=== PATIENT | male | born 1985 | race Caucasian/White ===

== ENCOUNTER 2017-03-13 20:00 | Emergency (ER) | payer OTHER ==
[2017-03-13 20:09] VITALS: BP 118/83; PULSE 104; TEMP 98.6; BMI 32.5
--- NOTE | 2017-03-13 21:20 | PDOC ---
History of Present Illness - History of Present Illness Initial Comments: 03/13/17 21:20 The patient is a 31 year old male, with a significant past medical history of diabetes and osteomyelitis (right foot), who presents to the emergency department with discomfort to his left lower extremity requesting the removal of his LLE cast which was placed by Dr. Carrillo ([facility] Podiatry resident) on 03/09/17 to unload the pressure from a diabetic ulcer. He reports his ulcer is located on the plantar aspect of his left foot near his 1st toe. The patient reports the cast got wet in the rain today and his left foot now feels humid and tight, and also complains of left knee pain. He states his left lower extremity has been uncomfortable since the cast was placed and now that his foot is wet inside the cast, requests the cast be taken off. He states he went to [facility] ED prior to coming to [place], however, their ED staff informed his they do not have the proper equipment to remove the cast tonight. He denies chest pain, shortness of breath, headache and dizziness. He denies fever, chills, nausea, vomit, diarrhea and constipation. He denies dysuria, frequency, urgency and hematuria. Allergies: NKDA Past surgical history: right 5th toe amputation <Dominique Baez - Last Filed: 03/13/17 21:20> <Chau Regalado - Last Filed: 03/13/17 21:42> - General Chief Complaint: Wound Stated Complaint: WOUND INFECTION Time Seen by Provider: 03/13/17 20:10 Past History <Dominique Baez - Last Filed: 03/13/17 21:20> - Past Medical History Anemia: No Asthma: No Cancer: No Cardiac Disorders: No CVA: No COPD: No CHF: No Dementia: No Diabetes: Yes GI Disorders: No Disorders: No HTN: No Hypercholesterolemia: No Liver Disease: No Seizures: No Thyroid Disease: No Other medical history: osteomyelitis - Surgical History Abdominal Surgery: No Appendectomy: No Cardiac Surgery: No Cholecystectomy: No Lung Surgery: No Neurologic Surgery: No Orthopedic Surgery: No - Psycho/Social/Smoking Cessation Hx Suicidal Ideation: No Smoking History: Current every day smoker Have you smoked in the past 12 months: Yes Number of Cigarettes Smoked Daily: 20 Information on smoking cessation initiated: No <Chau Regalado - Last Filed: 03/13/17 21:42> - Past Medical History Allergies/Adverse Reactions: Allergies Allergy/AdvReac Type Severity Reaction Status Date / Time No Known Allergies Allergy Verified 03/13/17 20:05 Home Medications: Ambulatory Orders Humalog ACHS 12/27/15 Insulin Glargine,Hum.rec.anlog [Lantus (10mL VIAL) -] 42 units SQ HS 12/27/15 Quetiapine Fumarate "Xr" [Seroquel XR] 200 mg PO DAILY 12/27/15 Zolpidem Tartrate [Ambien] 10 mg PO HS PRN 03/13/17 Review of Systems - Review of Systems Able to Perform ROS?: Yes Comments:: 03/13/17 21:20 CONSTITUTIONAL: No fever, no chills, no fatigue EYES: No visual changes ENT: No ear pain, no sore throat CARDIOVASCULAR: No chest pain, no palpitations RESPIRATORY: No cough, no SOB GI: No abdominal pain, no nausea, no vomiting, no constipation, no diarrhea GENITOURINARY: No dysuria, no frequency, no hematuria MUSKULOSKELETAL: (+) Left lower extremity discomfort from cast. No backpain, no joint pain, no myalgias SKIN: No rash NEURO: No headache <Dominique Baez - Last Filed: 03/13/17 21:20> *Physical Exam - Vital Signs Last Vital Signs Temp Pulse Resp BP Pulse Ox 98.6 F 104 H 16 118/83 100 03/13/17 20:07 03/13/17 20:07 03/13/17 20:07 03/13/17 20:07 03/13/17 20:07 - Physical Exam Comments: 03/13/17 21:21 CONSTITUTIONAL: Well-appearing; well-nourished; in no apparent distress HEAD: Normocephalic; atraumatic EYES: PERRL; EOM intact ENMT: External appears normal; normal oropharynx NECK: Supple; non-tender; no cervical lymphadenopathy CARD: Normal S1, S2; no murmurs, rubs, or gallops RESP: Normal chest excursion with respiration; breath sounds clear and equal bilaterally; no wheezes, rhonchi, or rales ABD: Soft, non-distended; non-tender; no palpable organomegaly, no palpable hernias SKIN: Warm, dry, no rash NEURO: No focal neurological deficiencies. <Dominique Baez - Last Filed: 03/13/17 21:20> - Vital Signs Last Vital Signs Temp Pulse Resp BP Pulse Ox 98.6 F 104 H 16 118/83 100 03/13/17 20:07 03/13/17 20:07 03/13/17 20:07 03/13/17 20:07 03/13/17 20:07 - Physical Exam Comments: 03/13/17 21:23 EXTR: LLE: Short leg cast in place with the distal part appearing to be wet and partially torn. Short cast leg removed with resolution of patient's leg discomfort. There appears to be a stage I foot ulcer over the plantar aspect of the first MTP. There is no evidence of cellulitis or osteomyelitis at this time. <Chau Regalado - Last Filed: 03/13/17 21:42> Medical Decision Making - Medical Decision Making 03/13/17 21:42 Patient is a 32-year-old male with history of diabetes who presents with left lower extremity discomfort due to a short leg cast placed by podiatry service of [facility]. Short leg cast has been removed without complications. Patient's symptoms resolved. Stage I foot ulcer noted (no evidence of acute infection). We'll discharge. <Chau Regalado - Last Filed: 03/13/17 21:42> *DC/Admit/Observation/Transfer - Attestations Scribe Attestion: 03/13/17 21:21 Documentation prepared by Dominique Baez, acting as lpn medical assistant for Chau Regalado MD <Dominique Baez - Last Filed: 03/13/17 21:20> - Discharge Dispostion Admit: No - Attestations Physician Attestion: 03/13/17 21:22 The documentation was prepared by the scribe under my direct supervision. I have reviewed the documentation which correctly represents the findings, medical decision-making and critical action taken by me. <Chau Regalado - Last Filed: 03/13/17 21:42> Diagnosis at time of Disposition: Cast removal Foot ulcer Qualifiers: Laterality: left Non-pressure ulcer stage: limited to breakdown of skin Qualified Code(s): L97.521 - Non-pressure chronic ulcer of other part of left foot limited to breakdown of skin - Referrals Referrals: Pacheco Woodall [Primary Care Provider] - - Patient Instructions Printed Discharge Instructions: How to Prevent Pressure Ulcers
== END 2017-03-13 21:30 | disposition home or self-care (01) ==
LOC: JER 20:00
PROC: 2W5 Placement, Anatomical Regions, Removal (ICD-10-PCS; principal; 2017-03-13)
DX: E10.621 Type 1 diabetes mellitus with foot ulcer (principal); L97.524 Non-pressure chronic ulcer of other part of left foot with necrosis of bone; Z79.4 Long term (current) use of insulin; F17.210 Nicotine dependence, cigarettes, uncomplicated
CPT/HCPCS: 29799; 99281-25

== ENCOUNTER 2018-08-13 19:36 | Emergency (ER) | payer OTHER ==
[2018-08-13 19:46] VITALS: TEMP 99; BMI 34.9
[2018-08-13] MEDS ORDERED: MAG HYDROX/AL HYDROX/SIMETH 30 ML UNIT-DOSE CUP PO ONE (20:05)
--- NOTE | 2018-08-13 20:11 | PDOC ---
History of Present Illness - General Chief Complaint: Pain Stated Complaint: CHEST PAIN Time Seen by Provider: 08/13/18 19:50 - History of Present Illness Initial Comments: 32 yo M w/ a hx of T1DM, diabetic neuropathy, retinopathy, osteomylitis, HTN, HCL who presents to the [facility] ER with the CC of chest discomfort and food getting stuck in his chest after he eats. For the past 2 weeks after he eats he feels like he is choking and the food is not going down properly, solids more so than liquids. After he eats he has this chest discomfort which he believes is bc the food is stuck in his throat. He came in today because the sensation has worsened to the point where he feels short of breath after he eats. He denies any nausea, vomiting, diarrhea or constipation. Patient admits to smoking 1 PPD for many years. Denies recent fevers, chills or infections. Denies any urinary or bowel complaints. Denies current SOB or difficulty breathing. Sexual History: Engaged to a male fiance PCP: Pacheco Lepe Hx: 1 PPD. Denies alcohol or illicit drug usage Allergies: NKA, NKDA Past History - Past Medical History Allergies/Adverse Reactions: Allergies Allergy/AdvReac Type Severity Reaction Status Date / Time No Known Allergies Allergy Verified 08/13/18 19:46 Home Medications: Ambulatory Orders Amlodipine Besylate [Norvasc -] 10 mg PO DAILY 08/13/18 Benazepril HCl [Lotensin] 10 mg PO DAILY 08/13/18 Insulin Lispro [Humalog] 24 unit SQ ASDIR 08/13/18 Mag Hydrox/Al Hydrox/Simeth [Mylanta Suspension -] 30 ml PO Q6H #1 bottle Quetiapine Fumarate [Seroquel -] 200 mg PO HS 08/13/18 Ranitidine HCl [Zantac] 300 mg PO PRN #20 tablet 08/13/18 Sucralfate [Carafate -] 1 gm PO PRN #10 tablet 08/13/18 Zolpidem Tartrate [Ambien] 10 mg PO DAILY 08/13/18 Anemia: No Asthma: No Cancer: No Cardiac Disorders: No CVA: No COPD: No CHF: No Dementia: No Diabetes: Yes GI Disorders: No Disorders: No HTN: No Hypercholesterolemia: No Liver Disease: No Seizures: No Thyroid Disease: No - Surgical History Abdominal Surgery: No Appendectomy: No Cardiac Surgery: No Cholecystectomy: No Lung Surgery: No Neurologic Surgery: No Orthopedic Surgery: No - Suicide/Smoking/Psychosocial Hx Smoking History: Current every day smoker Have you smoked in the past 12 months: Yes Number of Cigarettes Smoked Daily: 20 Information on smoking cessation initiated: No Review of Systems - Review of Systems Comments:: CONSTITUTIONAL: Absent: fever, chills, diaphoresis, generalized weakness, malaise, loss of appetite HEENT: Absent: rhinorrhea, nasal congestion, throat pain, throat swelling, difficulty swallowing, mouth swelling, ear pain, eye pain, visual Changes CARDIOVASCULAR: Present: Chest pain Absent: syncope, palpitations, irregular heart rate, lightheadedness, peripheral edema RESPIRATORY: Present: Cough, shortness of breath Absent: dyspnea with exertion, orthopnea, wheezing, stridor, hemoptysis GASTROINTESTINAL: Absent: abdominal pain, abdominal distension, nausea, vomiting, diarrhea, constipation, melena, hematochezia GENITOURINARY: Absent: dysuria, frequency, urgency, hesitancy, hematuria, flank pain, genital pain MUSCULOSKELETAL: Absent: myalgia, arthralgia, joint swelling SKIN: Absent: rash, itching, pallor HEMATOLOGIC/IMMUNOLOGIC: Absent: easy bleeding, easy bruising, lymphadenopathy, frequent infections ENDOCRINE: Absent: unexplained weight gain, unexplained weight loss, heat intolerance, cold intolerance NEUROLOGIC: Absent: headache, focal weakness or paresthesias, dizziness, unsteady gait, seizure, mental status changes, bladder or bowel incontinence PSYCHIATRIC: Absent: anxiety, depression, suicidal or homicidal ideation, hallucinations. *Physical Exam - Vital Signs Last Vital Signs Temp Pulse Resp BP Pulse Ox 99 F 110 H 18 147/93 99 08/13/18 19:38 08/13/18 19:38 08/13/18 19:38 08/13/18 19:38 08/13/18 19:38 - Physical Exam Comments: GENERAL: Well developed, well nourished. Awake and alert. No acute distress. HEENT: Normocephalic, atraumatic. PERRLA, EOMI. No conjunctival pallor. Sclera are non- icteric. Moist mucous membranes. Oropharynx is clear. NECK: Supple. Full ROM. No JVD. No thyromegaly. No lymphadenopathy. CARDIOVASCULAR: Tachycardic rate and regular rhythm. No murmurs, rubs, or gallops. Distal pulses are 2+ and symmetric. PULMONARY: No evidence of respiratory distress. Lungs clear to auscultation bilaterally. No wheezing, rales or rhonchi. ABDOMINAL: Soft. Non-tender. Non-distended. No rebound or guarding. No organomegaly. Normoactive bowel sounds. MUSCULOSKELETAL Normal range of motion at all joints. No bony deformities or tenderness. No CVA tenderness. EXTREMITIES: No cyanosis. No clubbing. No edema. No calf tenderness. SKIN: Warm and dry. Normal capillary refill. No rashes. No jaundice. NEUROLOGICAL: Alert, awake, appropriate. Cranial nerves 2-12 intact. No deficits to light touch in face, upper extremities and lower extremities. No motor deficits in the in face, upper extremities and lower extremities. Normal speech. Gait is normal without ataxia. PSYCHIATRIC: Cooperative. Good eye contact. Appropriate mood and affect. Heart Score/ECG Review - Risk Factors Risk Factors Heart Score: Yes Hx Hypercholesterolemia, Yes Hx Hypertension, Yes Hx Diabetes, Yes Smoking History, Yes Hx Obesity - Troponin Troponin: </= normal limit - ECG Intrepretation Rhythm: Regular Rhythm - [place]: Normal - ST and T Early Repolarization: No Non Specific ST-T Wave changes: No - ECG Impressions Tachycardia: Sinus ED Treatment Course - LABORATORY CBC & Chemistry Diagram: 08/13/18 20:20 08/13/18 20:20 Medical Decision Making - Medical Decision Making 32 yo M w/ a hx of T1DM, diabetic neuropathy, retinopathy, osteomylitis, HTN, HCL who presents to the [facility] ER with the CC of chest discomfort and food getting stuck in his chest after he eats. DD includes but not limited to: rob esophagus, achalasia, PUD, GERD, Foreign body, esophageal stricture, ACS, diverticulum. Plan: Cbc, Cmp, Trop, lipase, EKG, CXR, maalox, pepcid, sucralafate, fluids, re- assess. After fluids patients HR went down to 88. BUN - 31, Cr - 1.4 Will give patient fluids to rehydrate Trop, lipase, Cbc, EKG, CXR, are unremarkable and WNL. Patient feels better after GI cocktail and would like to go home. We will DC with outpatient GI referall, sucralafate, zantac, and maalox. *DC/Admit/Observation/Transfer Diagnosis at time of Disposition: Epigastric pain - Discharge Dispostion Disposition: HOME Condition at time of disposition: Improved Decision to Admit order: No - Prescriptions Prescriptions: Mag Hydrox/Al Hydrox/Simeth [Mylanta Suspension -] 30 ml PO Q6H #1 bottle Ranitidine HCl [Zantac] 300 mg PO PRN #20 tablet Sucralfate [Carafate -] 1 gm PO PRN #10 tablet - Referrals Referrals: Pacheco Woodall [Primary Care Provider] - Dylan Montanez MD [Staff Physician] - - Patient Instructions Printed Discharge Instructions: Gastroesophageal Reflux Disease (Alternative Therapy), Heartburn -- Overview, DI for Epigastric Pain Additional Instructions: You came into the ER with pain in your chest and food getting stuck in your throat after you eat. We gave you some medications which relieved your discomfort. We will send prescriptions of these medications to your pharmacy. Please make sure to go and pick them up. It is very important for you to schedule an appointment with a systems specialist as soon as possible to have an endoscopy. We are attaching a systems specialist number for you to call and schedule an appointment with in the next 3 to 5 days. Please come back to the emergency room if your pain worsens, you can't breathe, get a high fever, or have any other new or worsening concerns. Thank you for coming to the [facility] ER. We hope you feel better soon! Print Language: SWEDISH - Post Discharge Activity
--- NOTE | 2018-08-13 20:11 | PDOC ---
Attending Attestation - Resident Resident Name: Danial Agudelo - ED Attending Attestation I have performed the following: I have examined & evaluated the patient, The case was reviewed & discussed with the resident, I agree w/resident's findings & plan, Exceptions are as noted - HPI HPI: 32 yo M history DM, HTN presents with difficulty swallowing. He states that he has had difficulty controlling his diabetes, but has been missing morning doses of insulin. He notes that he has pain in the center of his chest when he swallows food, sensation that it gets stuck. No regurgitation. Worse at night. He also notes that he eats right before bed and has had a significant weight gain over the past year due to overeating. - Physicial Exam PE: GENERAL: Awake, alert, and fully oriented, in no acute distress. Obese. HEAD: No signs of trauma EYES: PERRLA, EOMI, sclera anicteric, conjunctiva clear ENT: Auricles normal inspection, hearing grossly normal, nares patent, oropharynx clear without exudates. Moist mucosa NECK: Normal ROM, supple, no lymphadenopathy, JVD, or masses LUNGS: Breath sounds equal, clear to auscultation bilaterally. No wheezes, and no crackles HEART: Regular rate and rhythm, normal S1 and S2, no murmurs, rubs or gallops ABDOMEN: Soft, nontender, normoactive bowel sounds. No guarding, no rebound. No masses EXTREMITIES: Normal range of motion, no edema. No clubbing or cyanosis. No cords, erythema, or tenderness NEUROLOGICAL: Cranial nerves II through XII grossly intact. Normal speech, normal gait SKIN: Warm, Dry, normal turgor, no rashes or lesions noted. - Medical Decision Making Symptoms suspicious for PUD/GERD. Less likely ACS. Will obtain labs, EKG, and give GI cocktail. Outpatient GI referral.
[2018-08-13] MEDS ORDERED: SODIUM CHLORIDE 0.9% 500 ML INFUS.BAG IV ONE (20:18)
[2018-08-13] MEDS ORDERED: FAMOTIDINE 20 MG/50 ML IVPB 20 MG/50 ML MG IVPB ONE (20:19)
[2018-08-13] MEDS ORDERED: MAG HYDROX/AL HYDROX/SIMETH 30 ML UNIT-DOSE CUP ONE (20:24)
[2018-08-13 20:30] LABS: BASO % 1.1 % (0-2.0); EOS % 2.1 % (0-4.5); HEMATOCRIT 36.8 % (35.4-49); HEMOGLOBIN 12.8 GM/dL (11.7-16.9); LYMPH % 15.2 % (8-40); MCH 28.9 pg (25.7-33.7); MCHC 34.7 g/dl (32.0-35.9); MEAN CELL VOLUME 83.2 fl (80-96); MEAN PLT VOLUME 8.3 fl (7.5-11.1); MONO % 7.3 % (3.8-10.2); NEUT % 74.3 % (42.8-82.8); PLATELET COUNT 255 K/MM3 (134-434); RBC 4.43 M/mm3 (4.00-5.60); RDW 13.9 % (11.9-15.9); WHITE BLOOD COUNT 10.4 K/mm3 (4.0-10.0)
[2018-08-13] MEDS ORDERED: RANITIDINE HCL 150 MG TABLET (FP) PO ONE (20:45)
[2018-08-13] MEDS ORDERED: SUCRALFATE 1 GM TABLET (FP) PO ONE (20:46)
[2018-08-13 20:56] LABS: ALBUMIN 2.8 g/dl (3.4-5.0); ALK PHOS 104 U/L (45-117); ANION GAP -2 MMOL/L (8-16); BILIRUBIN,TOTAL 0.2 mg/dL (0.2-1); BLOOD UREA NITROGEN 31 mg/dL (7-18); CALCIUM 8.5 mg/dL (8.5-10.1); CHLORIDE 110 mmol/L (98-107); CO2 27 mmol/L (21-32); CREATININE 1.4 mg/dL (0.55-1.3); GLUCOSE,RANDOM 140 mg/dL (74-106); LIPASE 346 U/L (73-393); POTASSIUM 4.1 mmol/L (3.5-5.1); SGOT/AST 14 U/L (15-37); SGPT/ALT 22 U/L (13-61); SODIUM 134 mmol/L (136-145); TOT PROT 6.7 g/dl (6.4-8.2)
[2018-08-13] MEDS ORDERED: SUCRALFATE 1 GM TABLET (FP) ONE (21:19)
[2018-08-13] MEDS ORDERED: RANITIDINE HCL 150 MG TABLET (FP) ONE (21:19)
[2018-08-13 22:48] VITALS: BP 144/89; PULSE 85
--- NOTE | 2018-08-14 10:51 | EKG ---
Test Reason : Blood Pressure : / mmHG Vent. Rate : 101 BPM Atrial Rate : 101 BPM P-R Int : 146 ms QRS Dur : 076 ms QT Int : 344 ms P-R-T Axes : 040 082 038 degrees QTc Int : 446 ms SINUS TACHYCARDIA OTHERWISE NORMAL ECG NO PREVIOUS ECGS AVAILABLE Confirmed by LOGAN TELLEZ MD ([id number]) on 08/14/2018 10:50:50 AM Referred By: Confirmed By:LOGAN TELLEZ MD
== END 2018-08-13 22:47 | disposition home or self-care (01) ==
LOC: JER 19:36
PROC: 3E033GC Introduction of Other Therapeutic Substance into Peripheral Vein, Percutaneous Approach (ICD-10-PCS; principal; 2018-08-13)
DX: R10.13 Epigastric pain (principal); E10.40 Type 1 diabetes mellitus with diabetic neuropathy, unspecified; E10.319 Type 1 diabetes mellitus with unspecified diabetic retinopathy without macular edema; Z79.4 Long term (current) use of insulin; I10 Essential (primary) hypertension; E78.00 Pure hypercholesterolemia, unspecified; F17.210 Nicotine dependence, cigarettes, uncomplicated
CPT/HCPCS: 36415; 71046-TC-FY; 80053; 83690; 84484; 85025; 93005; 93010; 96365; 99282-25

== ENCOUNTER 2018-12-16 12:53 | Inpatient (IN) | payer OTHER ==
--- NOTE | 2018-12-16 14:06 | PDOC ---
History of Present Illness - General History Source: Patient Exam Limitations: No Limitations - History of Present Illness Initial Comments: 12/16/18 15:15 The patient is a 33 year old male, with a significant PMH of hypertension, diabetes mellitus, morbid obesity, depression and anxiety, who presents to the emergency department with 3 weeks of worsening bilateral lower extremity edema. The patient states the bilateral lower extremity edema now extends up to his groin and lower abdomen. The patient states he has difficulty with ambulation secondary to the bilateral lower extremity edema. The patient also endorses shortness of breath on exertion when he walks approx 1 block. The patient states he used to be able to walk 2-3 blocks before becoming short of breath. The patient also endorses chest pain when he coughs. The patient denies palpitations, lightheadedness, headache and dizziness. Denies fever, chills, nausea, vomit, diarrhea and constipation. Denies dysuria, frequency, urgency and hematuria. Allergies: NKA <Danial Spangler - Last Filed: 12/16/18 15:15> <Tarik Cueva - Last Filed: 12/16/18 17:23> - General Chief Complaint: Edema Stated Complaint: TEST SCHEDULED Time Seen by Provider: 12/16/18 13:57 Past History <Danial Spangler - Last Filed: 12/16/18 15:15> - Past Medical History Anemia: No Asthma: No Cancer: No Cardiac Disorders: No CVA: No COPD: No CHF: No Dementia: No Diabetes: Yes GI Disorders: No Disorders: No HTN: Yes Hypercholesterolemia: Yes Liver Disease: No Seizures: No Thyroid Disease: No - Surgical History Abdominal Surgery: No Appendectomy: No Cardiac Surgery: No Cholecystectomy: No Lung Surgery: No Neurologic Surgery: No Orthopedic Surgery: No - Suicide/Smoking/Psychosocial Hx Smoking History: Current every day smoker Have you smoked in the past 12 months: Yes Number of Cigarettes Smoked Daily: 20 Information on smoking cessation initiated: No <Tarik Cueva - Last Filed: 12/16/18 17:23> - Past Medical History Allergies/Adverse Reactions: Allergies Allergy/AdvReac Type Severity Reaction Status Date / Time No Known Allergies Allergy Verified 12/16/18 13:12 Home Medications: Ambulatory Orders Amlodipine Besylate [Norvasc -] 10 mg PO DAILY 08/13/18 Benazepril HCl [Lotensin] 10 mg PO DAILY 10/13/18 Insulin Lispro [Humalog] 22 unit SQ ASDIR 08/13/18 Mag Hydrox/Al Hydrox/Simeth [Mylanta Suspension -] 30 ml PO Q6H #1 bottle Quetiapine Fumarate [Seroquel -] 200 mg PO HS 08/13/18 Ranitidine HCl [Zantac] 300 mg PO PRN #20 tablet 08/13/18 Sucralfate [Carafate -] 1 gm PO PRN #10 tablet 08/13/18 Zolpidem Tartrate [Ambien] 10 mg PO DAILY 08/13/18 Insulin Degludec [Tresiba] 42 unit SQ HS 12/16/18 Losartan Potassium [Cozaar] 25 mg PO DAILY 12/16/18 Review of Systems - Review of Systems Comments:: 12/16/18 15:15 ROS: A complete review of 10 out of 10 review of systems is taken and is negative apart from what is previously mentioned below and in the HPI. <Danial Spangler - Last Filed: 12/16/18 15:15> *Physical Exam - Vital Signs Last Vital Signs Temp Pulse Resp BP Pulse Ox 98.6 F 91 H 20 170/100 98 12/16/18 13:14 12/16/18 13:14 12/16/18 13:14 12/16/18 13:14 12/16/18 14:27 - Physical Exam Comments: 12/16/18 15:15 Vitals: Triage vital signs reviewed General Appearance: No acute distress, well nourished, well developed Head: Atraumatic Neck: Supple; No nuchal rigidity Chest Wall: Nontender Cardiac: Regular rate and rhythm, no murmurs, no rubs, no gallops Lungs: Clear to auscultation bilateral, good air movement bilaterally Abdomen: Soft, nondistended, normal bowel sounds, nontender to palpation Rectal: Exam deferred Extremities: (+) 3+ bilateral lower extremity pitting edema. Full range of motion to all extremities, no cyanosis, clubbing. Skin: Warm and dry, no rashes or lesions, no rash, no petechiae Neuro: AOX3; Cranial Nerves 2-12 grossly intact, Strength intact to all extremities, Sensation intact to all extremities Psych: Normal mood, normal affect <Danial Spangler - Last Filed: 12/16/18 15:15> - Vital Signs Last Vital Signs Temp Pulse Resp BP Pulse Ox 98.6 F 91 H 20 170/100 98 12/16/18 13:14 12/16/18 13:14 12/16/18 13:14 12/16/18 13:14 12/16/18 13:14 <Tarik Cueva - Last Filed: 12/16/18 17:23> Moderate Sedation - Procedure Monitoring Vital Signs: Procedure Monitoring Vital Signs Temperature 98.6 F 12/16/18 13:14 Pulse Rate 91 H 12/16/18 13:14 Respiratory Rate 20 12/16/18 13:14 Blood Pressure 170/100 12/16/18 13:14 O2 Sat by Pulse Oximetry (%) 98 12/16/18 14:27 <Danial Spangler - Last Filed: 12/16/18 15:15> - Procedure Monitoring Vital Signs: Procedure Monitoring Vital Signs Temperature 98.6 F 12/16/18 13:14 Pulse Rate 91 H 12/16/18 13:14 Respiratory Rate 20 12/16/18 13:14 Blood Pressure 170/100 12/16/18 13:14 O2 Sat by Pulse Oximetry (%) 98 12/16/18 13:14 <Tarik Cueva - Last Filed: 12/16/18 17:23> Heart Score/ECG Review - ECG Impressions Comment:: 12/16/18 17:22 EKG performed at 1413 demonstrates normal sinus rhythm [address] elevations or T-wave inversions Interpreted by me. <Tarik Cueva - Last Filed: 12/16/18 17:23> ED Treatment Course - LABORATORY CBC & Chemistry Diagram: 12/16/18 14:50 12/16/18 14:03 <Danial Spangler - Last Filed: 12/16/18 15:15> - LABORATORY CBC & Chemistry Diagram: 12/16/18 14:50 12/16/18 14:03 - RADIOLOGY Radiology Studies Ordered: Category Date Time Status CXRPORT [CHEST X-RAY PORTABLE*] [RAD] Stat Radiology 12/16/18 14:03 Ordered <Tarik Cueva - Last Filed: 12/16/18 17:23> Medical Decision Making - Medical Decision Making 12/16/18 17:21 The patient is a 33 year old male, with a significant PMH of hypertension, diabetes mellitus, morbid obesity, depression and anxiety, who presents to the emergency department with 3 weeks of worsening bilateral lower extremity edema. The patient states the bilateral lower extremity edema now extends up to his groin and lower abdomen. The patient states he has difficulty with ambulation secondary to the bilateral lower extremity edema. The patient also endorses shortness of breath on exertion when he walks approx 1 block. The patient states he used to be able to walk 2-3 blocks before becoming short of breath. The patient also endorses chest pain when he coughs. Examination patient with marked anasarca extending up to his lower abdomen secondary to this patient has been unable to transfer with significant dyspnea with minimal exertion It appears the patient was prescribed Lasix 2 weeks ago but was noncompliant with this given pain difficulty transferring and severe dyspnea with exertion we 'll observe overnight for IV diuretics nephrology consultation and further management <Tarik Cueva - Last Filed: 12/16/18 17:23> *DC/Admit/Observation/Transfer - Attestations Scribe Attestion: 12/16/18 15:17 Documentation prepared by Danial Spangler, acting as medical laboratory technical officer for Tarik Cueva MD. <Danial Spangler - Last Filed: 12/16/18 15:15> - Discharge Dispostion Decision to Admit order: Yes <Tarik Cueva - Last Filed: 12/16/18 17:23> Diagnosis at time of Disposition: Anasarca - Discharge Dispostion Condition at time of disposition: Good
--- NOTE | 2018-12-16 14:59 | EKG ---
Test Reason : Blood Pressure : / mmHG Vent. Rate : 087 BPM Atrial Rate : 087 BPM P-R Int : 156 ms QRS Dur : 082 ms QT Int : 356 ms P-R-T Axes : 032 082 028 degrees QTc Int : 428 ms NORMAL SINUS RHYTHM NORMAL ECG WHEN COMPARED WITH ECG OF 13-AUG-2018 19:37, NO SIGNIFICANT CHANGE WAS FOUND Confirmed by LOGAN TELLEZ MD ([id number]) on 12/16/2018 2:59:10 PM Referred By: Confirmed By:LOGAN TELLEZ MD
[2018-12-16 15:12] LABS: BASO % 0.8 % (0-2.0); EOS % 2.8 % (0-4.5); HEMATOCRIT 29.2 % (35.4-49); HEMOGLOBIN 9.8 GM/dL (11.7-16.9); LYMPH % 18.1 % (8-40); MCH 27.8 pg (25.7-33.7); MCHC 33.4 g/dl (32.0-35.9); MEAN CELL VOLUME 83.2 fl (80-96); MEAN PLT VOLUME 7.8 fl (7.5-11.1); NEUT % 69.3 % (42.8-82.8); PLATELET COUNT 241 K/MM3 (134-434); RBC 3.51 M/mm3 (4.00-5.60); RDW 15.3 % (11.9-15.9); WHITE BLOOD COUNT 6.2 K/mm3 (4.0-10.0)
[2018-12-16 15:38] LABS: ALBUMIN 2.3 g/dl (3.4-5.0); ALK PHOS 77 U/L (45-117); ANION GAP 6 MMOL/L (8-16); BILIRUBIN,TOTAL 0.2 mg/dL (0.2-1); BLOOD UREA NITROGEN 24 mg/dL (7-18); CALCIUM 8.2 mg/dL (8.5-10.1); CHLORIDE 110 mmol/L (98-107); CO2 26 mmol/L (21-32); CREATININE 1.7 mg/dL (0.55-1.3); GLUCOSE,RANDOM 229 mg/dL (74-106); N-TERMINAL BNP 623.7 pg/ml (5-125); POTASSIUM 4.6 mmol/L (3.5-5.1); SGOT/AST 16 U/L (15-37); SGPT/ALT 22 U/L (13-61); SODIUM 142 mmol/L (136-145); TOT PROT 5.6 g/dl (6.4-8.2)
[2018-12-16] MEDS ORDERED: FUROSEMIDE 40 MG/4 ML INJECTABLE VIAL IVPUSH ONE (16:15)
--- NOTE | 2018-12-16 16:41 | CONSULT ---
Consult Consult Specialty:: Nephrology Reason for Consultation:: CKD - History of Present Illness Chief Complaint: sent in for fluid overload History of Present Illness: Pt is a 33 year old male with pmhx of CKD, HTN, DM, obesity, depression and anxiety who was sent in to the ER for worsening lower ext edema. He complains of worsening edema and shortness of breath while laying flat. He has history of CKD and htn which is poorly controlled. He denies chest pain. He denies dysuria or hematuria. He has seen Dr Fountain and they discussed kidney biopsy in the past. He denies nsaid use. - History Source History Provided By: Patient, Medical Record - Past Medical History Cardio/Vascular: Yes: HTN Renal/: Yes: Renal Inusuff Psych: Yes: Anxiety, Depression Endocrine: Yes: Diabetes Mellitus - Smoking History Smoking history: Current every day smoker Have you smoked in the past 12 months: Yes Aproximately how many cigarettes per day: 20 Home Medications - Allergies Allergies/Adverse Reactions: Allergies Allergy/AdvReac Type Severity Reaction Status Date / Time No Known Allergies Allergy Verified 12/16/18 13:12 - Home Medications Home Medications: Ambulatory Orders Amlodipine Besylate [Norvasc -] 10 mg PO DAILY 08/13/18 Benazepril HCl [Lotensin] 10 mg PO DAILY 08/13/18 Insulin Lispro [Humalog] 22 unit SQ ASDIR 08/13/18 Mag Hydrox/Al Hydrox/Simeth [Mylanta Suspension -] 30 ml PO Q6H #1 bottle Quetiapine Fumarate [Seroquel -] 200 mg PO HS 08/13/18 Ranitidine HCl [Zantac] 300 mg PO PRN #20 tablet 08/13/18 Sucralfate [Carafate -] 1 gm PO PRN #10 tablet 08/13/18 Zolpidem Tartrate [Ambien] 10 mg PO DAILY 08/13/18 Insulin Degludec [Tresiba] 42 unit SQ HS 12/16/18 Losartan Potassium [Cozaar] 25 mg PO DAILY 12/16/18 Family Disease History - Family Disease History Family History: Denies Review of Systems - Review of Systems Constitutional: reports: Malaise Eyes: reports: No Symptoms HENT: reports: No Symptoms Neck: reports: No Symptoms Cardiovascular: reports: Edema, Shortness of Breath. denies: Chest Pain Respiratory: reports: Orthopnea, SOB on Exertion Gastrointestinal: reports: No Symptoms Genitourinary: reports: No Symptoms Musculoskeletal: reports: No Symptoms Neurological: reports: No Symptoms Endocrine: reports: No Symptoms Hematology/Lymphatic: reports: No Symptoms Psychiatric: reports: No Symptoms Physical Exam Vital Signs: Vital Signs Temperature 98.6 F 12/16/18 13:14 Pulse Rate 91 H 12/16/18 13:14 Respiratory Rate 20 12/16/18 13:14 Blood Pressure 170/100 12/16/18 13:14 O2 Sat by Pulse Oximetry (%) 98 12/16/18 14:27 Constitutional: Yes: Calm Eyes: Yes: Conjunctiva Clear HENT: Yes: Atraumatic Cardiovascular: Yes: S1, S2 Respiratory: Yes: CTA Bilaterally Gastrointestinal: Yes: Soft Renal/: Yes: WNL Musculoskeletal: Yes: WNL Edema: Yes Edema: LLE: 2+, RLE: 2+ Integumentary: Yes: Tattoos Neurological: Yes: Oriented Psychiatric: Yes: Oriented Labs: CBC, BMP 12/16/18 14:50 12/16/18 14:03 Laboratory Tests 08/13/18 10/07/18 12/16/18 20:20 13:25 14:03 WBC Hgb Plt Count Sodium 142 Potassium 4.6 Chloride 110 H Carbon Dioxide 26 Anion Gap 6 L BUN 24 H Creatinine 1.4 H 1.8 H 1.7 H B-Natriuretic Peptide 623.7 H 12/16/18 14:50 WBC 6.2 Hgb 9.8 L Plt Count 241 D Sodium Potassium Chloride Carbon Dioxide Anion Gap BUN Creatinine B-Natriuretic Peptide Imaging - Results Chest X-ray: Report Reviewed Problem List - Problems (1) HTN (hypertension) Code(s): I10 - ESSENTIAL (PRIMARY) HYPERTENSION (2) CKD (chronic kidney disease) Code(s): N18.9 - CHRONIC KIDNEY DISEASE, UNSPECIFIED (3) Diabetes mellitus Code(s): E11.9 - TYPE 2 DIABETES MELLITUS WITHOUT COMPLICATIONS (4) Obesity Code(s): E66.9 - OBESITY, UNSPECIFIED Assessment/Plan Impression 1. CKD 2. HTN 3. DM 4. obesity 5. volume overload Plan - agree with lasix - check ua - send urine prt to [facility] - wll call office to see how much of his renal workup was done - 2 grams sodium diet - monitor bp, repeat bp after he gets his meds - discussed with ER
--- NOTE | 2018-12-16 17:02 | HP ---
Admitting History and Physical - Primary Care Physician PCP: Pacheco Woodall - Admission Chief Complaint: LINARES ,weight gain,legedema History of Present Illness: The patient is a 33 year old male, with a significant PMH of hypertension, diabetes mellitus, morbid obesity, depression and anxiety, who presents to the emergency department with 3 weeks of worsening bilateral lower extremity edema. The patient states the bilateral lower extremity edema now extends up to his groin and lower abdomen. The patient states he has difficulty with ambulation secondary to the bilateral lower extremity edema. The patient also endorses shortness of breath on exertion when he walks approx 1 block. The patient states he used to be able to walk 2-3 blocks before becoming short of breath. The patient also endorses chest pain when he coughs, patient saw pmd 2 weeks ago who gave him lasix but he only took two tablets and stopped History Source: Patient, Medical Record - Past Medical History Cardiovascular: Yes: HTN Renal/: Yes: Renal Inusuff Psych: Yes: Anxiety, Depression Endocrine: Yes: Diabetes Mellitus - Smoking History Smoking history: Current every day smoker Have you smoked in the past 12 months: Yes Aproximately how many cigarettes per day: 20 Home Medications - Allergies Allergies/Adverse Reactions: Allergies Allergy/AdvReac Type Severity Reaction Status Date / Time No Known Allergies Allergy Verified 12/16/18 13:12 - Home Medications Home Medications: Ambulatory Orders Amlodipine Besylate [Norvasc -] 10 mg PO DAILY 08/13/18 Benazepril HCl [Lotensin] 10 mg PO DAILY 08/13/18 Insulin Lispro [Humalog] 22 unit SQ ASDIR 08/13/18 Mag Hydrox/Al Hydrox/Simeth [Mylanta Suspension -] 30 ml PO Q6H #1 bottle Quetiapine Fumarate [Seroquel -] 200 mg PO HS 08/13/18 Ranitidine HCl [Zantac] 300 mg PO PRN #20 tablet 08/13/18 Sucralfate [Carafate -] 1 gm PO PRN #10 tablet 08/13/18 Zolpidem Tartrate [Ambien] 10 mg PO DAILY 08/13/18 Insulin Degludec [Tresiba] 42 unit SQ HS 12/16/18 Losartan Potassium [Cozaar] 25 mg PO DAILY 12/16/18 Physical Examination Vital Signs: Vital Signs Temperature 98.6 F 12/16/18 13:14 Pulse Rate 91 H 12/16/18 13:14 Respiratory Rate 20 12/16/18 13:14 Blood Pressure 170/100 12/16/18 13:14 O2 Sat by Pulse Oximetry (%) 98 12/16/18 14:27 Labs: CBC, BMP 12/16/18 14:50 12/16/18 14:03 Problem List - Problems (1) CKD (chronic kidney disease) Assessment/Plan: renal eval noted Code(s): N18.9 - CHRONIC KIDNEY DISEASE, UNSPECIFIED (2) Diabetes mellitus Assessment/Plan: bgm [id number] sliding scale Code(s): E11.9 - TYPE 2 DIABETES MELLITUS WITHOUT COMPLICATIONS Qualifiers: Diabetes mellitus type: type 2 (3) HTN (hypertension) Assessment/Plan: jose desai Code(s): I10 - ESSENTIAL (PRIMARY) HYPERTENSION (4) Venous insufficiency Assessment/Plan: dr dory miguel Code(s): I87.2 - VENOUS INSUFFICIENCY (CHRONIC) (PERIPHERAL)
[2018-12-16] MEDS ORDERED: FUROSEMIDE 40 MG/4 ML INJECTABLE VIAL ONE (17:03)
[2018-12-16 19:10] LABS: URINE APPEARANCE CLEAR; URINE BILIRUBIN NEGATIVE (<2.0 mg/dL); URINE COLOR STRAW; URINE GLUCOSE (UA) 1+ (NEGATIVE); URINE KETONE NEGATIVE (NEGATIVE); URINE LEUK ESTERASE NEGATIVE (NEGATIVE); URINE NITRITE NEGATIVE (NEGATIVE); URINE PROTEIN 2+ (NEGATIVE); URINE UROBILINOGEN NEGATIVE mg/dL (0.2-1.0)
[2018-12-16 19:14] LABS: EPI CELLS RARE /HPF (FEW); URINE MUCUS RARE
[2018-12-16 20:08] LABS: RATIO URIN PROTEIN/URIN CREAT 2.88 MG/DL
[2018-12-16] MEDS: INSULIN SLIDING SCALE (NOVOLOG) 1 VIAL SQ SCH (22:48)
[2018-12-16] MEDS: INSULIN (LEVEMIR) 100 UNITS/ML UNITS SQ SCH (22:49)
[2018-12-16 23:34] VITALS: BMI 41.9
[2018-12-17] MEDS: INSULIN SLIDING SCALE (NOVOLOG) 1 VIAL SQ SCH ×4 (06:01→21:13)
[2018-12-17 08:06] LABS: BASO % 0.9 % (0-2.0); EOS % 2.9 % (0-4.5); HEMATOCRIT 28.7 % (35.4-49); HEMOGLOBIN 9.8 GM/dL (11.7-16.9); LYMPH % 16.4 % (8-40); MCH 28.1 pg (25.7-33.7); MCHC 34.1 g/dl (32.0-35.9); MEAN CELL VOLUME 82.6 fl (80-96); MEAN PLT VOLUME 8.1 fl (7.5-11.1); MONO % 9.8 % (3.8-10.2); PLATELET COUNT 248 K/MM3 (134-434); RBC 3.47 M/mm3 (4.00-5.60); RDW 15.6 % (11.9-15.9); WHITE BLOOD COUNT 6.1 K/mm3 (4.0-10.0)
[2018-12-17 08:39] LABS: INR 1.09 (0.83-1.09); PROTHROMBIN TIME (PATIENT) 12.9 SEC (9.7-13.0)
[2018-12-17 08:42] LABS: ACTIVATED PTT 30.5 SECONDS (25.2-36.5)
[2018-12-17 08:43] LABS: PHOSPHOROUS 3.5 mg/dL (2.5-4.9)
[2018-12-17] MEDS: FUROSEMIDE 40 MG/4 ML INJECTABLE VIAL IVPUSH SCH (09:12)
[2018-12-17] MEDS: LOSARTAN POTASSIUM 50 MG TABLET (FP) PO SCH (09:12)
[2018-12-17] MEDS: amLODIPine BESYLATE 10 MG TABLET (FP) PO SCH (09:12)
[2018-12-17 11:02] LABS: ALBUMIN 2.3 g/dl (3.4-5.0); ALK PHOS 74 U/L (45-117); ANION GAP 7 MMOL/L (8-16); BILIRUBIN,TOTAL 0.2 mg/dL (0.2-1); BLOOD UREA NITROGEN 24 mg/dL (7-18); CALCIUM 7.7 mg/dL (8.5-10.1); CHLORIDE 108 mmol/L (98-107); CO2 26 mmol/L (21-32); CREATININE 1.6 mg/dL (0.55-1.3); GLUCOSE,RANDOM 182 mg/dL (74-106); MAGNESIUM 1.7 mg/dL (1.8-2.4); POTASSIUM 4.3 mmol/L (3.5-5.1); SGOT/AST 12 U/L (15-37); SGPT/ALT 20 U/L (13-61); SODIUM 141 mmol/L (136-145); TOT PROT 5.6 g/dl (6.4-8.2)
--- NOTE | 2018-12-17 11:46 | PN ---
Progress Note, Physician Chief Complaint: B/L lower extremity edema Venous Insufficiency History of Present Illness: Previous notes and events reviewed awake and alert NAD sts b/l lower extremities are feeling less tight but continue to complain of pain - Current Medication List Current Medications: Active Medications Amlodipine Besylate (Norvasc -) 10 mg PO DAILY [facility] Last Admin: 12/17/18 09:12 Dose: 10 mg Furosemide (Lasix Injection -) 40 mg IVPUSH DAILY [facility] Last Admin: 12/17/18 09:12 Dose: 40 mg Insulin Aspart (Novolog Vial Sliding Scale -) 1 vial SQ ACHS [facility]; Protocol Last Admin: 12/17/18 06:01 Dose: 4 units Insulin Detemir (Levemir Vial) 20 units SQ HS [facility] Last Admin: 12/16/18 22:49 Dose: 20 units Losartan Potassium (Cozaar -) 50 mg PO DAILY [facility] Last Admin: 12/17/18 09:12 Dose: 50 mg - Objective Vital Signs: Vital Signs Temperature 98.7 F 12/17/18 09:00 Pulse Rate 102 H 12/17/18 09:00 Respiratory Rate 20 12/17/18 09:00 Blood Pressure 144/84 12/17/18 09:00 O2 Sat by Pulse Oximetry (%) 96 12/16/18 22:00 Constitutional: Yes: No Distress, Calm Eyes: Yes: Conjunctiva Clear HENT: Yes: Normocephalic Cardiovascular: Yes: Regular Rate and Rhythm Respiratory: Yes: Regular, CTA Bilaterally Gastrointestinal: Yes: Normal Bowel Sounds, Soft, Abdomen, Obese Musculoskeletal: Yes: Muscle Weakness Extremities: Yes: WNL Edema: Yes Edema: LLE: 2+, RLE: 2+ Wound/Incision: Yes: Dressing Dry and Intact (B/L feet) Neurological: Yes: Alert, Oriented Psychiatric: Yes: Alert, Oriented Labs: CBC, BMP 12/17/18 07:21 12/17/18 07:21 INR, PTT INR 1.09 (0.83-1.09) 12/17/18 07:21 Problem List - Problems (1) CKD (chronic kidney disease) Assessment/Plan: -renal on board -BUN/Cr 24/1.6 -will continue to trend -Renal US show negative exam, no hydronephrosis Code(s): N18.9 - CHRONIC KIDNEY DISEASE, UNSPECIFIED (2) Diabetes mellitus Assessment/Plan: -BGM ACHS -continue with levemir 20U SQ daily -ISS -HgA1c 6.8% -diabetic diet Code(s): E11.9 - TYPE 2 DIABETES MELLITUS WITHOUT COMPLICATIONS Qualifiers: Diabetes mellitus type: type 2 (3) HTN (hypertension) Assessment/Plan: -continue with norvasc and cozaar -low Na diet Code(s): I10 - ESSENTIAL (PRIMARY) HYPERTENSION (4) Foot ulcer Assessment/Plan: -continue with daily dressing change -followed [facility] wound clinic -pain management Code(s): L97.509 - NON-PRESSURE CHRONIC ULCER OT PRT UNSP FOOT W UNSP SEVERITY Qualifiers: Laterality: left Non-pressure ulcer stage: limited to breakdown of skin Qualified Code(s): L97.521 - Non-pressure chronic ulcer of other part of left foot limited to breakdown of skin (5) Venous insufficiency Assessment/Plan: -vascular consult placed -continue with Lasix IVP -Vascular study neg for DVT Code(s): I87.2 - VENOUS INSUFFICIENCY (CHRONIC) (PERIPHERAL) (6) Anasarca Assessment/Plan: -continue with lasix IVP -daily weights Code(s): R60.1 - GENERALIZED EDEMA Assessment/Plan see problem list
--- NOTE | 2018-12-17 13:37 | CONSULT ---
Consult Consult Specialty:: Vascular Surgery - History of Present Illness Chief Complaint: Bilateral lower extremity swelling. Pt does not feel well. Pt was seen in the wound care clinic yessterday. Pt was feeling short of breath and was having pain in legs. Ultrasound in office shows venous insuff and pt needs ablation therapy as outpt. Pt has lymphedema as well. - History Source Limitations to Obtaining History: No Limitations - Past Medical History Cardio/Vascular: Yes: HTN Renal/: Yes: Renal Inusuff Psych: Yes: Anxiety, Depression Endocrine: Yes: Diabetes Mellitus - Alcohol/Substance Use Hx Alcohol Use: No - Smoking History Smoking history: Current every day smoker Have you smoked in the past 12 months: Yes Aproximately how many cigarettes per day: 20 Home Medications - Allergies Allergies/Adverse Reactions: Allergies Allergy/AdvReac Type Severity Reaction Status Date / Time No Known Allergies Allergy Verified 12/16/18 13:12 - Home Medications Home Medications: Ambulatory Orders Amlodipine Besylate [Norvasc -] 10 mg PO DAILY 08/13/18 Benazepril HCl [Lotensin] 10 mg PO DAILY 08/13/18 Insulin Lispro [Humalog] 22 unit SQ ASDIR 08/13/18 Mag Hydrox/Al Hydrox/Simeth [Mylanta Suspension -] 30 ml PO Q6H #1 bottle Quetiapine Fumarate [Seroquel -] 200 mg PO HS 08/13/18 Ranitidine HCl [Zantac] 300 mg PO PRN #20 tablet 08/13/18 Sucralfate [Carafate -] 1 gm PO PRN #10 tablet 08/13/18 Zolpidem Tartrate [Ambien] 10 mg PO DAILY 08/13/18 Insulin Degludec [Tresiba] 42 unit SQ HS 12/16/18 Losartan Potassium [Cozaar] 25 mg PO DAILY 12/16/18 Review of Systems - Review of Systems Constitutional: reports: No Symptoms Eyes: reports: No Symptoms HENT: reports: No Symptoms Neck: reports: No Symptoms Cardiovascular: reports: Chest Pain, Shortness of Breath Respiratory: reports: No Symptoms Gastrointestinal: reports: No Symptoms Genitourinary: reports: No Symptoms Musculoskeletal: reports: No Symptoms Integumentary: reports: No Symptoms Neurological: reports: No Symptoms Endocrine: reports: No Symptoms Hematology/Lymphatic: reports: No Symptoms Psychiatric: reports: No Symptoms Physical Exam Vital Signs: Vital Signs Temperature 98.7 F 12/17/18 09:00 Pulse Rate 102 H 12/17/18 09:00 Respiratory Rate 20 12/17/18 09:00 Blood Pressure 144/84 12/17/18 09:00 O2 Sat by Pulse Oximetry (%) 96 12/16/18 22:00 Constitutional: Yes: Well Nourished, No Distress, Calm Eyes: Yes: WNL, Conjunctiva Clear, EOM Intact HENT: Yes: WNL, Atraumatic, Normocephalic Neck: Yes: WNL, Supple, Trachea Midline Cardiovascular: Yes: WNL, Regular Rate and Rhythm Respiratory: Yes: WNL, Regular, CTA Bilaterally Gastrointestinal: Yes: WNL, Normal Bowel Sounds ...Rectal Exam: Yes: WNL Renal/: Yes: WNL Breast(s): Yes: WNL Musculoskeletal: Yes: WNL Extremities: Yes: WNL Edema: Yes Peripheral Pulses WNL: Yes Integumentary: Yes: WNL Neurological: Yes: WNL, Alert, Oriented ...Motor Strength: WNL Psychiatric: Yes: WNL Labs: CBC, BMP 12/17/18 07:21 12/17/18 07:21 Problem List - Problems (1) Venous insufficiency of both lower extremities Assessment/Plan: 1. Leg elevation 2. EDWAR for compression 3. Pt will need ablation therapy as outpt 4. Will order Lymphedema pump for home. 5. Renal on case for possible kidney biopsy Maximiliano Noguera DO Code(s): I87.2 - VENOUS INSUFFICIENCY (CHRONIC) (PERIPHERAL) (2) Lymphedema of both lower extremities Code(s): I89.0 - LYMPHEDEMA, NOT ELSEWHERE CLASSIFIED
[2018-12-17] MEDS: oxyCODONE HCL 5 MG TABLET PO SCH ×2 (14:31→21:12)
[2018-12-17] MEDS: ACETAMINOPHEN 325 MG TABLET (FP) PO SCH ×2 (14:33→21:11)
--- NOTE | 2018-12-17 16:06 | PN ---
Progress Note, Physician History of Present Illness: Pt seen and examined at bedside. He is awake and alert. He denies shortness of breath. He feels that his lower ext edema is improving. - Current Medication List Current Medications: Active Medications Acetaminophen (Tylenol -) 325 mg PO TID [facility] Last Admin: 12/17/18 14:33 Dose: 325 mg Amlodipine Besylate (Norvasc -) 10 mg PO DAILY [facility] Last Admin: 12/17/18 09:12 Dose: 10 mg Furosemide (Lasix Injection -) 40 mg IVPUSH DAILY [facility] Last Admin: 12/17/18 09:12 Dose: 40 mg Insulin Aspart (Novolog Vial Sliding Scale -) 1 vial SQ [facility]; Protocol Last Admin: 12/17/18 12:01 Dose: 4 units Insulin Detemir (Levemir Vial) 20 units SQ HS [facility] Last Admin: 12/16/18 22:49 Dose: 20 units Losartan Potassium (Cozaar -) 50 mg PO DAILY [facility] Last Admin: 12/17/18 09:12 Dose: 50 mg Oxycodone HCl (Roxicodone -) 5 mg PO TID [facility] Last Admin: 12/17/18 14:31 Dose: 5 mg Zolpidem Tartrate (Ambien -) 5 mg PO HS PRN PRN Reason: INSOMNIA - Objective Vital Signs: Vital Signs Temperature 98.6 F 12/17/18 15:11 Pulse Rate 91 H 12/17/18 15:11 Respiratory Rate 20 12/17/18 15:11 Blood Pressure 148/78 12/17/18 15:11 O2 Sat by Pulse Oximetry (%) 96 12/16/18 22:00 Constitutional: Yes: Calm Eyes: Yes: Conjunctiva Clear HENT: Yes: Atraumatic Neck: Yes: Supple Cardiovascular: Yes: S1, S2 Respiratory: Yes: CTA Bilaterally Gastrointestinal: Yes: Normal Bowel Sounds, Soft Genitourinary: Yes: WNL Edema: Yes Edema: LLE: 2+, RLE: 2+ Integumentary: Yes: Venous Stasis Changes Neurological: Yes: Oriented Psychiatric: Yes: Oriented Labs: CBC, BMP 12/17/18 07:21 12/17/18 07:21 INR, PTT INR 1.09 (0.83-1.09) 12/17/18 07:21 Problem List - Problems (1) HTN (hypertension) Code(s): I10 - ESSENTIAL (PRIMARY) HYPERTENSION (2) CKD (chronic kidney disease) Code(s): N18.9 - CHRONIC KIDNEY DISEASE, UNSPECIFIED (3) Diabetes mellitus Code(s): E11.9 - TYPE 2 DIABETES MELLITUS WITHOUT COMPLICATIONS Qualifiers: Diabetes mellitus type: type 2 (4) Obesity Code(s): E66.9 - OBESITY, UNSPECIFIED Assessment/Plan Current Medications Generic Name Dose Route Start Last Admin Trade Name Freq PRN Reason Stop Dose Admin Acetaminophen 325 mg 12/17/18 14:00 12/17/18 14:33 Tylenol - PO 325 mg TID GEORGE Administration Amlodipine Besylate 10 mg 12/17/18 10:00 12/17/18 09:12 Norvasc - PO 10 mg DAILY GEORGE Administration Furosemide 40 mg 12/17/18 10:00 12/17/18 09:12 Lasix Injection - IVPUSH 40 mg DAILY GEORGE Administration Insulin Aspart 1 vial 12/16/18 22:00 12/17/18 12:01 Novolog Vial Sliding Scale - SQ 4 units ACHS GEORGE Administration Protocol Insulin Detemir 20 units 12/16/18 22:00 12/16/18 22:49 Levemir Vial SQ 20 units HS GEORGE Administration Losartan Potassium 50 mg 12/17/18 10:00 12/17/18 09:12 Cozaar - PO 50 mg DAILY GEORGE Administration Oxycodone HCl 5 mg 12/17/18 14:00 12/17/18 14:31 Roxicodone - PO 5 mg TID GEORGE Administration Zolpidem Tartrate 5 mg 12/17/18 12:05 Ambien - PO HS PRN INSOMNIA Laboratory Tests 12/16/18 12/16/18 18:30 18:30 Urine Protein 2+ H Urine Blood 1+ H Protein/Creatinin Ratio 2.880 Impression 1. CKD 2. HTN 3. DM 4. obesity 5. volume overload Plan - cont lasix - cont cozaar - pt will likely need a kidney biopsy once stable - 2 grams sodium diet - monitor bp
--- NOTE | 2018-12-17 19:43 | CON.CARD ---
Consult Consult Specialty:: Cardiology Reason for Consultation:: Chest pain - History of Present Illness Chief Complaint: Chest pain. Cough History of Present Illness: This is a 33 year old male with a PMH of HTN, DM, obesity, epression and anxiety. He presents to the hospital with 3 weeks of lower extremity edema, 1 block LINARES, and chest pain. He associates his chest pain with coughing He is improving with diuretic therapy. - Past Medical History Cardio/Vascular: Yes: HTN Renal/: Yes: Renal Inusuff Psych: Yes: Anxiety, Depression Endocrine: Yes: Diabetes Mellitus - Alcohol/Substance Use Hx Alcohol Use: No - Smoking History Smoking history: Current every day smoker Have you smoked in the past 12 months: Yes Aproximately how many cigarettes per day: 20 Home Medications - Allergies Allergies/Adverse Reactions: Allergies Allergy/AdvReac Type Severity Reaction Status Date / Time No Known Allergies Allergy Verified 12/16/18 13:12 - Home Medications Home Medications: Ambulatory Orders Amlodipine Besylate [Norvasc -] 10 mg PO DAILY 08/13/18 Benazepril HCl [Lotensin] 10 mg PO DAILY 08/13/18 Insulin Lispro [Humalog] 22 unit SQ ASDIR 08/13/18 Mag Hydrox/Al Hydrox/Simeth [Mylanta Suspension -] 30 ml PO Q6H #1 bottle Quetiapine Fumarate [Seroquel -] 200 mg PO HS 08/13/18 Ranitidine HCl [Zantac] 300 mg PO PRN #20 tablet 08/13/18 Sucralfate [Carafate -] 1 gm PO PRN #10 tablet 08/13/18 Zolpidem Tartrate [Ambien] 10 mg PO DAILY 08/13/18 Insulin Degludec [Tresiba] 42 unit SQ HS 12/16/18 Losartan Potassium [Cozaar] 25 mg PO DAILY 12/16/18 Vital Signs: Vital Signs Temperature 98.6 F 12/17/18 15:11 Pulse Rate 91 H 12/17/18 15:11 Respiratory Rate 20 12/17/18 15:11 Blood Pressure 148/78 12/17/18 15:11 O2 Sat by Pulse Oximetry (%) 96 12/16/18 22:00 Constitutional: Yes: No Distress Respiratory: Yes: CTA Bilaterally Gastrointestinal: Yes: Normal Bowel Sounds Cardiovascular: Yes: Regular Rate and Rhythm (NL S1S2, no MRHG) Edema: LLE: 1+, RLE: 1+ Neurological: Yes: Alert, Oriented - Other Data Labs, Other Data: CBC, BMP 12/17/18 07:21 12/17/18 07:21 INR, PTT INR 1.09 (0.83-1.09) 12/17/18 07:21 Troponin, BNP 12/17/18 07:21 Troponin I 0.03 Troponin, BNP 12/17/18 07:21 Troponin I 0.03 Assessment/Plan 33 year old male with a PMH of HTN, DM, obesity, depression and anxiety. He presents to the hospital with 3 weeks of lower extremity edema, 1 block LINARES, and chest pain. He associates his chest pain with coughing He is improving with diuretic therapy. EKG No acute changes. CHF Continue Lasix 40mg IVSS daily Daily Lytes/Wt's/I's/O's Continue Losartan 50 mg PO daily Obtain an echocardiogram Obtain a BNP level
[2018-12-17] MEDS ORDERED: INSULIN (NOVOLOG) ASPART 100 UNITS/ML 10ML VIAL ONE (21:00)
[2018-12-17] MEDS: INSULIN (LEVEMIR) 100 UNITS/ML UNITS SQ SCH (21:12)
[2018-12-17] MEDS: ZOLPIDEM TARTRATE 5 MG TABLET PO PRN (21:12)
[2018-12-18] MEDS: oxyCODONE HCL 5 MG TABLET PO SCH ×3 (05:53→22:12)
[2018-12-18] MEDS: ACETAMINOPHEN 325 MG TABLET (FP) PO SCH ×3 (05:53→22:12)
[2018-12-18] MEDS: INSULIN SLIDING SCALE (NOVOLOG) 1 VIAL SQ SCH ×4 (06:00→22:13)
[2018-12-18 08:08] LABS: SERUM IRON SATURATION 17 % (15-55); TOTAL IRON BINDING CAPACITY 223 ug/dL (250-450); UIBC 184 ug/dL (111-343)
[2018-12-18 09:28] LABS: ANION GAP 7 MMOL/L (8-16); BLOOD UREA NITROGEN 19 mg/dL (7-18); CALCIUM 7.9 mg/dL (8.5-10.1); CHLORIDE 105 mmol/L (98-107); CO2 27 mmol/L (21-32); CREATININE 1.4 mg/dL (0.55-1.3); GLUCOSE,RANDOM 136 mg/dL (74-106); POTASSIUM 4.2 mmol/L (3.5-5.1); SODIUM 139 mmol/L (136-145)
[2018-12-18] MEDS: FUROSEMIDE 40 MG/4 ML INJECTABLE VIAL IVPUSH SCH (09:31)
[2018-12-18] MEDS: amLODIPine BESYLATE 10 MG TABLET (FP) PO SCH (09:31)
[2018-12-18] MEDS: LOSARTAN POTASSIUM 50 MG TABLET (FP) PO SCH (09:31)
[2018-12-18] MEDS ORDERED: INSULIN (NOVOLOG) ASPART 100 UNITS/ML 10ML VIAL ONE (10:54)
[2018-12-18] MEDS ORDERED: ALBUTEROL SO4 0.083% IH SOL 2.5 MG/3 ML VIAL.NEB. NEB PRN (13:40)
--- NOTE | 2018-12-18 13:41 | PN ---
Progress Note, Physician Chief Complaint: B/L lower extremity edema Venous Insufficiency History of Present Illness: Previous notes and events reviewed awake and alert NAD sts b/l lower extremities are feeling less tight and pain improving - Current Medication List Current Medications: Active Medications Acetaminophen (Tylenol -) 325 mg PO TID [facility] Last Admin: 12/18/18 13:19 Dose: 325 mg Amlodipine Besylate (Norvasc -) 10 mg PO DAILY [facility] Last Admin: 12/18/18 09:31 Dose: 10 mg Furosemide (Lasix Injection -) 40 mg IVPUSH DAILY [facility] Last Admin: 12/18/18 09:31 Dose: 40 mg Insulin Aspart (Novolog Vial Sliding Scale -) 1 vial SQ [facility]; Protocol Last Admin: 12/18/18 11:03 Dose: 2 units Insulin Detemir (Levemir Vial) 20 units SQ HS [facility] Last Admin: 12/17/18 21:12 Dose: 20 units Losartan Potassium (Cozaar -) 50 mg PO DAILY [facility] Last Admin: 12/18/18 09:31 Dose: 50 mg Oxycodone HCl (Roxicodone -) 5 mg PO TID [facility] Last Admin: 12/18/18 13:19 Dose: 5 mg Zolpidem Tartrate (Ambien -) 5 mg PO HS PRN PRN Reason: INSOMNIA Last Admin: 12/17/18 21:12 Dose: 5 mg - Objective Vital Signs: Vital Signs Temperature 98.6 F 12/18/18 10:00 Pulse Rate 71 12/18/18 10:00 Respiratory Rate 18 12/18/18 10:00 Blood Pressure 146/75 12/18/18 10:00 O2 Sat by Pulse Oximetry (%) 96 12/16/18 22:00 Constitutional: Yes: No Distress, Calm Eyes: Yes: Conjunctiva Clear HENT: Yes: Normocephalic Cardiovascular: Yes: Regular Rate and Rhythm Respiratory: Yes: Regular, Wheezes Gastrointestinal: Yes: Normal Bowel Sounds, Soft Musculoskeletal: Yes: WNL Edema: Yes Edema: LLE: 2+, RLE: 2+ Neurological: Yes: Alert, Oriented Psychiatric: Yes: Alert, Oriented Labs: CBC, BMP 12/17/18 07:21 12/18/18 07:45 INR, PTT INR 1.09 (0.83-1.09) 12/17/18 07:21 Problem List - Problems (1) CKD (chronic kidney disease) Assessment/Plan: -renal on board -BUN/Cr 19/11.4 -will continue to trend -Renal US show negative exam, no hydronephrosis -possible kidney biopsy as outpatient Code(s): N18.9 - CHRONIC KIDNEY DISEASE, UNSPECIFIED (2) Diabetes mellitus Assessment/Plan: -BGM ACHS -continue with levemir 20U SQ daily -ISS -HgA1c 6.8% -diabetic diet Code(s): E11.9 - TYPE 2 DIABETES MELLITUS WITHOUT COMPLICATIONS Qualifiers: Diabetes mellitus type: type 2 (3) HTN (hypertension) Assessment/Plan: -continue with norvasc and cozaar -low Na diet Code(s): I10 - ESSENTIAL (PRIMARY) HYPERTENSION (4) Foot ulcer Assessment/Plan: -continue with daily dressing change -followed by outpatient wound clinic -pain management Code(s): L97.509 - NON-PRESSURE CHRONIC ULCER OTH PRT UNSP FOOT W UNSP SEVERITY Qualifiers: Laterality: left Non-pressure ulcer stage: limited to breakdown of skin Qualified Code(s): L97.521 - Non-pressure chronic ulcer of other part of left foot limited to breakdown of skin (5) Venous insufficiency Assessment/Plan: -vascular on board -continue with Lasix IVP -Vascular study neg for DVT -leg elevation -EDWAR bandage Code(s): I87.2 - VENOUS INSUFFICIENCY (CHRONIC) (PERIPHERAL) (6) Anasarca Assessment/Plan: -continue with lasix IVP -daily weights -BNP ordered and echo ordered per cardiology recommendation Code(s): R60.1 - GENERALIZED EDEMA
--- NOTE | 2018-12-18 15:25 | PN ---
Progress Note, Physician History of Present Illness: Pt seen and examined at bedside. He is awake and alert. He denies shortness of breath. He feels that his edema is improving. - Current Medication List Current Medications: Active Medications Acetaminophen (Tylenol -) 325 mg PO TID [facility] Last Admin: 12/18/18 13:19 Dose: 325 mg Albuterol Sulfate (Ventolin 0.083% Nebulizer Soln -) 1 amp NEB Q6H PRN PRN Reason: SHORT OF BREATH/WHEEZING Amlodipine Besylate (Norvasc -) 10 mg PO DAILY [facility] Last Admin: 12/18/18 09:31 Dose: 10 mg Furosemide (Lasix Injection -) 40 mg IVPUSH DAILY [facility] Last Admin: 12/18/18 09:31 Dose: 40 mg Insulin Aspart (Novolog Vial Sliding Scale -) 1 vial SQ ACHS [facility]; Protocol Last Admin: 12/18/18 11:03 Dose: 2 units Insulin Detemir (Levemir Vial) 20 units SQ HS [facility] Last Admin: 12/17/18 21:12 Dose: 20 units Losartan Potassium (Cozaar -) 50 mg PO DAILY [facility] Last Admin: 12/18/18 09:31 Dose: 50 mg Oxycodone HCl (Roxicodone -) 5 mg PO TID [facility] Last Admin: 12/18/18 13:19 Dose: 5 mg Zolpidem Tartrate (Ambien -) 5 mg PO HS PRN PRN Reason: INSOMNIA Last Admin: 12/17/18 21:12 Dose: 5 mg - Objective Vital Signs: Vital Signs Temperature 98.6 F 12/18/18 10:00 Pulse Rate 71 12/18/18 10:00 Respiratory Rate 18 12/18/18 10:00 Blood Pressure 146/75 12/18/18 10:00 O2 Sat by Pulse Oximetry (%) 96 12/16/18 22:00 Constitutional: Yes: Calm Eyes: Yes: Conjunctiva Clear HENT: Yes: Atraumatic Neck: Yes: Supple Cardiovascular: Yes: S1, S2 Respiratory: Yes: CTA Bilaterally Gastrointestinal: Yes: Soft Genitourinary: Yes: WNL Musculoskeletal: Yes: WNL Extremities: Yes: WNL Edema: Yes Edema: LLE: 2+, RLE: 2+ Neurological: Yes: Oriented Psychiatric: Yes: Oriented Labs: CBC, BMP 12/17/18 07:21 12/18/18 07:45 INR, PTT INR 1.09 (0.83-1.09) 12/17/18 07:21 Problem List - Problems (1) HTN (hypertension) Code(s): I10 - ESSENTIAL (PRIMARY) HYPERTENSION (2) CKD (chronic kidney disease) Code(s): N18.9 - CHRONIC KIDNEY DISEASE, UNSPECIFIED (3) Diabetes mellitus Code(s): E11.9 - TYPE 2 DIABETES MELLITUS WITHOUT COMPLICATIONS Qualifiers: Diabetes mellitus type: type 2 (4) Obesity Code(s): E66.9 - OBESITY, UNSPECIFIED Assessment/Plan Current Medications Generic Name Dose Route Start Last Admin Trade Name Freq PRN Reason Stop Dose Admin Acetaminophen 325 mg 12/17/18 14:00 12/18/18 13:19 Tylenol - PO 325 mg TID [facility] Administration Albuterol Sulfate 1 amp 12/18/18 13:40 Ventolin 0.083% Nebulizer Soln - NEB Q6H PRN SHORT OF BREATH/WHEEZING Amlodipine Besylate 10 mg 12/17/18 10:00 12/18/18 09:31 Norvasc - PO 10 mg DAILY [facility] Administration Furosemide 40 mg 12/17/18 10:00 12/18/18 09:31 Lasix Injection - IVPUSH 40 mg DAILY [facility] Administration Insulin Aspart 1 vial 12/16/18 22:00 12/18/18 11:03 Novolog Vial Sliding Scale - SQ 2 units ACHS GEOR[facility] Administration Protocol Insulin Detemir 20 units 12/16/18 22:00 12/17/18 21:12 Levemir Vial SQ 20 units HS [facility]ORGE Administration Losartan Potassium 50 mg 12/17/18 10:00 12/18/18 09:31 Cozaar - PO 50 mg DAILY [facility] Administration Oxycodone HCl 5 mg 12/17/18 14:00 12/18/18 13:19 Roxicodone - PO 5 mg TID [facility] Administration Zolpidem Tartrate 5 mg 12/17/18 12:05 12/17/18 21:12 Ambien - PO 5 mg HS PRN Administration INSOMNIA Impression 1. CKD 2. HTN 3. DM 4. obesity 5. volume overload Plan - will give another dose of lasix - repeat labs in am - cont cozaar - pt will likely need a kidney biopsy once stable - 2 grams sodium diet - monitor bp
[2018-12-18] MEDS ORDERED: FUROSEMIDE 40 MG/4 ML INJECTABLE VIAL IVPUSH ONE (15:45)
--- NOTE | 2018-12-18 16:36 | PN ---
Progress Note, Physician Chief Complaint: LINARES LE edema History of Present Illness: This is a 33 year old male with a PMH of HTN, DM, obesity, epression and anxiety. He presents to the hospital with 3 weeks of lower extremity edema, 1 block LINARES, and chest pain. He associates his chest pain with coughing He is improving with diuretic therapy. - Current Medication List Current Medications: Active Medications Acetaminophen (Tylenol -) 325 mg PO TID [facility] Last Admin: 12/18/18 13:19 Dose: 325 mg Albuterol Sulfate (Ventolin 0.083% Nebulizer Soln -) 1 amp NEB Q6H PRN PRN Reason: SHORT OF BREATH/WHEEZING Amlodipine Besylate (Norvasc -) 10 mg PO DAILY [facility] Last Admin: 12/18/18 09:31 Dose: 10 mg Furosemide (Lasix Injection -) 40 mg IVPUSH DAILY [facility] Last Admin: 12/18/18 09:31 Dose: 40 mg Insulin Aspart (Novolog Vial Sliding Scale -) 1 vial SQ ACHS [facility]; Protocol Last Admin: 12/18/18 11:03 Dose: 2 units Insulin Detemir (Levemir Vial) 20 units SQ HS [facility] Last Admin: 12/17/18 21:12 Dose: 20 units Losartan Potassium (Cozaar -) 50 mg PO DAILY [facility] Last Admin: 12/18/18 09:31 Dose: 50 mg Oxycodone HCl (Roxicodone -) 5 mg PO TID [facility] Last Admin: 12/18/18 13:19 Dose: 5 mg Zolpidem Tartrate (Ambien -) 5 mg PO HS PRN PRN Reason: INSOMNIA Last Admin: 12/17/18 21:12 Dose: 5 mg - Objective Vital Signs: Vital Signs Temperature 98.0 F 12/18/18 15:49 Pulse Rate 87 12/18/18 15:49 Respiratory Rate 18 12/18/18 10:00 Blood Pressure 154/96 12/18/18 15:49 O2 Sat by Pulse Oximetry (%) 96 12/16/18 22:00 Constitutional: Yes: Well Nourished HENT: Yes: WNL Neck: Yes: WNL Cardiovascular: Yes: Regular Rate and Rhythm (NL S1S2 no MRHG) Respiratory: Yes: Dullness (Basilar) Gastrointestinal: Yes: Normal Bowel Sounds Edema: LLE: Trace, RLE: Trace Neurological: Yes: Alert, Oriented Labs: CBC, BMP 12/17/18 07:21 12/18/18 07:45 INR, PTT INR 1.09 (0.83-1.09) 12/17/18 07:21 Assessment/Plan 33 year old male with a PMH of HTN, DM, obesity, depression and anxiety. He presents to the hospital with 3 weeks of lower extremity edema, 1 block LINARES, and chest pain. He associates his chest pain with coughing He is improving with diuretic therapy. EKG No acute changes. CHF Continue Lasix 40mg IVSS daily Daily Lytes/Wt's/I's/O's Continue Losartan 50 mg PO daily Obtain an echocardiogram Obtain a BNP level HTN Continue amlodipine but would consider lowering the dose form 10 mg to 5 mg as 10 mg is more likely to contribute to his lower extremity edema.
[2018-12-18] MEDS: INSULIN (LEVEMIR) 100 UNITS/ML UNITS SQ SCH (22:12)
[2018-12-18] MEDS: ZOLPIDEM TARTRATE 5 MG TABLET PO PRN (22:13)
[2018-12-19] MEDS: oxyCODONE HCL 5 MG TABLET PO SCH ×2 (06:27→13:17)
[2018-12-19] MEDS: INSULIN SLIDING SCALE (NOVOLOG) 1 VIAL SQ SCH ×2 (06:28→11:49)
[2018-12-19] MEDS: ACETAMINOPHEN 325 MG TABLET (FP) PO SCH ×2 (06:28→13:18)
[2018-12-19 08:27] LABS: HEMATOCRIT 32.8 % (35.4-49); HEMOGLOBIN 11.4 GM/dL (11.7-16.9); MCH 28.7 pg (25.7-33.7); MCHC 34.7 g/dl (32.0-35.9); MEAN CELL VOLUME 82.8 fl (80-96); MEAN PLT VOLUME 8.2 fl (7.5-11.1); PLATELET COUNT 271 K/MM3 (134-434); RBC 3.96 M/mm3 (4.00-5.60); RDW 15.4 % (11.9-15.9); WHITE BLOOD COUNT 6.6 K/mm3 (4.0-10.0)
[2018-12-19 09:07] LABS: ALBUMIN 2.4 g/dl (3.4-5.0); ALK PHOS 88 U/L (45-117); ANION GAP 5 MMOL/L (8-16); BILIRUBIN,TOTAL 0.2 mg/dL (0.2-1); BLOOD UREA NITROGEN 26 mg/dL (7-18); CALCIUM 8.1 mg/dL (8.5-10.1); CHLORIDE 101 mmol/L (98-107); CO2 30 mmol/L (21-32); CREATININE 1.8 mg/dL (0.55-1.3); GLUCOSE,RANDOM 222 mg/dL (74-106); N-TERMINAL BNP 323.9 pg/ml (5-125); POTASSIUM 4.2 mmol/L (3.5-5.1); SGOT/AST 14 U/L (15-37); SGPT/ALT 22 U/L (13-61); SODIUM 136 mmol/L (136-145); TOT PROT 6.2 g/dl (6.4-8.2)
[2018-12-19 09:19] VITALS: BP 162/98; PULSE 93; TEMP 99.1
[2018-12-19] MEDS: FUROSEMIDE 40 MG/4 ML INJECTABLE VIAL IVPUSH SCH (09:45)
[2018-12-19] MEDS: LOSARTAN POTASSIUM 50 MG TABLET (FP) PO SCH (09:45)
[2018-12-19] MEDS: amLODIPine BESYLATE 10 MG TABLET (FP) PO SCH (09:45)
[2018-12-19] MEDS ORDERED: amLODIPine BESYLATE 10 MG TABLET (FP) PO SCH ×2 (10:45→15:09)
--- NOTE | 2018-12-19 14:17 | PN ---
Progress Note, Physician Chief Complaint: patient seen and examined leg edema improving with lasix renal team on board - Current Medication List Current Medications: Active Medications Acetaminophen (Tylenol -) 325 mg PO TID [facility] Last Admin: 12/19/18 13:18 Dose: 325 mg Albuterol Sulfate (Ventolin 0.083% Nebulizer Soln -) 1 amp NEB Q6H PRN PRN Reason: SHORT OF BREATH/WHEEZING Amlodipine Besylate (Norvasc -) 5 mg PO DAILY [facility] Furosemide (Lasix Injection -) 40 mg IVPUSH DAILY [facility] Last Admin: 12/19/18 09:45 Dose: 40 mg Insulin Aspart (Novolog Vial Sliding Scale -) 1 vial SQ ACHS [facility]; Protocol Last Admin: 12/19/18 11:49 Dose: 6 units Insulin Detemir (Levemir Vial) 20 units SQ HS [facility] Last Admin: 12/18/18 22:12 Dose: 20 units Losartan Potassium (Cozaar -) 50 mg PO DAILY [facility] Last Admin: 12/19/18 09:45 Dose: 50 mg Oxycodone HCl (Roxicodone -) 5 mg PO TID [facility] Last Admin: 12/19/18 13:17 Dose: 5 mg Zolpidem Tartrate (Ambien -) 5 mg PO HS PRN PRN Reason: INSOMNIA Last Admin: 12/18/18 22:13 Dose: 5 mg - Objective Vital Signs: Vital Signs Temperature 99.1 F 12/19/18 09:00 Pulse Rate 93 H 12/19/18 09:00 Respiratory Rate 20 12/19/18 09:00 Blood Pressure 162/98 12/19/18 09:00 O2 Sat by Pulse Oximetry (%) 96 12/18/18 21:00 Constitutional: Yes: Calm Cardiovascular: Yes: Regular Rate and Rhythm, S1, S2 Respiratory: Yes: CTA Bilaterally Gastrointestinal: Yes: Normal Bowel Sounds, Soft Edema: Yes (improving) Labs: CBC, BMP 12/19/18 07:00 12/19/18 07:00 INR, PTT INR 1.09 (0.83-1.09) 12/17/18 07:21 Problem List - Problems (1) CKD (chronic kidney disease) Assessment/Plan: renal eval noted outpatient renal biopsy Code(s): N18.9 - CHRONIC KIDNEY DISEASE, UNSPECIFIED (2) Diabetes mellitus Assessment/Plan: bgm [id number] 6.8 sliding scale Code(s): E11.9 - TYPE 2 DIABETES MELLITUS WITHOUT COMPLICATIONS Qualifiers: Diabetes mellitus type: type 2 (3) HTN (hypertension) Assessment/Plan: jose desai Code(s): I10 - ESSENTIAL (PRIMARY) HYPERTENSION (4) Venous insufficiency Assessment/Plan: dr dory dobbs note lymphedema pump for home lasix Code(s): I87.2 - VENOUS INSUFFICIENCY (CHRONIC) (PERIPHERAL)
--- NOTE | 2018-12-19 15:05 | PN ---
Progress Note, Physician Chief Complaint: Feels better Lying flat in bed History of Present Illness: 33 year old male with a PMH of HTN, DM, obesity, depression and anxiety. He presents to the hospital with 3 weeks of lower extremity edema, 1 block LINARES, and chest pain. He associates his chest pain with coughing He is improving with diuretic therapy. EKG No acute changes. - Current Medication List Current Medications: Active Medications Acetaminophen (Tylenol -) 325 mg PO TID [facility] Last Admin: 12/19/18 13:18 Dose: 325 mg Albuterol Sulfate (Ventolin 0.083% Nebulizer Soln -) 1 amp NEB Q6H PRN PRN Reason: SHORT OF BREATH/WHEEZING Amlodipine Besylate (Norvasc -) 5 mg PO DAILY [facility] Furosemide (Lasix Injection -) 40 mg IVPUSH DAILY [facility] Last Admin: 12/19/18 09:45 Dose: 40 mg Insulin Aspart (Novolog Vial Sliding Scale -) 1 vial SQ [facility]; Protocol Last Admin: 12/19/18 11:49 Dose: 6 units Insulin Detemir (Levemir Vial) 20 units SQ HS [facility] Last Admin: 12/18/18 22:12 Dose: 20 units Losartan Potassium (Cozaar -) 50 mg PO DAILY [facility] Last Admin: 12/19/18 09:45 Dose: 50 mg Oxycodone HCl (Roxicodone -) 5 mg PO TID [facility] Last Admin: 12/19/18 13:17 Dose: 5 mg Zolpidem Tartrate (Ambien -) 5 mg PO HS PRN PRN Reason: INSOMNIA Last Admin: 12/18/18 22:13 Dose: 5 mg - Objective Vital Signs: Vital Signs Temperature 99.1 F 12/19/18 09:00 Pulse Rate 93 H 12/19/18 09:00 Respiratory Rate 20 12/19/18 09:00 Blood Pressure 162/98 12/19/18 09:00 O2 Sat by Pulse Oximetry (%) 96 12/18/18 21:00 Constitutional: Yes: No Distress Cardiovascular: Yes: Regular Rate and Rhythm, S1, S2. No: JVD Respiratory: Yes: CTA Bilaterally Gastrointestinal: Yes: Soft Edema: No (chronic skin changes) Labs: CBC, BMP 12/19/18 07:00 12/19/18 07:00 INR, PTT INR 1.09 (0.83-1.09) 12/17/18 07:21 Assessment/Plan 3 year old male with a PMH of HTN, DM, obesity, depression and anxiety. He presents to the hospital with 3 weeks of lower extremity edema, 1 block LINARES, and chest pain. He associates his chest pain with coughing He is improving with diuretic therapy. EKG No acute changes. CHF Would consider changing furosemide to 40mg daily PO Daily Lytes/Wt's/I's/O's Continue Losartan 50 mg PO daily and amlodipine 5mg daily Obtain an echocardiogram
--- NOTE | 2018-12-19 15:08 | PN ---
Progress Note, Physician History of Present Illness: Pt seen and examined at bedside. He is awake and alert. He feels that his lower ext edema is improving. - Current Medication List Current Medications: Active Medications Acetaminophen (Tylenol -) 325 mg PO TID [facility] Last Admin: 12/19/18 13:18 Dose: 325 mg Albuterol Sulfate (Ventolin 0.083% Nebulizer Soln -) 1 amp NEB Q6H PRN PRN Reason: SHORT OF BREATH/WHEEZING Amlodipine Besylate (Norvasc -) 5 mg PO DAILY [facility] Furosemide (Lasix Injection -) 40 mg IVPUSH DAILY [facility] Last Admin: 12/19/18 09:45 Dose: 40 mg Insulin Aspart (Novolog Vial Sliding Scale -) 1 vial SQ ACHS [facility]; Protocol Last Admin: 12/19/18 11:49 Dose: 6 units Insulin Detemir (Levemir Vial) 20 units SQ HS [facility] Last Admin: 12/18/18 22:12 Dose: 20 units Losartan Potassium (Cozaar -) 50 mg PO DAILY [facility] Last Admin: 12/19/18 09:45 Dose: 50 mg Oxycodone HCl (Roxicodone -) 5 mg PO TID [facility] Last Admin: 12/19/18 13:17 Dose: 5 mg Zolpidem Tartrate (Ambien -) 5 mg PO HS PRN PRN Reason: INSOMNIA Last Admin: 12/18/18 22:13 Dose: 5 mg - Objective Vital Signs: Vital Signs Temperature 99.1 F 12/19/18 09:00 Pulse Rate 93 H 12/19/18 09:00 Respiratory Rate 20 12/19/18 09:00 Blood Pressure 162/98 12/19/18 09:00 O2 Sat by Pulse Oximetry (%) 96 12/18/18 21:00 Constitutional: Yes: Calm Eyes: Yes: Conjunctiva Clear HENT: Yes: Atraumatic Neck: Yes: Supple Cardiovascular: Yes: S1, S2 Respiratory: Yes: CTA Bilaterally Gastrointestinal: Yes: Soft, Abdomen, Obese Genitourinary: Yes: WNL Extremities: Yes: WNL Edema: Yes Edema: LLE: 1+, RLE: 1+ Neurological: Yes: Oriented Psychiatric: Yes: Oriented Labs: CBC, BMP 12/19/18 07:00 12/19/18 07:00 INR, PTT INR 1.09 (0.83-1.09) 12/17/18 07:21 Problem List - Problems (1) HTN (hypertension) Code(s): I10 - ESSENTIAL (PRIMARY) HYPERTENSION (2) CKD (chronic kidney disease) Code(s): N18.9 - CHRONIC KIDNEY DISEASE, UNSPECIFIED (3) Diabetes mellitus Code(s): E11.9 - TYPE 2 DIABETES MELLITUS WITHOUT COMPLICATIONS Qualifiers: Diabetes mellitus type: type 2 (4) Obesity Code(s): E66.9 - OBESITY, UNSPECIFIED Assessment/Plan Current Medications Generic Name Dose Route Start Last Admin Trade Name Freq PRN Reason Stop Dose Admin Acetaminophen 325 mg 12/17/18 14:00 12/19/18 13:18 Tylenol - PO 325 mg TID [facility]OR[facility] Administration Albuterol Sulfate 1 amp 12/18/18 13:40 Ventolin 0.083% Nebulizer Soln - NEB Q6H PRN SHORT OF BREATH/WHEEZING Amlodipine Besylate 5 mg 12/19/18 10:45 Norvasc - PO DAILY [facility] Furosemide 40 mg 12/17/18 10:00 12/19/18 09:45 Lasix Injection - IVPUSH 40 mg DAILY [facility] Administration Insulin Aspart 1 vial 12/16/18 22:00 12/19/18 11:49 Novolog Vial Sliding Scale - SQ 6 units ACHS [facility]OR[facility] Administration Protocol Insulin Detemir 20 units 12/16/18 22:00 12/18/18 22:12 Levemir Vial SQ 20 units HS [facility] Administration Losartan Potassium 50 mg 12/17/18 10:00 12/19/18 09:45 Cozaar - PO 50 mg DAILY [facility] Administration Oxycodone HCl 5 mg 12/17/18 14:00 12/19/18 13:17 Roxicodone - PO 5 mg TID [facility] Administration Zolpidem Tartrate 5 mg 12/17/18 12:05 12/18/18 22:13 Ambien - PO 5 mg HS PRN Administration INSOMNIA Laboratory Tests 12/18/18 12/18/18 08:15 08:15 CELENA M-[facility] Pending ISIDRO Screen Pending c-ANCA Pending Proteinase 3 (PR3) Pending p-ANCA Pending Atypical p-ANCA Pending Myeloperoxidase Ab Pending Double Strand DNA Ab Pending Glomerular Base Memb Ab Pending Hepatitis A Ab Total Pending Hep Bs Antigen Pending Hep Bs Antibody Pending Hep B Core Total Ab Pending HCV Quantitation Pending HIV Genotype Pending Impression 1. CKD 2. HTN 3. DM 4. obesity 5. volume overload 6. anemia Plan - increase norvasc to 10 mg - 40 mg of lasix on discharge - can get kidney biopsy as outpt - nutrition eval for low sodium diet - cont cozaar - pt will likely need a kidney biopsy once stable - monitor bp
--- NOTE | 2018-12-19 15:45 | DS ---
Physical Examination Vital Signs: Vital Signs Temperature 99.1 F 12/19/18 09:00 Pulse Rate 93 H 12/19/18 09:00 Respiratory Rate 20 12/19/18 09:00 Blood Pressure 162/98 12/19/18 09:00 O2 Sat by Pulse Oximetry (%) 96 12/18/18 21:00 Constitutional: Yes: Calm Cardiovascular: Yes: Regular Rate and Rhythm, S1, S2 Respiratory: Yes: CTA Bilaterally Gastrointestinal: Yes: Normal Bowel Sounds, Soft Edema: Yes (reduced) Neurological: Yes: Alert, Oriented Labs: CBC, BMP 12/19/18 07:00 12/19/18 07:00 Discharge Summary Reason For Visit: EDEMA/VENOUS INSUFFICIENCY Current Active Problems Anasarca (Acute) CKD (chronic kidney disease) (Acute) Diabetes mellitus (Acute) HTN (hypertension) (Acute) Lymphedema of both lower extremities (Acute) Obesity (Acute) Venous insufficiency of both lower extremities (Acute) Hospital Course: PCP: Pacheco Woodall - Admission Chief Complaint: LINARES ,weight gain,legedema History of Present Illness: The patient is a 33 year old male, with a significant PMH of hypertension, diabetes mellitus, morbid obesity, depression and anxiety, who presents to the emergency department with 3 weeks of worsening bilateral lower extremity edema. The patient states the bilateral lower extremity edema now extends up to his groin and lower abdomen. The patient states he has difficulty with ambulation secondary to the bilateral lower extremity edema. The patient also endorses shortness of breath on exertion when he walks approx 1 block. The patient states he used to be able to walk 2-3 blocks before becoming short of breath. The patient also endorses chest pain when he coughs, patient saw pmd 2 weeks ago who gave him lasix but he only took two tablets and stopped History Source: Patient, Medical Record admitted for increased weight gain and leg edema got iv lasix seen by cardio and renal Condition: Good - Instructions Referrals: Pacheco Woodall [Primary Care Provider] - 2 Weeks Hussein Graham MD [Staff Physician] - 2 Weeks (kidney biopsy) Disposition: HOME - Home Medications Comprehensive Discharge Medication List: Ambulatory Orders Amlodipine Besylate [Norvasc -] 10 mg PO DAILY 08/13/18 Benazepril HCl [Lotensin] 10 mg PO DAILY 08/13/18 Insulin Lispro [Humalog] 22 unit SQ ASDIR 08/13/18 Mag Hydrox/Al Hydrox/Simeth [Mylanta Suspension -] 30 ml PO Q6H #1 bottle Quetiapine Fumarate [Seroquel -] 200 mg PO HS 08/13/18 Ranitidine HCl [Zantac] 300 mg PO PRN #20 tablet 08/13/18 Sucralfate [Carafate -] 1 gm PO PRN #10 tablet 08/13/18 Zolpidem Tartrate [Ambien] 10 mg PO DAILY 08/13/18 Insulin Degludec [Tresiba] 42 unit SQ HS 12/16/18 Losartan Potassium [Cozaar] 25 mg PO DAILY 12/16/18
[2018-12-20 11:23] LABS: ANTIGLOMERULAR BASEMENT MEN.AB 5 units (0-20)
[2018-12-20 17:12] LABS: ATYPICAL pANCA <1:20 titer (Neg:<1:20); C-ANCA <1:20 titer (Neg:<1:20); P-ANCA <1:20 titer (Neg:<1:20)
[2018-12-22 15:20] LABS: HBSAG SCREEN Negative (Negative); HEP B CORE AB, TOT Negative (Negative)
== END 2018-12-19 17:05 | disposition home or self-care (01) | DRG 425 ==
LOC: JER 12:53 → JERBED 16:16 → OBSVTOIN 16:58 → J6S 21:32
PROVIDERS: ADMIT Family Medicine; ATTEND Family Medicine
DX: E87.70 Fluid overload, unspecified (principal); E11.22 Type 2 diabetes mellitus with diabetic chronic kidney disease; E66.01 Morbid (severe) obesity due to excess calories; Z68.41 Body mass index [BMI] 40.0-44.9, adult; L97.521 Non-pressure chronic ulcer of other part of left foot limited to breakdown of skin; I12.9 Hypertensive chronic kidney disease with stage 1 through stage 4 chronic kidney disease, or unspecified chronic kidney disease; N18.9 Chronic kidney disease, unspecified; F32.9 Major depressive disorder, single episode, unspecified; F41.8 Other specified anxiety disorders; I89.0 Lymphedema, not elsewhere classified; F17.210 Nicotine dependence, cigarettes, uncomplicated; I87.2 Venous insufficiency (chronic) (peripheral); Z79.4 Long term (current) use of insulin
CPT/HCPCS: 36415; 71045-TC-FY; 76775-TC; 80048; 80053; 81003; 81015; 82570; 82728; 82962; 83036; 83516; 83520; 83540; 83550; 83735; 83880; 84100; 84155; 84156; 84165; 84484; 85025; 85027; 85610; 85730; 86038; 86225; 86256; 86704; 86706; 86708; 87340; 87389; 87522; 93005; 93010; 93970-TC; 99283-25; G0378; G0463-25

== ENCOUNTER 2019-03-14 15:40 | Inpatient (IN) | payer OTHER | END 2019-03-23 17:54 | disposition home health service (06) | LOC: J6S 03-16 01:32 → JER 15:40 → JERBED 18:30 → J5S 19:48 ==

== ENCOUNTER → 2019-05-09 | Day surgery (SDC) | payer OTHER | END | disposition home or self-care (01) | LOC: JRADIR 10:59 | PROVIDERS: ATTEND Student in an Organized Health Care Education/Training Program | PROC: 0JPT0XZ Removal of Tunneled Vascular Access Device from Trunk Subcutaneous Tissue and Fascia, Open Approach (ICD-10-PCS; principal; 2019-05-09) | DX: Z45.2 Encounter for adjustment and management of vascular access device (principal) | CPT/HCPCS: 36589 ==

== ENCOUNTER 2019-06-12 15:43 | Emergency (ER) | payer OTHER ==
[2019-06-12 16:14] VITALS: BP 122/70; PULSE 99; TEMP 99.3; BMI 42.3
--- NOTE | 2019-06-12 16:14 | PDOC ---
Rapid Medical Evaluation Time Seen by Provider: 06/12/19 16:12 Medical Evaluation: Allergies Allergy/AdvReac Type Severity Reaction Status Date / Time No Known Allergies Allergy Verified 12/16/18 13:12 06/12/19 16:13 HPI: B Leg swelling and pain x3 days PE: No gross deficits ORDERS: Doppler Discharge Disposition - Diagnosis Leg swelling - Referrals - Patient Instructions - Post Discharge Activity
[2019-06-12] MEDS ORDERED: CLINDAMYCIN 600MG PREMIX IVPB 600 MG/50 ML BAG IVPB ONE ×2 (19:40→20:25)
--- NOTE | 2019-06-12 19:41 | PDOC ---
*Physical Exam - Vital Signs Last Vital Signs Temp Pulse Resp BP Pulse Ox 99.3 F 99 H 18 122/70 100 06/12/19 16:11 06/12/19 16:11 06/12/19 16:11 06/12/19 16:11 06/12/19 16:11 ED Treatment Course - LABORATORY CBC & Chemistry Diagram: 06/12/19 20:11 06/12/19 20:11 Medical Decision Making - Medical Decision Making 06/12/19 19:38 Patient seen by the advanced practice provider under my direct supervision. Ancillary testing reviewed as necessary. I agree with plan as outlined by the advanced practice provider. *DC/Admit/Observation/Transfer Diagnosis at time of Disposition: Cellulitis Qualifiers: Site of cellulitis: extremity Site of cellulitis of extremity: lower extremity Laterality: right Qualified Code(s): L03.115 - Cellulitis of right lower limb - Discharge Dispostion Disposition: HOME Condition at time of disposition: Fair - Prescriptions Prescriptions: Clindamycin HCl 450 mg PO TID #90 capsule - Referrals Referrals: Pacheco Woodall [Primary Care Provider] - - Patient Instructions Additional Instructions: Take clindamycin 450mg 3 times a day for the next 10 days Finish all antibiotics even if you feel better. Apply warm compresses to your ear as needed. Return to emergency department immediately for any worsening pain, drainage, or any other concerns. Thank you very much for choosing us to provide your emergent health care needs. - Post Discharge Activity
--- NOTE | 2019-06-12 19:48 | PDOC ---
History of Present Illness - General Chief Complaint: Wound Stated Complaint: WOUND CARE Time Seen by Provider: 06/12/19 16:12 History Source: Patient, Old Records Exam Limitations: No Limitations - History of Present Illness Initial Comments: 06/12/19 19:42 HISTORY OF PRESENT ILLNESS: 33-year-old male past medical history IDDM, osteomyelitis with right fourth toe amputation 03/21/19 (finished outpatient course of vanco 3 wks ago) who presents emergency Department for evaluation of right lower extremity pain and swelling. Patient reports she noted to "bumps" on his right lower leg 3 days ago. Patient reported squeezing and scratching the bumps in one began at loose and the other one disappeared. Patient reports his right lower extremity has swollen and become erythematous since that time. He denies fevers, chills, recent travel, hormone therapy, smoking. No recent travel or sick contacts. PAST MEDICAL HISTORY: see HPI SURGICAL HISTORY: see HPI ALLERGIES: No known drug allergies REVIEW OF SYSTEMS General/Constitutional: Denies fever or chills. Denies weakness, weight change. HEENT: Denies change in vision. Denies ear pain or discharge. Denies sore throat. Cardiovascular: Denies chest pain or shortness of breath. Respiratory: Denies cough, wheezing, or hemoptysis. Gastrointestinal: Denies nausea, vomiting, diarrhea or constipation. Denies rectal bleeding. Genitourinary: Denies dysuria, frequency, or change in urination. Musculoskeletal: see HPI Skin and breasts: Denies rash or easy bruising. Neurologic: Denies headache, vertigo, loss of consciousness, or loss of sensation. Psychiatric: Denies depression or anxiety. Endocrine: Denies increased thirst. Denies abnormal weight change. Hematologic/Lymphatic: Denies anemia, easy bleeding, or history of blood clots. Allergic/Immunologic: Denies hives or skin allergy. Denies latex allergy. PHYSICAL EXAM General Appearance: Well-appearing, appropriately dressed. No apparent distress , no intoxication. Respiratory/Chest: Lungs CTAB. No shortness of breath, chest tenderness, respiratory distress, accessory muscle use. No crackles, rales, rhonchi, stridor , wheezing, dullness Cardiovascular: RRR. S1, S2. No JVD, murmur, bradycardia, tachycardia. Vascular Pulses: Dorsalis-Pedis (R): 1+, Dorsalis-Pedis (L): 2+ Musculoskeletal/Extremities: Circumferential erythema presents from right infrapatellar region distal to the toes. 1+ edema present. Vascular pulses 1+ on the right dorsalis pedis. Four toes present. Neurovascular intact. Integumentary: Appropriate color, dry, warm. 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 Fully oriented, alert. Appropriate mood/affect. Motor strength 5/5. No appreciable EOM palsy, facial droop or sensory deficit. 06/12/19 21:34 06/12/19 21:35 Past History - Past Medical History Allergies/Adverse Reactions: Allergies Allergy/AdvReac Type Severity Reaction Status Date / Time No Known Allergies Allergy Verified 06/12/19 16:16 Home Medications: Ambulatory Orders Quetiapine Fumarate [Seroquel -] 200 mg PO HS 08/13/18 Ranitidine HCl [Zantac] 300 mg PO PRN #20 tablet 08/13/18 Albuterol Sulfate Inhaler - [Ventolin HFA Inhaler -] 1 - 2 inh PO QID 03/14/19 Amlodipine Besylate [Norvasc -] 10 mg PO DAILY MDD 1 03/14/19 Benazepril HCl 1 tab PO DAILY 03/14/19 Gabapentin [Neurontin -] 1 tab PO TID 03/14/19 Omeprazole Magnesium [Prilosec Otc] 40 mg PO DAILY 03/14/19 Oxycodone HCl/Acetaminophen [Percocet 10-325 mg Tablet] 1 each PO QID 03/14/19 Tamsulosin HCl [Flomax] 0.4 mg PO DAILY 03/14/19 Zolpidem Tartrate [Ambien] 10 mg PO HS 03/14/19 Acetaminophen [Tylenol .Extra-Strength -] 1,000 mg PO Q6H PRN tablet 03/23/19 Docusate Sodium [Colace -] 100 mg PO Q8H PRN #90 capsule 03/23/19 Furosemide [Lasix -] 40 mg PO DAILY #30 tablet 03/23/19 Insulin (Levemir) [Levemir Vial] 25 units SQ AM #1 bottle 03/23/19 Insulin (Levemir) [Levemir Vial] 40 units SQ HS #1 bottle 03/23/19 Sennosides [Senna -] 2 tab PO HS PRN #60 tablet 03/23/19 Tobramycin 0.3% Ophth Soln [Tobrex Ophthalmic Solution -] 1 drop OS QID #1 bottle 03/23/19 traZODone HCL [Desyrel -] 50 mg PO HS PRN #30 tablet 03/23/19 Clindamycin HCl 450 mg PO TID #90 capsule 06/12/19 Anemia: No Asthma: No Cancer: No Cardiac Disorders: No CVA: No COPD: No CHF: No Dementia: No Diabetes: Yes GI Disorders: No Disorders: No HTN: Yes Hypercholesterolemia: Yes Liver Disease: No Seizures: No Thyroid Disease: No - Surgical History Abdominal Surgery: No Appendectomy: No Cardiac Surgery: No Cholecystectomy: No Lung Surgery: No Neurologic Surgery: No Orthopedic Surgery: No - Immunization History Immunization Up to Date: Yes - Suicide/Smoking/Psychosocial Hx Smoking History: Current every day smoker Have you smoked in the past 12 months: Yes Number of Cigarettes Smoked Daily: 10 Information on smoking cessation initiated: No 'Breaking Loose' booklet given: 12/16/18 Hx Alcohol Use: No Drug/Substance Use Hx: No Substance Use Type: Marijuana Hx Substance Use Treatment: No *Physical Exam - Vital Signs Last Vital Signs Temp Pulse Resp BP Pulse Ox 99.3 F 99 H 18 122/70 100 06/12/19 16:11 06/12/19 16:11 06/12/19 16:11 06/12/19 16:11 06/12/19 16:11 ED Treatment Course - LABORATORY CBC & Chemistry Diagram: 06/12/19 20:11 06/12/19 20:11 Medical Decision Making - Medical Decision Making 06/12/19 19:47 A/P: 33-year-old male with atraumatic right lower extremity swelling for 3 days Differential diagnosis includes but is not limited to cellulitis, DVT, venous stasis Basic labs with blood cultures Duplex Dopplers Clindamycin 600 mg IV Reassess 06/12/19 20:33 Ultrasound as read by Dr. Ahumada: No DVT is identified involving either leg. 06/12/19 21:26 Laboratory Tests 06/12/19 06/12/19 20:11 20:11 WBC 9.9 Hgb 10.9 L Hct 32.9 L Plt Count 258 D Sodium 140 Potassium 4.2 Chloride 108 H Carbon Dioxide 24 BUN 21.3 H Creatinine 1.7 H Random Glucose 228 H Likely stasis given negative DVT study absence of elevated WBC. I will d/c the patient home with Rx for clindamycin 450mg q8h. Pt has appointment with PMD in AM. Patient has been given strict return precautions given Pmh and recent osteomyelitis. I discussed the physical exam findings, ancillary test results and final diagnoses with the patient. I answered all of the patient's questions. The patient was satisfied with the care received and felt comfortable with the discharge plan and treatment plan. The patient will call their primary care physician within 24 hours to arrange follow-up and will return to the Emergency Department with any new, persistent or worsening symptoms. *DC/Admit/Observation/Transfer Diagnosis at time of Disposition: Cellulitis Qualifiers: Site of cellulitis: extremity Site of cellulitis of extremity: lower extremity Laterality: right Qualified Code(s): L03.115 - Cellulitis of right lower limb - Discharge Dispostion Disposition: HOME Condition at time of disposition: Fair Decision to Admit order: No - Prescriptions Prescriptions: Clindamycin HCl 450 mg PO TID #90 capsule - Referrals Referrals: Pacheco Woodall [Primary Care Provider] - - Patient Instructions Additional Instructions: Take clindamycin 450mg 3 times a day for the next 10 days Finish all antibiotics even if you feel better. Apply warm compresses to your ear as needed. Return to emergency department immediately for any worsening pain, drainage, or any other concerns. Thank you very much for choosing us to provide your emergent health care needs. - Post Discharge Activity
[2019-06-12 20:40] LABS: BASO % 0.6 % (0-2.0); EOS % 2.1 % (0-4.5); HEMATOCRIT 32.9 % (35.4-49); HEMOGLOBIN 10.9 GM/dL (11.7-16.9); LYMPH % 10.4 % (8-40); MCH 26.6 pg (25.7-33.7); MEAN CELL VOLUME 80.4 fl (80-96); MEAN PLT VOLUME 8.1 fl (7.5-11.1); MONO % 6.4 % (3.8-10.2); NEUT % 80.5 % (42.8-82.8); PLATELET COUNT 258 K/MM3 (134-434); RDW 15.3 % (11.9-15.9); WHITE BLOOD COUNT 9.9 K/mm3 (4.0-10.0)
[2019-06-12 21:05] LABS: ALBUMIN 2.4 g/dl (3.4-5.0); BILIRUBIN,TOTAL 0.2 mg/dL (0.2-1); BLOOD UREA NITROGEN 21.3 mg/dL (7-18); CALCIUM 8.4 mg/dL (8.5-10.1); CREATININE 1.7 mg/dL (0.55-1.3); POTASSIUM 4.2 mmol/L (3.5-5.1); TOT PROT 6.6 g/dl (6.4-8.2)
== END 2019-06-12 21:36 | disposition home or self-care (01) ==
LOC: JER 15:43
DX: L03.115 Cellulitis of right lower limb (principal); E11.9 Type 2 diabetes mellitus without complications; Z79.4 Long term (current) use of insulin; Z89.421 Acquired absence of other right toe(s); M86.9 Osteomyelitis, unspecified; I10 Essential (primary) hypertension; F17.210 Nicotine dependence, cigarettes, uncomplicated; E78.00 Pure hypercholesterolemia, unspecified
CPT/HCPCS: 36415; 80053; 85025; 87040; 93970-TC; 99282-25

== ENCOUNTER 2019-11-05 12:51 | Emergency (ER) | payer OTHER ==
[2019-11-05 12:57] VITALS: BP 161/91; PULSE 89; TEMP 97.8; BMI 39.7
[2019-11-05] MEDS ORDERED: KETOROLAC TROMETHAMINE 30 MG/1 ML VIAL IM ONE (13:55)
[2019-11-05] MEDS ORDERED: KETOROLAC TROMETHAMINE 30 MG/1 ML VIAL ONE (13:58)
--- NOTE | 2019-11-05 14:00 | PDOC ---
History of Present Illness - General Chief Complaint: Sore Throat Stated Complaint: SORE THROAT/LT EYE PROBLEM Time Seen by Provider: 11/05/19 13:08 History Source: Patient Exam Limitations: No Limitations - History of Present Illness Initial Comments: 11/05/19 13:56 Patient is a 33-year-old insulin-dependent diabetic male who presents to the ED with complaint of throat pain and swelling since this morning. He states his throat is very sore and he feels as if his uvula is swollen. He denies any shortness of breath. 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 He states that his sugars were 216 mg/dL this morning. 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 He states he is most concerned about his throat at this point, and does not want to be seen for his eye today. The patient states that he has an appointment with his professional security officer at [facility] tomorrow morning at 8 AM and would like to follow-up there. 11/05/19 14:00 11/05/19 14:20 Past History - Past Medical History Allergies/Adverse Reactions: Allergies Allergy/AdvReac Type Severity Reaction Status Date / Time No Known Allergies Allergy Verified 11/05/19 12:56 Home Medications: Ambulatory Orders Quetiapine Fumarate [Seroquel -] 200 mg PO HS 08/13/18 Ranitidine HCl [Zantac] 300 mg PO PRN #20 tablet 08/13/18 Albuterol Sulfate Inhaler - [Ventolin HFA Inhaler -] 1 - 2 inh PO QID 03/14/19 Amlodipine Besylate [Norvasc -] 10 mg PO DAILY MDD 1 03/14/19 Benazepril HCl 1 tab PO DAILY 03/14/19 Omeprazole Magnesium [Prilosec Otc] 40 mg PO DAILY 03/14/19 Tamsulosin HCl [Flomax] 0.4 mg PO DAILY 03/14/19 Zolpidem Tartrate [Ambien] 10 mg PO HS 03/14/19 Acetaminophen [Tylenol .Extra-Strength -] 1,000 mg PO Q6H PRN tablet 03/23/19 Docusate Sodium [Colace -] 100 mg PO Q8H PRN #90 capsule 03/23/19 Furosemide [Lasix -] 40 mg PO DAILY #30 tablet 03/23/19 Insulin (Levemir) [Levemir Vial] 25 units SQ AM #1 bottle 03/23/19 Insulin (Levemir) [Levemir Vial] 40 units SQ HS #1 bottle 03/23/19 Sennosides [Senna -] 2 tab PO HS PRN #60 tablet 03/23/19 traZODone HCL [Desyrel -] 50 mg PO HS PRN #30 tablet 03/23/19 Sodium Hypochlorite [Dakin's Solution 0.25% (Half-Strength)] 473 ml MC DAILY #1 bottle 09/19/19 Anemia: No Asthma: No Cancer: No Cardiac Disorders: No CVA: No COPD: No CHF: No Dementia: No Diabetes: Yes GI Disorders: No Disorders: No HTN: Yes Hypercholesterolemia: Yes Liver Disease: No Seizures: No Thyroid Disease: No - Surgical History Abdominal Surgery: No Appendectomy: No Cardiac Surgery: No Cholecystectomy: No Lung Surgery: No Neurologic Surgery: No Orthopedic Surgery: No - Immunization History Immunization Up to Date: Yes - Psycho Social/Smoking Cessation Hx Smoking History: Current every day smoker Have you smoked in the past 12 months: Yes Number of Cigarettes Smoked Daily: 10 Information on smoking cessation initiated: No 'Breaking Loose' booklet given: 12/16/18 Hx Alcohol Use: No Drug/Substance Use Hx: No Substance Use Type: Marijuana Hx Substance Use Treatment: No Review of Systems - Review of Systems Comments:: 11/05/19 14:00 - Review of Systems Able to Perform ROS?: Yes Constitutional: No: Fever, Chills, Loss of Appetite, Night Sweats, Weakness HEENTM: No: Eye Pain, Ear Pain, Mouth Pain, Difficulty Swallowing, + blurred vision L eye, + throat pain and throat swelling Respiratory: No: Cough, Shortness of Breath, Wheezing, Sputum Production Cardiac (ROS): No: Chest Pain, Chest Tightness, Palpitations, Irregular Heart Beat, Edema ABD/GI: No: Nausea, Vomiting, Abdominal Pain, Diarrhea Musculoskeletal: No: Muscle Pain, Back Pain, Joint Pain, Muscle Weakness, Neck Pain Integumentary: No: Lesions, Rash Neurological: No: Headache, Numbness, Tingling, Weakness, Speech Difficulties *Physical Exam - Vital Signs Last Vital Signs Temp Pulse Resp BP Pulse Ox 97.8 F 89 18 161/91 100 11/05/19 12:53 11/05/19 12:53 11/05/19 12:53 11/05/19 12:53 11/05/19 12:53 - Physical Exam 11/05/19 14:01 - Physical Exam General Appearance: Nourished, Appropriately Dressed, No Distress HEENT: EOMI, Normal Voice, TMs Normal, No Nasal Congestion, No Rhinorrhea, Hearing Grossly Normal, No TM Bulging. No Muffled/Hoarse voice, No Tonsillar Exudate, No TM Dullness, No TM Erythema. There is moderate swelling of the uvula but the airway remains patent and there is no stridor. There is moderate pharyngeal erythema without exudates appreciated. Eye exam deferred as per patient request. Neck: Supple, Bilateral anterior cervical lymphadenopathy appreciated; No Rigidity, No Decreased range of motion Respiratory/Chest: Lungs Clear, Normal Breath Sounds. No Respiratory Distress, No Accessory Muscle Use, No stridor Cardiovascular: Regular Rhythm, Regular Rate, S1, S2 Gastrointestinal/Abdominal: Normal Bowel Sounds, Soft. Non-tender, No Guarding , No Rebound, No Rigidity Musculoskeletal: Normal Inspection. No Decreased Range of Motion Extremity: Normal Capillary Refill, Normal Inspection Integumentary: Normal Color, Dry. 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 We have sent a throat culture/rapid strep for further evaluation. We will defer use of steroids secondary to the patient's history of diabetes and for his possible eye pathology that he will have evaluated with his professional security officer tomorrow morning. I have had extensive discussion with the patient that he should consider getting seen today for eye evaluation as he has had blurred vision and floaters since yesterday. He states he may go directly to [facility] today or wait for his appointment tomorrow. 11/05/19 14:16 I have again spoken with the patient regarding getting evaluated sooner for his left eye blurred vision. He states this has happened to him in the past and he will likely get seen tomorrow. He has made me aware that his kidney function is not perfect so I have warned him about taking excessive NSAIDs. He can take Tylenol for his throat pain and gargle with warm salt water. He will return to the ED for throat swelling, increased throat pain, high fevers, shaking chills, or any other worsening symptoms. Discharge - Discharge Information Problems reviewed: Yes Clinical Impression/Diagnosis: Throat pain in adult Condition: Stable Disposition: HOME - Follow up/Referral Referrals: Pacheco Woodall [Primary Care Provider] - - Patient Discharge Instructions Patient Printed Discharge Instructions: Sore Throat Additional Instructions: You should follow-up with your primary doctor within 1 to 2 days for repeat evaluation. Take Tylenol for throat pain and gargle with warm salt water. You should try and avoid NSAIDs such as ibuprofen, Motrin, Advil secondary to your kidney function. I do suggest following up with Dilcia De Jesus as soon as you leave here for further evaluation of your left eye, despite having an appointment tomorrow at 8am. Return to the emergency department for worsening throat pain, difficulty swallowing, high fevers, shaking chills, or any other worsening symptoms. - Post Discharge Activity
== END 2019-11-05 14:27 | disposition home or self-care (01) ==
LOC: JERFT 12:51
PROC: 3E0233Z Introduction of Anti-inflammatory into Muscle, Percutaneous Approach (ICD-10-PCS; principal; 2019-11-05)
DX: J02.9 Acute pharyngitis, unspecified (principal); E10.65 Type 1 diabetes mellitus with hyperglycemia; Z79.4 Long term (current) use of insulin; H54.61 Unqualified visual loss, right eye, normal vision left eye
CPT/HCPCS: 87070; 87880; 96372; 99281-25

== ENCOUNTER 2020-07-12 16:06 | Inpatient (IN) | payer OTHER ==
[2020-07-12] MEDS ORDERED: KETOROLAC TROMETHAMINE 30 MG/1 ML VIAL IVPUSH ONE (17:15)
--- NOTE | 2020-07-12 17:26 | PDOC ---
History of Present Illness - General Chief Complaint: Pain, Acute Stated Complaint: SOB/ RIB PAIN- UNSPECIFIED Time Seen by Provider: 07/12/20 16:54 History Source: Patient - History of Present Illness Timing/Duration: reports: getting worse Quality: reports: severe Abdominal Pain Onset Location: reports: [facility] Past History - Medical History Allergies/Adverse Reactions: Allergies Allergy/AdvReac Type Severity Reaction Status Date / Time No Known Allergies Allergy Verified 07/12/20 16:15 Home Medications: Ambulatory Orders Quetiapine Fumarate [Seroquel -] 200 mg PO HS 08/13/18 Ranitidine HCl [Zantac] 300 mg PO PRN #20 tablet 08/13/18 Albuterol Sulfate Inhaler - [Ventolin HFA Inhaler -] 1 - 2 inh PO QID 03/14/19 Amlodipine Besylate [Norvasc -] 10 mg PO DAILY MDD 1 03/14/19 Benazepril HCl 1 tab PO DAILY 03/14/19 Omeprazole Magnesium [Prilosec Otc] 40 mg PO DAILY 03/14/19 Zolpidem Tartrate [Ambien] 10 mg PO HS 03/14/19 traMADol HCL [Ultram -] 50 mg PO BID PRN #10 tablet MDD 2 03/04/20 Atorvastatin Calcium [Lipitor] 20 mg PO 07/13/20 Insulin Glargine,Hum.rec.anlog [Basaglar Kwikpen U-100] 44 unit SQ HS 07/13/20 Insulin Lispro [Admelog] 100 unit SQ 07/13/20 [place]-3 Acid Ethyl Esters [Lovaza -] 2,000 mg PO BID 07/13/20 Anemia: No Asthma: No Cancer: No Cardiac Disorders: No CVA: No COPD: No CHF: No Dementia: No Diabetes: Yes GI Disorders: No Disorders: No HTN: Yes Hypercholesterolemia: Yes Liver Disease: No Seizures: No Thyroid Disease: No - Surgical History Abdominal Surgery: No Appendectomy: No Cardiac Surgery: No Cholecystectomy: No Lung Surgery: No Neurologic Surgery: No Orthopedic Surgery: No - Immunization History Immunization Up to Date: Yes - Psycho-Social/Smoking History Smoking History: Current every day smoker Have you smoked in the past 12 months: Yes Number of Cigarettes Smoked Daily: 4 Information on smoking cessation initiated: Yes 'Breaking Loose' booklet given: 12/16/18 - Substance Abuse Hx (Audit-C & DAST Scrn) How often the patient has a drink containing alcohol: Never Score: In Men: 4 or > Positive; In Women: 3 or > Positive: 0 Screen Result (Pos requires Nsg. Audit-10AR): Negative In the last yr the pt used illegal drug/Rx for NonMed reason: No Score: Yes response is considered Positive: 0 Screen Result (Positive result requires Nsg. DAST-10): Negative Review of Systems - Review of Systems Constitutional: No: Chills, Fever Respiratory: No: Cough, Shortness of Breath Cardiac (ROS): Yes: Chest Pain. No: Lightheadedness, Palpitations, Syncope ABD/GI: No: Blood Streaked Bowels, Constipated, Diarrhea, Nausea, Rectal Bleeding, Vomiting : No: Dysuria, Hematuria *Physical Exam - Vital Signs Last Vital Signs Temp Pulse Resp BP Pulse Ox 97.9 F 109 H 19 158/102 H 98 07/12/20 16:13 07/12/20 16:13 07/12/20 16:13 07/12/20 16:13 07/12/20 16:13 - Physical Exam General Appearance: Yes: Appropriately Dressed, Moderate Distress HEENT: positive: Normal Voice Neck: positive: Supple Respiratory/Chest: positive: Lungs Clear, Normal Breath Sounds. negative: Respiratory Distress Cardiovascular: positive: S1, S2, Tachycardia Gastrointestinal/Abdominal: positive: Tender (sig ttp to L lower chest/LUQ), Soft Musculoskeletal: negative: CVA Tenderness, Vertebral Tenderness Integumentary: positive: Dry, Warm Neurologic: positive: Fully Oriented, Alert, Normal Mood/Affect ED Treatment Course - LABORATORY CBC & Chemistry Diagram: 07/13/20 06:53 07/13/20 06:53 - RADIOLOGY Radiology Studies Ordered: Category Date Time Status ABDOMEN & PELVIS CT WITH CONTR [CT] Stat CT Scan 07/12/20 17:10 Ordered Medical Decision Making - Medical Decision Making 07/12/20 17:21 34-year-old morbidly obese male with history of IDDM, recurrent abscesses, here with severe left-sided chest pain that starts in left upper back and radiates to left lower chest x 3 days, unable to describe, 10 out of 10 and significantly worsens with deep inspiration, cough or sneezing. Denies any SOB, diaphoresis, palpitations, cough, f/c/n/v. No change in bowel movements or dysuria. Patient states he went to [facility] 2 days ago for same and had a work-up including CT scan which was normal. Patient not clear if he had a CT chest or abdomen. Reports that pain has persisted and not better with any [id number]-mzhhtmn meds. No obvious RF for PE see exam Severe persistent, pleuritic L lower chest/LUQ pain x 3 days despite negative w/u at OSH Pt in significant distress and hypotensive and tachycardic with significant tenderness to palpation mostly to left lower chest Had negative w/u at [facility] 2 days ago including ? CT chest per pt Will call staff at [facility] for collateral info and m/l rpt w/u given pt's presentation -pain control -EKG -CXR -?CTA r/o PE given tachycardia here -dispo pending 07/12/20 17:31 Per ED staff at [facility], pt had p/w chest pain and had neg cardiac w/u. Also had dry chest CT which showed no acute pathology. Will do CTA r/o PE today 07/12/20 19:05 Multiple lab derangements including white count of 15.8 with blood glucose of 453, no gap. Creatinine 2.2, not new based on old records here. Insulin and fluids in progress. Unable to get contrast study at this time given elevated Cr, may need VQ scan while admitted. Sating 98% currently 07/12/20 21:20 Chest x-ray with cardiomegaly and possible infiltrative changes to L base. Will need CT to better evaluate. Patient signed out to Dr. reinoso at this time pending rest of work-up and admission as discussed Discharge - Discharge Information Problems reviewed: Yes Clinical Impression/Diagnosis: Hyperglycemia, Elevated serum creatinine Pneumonia Qualifiers: Pneumonia type: due to unspecified organism Laterality: left Lung location: lower lobe of lung Qualified Code(s): J18.9 - Pneumonia, unspecified organism Condition: Guarded - Follow up/Referral - Patient Discharge Instructions - Post Discharge Activity
[2020-07-12] MEDS ORDERED: KETOROLAC TROMETHAMINE 30 MG/1 ML VIAL ONE (17:56)
[2020-07-12 18:08] LABS: BASO % 0.4 % (0-2.0); EOS % 0.2 % (0-4.5); HEMATOCRIT 35.1 % (35.4-49); HEMOGLOBIN 11.5 GM/dL (11.7-16.9); LYMPH % 4.4 % (8-40); MCH 28.2 pg (25.7-33.7); MCHC 32.7 g/dl (32.0-35.9); MEAN CELL VOLUME 86.2 fl (80-96); MEAN PLT VOLUME 8.5 fl (7.5-11.1); MONO % 7.8 % (3.8-10.2); NEUT % 87.2 % (42.8-82.8); PLATELET COUNT 247 K/MM3 (134-434); RBC 4.08 M/mm3 (4.00-5.60); RDW 14.1 % (11.9-15.9); WHITE BLOOD COUNT 15.8 K/mm3 (4.0-10.0)
[2020-07-12 18:34] LABS: ALBUMIN 2.4 g/dl (3.4-5.0); ALK PHOS 96 U/L (45-117); ANION GAP 7 MMOL/L (8-16); BILIRUBIN,TOTAL 0.4 mg/dL (0.2-1); BLOOD UREA NITROGEN 26.8 mg/dL (7-18); CALCIUM 8.4 mg/dL (8.5-10.1); CHLORIDE 100 mmol/L (98-107); CO2 25 mmol/L (21-32); CREATININE 2.2 mg/dL (0.55-1.3); LIPASE 83 U/L (73-393); POTASSIUM 4.7 mmol/L (3.5-5.1); SGOT/AST 14 U/L (15-37); SGPT/ALT 26 U/L (13-61); SODIUM 132 mmol/L (136-145); TOT PROT 6.8 g/dl (6.4-8.2)
[2020-07-12 18:46] LABS: GLUCOSE,RANDOM 453 mg/dL (74-106)
[2020-07-12] MEDS ORDERED: INSULIN REGULAR HUMAN 100 UNITS/ML *VIAL SQ ONE (18:56)
[2020-07-12] MEDS ORDERED: SODIUM CHLORIDE 1,000 ML IV STA (18:56)
--- NOTE | 2020-07-12 21:13 | PDOC ---
*Physical Exam - Vital Signs Last Vital Signs Temp Pulse Resp BP Pulse Ox 97.9 F 109 H 19 158/102 H 98 07/12/20 16:13 07/12/20 16:13 07/12/20 16:13 07/12/20 16:13 07/12/20 16:13 ED Treatment Course - LABORATORY CBC & Chemistry Diagram: 07/12/20 17:40 07/12/20 17:40 - ADDITIONAL ORDERS Additional order review: Laboratory Results 07/12/20 17:40 Sodium 132 L Potassium 4.7 Chloride 100 Carbon Dioxide 25 Anion Gap 7 L BUN 26.8 H Creatinine 2.2 H Est GFR (CKD-EPI)AfAm 43.37 Est GFR (CKD-EPI)NonAf 37.42 Random Glucose 453 H* Calcium 8.4 L Total Bilirubin 0.4 AST 14 L ALT 26 Alkaline Phosphatase 96 Creatine Kinase 100 Troponin I < 0.02 Total Protein 6.8 Albumin 2.4 L Lipase 83 Beta-Hydroxybutyrate 0.7 07/12/20 17:40 RBC 4.08 MCV 86.2 MCHC 32.7 RDW 14.1 MPV 8.5 Neutrophils % 87.2 H Lymphocytes % 4.4 L D Monocytes % 7.8 Eosinophils % 0.2 D Basophils % 0.4 - Medications Given in the ED: ED Medications Discontinued Medications Generic Name Dose Route Start Last Admin Trade Name Dinoq PRN Reason Stop Dose Admin Sodium Chloride 1,000 mls @ 1,000 mls/hr 07/12/20 18:56 07/12/20 19:30 Normal Saline - IV 07/12/20 19:55 1,000 mls/hr ASDIR STA Administration Insulin Human Regular 10 units 07/12/20 18:56 07/12/20 19:30 Novolin R Vial *For Ivpush Or Iv Drip Only* SQ 07/12/20 18:57 10 units ONCE ONE Administration Ketorolac Tromethamine 30 mg 07/12/20 17:15 07/12/20 17:55 Toradol Injection - IVPUSH 07/12/20 17:16 30 mg ONCE ONE Administration Medical Decision Making - Medical Decision Making Patient signed out by VIBHA Durbin 34-year-old morbidly obese male with history of IDDM, recurrent abscesses, here with severe left-sided chest pain that starts in left upper back and radiates to left lower chest x 3 days, unable to describe, 10 out of 10 and significantly worsens with deep inspiration, cough or sneezing. Elevated Cr Pending CT Chest, Abd/pelvis 07/12/20 21:13 CT report: "EXAM#: TYPE/EXAM: RESULT: CT/ABDOMEN PELVIS CT W/O CONTR CT/CHEST CT WITHOUT CONTRAST CHEST CT without contrast Clinical information: left chest pain; left infiltrate on CXR Multiplanar imaging was performed. Intravenous contrast was not administered. No prior CT exam is available at this facility for direct comparison. A small left posterior basilar infiltrate is seen as well as a very small left pleural effusion. There is mild discoid atelectasis within the lingula. Minimal elevation of the left diaphragm is noted which has developed in comparison to radiography p erformed in 2019. There is possible mild left ventricular dilatation. No pericardial effusion is visualized. The main pulmonary artery diameter appears mildly prominent measuring 3.3 cm suggestive of increased pulmonary arterial pressure. Bilateral gynecomastia. No gross lymphadenopathy is noted on noncontrast imaging. The trachea and central bronchi demonstrate no obvious pathology. There is no aortic aneurysm. The visualized osseous structures demonstrate no obvious acute abnormality. IMPRESSION: Small left posterior basilar infiltrate. Very small left pleural effusion. Mild lingular discoid atelectasis. Minimal elevation of the left diaphragm. Possible mild cardiomegaly. The main pulmonary artery appears to be mildly dilated with a 3.3 cm diameter suggestive of increased pulm onary arterial pressure. Follow-up evaluation is suggested. Bilateral gynecomastia. ABDOMEN AND PELVIS CT without contrast Clinical information: LUQ pain Multiplanar imaging was performed. No intravenous or enteric contrast was administered. No prior imaging exam is available at this facility for direct comparison. There is no evidence of pneumoperitoneum, free intraperitoneal fluid or bowel obstruction. The spleen is enlarged measuring 14.7 cm in length. Several nonspecific enlarged bilateral external iliac chain lymph nodes are seen with a 1.4 cm short axis diameter. Several slightly prominent periaortic retroperitoneal lymph nodes are seen with a 0.8 cm short axis diameter as well as several mildly prominent bilateral inguinal lymph nodes with a 0.8 cm short axis diameter. Bilateral nonobstructing 2 mm renal calculi are visualized. The liver, pancreas, and adrenal glands demonstrate no discrete noncontrast pathology. There is no aortic aneurysm. No CT evidence of acute diverticulitis or appendicitis. There is no gross noncontrast small bowel abnormality. There is no definite prostate enlargement. The seminal vesicles appear symmetric. The urinary bladder demonstrates no obvious intrinsic or extrinsic CT pathology. There is no obvious acute osseous abnormality. IMPRESSION: No definite CT findings of acute abnormality are identified. Splenomegaly is noted (14.7 cm length). Nonspecific bilateral pelvic lymphadenopathy is seen. Several slightly prominent retroperitoneal and bilateral inguinal lymph nodes are noted. Bilateral nonobstructing 2 mm renal calculi are seen. Reported By: Johnson Ahumada MD 07/12/20 2151 " Repeat fingerstick 295 Pneumonia on the left; ordered rocephin/azithromcin MB sent; awaiting callback 07/12/20 23:36 Discussed case with JOHNY Moran who accepted patient for tele admission under Dr. Emanuel 07/13/20 00:12 Discharge - Discharge Information Problems reviewed: Yes Clinical Impression/Diagnosis: Hyperglycemia, Elevated serum creatinine Pneumonia Qualifiers: Pneumonia type: due to unspecified organism Laterality: left Lung location: lower lobe of lung Qualified Code(s): J18.9 - Pneumonia, unspecified organism Condition: Guarded - Admission Yes - Follow up/Referral - Patient Discharge Instructions - Post Discharge Activity
[2020-07-12] MEDS ORDERED: AZITHROMYCIN IVPB 500 MG in DEXTROSE 5%-WATER - 250 ML IVPB ONE (23:14)
[2020-07-12] MEDS ORDERED: CEFTRIAXONE 1,000 MG in DEXTROSE 5%-WATER - 50 ML IVPB ONE (23:14)
[2020-07-12] MEDS ORDERED: ACETAMINOPHEN 325 MG TABLET (FP) PO ONE (23:15)
[2020-07-12] MEDS ORDERED: LIDOCAINE 5% TOPICAL PATCH TP ONE (23:34)
[2020-07-12] MEDS ORDERED: LIDOCAINE 5% TOPICAL PATCH ONE (23:41)
[2020-07-12] MEDS ORDERED: CEFTRIAXONE 1 GM/50 ML BAG ONE (23:42)
[2020-07-12] MEDS ORDERED: AZITHROMYCIN IVPB 500 MG/250 ML BAG IVPB ONE (23:42)
[2020-07-13] MEDS: LIDOCAINE PATCH REMOVAL MC SCH ×2 (00:01→21:43)
--- NOTE | 2020-07-13 00:41 | HP ---
Admitting History and Physical - Primary Care Physician PCP: Pacheco Woodall - Admission Chief Complaint: Chest Pain History of Present Illness: This is a 34 y/o male with a PMHx of HTN, HLD, IDDM, GERD, BPH, Depression, Severe Obesity, recurrent abscesses. Who presents to the ED with severe left- sided chest pain with radiation x 3 days. Patient describes the CP as constant sharp pressure increased on movement, deep inspiration, cough, and sneezing. Jarod ortiz reports that the pain is reproducible. Patient reports being seen at [facility] for same 2 days ago- work-up including CT scan which was normal. Patient is not clear if he had a CT chest or abdomen. He reports that the pain has persisted and is not relieved with OTC analgesia. Patient denies heavy lifting, fall or trauma. He denies fever, chills, SOB, diaphoresis, palpitations, AP, N/V/D, constipation, dysuria. Patient denies sick contacts or recent travel. Patient denies alcohol or recent illicit drug use. He admits to Cocaine use 3 weeks ago. 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 metatarsal) Additional Past Surgical History: Right Foot Debridement of Ulcer - Smoking History Smoking history: Current every day smoker Have you smoked in the past 12 months: Yes Aproximately how many cigarettes per day: 4 - Alcohol/Substance Use Hx Alcohol Use: No History of Substance Use: reports: Cocaine, Marijuana - Social History Usual Living Arrangement: Yes: Alone ADL: Support Services Occupation: unemployed History of Recent Travel: No Home Medications - Allergies Allergies/Adverse Reactions: Allergies Allergy/AdvReac Type Severity Reaction Status Date / Time No Known Allergies Allergy Verified 07/12/20 16:15 - Home Medications Home Medications: Ambulatory Orders Quetiapine Fumarate [Seroquel -] 200 mg PO HS 08/13/18 Ranitidine HCl [Zantac] 300 mg PO PRN #20 tablet 08/13/18 Albuterol Sulfate Inhaler - [Ventolin HFA Inhaler -] 1 - 2 inh PO QID 03/14/19 Amlodipine Besylate [Norvasc -] 10 mg PO DAILY MDD 1 03/14/19 Benazepril HCl 1 tab PO DAILY 03/14/19 Omeprazole Magnesium [Prilosec Otc] 40 mg PO DAILY 03/14/19 Tamsulosin HCl [Flomax] 0.4 mg PO DAILY 03/14/19 Zolpidem Tartrate [Ambien] 10 mg PO HS 03/14/19 Docusate Sodium [Colace -] 100 mg PO Q8H PRN #90 capsule 03/23/19 Furosemide [Lasix -] 40 mg PO DAILY #30 tablet 03/23/19 Insulin (Levemir) [Levemir Vial] 25 units SQ AM #1 bottle 03/23/19 Insulin (Levemir) [Levemir Vial] 40 units SQ HS #1 bottle 03/23/19 Sennosides [Senna -] 2 tab PO HS PRN #60 tablet 03/23/19 traZODone HCL [Desyrel -] 50 mg PO HS PRN #30 tablet 03/23/19 traMADol HCL [Ultram -] 50 mg PO BID PRN #10 tablet MDD 2 03/04/20 Family Medical History Family History: As Documented Family Hx Diabetes: Grandmother (maternal), Grandfather (paternal) Review of Systems - Review of Systems Constitutional: reports: No Symptoms Eyes: reports: No Symptoms HENT: reports: No Symptoms Neck: reports: No Symptoms Cardiovascular: reports: Chest Pain Respiratory: reports: No Symptoms Gastrointestinal: reports: No Symptoms Genitourinary: reports: No Symptoms Breasts: reports: No Symptoms Reported Musculoskeletal: reports: Back Pain Integumentary: reports: No Symptoms Neurological: reports: No Symptoms Endocrine: reports: No Symptoms Hematology/Lymphatic: reports: No Symptoms Psychiatric: reports: No Symptoms Pain Intensity: 8 Physical Examination Vital Signs: Vital Signs Temperature 97.9 F 07/12/20 16:13 Pulse Rate 109 H 07/12/20 16:13 Respiratory Rate 19 07/12/20 16:13 Blood Pressure 143/78 07/13/20 00:24 O2 Sat by Pulse Oximetry (%) 98 07/12/20 16:13 Constitutional: Yes: Mild Distress, Obese Eyes: Yes: WNL, Conjunctiva Clear, EOM Intact, PERRL HENT: Yes: WNL, Atraumatic, Normocephalic Neck: Yes: WNL, Supple, Trachea Midline Cardiovascular: Yes: Regular Rate and Rhythm, Other (CP reproducible on palpation) Respiratory: Yes: Regular, CTA Bilaterally Gastrointestinal: Yes: Normal Bowel Sounds, Soft, Abdomen, Obese ...Rectal Exam: Yes: Deferred Renal/: Yes: WNL Breast(s): Yes: WNL Musculoskeletal: Yes: Back Pain Extremities: Yes: WNL Edema: No Peripheral Pulses WNL: Yes Integumentary: Yes: WNL Neurological: Yes: WNL, Alert, Oriented ...Motor Strength: WNL Psychiatric: Yes: WNL, Alert, Oriented Labs: CBC, BMP 07/12/20 17:40 07/12/20 17:40 Laboratory Results - last 24 hr 07/12/20 07/12/20 07/12/20 17:40 17:40 23:06 WBC 15.8 H RBC 4.08 Hgb 11.5 L Hct 35.1 L MCV 86.2 MCH 28.2 MCHC 32.7 RDW 14.1 Plt Count 247 MPV 8.5 Absolute Neuts (auto) 13.8 H Neutrophils % 87.2 H Lymphocytes % 4.4 L D Monocytes % 7.8 Eosinophils % 0.2 D Basophils % 0.4 Nucleated RBC % 0 Sodium 132 L Potassium 4.7 Chloride 100 Carbon Dioxide 25 Anion Gap 7 L BUN 26.8 H Creatinine 2.2 H Est GFR (CKD-EPI)AfAm 43.37 Est GFR (CKD-EPI)NonAf 37.42 POC Glucometer 295 Random Glucose 453 H* Calcium 8.4 L Total Bilirubin 0.4 AST 14 L ALT 26 Alkaline Phosphatase 96 Creatine Kinase 100 Troponin I < 0.02 Total Protein 6.8 Albumin 2.4 L Lipase 83 Beta-Hydroxybutyrate 0.7 Urine Color Urine Appearance Urine pH Ur Specific Peterson Urine Protein Urine Glucose (UA) Urine Ketones Urine Blood Urine Nitrite Urine Bilirubin Urine Urobilinogen Ur Leukocyte Esterase Urine WBC (Auto) Urine RBC (Auto) Urine Casts (Auto) U Epithel Cells (Auto) Urine Bacteria (Auto) Opiates Screen Methadone Screen Barbiturate Screen Phencyclidine Screen Ur Amphetamines Screen MDMA (Ecstasy) Screen Benzodiazepines Screen Cocaine Screen U Marijuana (THC) Screen 07/13/20 07/13/20 07/13/20 01:00 01:00 01:00 WBC RBC Hgb Hct MCV MCH MCHC RDW Plt Count MPV Absolute Neuts (auto) Neutrophils % Lymphocytes % Monocytes % Eosinophils % Basophils % Nucleated RBC % Sodium Potassium Chloride Carbon Dioxide Anion Gap BUN Creatinine Est GFR (CKD-EPI)AfAm Est GFR (CKD-EPI)NonAf POC Glucometer Random Glucose Calcium Total Bilirubin AST ALT Alkaline Phosphatase Creatine Kinase Troponin I < 0.02 Total Protein Albumin Lipase Beta-Hydroxybutyrate Urine Color Yellow Urine Appearance Clear Urine pH 5.5 Ur Specific Peterson 1.031 Urine Protein 3+ H Urine Glucose (UA) 1+ H Urine Ketones Negative Urine Blood 1+ H Urine Nitrite Negative Urine Bilirubin Negative Urine Urobilinogen 1.0 Ur Leukocyte Esterase Negative Urine WBC (Auto) 6 Urine RBC (Auto) 16 Urine Casts (Auto) 5 U Epithel Cells (Auto) 11 Urine Bacteria (Auto) 10 Opiates Screen Negative Methadone Screen Negative Barbiturate Screen Negative Phencyclidine Screen Negative Ur Amphetamines Screen Negative MDMA (Ecstasy) Screen Negative Benzodiazepines Screen Negative Cocaine Screen Positive A* U Marijuana (THC) Screen Negative 07/13/20 01:14 WBC RBC Hgb Hct MCV MCH MCHC RDW Plt Count MPV Absolute Neuts (auto) Neutrophils % Lymphocytes % Monocytes % Eosinophils % Basophils % Nucleated RBC % Sodium Potassium Chloride Carbon Dioxide Anion Gap BUN Creatinine Est GFR (CKD-EPI)AfAm Est GFR (CKD-EPI)NonAf POC Glucometer 292 Random Glucose Calcium Total Bilirubin AST ALT Alkaline Phosphatase Creatine Kinase Troponin I Total Protein Albumin Lipase Beta-Hydroxybutyrate Urine Color Urine Appearance Urine pH Ur Specific Peterson Urine Protein Urine Glucose (UA) Urine Ketones Urine Blood Urine Nitrite Urine Bilirubin Urine Urobilinogen Ur Leukocyte Esterase Urine WBC (Auto) Urine RBC (Auto) Urine Casts (Auto) U Epithel Cells (Auto) Urine Bacteria (Auto) Opiates Screen Methadone Screen Barbiturate Screen Phencyclidine Screen Ur Amphetamines Screen MDMA (Ecstasy) Screen Benzodiazepines Screen Cocaine Screen U Marijuana (THC) Screen Imaging - Results Chest X-ray: Image Reviewed Cat Scan: Report Reviewed, Image Reviewed EKG: Image Reviewed Problem List - Problems (1) Chest pain Assessment/Plan: r/o ACS HEART Score 3 Serial Enzymes Appreciate Cardiology consult Chest Xray- reviewed Continue cardiac monitoring Monitor CMP Asa Code(s): R07.9 - CHEST PAIN, UNSPECIFIED (2) Uncontrolled diabetes mellitus Assessment/Plan: Likely secondary to non-compliance Anion Gap- nl Insulin given in ED, glucose trending down BGMs ISS Consider Endocrinology consult Monitor CMP HgbA1c in am Code(s): E11.65 - TYPE 2 DIABETES MELLITUS WITH HYPERGLYCEMIA (3) Pneumonia Assessment/Plan: Will treat for CAP Chest CT- left posterior basilar infiltrate, small left pleural effusion Continue Azithromycin, Ceftriaxone Blood Cultures-pending Albuterol MDI Monitor CBC, CMP Monitor vitals Code(s): J18.9 - PNEUMONIA, UNSPECIFIED ORGANISM Qualifiers: Pneumonia type: due to unspecified organism Laterality: left Lung location: lower lobe of lung Qualified Code(s): J18.9 - Pneumonia, unspecified organism (4) Acute kidney injury superimposed on chronic kidney disease Assessment/Plan: Slightly above baseline Appreciate Nephrology consult Monitor CMP Code(s): N17.9 - ACUTE KIDNEY FAILURE, UNSPECIFIED; N18.9 - CHRONIC KIDNEY DISEASE, UNSPECIFIED (5) HTN (hypertension) Assessment/Plan: Sub optimal Monitor BP Continue Norvasc Hold Benzapril 2/2 LINK Monitor renal function Code(s): I10 - ESSENTIAL (PRIMARY) HYPERTENSION (6) Cocaine abuse Assessment/Plan: UDT- +Cocaine Patient counseled on Cocaine Cessation Code(s): F14.10 - COCAINE ABUSE, UNCOMPLICATED (7) Encounter for screening laboratory testing for COVID-19 virus Assessment/Plan: Low risk COVID PCR-pending Isolation Precautions Code(s): Z11.59 - ENCOUNTER FOR SCREENING FOR OTHER VIRAL DISEASES Assessment/Plan This is a 34 y/o male with a PMHx of HTN, HLD, IDDM, GERD, BPH, Depression, Severe Obesity, recurrent abscesses. Admitted to Telemetry for Chest Pain, Pneumonia, Acute on Chronic Kidney Disease, Uncontrolled Diabetes Mellitus for further evaluation of their emergent condition. Plan: See Problem List FEN PO fluids as tolerated Replete lytes prn Low Na, Diabetic Diet DVT ppx OOB SCDs Heparin SQ Dispo: Requires Inpatient Care Visit type - Emergency Visit Emergency Visit: Yes ED Registration Date: 07/12/20 Care time: The patient presented to the Emergency Department on the above date and was hospitalized for further evaluation of their emergent condition. - New Patient This patient is new to me today: Yes Date on this admission: 07/13/20 - Critical Care Critical Care patient: No
[2020-07-13 01:40] LABS: OPIATES, URI NEGATIVE ng/ml (CUTOFF=300); PHENCYCLIDINE,URINE NEGATIVE ng/ml (CUTOFF=25); URINE AMPHETAMINES NEGATIVE ng/ml (CUTOFF=500); URINE BARBITURATES NEGATIVE ng/ml (CUTOFF=200); URINE BENZODIAZEPINES NEGATIVE ng/ml (CUTOFF=200)
[2020-07-13 01:42] LABS: METHADONE, UR NEGATIVE ng/ml (CUTOFF=300)
[2020-07-13 01:43] LABS: COCAINE, UR POSITIVE ng/ml (CUTOFF=300)
[2020-07-13] MEDS ORDERED: traMADol HCL 50 MG TABLET PO ONE (02:22)
[2020-07-13] MEDS ORDERED: ZOLPIDEM TARTRATE 5 MG TABLET ONE (02:59)
[2020-07-13] MEDS: ZOLPIDEM TARTRATE 5 MG TABLET PO ONE ×2 (03:02→09:35)
[2020-07-13 05:53] LABS: EPI CELLS 11 /uL (0-25.1); HYALINE CASTS 5 /uL (0-3.1); PH,URINE 5.5 (5.0-8.0); URINE APPEARANCE CLEAR; URINE BACTERIA 10 /uL (0-1359); URINE BILIRUBIN NEGATIVE (NEGATIVE); URINE COLOR YELLOW; URINE GLUCOSE (UA) 1+ (NEGATIVE); URINE KETONE NEGATIVE (NEGATIVE); URINE LEUK ESTERASE NEGATIVE (NEGATIVE); URINE NITRITE NEGATIVE (NEGATIVE); URINE PROTEIN 3+ (NEGATIVE); URINE RBC 16 /uL (0-23.9); URINE WBC 6 /uL (0-25.8)
[2020-07-13] MEDS ORDERED: ACETAMINOPHEN 325 MG TABLET (FP) PO PRN (06:00)
[2020-07-13] MEDS: INSULIN SLIDING SCALE (NOVOLOG) 1 VIAL SQ SCH ×4 (06:32→21:43)
[2020-07-13 08:15] LABS: BASO % 0.3 % (0-2.0); EOS % 0.1 % (0-4.5); HEMATOCRIT 33.9 % (35.4-49); HEMOGLOBIN 11.1 GM/dL (11.7-16.9); LYMPH % 5.2 % (8-40); MCH 27.7 pg (25.7-33.7); MCHC 32.6 g/dl (32.0-35.9); MEAN PLT VOLUME 8.5 fl (7.5-11.1); MONO % 7.5 % (3.8-10.2); NEUT % 86.9 % (42.8-82.8); PLATELET COUNT 321 K/MM3 (134-434); RBC 3.99 M/mm3 (4.00-5.60); RDW 14.3 % (11.9-15.9); WHITE BLOOD COUNT 19.3 K/mm3 (4.0-10.0)
[2020-07-13 08:26] LABS: ALBUMIN 2.4 g/dl (3.4-5.0); ALK PHOS 90 U/L (45-117); ANION GAP 11 MMOL/L (8-16); BILIRUBIN,TOTAL 0.5 mg/dL (0.2-1); BLOOD UREA NITROGEN 24.7 mg/dL (7-18); CALCIUM 8.1 mg/dL (8.5-10.1); CHLORIDE 99 mmol/L (98-107); CHOLESTEROL 138 mg/dL (50-200); CO2 22 mmol/L (21-32); GLUCOSE,RANDOM 243 mg/dL (74-106); HDL CHOLESTEROL 33 mg/dL (40-60); LDL CHOLESTEROL (ONLY SJRH) 84 mg/dL (5-100); POTASSIUM 4.1 mmol/L (3.5-5.1); SGOT/AST 10 U/L (15-37); SGPT/ALT 22 U/L (13-61); SODIUM 132 mmol/L (136-145); TOT PROT 6.9 g/dl (6.4-8.2); TRIGLYCERIDES 127 mg/dL (0-150)
[2020-07-13] MEDS ORDERED: cefTRIAXone SODIUM 1 GM VIAL ONE (08:39)
[2020-07-13] MEDS ORDERED: DEXTROSE 5%-WATER - 50 ML IVPB ONE (08:39)
--- NOTE | 2020-07-13 09:21 | PN ---
Progress Note, Physician Chief Complaint: Chest pain History of Present Illness: This is a 34 y/o male with a PMHx of HTN, HLD, IDDM, GERD, BPH, Depression, Severe Obesity, recurrent abscesses. Who presents to the ED with severe left- sided chest pain with radiation x 3 days. Patient describes the CP as constant sharp pressure increased on movement, deep inspiration, cough, and sneezing. Patient reports that the pain is reproducible. Patient reports being seen at [facility] for same 2 days ago- work-up including CT scan which was normal. Patient is not clear if he had a CT chest or abdomen. He reports that the pain has persisted and is not relieved with OTC analgesia. Patient denies heavy lifting, fall or trauma. He denies fever, chills, SOB, diaphoresis, palpitations, AP, N/V/D, constipation, dysuria. Patient denies sick contacts or recent travel. He admits to Cocaine use 3 weeks ago. NAD anxious - Current Medication List Current Medications: Active Medications Acetaminophen (Tylenol -) 650 mg PO Q6H PRN PRN Reason: PAIN LEVEL 7 - 10 Last Admin: 07/13/20 06:33 Dose: 650 mg Documented by: Amlodipine Besylate (Norvasc -) 10 mg PO DAILY [facility] Aspirin (Asa -) 81 mg PO DAILY [facility] Heparin Sodium (Porcine) (Heparin -) 5,000 unit SQ BID [facility] Ceftriaxone Sodium 1 gm/ (Dextrose) 50 mls @ 100 mls/hr IVPB DAILY [facility]; Protocol Azithromycin (Zithromax 500mg Ivpb (Pre-Docked)) 500 mg in 250 mls @ 250 mls/hr IVPB DAILY [facility] Insulin Aspart (Novolog Vial Sliding Scale -) 1 vial SQ ACHS [facility]; Protocol Last Admin: 07/13/20 06:32 Dose: 4 units Documented by: Miscellaneous (Lidoderm Patch Removal) 1 each MC DAILY@2200 [facility] Last Admin: 07/13/20 00:01 Dose: Not Given Documented by: - Objective Vital Signs: Vital Signs Temperature 99.9 F H 07/13/20 06:30 Pulse Rate 113 H 07/13/20 06:30 Respiratory Rate 18 07/13/20 06:30 Blood Pressure 146/94 07/13/20 06:30 O2 Sat by Pulse Oximetry (%) 98 07/12/20 16:13 Labs: CBC, BMP 07/13/20 06:53 07/13/20 06:53 Problem List - Problems (1) Acute kidney injury superimposed on chronic kidney disease Assessment/Plan: -Nephrology consult -Gentle IVF -Baseline close to 1.7 -CTAP:No definite CT findings of acute abnormality are identified. Splenomegaly is noted (14.7 cm length). Nonspecific bilateral pelvic lymphadenopathy is seen. Several slightly prominent retroperitoneal and bilateral inguinal lymph nodes are noted. Bilateral nonobstructing 2 mm renal calculi are seen. Problems reviewed: Yes Code(s): N17.9 - ACUTE KIDNEY FAILURE, UNSPECIFIED; N18.9 - CHRONIC KIDNEY DISEASE, UNSPECIFIED (2) Chest pain Assessment/Plan: -Atypical -likely 2/2 to pneumonia -Cardiology consult -Trops x 3 negative -No EKG changes -Echo on Cardiology discretion -Tele monitor Problems reviewed: Yes Code(s): R07.9 - CHEST PAIN, UNSPECIFIED (3) Cocaine abuse Assessment/Plan: -Detox consult -Psych consult Problems reviewed: Yes Code(s): F14.10 - COCAINE ABUSE, UNCOMPLICATED (4) Pneumonia Assessment/Plan: -CT chest w/o contrast:Small left posterior basilar infiltrate. Very small left pleural effusion. Mild lingular discoid atelectasis. Minimal elevation of the left diaphragm. Possible mild cardiomegaly. The main pulmonary artery appears to be mildly dilated with a 3.3 cm diameter suggestive of increased pulmonary arterial pressure. Follow-up evaluation is suggested. Bilateral gynecomastia. -Continue IV Rocephin -ID consult Problems reviewed: Yes Code(s): J18.9 - PNEUMONIA, UNSPECIFIED ORGANISM Qualifiers: Pneumonia type: due to unspecified organism Laterality: left Lung location: lower lobe of lung Qualified Code(s): J18.9 - Pneumonia, unspecified organism (5) Obesity Problems reviewed: Yes Code(s): E66.9 - OBESITY, UNSPECIFIED (6) Uncontrolled diabetes mellitus Assessment/Plan: -A1c at 10.0 -ISS -Start Levemir 10 U BID, titrate up to keep BG<= 200 -BGM AC HS-Diabetic low sodium diet -RD consult Problems reviewed: Yes Code(s): E11.65 - TYPE 2 DIABETES MELLITUS WITH HYPERGLYCEMIA
[2020-07-13] MEDS ORDERED: SODIUM CHLORIDE 1,000 ML IV SCH (09:30)
[2020-07-13] MEDS: ASPIRIN 81 MG CHEWABLE TABLETS PO SCH (09:34)
[2020-07-13] MEDS: amLODIPine BESYLATE 10 MG TABLET (FP) PO SCH (09:34)
[2020-07-13] MEDS: CEFTRIAXONE 1 GM in DEXTROSE 5%-WATER - 50 ML IVPB SCH (09:35)
[2020-07-13] MEDS: HEPARIN NA (PORCINE) 5,000 UNITS/ML 1ML VIAL SQ SCH ×2 (09:36→21:28)
[2020-07-13] MEDS ORDERED: INSULIN (LEVEMIR) 100 UNITS/ML UNITS SQ SCH (10:00)
[2020-07-13] MEDS: AZITHROMYCIN IVPB 500 MG/250 ML BAG IVPB SCH (10:17)
[2020-07-13 10:19] VITALS: BMI 34.0
--- NOTE | 2020-07-13 10:36 | CON.PSL ---
Psychology Consult Consult Specialty:: Clinical Psychology History Provided By: Patient, Medical Record Current Medications: Active Medications Acetaminophen (Tylenol -) 650 mg PO Q6H PRN PRN Reason: PAIN LEVEL 7 - 10 Last Admin: 07/13/20 06:33 Dose: 650 mg Documented by: Amlodipine Besylate (Norvasc -) 10 mg PO DAILY [facility] Last Admin: 07/13/20 09:34 Dose: 10 mg Documented by: Aspirin (Asa -) 81 mg PO DAILY [facility] Last Admin: 07/13/20 09:34 Dose: 81 mg Documented by: Heparin Sodium (Porcine) (Heparin -) 5,000 unit SQ BID [facility] Last Admin: 07/13/20 09:36 Dose: Not Given Documented by: Ceftriaxone Sodium 1 gm/ (Dextrose) 50 mls @ 100 mls/hr IVPB DAILY [facility]; Protocol Last Admin: 07/13/20 09:35 Dose: 100 mls/hr Documented by: Azithromycin (Zithromax 500mg Ivpb (Pre-Docked)) 500 mg in 250 mls @ 250 mls/hr IVPB DAILY [facility] Last Admin: 07/13/20 10:17 Dose: 250 mls/hr Documented by: Sodium Chloride (Normal Saline -) 1,000 mls @ 50 mls/hr IV ASDIR [facility] Stop: 07/14/20 09:20 Last Admin: 07/13/20 10:20 Dose: 50 mls/hr Documented by: Insulin Aspart (Novolog Vial Sliding Scale -) 1 vial SQ ACHS [facility]; Protocol Last Admin: 07/13/20 06:32 Dose: 4 units Documented by: Insulin Detemir (Levemir Vial) 10 units SQ BID@0700,2200 [facility] Miscellaneous (Lidoderm Patch Removal) 1 each MC DAILY@2200 [facility] Last Admin: 07/13/20 00:01 Dose: Not Given Documented by: Allergies: Allergies Allergy/AdvReac Type Severity Reaction Status Date / Time No Known Allergies Allergy Verified 07/12/20 16:15 Does patient have pain?: Yes Pain Location Body Site: Chest Pain Description: Acute Pain Intensity: 9 Hx Alcohol Use: Yes Hx Substance Use: Yes Substance Use Type: Cocaine Hx Substance Use Treatment: No Current Medical Exam-Psy Orientation: Time, Person, Place Expressive: Coherent Receptive: Age Appropriate Comprehension of Spoken Words Hallucinations: Absent Thought Process: Intact Depression: Moderate Hopelessness: No Loss of Interest: Yes Anxiety Level: Severe Danger to Self and Others: No Sleep: Poorly, Difficulty falling asleep Appetite: Fair Serial Sevens Intact: No Repeats 3 words told earlier: 2/3 Support System: Parent, Sibling(s) Problem List - Problem (1) 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 He was cooperative and [pleasaqnt throughout the examination. The patient expressed particular concern as to why he was having severe pain in his chest (L-ribs). So far, according to him, no explanation was provided as they could not find the cause per patient. I recommended that he use the Body Scan technique from [facility] [employer] to distract him from some of his discomfort. He was receptive to the intervention. Treatment will be initiated on Wednesday. Thank you for the referral.
[2020-07-13] MEDS ORDERED: traMADol HCL 50 MG TABLET PO PRN (11:34)
[2020-07-13 11:47] LABS: MAGNESIUM 1.2 mg/dL (1.8-2.4)
--- NOTE | 2020-07-13 12:23 | CONSULT ---
Consult Consult Specialty:: Nephrology Reason for Consultation:: CKD - History of Present Illness Chief Complaint: chest pain History of Present Illness: Pt is a 34 year old gentleman with pmhx of ckd, htn, hld, dm, gerd, bph, obesity and depression who presents with left side chest pain. He feels that the pain is worse with inspiration. He was found to have elevated subsorter. He does have ckd. His subsorter is above baseline. He has been using cocaine. He denies dysuria or hematuria. He missed his last office visit with me. He denies nsaid use. 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) - Alcohol/Substance Use Hx Alcohol Use: Yes History of Substance Use: reports: Cocaine, Marijuana - Smoking History Smoking history: Current every day smoker Have you smoked in the past 12 months: Yes Aproximately how many cigarettes per day: 4 - Social History ADL: Support Services Occupation: unemployed History of Recent Travel: No Home Medications - Allergies Allergies/Adverse Reactions: Allergies Allergy/AdvReac Type Severity Reaction Status Date / Time No Known Allergies Allergy Verified 07/12/20 16:15 - Home Medications Home Medications: Ambulatory Orders Quetiapine Fumarate [Seroquel -] 200 mg PO HS 08/13/18 Ranitidine HCl [Zantac] 300 mg PO PRN #20 tablet 08/13/18 Albuterol Sulfate Inhaler - [Ventolin HFA Inhaler -] 1 - 2 inh PO QID 03/14/19 Amlodipine Besylate [Norvasc -] 10 mg PO DAILY MDD 1 03/14/19 Benazepril HCl 1 tab PO DAILY 03/14/19 Omeprazole Magnesium [Prilosec Otc] 40 mg PO DAILY 03/14/19 Zolpidem Tartrate [Ambien] 10 mg PO HS 03/14/19 traMADol HCL [Ultram -] 50 mg PO BID PRN #10 tablet MDD 2 03/04/20 Atorvastatin Calcium [Lipitor] 20 mg PO 07/13/20 Insulin Glargine,Hum.rec.anlog [Basaglar Kwikpen U-100] 44 unit SQ HS 07/13/20 Insulin Lispro [Admelog] 100 unit SQ 07/13/20 [place]-3 Acid Ethyl Esters [Lovaza -] 2,000 mg PO BID 07/13/20 Family Medical History Family Hx Diabetes: Grandmother (maternal), Grandfather (paternal) Review of Systems - Review of Systems Constitutional: reports: No Symptoms Eyes: reports: No Symptoms HENT: reports: No Symptoms Neck: reports: No Symptoms Cardiovascular: reports: Chest Pain Respiratory: reports: No Symptoms Gastrointestinal: reports: No Symptoms Genitourinary: reports: No Symptoms Musculoskeletal: reports: No Symptoms Integumentary: reports: No Symptoms Neurological: reports: No Symptoms Endocrine: reports: No Symptoms Hematology/Lymphatic: reports: No Symptoms Psychiatric: reports: No Symptoms Physical Exam Vital Signs: Vital Signs Temperature 99 F 07/13/20 10:00 Pulse Rate 111 H 07/13/20 10:00 Respiratory Rate 18 07/13/20 10:00 Blood Pressure 142/88 07/13/20 10:00 O2 Sat by Pulse Oximetry (%) 98 07/13/20 10:00 Constitutional: Yes: Calm Eyes: Yes: Conjunctiva Clear HENT: Yes: Atraumatic Neck: Yes: Supple Cardiovascular: Yes: S1, S2 Respiratory: Yes: CTA Bilaterally Gastrointestinal: Yes: Normal Bowel Sounds, Soft Renal/: Yes: WNL Musculoskeletal: Yes: WNL Edema: Yes Edema: LLE: Trace, RLE: Trace Integumentary: Yes: Venous Stasis Changes Neurological: Yes: Oriented Psychiatric: Yes: Oriented Labs: CBC, BMP 07/13/20 06:53 07/13/20 06:53 Laboratory Tests 12/18/18 12/18/18 01/16/19 08:15 08:15 14:20 Hgb BUN Creatinine 1.7 H Urine Protein Urine Blood Cocaine Screen CELENA M-[facility] IS[facility]RO Screen Negative c-ANCA Proteinase 3 (PR3) p-ANCA Atypical p-ANCA Myeloperoxidase Ab Double Strand DNA Ab Glomerular Base Memb Ab COVID-19 ([facility]) Hepatitis A Ab Total Negative Hep Bs Antigen Negative Hep B Core Total Ab Negative Hep Bs Antibody HCV Quantitation Hcv not detected HIV Genotype Non reactive 03/14/19 03/15/19 03/16/19 16:25 06:30 07:00 Hgb BUN Creatinine 1.5 H 1.6 H 1.6 H Urine Protein Urine Blood Cocaine Screen CELENA [facility] Screen c-ANCA Proteinase 3 (PR3) p-ANCA Atypical p-ANCA Myeloperoxidase Ab Double Strand DNA Ab Glomerular Base Memb Ab COVID-19 ([facility]) Hepatitis A Ab Total Hep Bs Antigen Hep B Core Total Ab Hep Bs Antibody HCV Quantitation HIV Genotype 03/17/19 03/18/19 03/20/19 05:45 07:30 06:00 Hgb 10.3 L BUN Creatinine 1.8 H 1.6 H Urine Protein Urine Blood Cocaine Screen CELENA M[facility] Screen c-ANCA Proteinase 3 (PR3) p-ANCA Atypical p-ANCA Myeloperoxidase Ab Double Strand DNA Ab Glomerular Base Memb Ab COVID-19 ([facility]) Hepatitis A Ab Total Hep Bs Antigen Hep B Core Total Ab Hep Bs Antibody HCV Quantitation HIV Genotype 03/20/19 04/04/19 06/12/19 06:00 15:53 20:11 Hgb BUN 36 H Creatinine 2.0 H 1.7 H Urine Protein Urine Blood Cocaine Screen [facility]LENA [facility] Screen c-ANCA <1:20 Proteinase 3 (PR3) <3.5 p-ANCA <1:20 Atypical p-ANCA <1:20 Myeloperoxidase Ab <9.0 Double Strand DNA Ab <1 Glomerular Base Memb Ab 4 COVID-19 ([facility]) Hepatitis A Ab Total Hep Bs Antigen Hep B Core Total Ab Hep Bs Antibody Non reactive HCV Quantitation HIV Genotype 07/12/20 07/12/20 07/13/20 17:40 19:35 01:00 Hgb BUN Creatinine 2.2 H Urine Protein 3+ H Urine Blood 1+ H Cocaine Screen CELENA M[facility] Screen c-ANCA Proteinase 3 (PR3) p-ANCA Atypical p-ANCA Myeloperoxidase Ab Double Strand DNA Ab Glomerular Base Memb Ab COVID-19 ([facility]) Not detected Hepatitis A Ab Total Hep Bs Antigen Hep B Core Total Ab Hep Bs Antibody HCV Quantitation HIV Genotype 07/13/20 07/13/20 01:00 06:53 Hgb BUN Creatinine 2.0 H Urine Protein Urine Blood Cocaine Screen Positive A* CELENA M[facility]RO Screen c-ANCA Proteinase 3 (PR3) p-ANCA Atypical p-ANCA Myeloperoxidase Ab Double Strand DNA Ab Glomerular Base Memb Ab COVID-19 ([facility]) Hepatitis A Ab Total Hep Bs Antigen Hep B Core Total Ab Hep Bs Antibody HCV Quantitation HIV Genotype Problem List - Problems (1) Acute kidney injury superimposed on chronic kidney disease Code(s): N17.9 - ACUTE KIDNEY FAILURE, UNSPECIFIED; N18.9 - CHRONIC KIDNEY DISEA SE, UNSPECIFIED Assessment/Plan Current Medications Generic Name Dose Route Start Last Admin Trade Name Freq PRN Reason Stop Dose Admin Acetaminophen 650 mg 07/13/20 12:19 Tylenol - PO Q6H PRN PAIN LEVEL 1-5 Amlodipine Besylate 10 mg 07/13/20 10:00 07/13/20 09:34 Norvasc - PO 10 mg DAILY GEORGE Administration Aspirin 81 mg 07/13/20 10:00 07/13/20 09:34 Asa - PO 81 mg DAILY GEORGE Administration Atorvastatin Calcium 20 mg 07/13/20 22:00 Lipitor - PO HS GEORGE Heparin Sodium (Porcine) 5,000 unit 07/13/20 10:00 07/13/20 09:36 Heparin - SQ Not Given BID [facility] Ceftriaxone Sodium 1 gm/ 50 mls @ 100 mls/hr 07/13/20 10:00 07/13/20 09:35 Dextrose IVPB 100 mls/hr DAILY GEORGE Administration Protocol Azithromycin 500 mg in 250 mls @ 250 mls/hr 07/13/20 10:00 07/13/20 10:17 Zithromax 500mg Ivpb (Pre-Docked) IVPB 250 mls/hr DAILY GEORGE Administration Sodium Chloride 1,000 mls @ 50 mls/hr 07/13/20 09:30 07/13/20 10:20 Normal Saline - IV 07/14/20 09:20 50 mls/hr ASDIR GEORGE Administration Insulin Aspart 1 vial 07/13/20 11:39 Novolog Vial Sliding Scale - SQ ACHS [facility] Protocol Insulin Detemir 20 units 07/13/20 11:39 Levemir Vial SQ BID@0700,2200 [facility] Miscellaneous 1 each 07/12/20 22:00 07/13/20 00:01 Lidoderm Patch Removal MC Not Given DAILY@2200 [facility] Plrgd-[id number] Ethyl Esters 2 gm 07/13/20 12:00 Lovaza - PO BID GEORGE Quetiapine Fumarate 200 mg 07/13/20 22:00 Seroquel - PO HS GEORGE Tramadol HCl 50 mg 07/13/20 12:19 Ultram - PO BID PRN PAIN LEVEL 6-10 Zolpidem Tartrate 10 mg 07/13/20 22:00 Ambien - PO HS PRN INSOMNIA Impression 1. CKD 2. HTN 3. DM 4. obesity 5. chest pain 6. anemia 7. cocaine use Plan - replace mag - cont fluids for now - repeat labs in am - subsorter starting to improve - DM poorly controlled - will need close outpt follow up - avoid cocaine
[2020-07-13] MEDS ORDERED: LORazepam 0.5 MG TABLET PO PRN (13:21)
[2020-07-13] MEDS ORDERED: MAGNESIUM SULF 50% (8.12 MEQ/2 ML-1 GM VIAL) IVPB ONE (13:25)
[2020-07-13] MEDS ORDERED: MAGNESIUM SULFATE IN WATER 2 GM/50 ML IVPB IVPB ONE (13:30)
[2020-07-13] MEDS: OMEGA-3 ACID ETHYL ESTERS (FATTY-ACIDS) 1 GM CAPSULE (FP) PO SCH ×2 (13:33→21:43)
[2020-07-13] MEDS: traMADol HCL 50 MG TABLET PO PRN (13:33)
[2020-07-13] MEDS: PANTOPRAZOLE 40 MG TABLET PO SCH (13:57)
[2020-07-13] MEDS: MAGNESIUM OXIDE 400 MG TABLET (FP) PO SCH (13:57)
--- NOTE | 2020-07-13 14:23 | CON.CARD ---
Consult Consult Specialty:: Cardiology Referred by:: Matthieu Reason for Consultation:: Chest pain - History of Present Illness Chief Complaint: chest pain History of Present Illness: 34 year old male with a pmhx of htn, hld, dm, gerd, bph, depression, and obesity presents with left sided chest/lower rib pain. Pain is for last week. Pain is sharp and constant and greatest in left lower lateral rib area. Pain is worse and reproducible with any palpation, movement, or deep inspiration or cough. WBC 19 EKG: sinus tachycardia at 106bpm, no acute ischemic changes. 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) - Alcohol/Substance Use Hx Alcohol Use: Yes History of Substance Use: reports: Cocaine, Marijuana - Smoking History Smoking history: Current every day smoker Have you smoked in the past 12 months: Yes Aproximately how many cigarettes per day: 4 - Social History ADL: Support Services Occupation: unemployed History of Recent Travel: No Home Medications - Allergies Allergies/Adverse Reactions: Allergies Allergy/AdvReac Type Severity Reaction Status Date / Time No Known Allergies Allergy Verified 07/12/20 16:15 - Home Medications Home Medications: Ambulatory Orders Quetiapine Fumarate [Seroquel -] 200 mg PO HS 08/13/18 Ranitidine HCl [Zantac] 300 mg PO PRN #20 tablet 08/13/18 Albuterol Sulfate Inhaler - [Ventolin HFA Inhaler -] 1 - 2 inh PO QID 03/14/19 Amlodipine Besylate [Norvasc -] 10 mg PO DAILY MDD 1 03/14/19 Benazepril HCl 1 tab PO DAILY 03/14/19 Omeprazole Magnesium [Prilosec Otc] 40 mg PO DAILY 03/14/19 Zolpidem Tartrate [Ambien] 10 mg PO HS 03/14/19 traMADol HCL [Ultram -] 50 mg PO BID PRN #10 tablet MDD 2 03/04/20 Atorvastatin Calcium [Lipitor] 20 mg PO 07/13/20 Insulin Glargine,Hum.rec.anlog [Basaglar Sandarikpen U-100] 44 unit SQ HS 07/13/20 Insulin Lispro [Admelog] 100 unit SQ 07/13/20 [place]-3 Acid Ethyl Esters [Lovaza -] 2,000 mg PO BID 07/13/20 Family Medical History Family Hx Diabetes: Grandmother (maternal), Grandfather (paternal) Vital Signs: Vital Signs Temperature 99 F 07/13/20 10:00 Pulse Rate 111 H 07/13/20 10:00 Respiratory Rate 18 07/13/20 10:00 Blood Pressure 142/88 07/13/20 10:00 O2 Sat by Pulse Oximetry (%) 98 07/13/20 10:00 Constitutional: Yes: No Distress Neck: Yes: Supple Respiratory: Yes: CTA Bilaterally Gastrointestinal: Yes: Soft Cardiovascular: Yes: Regular Rate and Rhythm JVD: No Carotid Bruit: No PMI: Non-Displaced Heart Sounds: Yes: S1, S2 Murmur: No: Systolic Murmur Edema: No - Other Data Labs, Other Data: CBC, BMP 07/13/20 06:53 07/13/20 06:53 Troponin, BNP 07/12/20 07/13/20 07/13/20 17:40 01:00 06:53 Troponin I < 0.02 < 0.02 < 0.02 Troponin, BNP 07/12/20 07/13/20 07/13/20 17:40 01:00 06:53 Troponin I < 0.02 < 0.02 < 0.02 Imaging - Results Chest X-ray: Report Reviewed EKG: Image Reviewed Problem List - Problems (1) Chest pain Code(s): R07.9 - CHEST PAIN, UNSPECIFIED Assessment/Plan 34 year old male with a pmhx of htn, hld, dm, gerd, bph, depression, and obesity presents with left sided chest/lower rib pain. Pain is for last week. Pain is sharp and constant and greatest in left lower lateral rib area. Pain is worse and reproducible with any palpation, movement, or deep inspiration or cough. WBC 19 EKG: sinus tachycardia at 106bpm, no acute ischemic changes. +cocaine use Covid neg CT chest: small left basilar infiltrate 1) Chest pain Pain is noncardiac. It is left lateral rib cage. Worse with palpation. Grimaces to touch. Worse with deep breath. CT chest with Left lower infiltrate. WBC 19 No ischemic ECG changes\ Trops negative Abx as per primary team Needs to abstain from cocaine BP improved on amlodipine No further cardiac testing at this time. Please call back if needed
[2020-07-13] MEDS: ACETAMINOPHEN 325 MG TABLET (FP) PO PRN (16:51)
--- NOTE | 2020-07-13 17:46 | PN ---
Progress Note (short form) - Note Progress Note: ID CONSULT DICTATED R/O COMMUNITY ACQUIRED V. ATYPICAL PNEUMONIA LEUKOCYTOSIS UNCONTROLLED DIABETES MELLITUS AZOTEMIA AWAIT C/S EMPIRIC CEFTRIAXONE/ ZITHROMAX
--- NOTE | 2020-07-13 18:46 | CONS ---
INFECTIOUS DISEASE CONSULTATION DATE OF CONSULTATION: 07/13/2020 The patient is a 34-year-old, diabetic, morbidly obese male evaluated for pneumonia. He presented to the hospital on July 13, 2020, with left-sided chest pain and dry cough. He had apparently presented to [facility] Emergency Room with similar complaints. He reports that a CAT scan was done at that time and was negative, and he was discharged home. He now returns with similar complaints. He was found to have a white blood cell count of 15.8, low-grade fever, and elevated blood sugar. A CAT scan of the chest shows possible left lower lobe consolidation. He was empirically treated with Zithromax and ceftriaxone. At the present time, he is awake and alert. He is seated in bed. He has no complaints of shortness of breath at rest. He is not on oxygen. He reports dry cough. No sputum production or hemoptysis. PAST MEDICAL HISTORY: Positive for diabetes mellitus and morbid obesity, history of skin abscesses, hypertension, hyperlipidemia, gastroesophageal reflux, BPH. ALLERGIES: No known allergies. LABORATORY DATA: White count 19.3. Glucose 458. CAT scan shows questionable left lower lobe infiltrate. SOCIAL HISTORY: He lives at home. He admits to smoking and occasional cocaine use. PHYSICAL EXAMINATION: General: He is awake and alert, seated in bed, in no acute distress. Vital Signs: Temperature 99.8; blood pressure 153/99; pulse 115, regular; respirations 18 per minute. HEENT: Sclera anicteric. Heart: Sounds S1, S2. Lungs: Rhonchi bilaterally. Abdomen: Obese, soft, nontender. Extremities: Negative for edema. IMPRESSION: 1. Rule out community-acquired versus atypical left lower lobe pneumonia. 2. Marked leukocytosis. 3. Uncontrolled diabetes mellitus. 4. Azotemia. Obtain blood cultures, urine legionella and pneumococcal antigen, sputum culture. Empiric antibiotic coverage with Zithromax and ceftriaxone. Thank you for the kind referral. LOGAN DAVE M.D. [id number]
[2020-07-13] MEDS ORDERED: oxyCODONE HCL 5 MG TABLET PO ONE (20:41)
[2020-07-13] MEDS: ATORVASTATIN CA 20 MG TABLET (FP) PO SCH (21:42)
[2020-07-13] MEDS: INSULIN (LEVEMIR) 100 UNITS/ML UNITS SQ SCH (21:42)
[2020-07-13] MEDS: QUEtiapine FUMARATE 100 MG TABLET (FP) PO SCH (21:42)
[2020-07-13] MEDS: ZOLPIDEM TARTRATE 5 MG TABLET PO PRN (21:42)
[2020-07-13] MEDS ORDERED: PT OWN MED DRAWER 7, Y5N ONE (21:44)
[2020-07-13] MEDS: ALBUTEROL SO4 HFA INHALER IH PRN (22:00)
[2020-07-14] MEDS: INSULIN SLIDING SCALE (NOVOLOG) 1 VIAL SQ SCH ×4 (06:33→22:37)
[2020-07-14] MEDS: INSULIN (LEVEMIR) 100 UNITS/ML UNITS SQ SCH ×2 (06:34→22:36)
[2020-07-14] MEDS: traMADol HCL 50 MG TABLET PO PRN ×2 (06:35→18:30)
[2020-07-14] MEDS: ALBUTEROL SO4 HFA INHALER IH PRN ×2 (06:35→16:38)
[2020-07-14 08:20] LABS: BASO % 0.1 % (0-2.0); EOS % 0.3 % (0-4.5); HEMATOCRIT 29.3 % (35.4-49); HEMOGLOBIN 9.8 GM/dL (11.7-16.9); LYMPH % 3.9 % (8-40); MCHC 33.3 g/dl (32.0-35.9); MEAN CELL VOLUME 84.1 fl (80-96); MEAN PLT VOLUME 8.2 fl (7.5-11.1); MONO % 5.7 % (3.8-10.2); PLATELET COUNT 297 K/MM3 (134-434); RBC 3.49 M/mm3 (4.00-5.60); WHITE BLOOD COUNT 16.4 K/mm3 (4.0-10.0)
[2020-07-14 08:51] LABS: ALBUMIN 1.9 g/dl (3.4-5.0); BILIRUBIN,TOTAL 0.4 mg/dL (0.2-1); BLOOD UREA NITROGEN 29.6 mg/dL (7-18); CALCIUM 8.2 mg/dL (8.5-10.1); CREATININE 2.4 mg/dL (0.55-1.3); POTASSIUM 3.8 mmol/L (3.5-5.1); TOT PROT 5.9 g/dl (6.4-8.2)
[2020-07-14] MEDS ORDERED: PT OWN MED DRAWER 7, Y5N ONE ×2 (09:08→22:12)
[2020-07-14] MEDS ORDERED: cefTRIAXone SODIUM 1 GM VIAL ONE (09:09)
[2020-07-14] MEDS ORDERED: DEXTROSE 5%-WATER - 50 ML IVPB ONE (09:09)
[2020-07-14] MEDS: CEFTRIAXONE 1 GM in DEXTROSE 5%-WATER - 50 ML IVPB SCH (09:17)
[2020-07-14] MEDS: OMEGA-3 ACID ETHYL ESTERS (FATTY-ACIDS) 1 GM CAPSULE (FP) PO SCH ×2 (09:18→22:36)
[2020-07-14] MEDS: PANTOPRAZOLE 40 MG TABLET PO SCH (09:18)
[2020-07-14] MEDS: MAGNESIUM OXIDE 400 MG TABLET (FP) PO SCH (09:18)
[2020-07-14] MEDS: HEPARIN NA (PORCINE) 5,000 UNITS/ML 1ML VIAL SQ SCH ×2 (09:18→22:37)
[2020-07-14] MEDS: amLODIPine BESYLATE 10 MG TABLET (FP) PO SCH ×2 (09:18→10:23)
[2020-07-14] MEDS: ASPIRIN 81 MG CHEWABLE TABLETS PO SCH (09:18)
--- NOTE | 2020-07-14 10:19 | PN ---
Progress Note, Physician Chief Complaint: Chest pain History of Present Illness: This is a 34 y/o male with a PMHx of HTN, HLD, IDDM, GERD, BPH, Depression, Severe Obesity, recurrent abscesses. Who presents to the ED with severe left- sided chest pain with radiation x 3 days. Patient describes the CP as constant sharp pressure increased on movement, deep inspiration, cough, and sneezing. Patient reports that the pain is reproducible. Patient reports being seen at [facility] for same 2 days ago- work-up including CT scan which was normal. Patient is not clear if he had a CT chest or abdomen. He reports that the pain has persisted and is not relieved with OTC analgesia. Patient denies heavy lifting, fall or trauma. He denies fever, chills, SOB, diaphoresis, palpitations, AP, N/V/D, constipation, dysuria. Patient denies sick contacts or recent travel. He admits to Cocaine use 3 weeks ago. NAD anxious Seen by cardiology CP 2/2 to [facility] pne - Current Medication List Current Medications: Active Medications Acetaminophen (Tylenol -) 650 mg PO Q6H PRN PRN Reason: PAIN LEVEL 1-5 Last Admin: 07/13/20 16:51 Dose: 650 mg Documented by: Albuterol Sulfate (Ventolin Hfa Inhaler -) 2 puff IH Q4H PRN PRN Reason: SHORT OF BREATH/WHEEZING Last Admin: 07/14/20 06:35 Dose: 2 puff Documented by: Amlodipine Besylate (Norvasc -) 10 mg PO DAILY [facility] Last Admin: 07/14/20 09:18 Dose: 10 mg Documented by: Aspirin (Asa -) 81 mg PO DAILY [facility] Last Admin: 07/14/20 09:18 Dose: 81 mg Documented by: Atorvastatin Calcium (Lipitor -) 20 mg PO HS [facility] Last Admin: 07/13/20 21:42 Dose: 20 mg Documented by: Heparin Sodium (Porcine) (Heparin -) 5,000 unit SQ BID [facility] Last Admin: 07/14/20 09:18 Dose: Not Given Documented by: Ceftriaxone Sodium 1 gm/ (Dextrose) 50 mls @ 100 mls/hr IVPB DAILY [facility]; Protocol Last Admin: 07/14/20 09:17 Dose: 100 mls/hr Documented by: Azithromycin (Zithromax 500mg Ivpb (Pre-Docked)) 500 mg in 250 mls @ 250 mls/hr IVPB DAILY [facility] Last Admin: 07/13/20 10:17 Dose: 250 mls/hr Documented by: Sodium Chloride (Normal Saline -) 1,000 mls @ 75 mls/hr IV ASDIR [facility] Insulin Aspart (Novolog Vial Sliding Scale -) 1 vial SQ ACHS [facility]; Protocol Last Admin: 07/14/20 06:33 Dose: 2 units Documented by: Insulin Detemir (Levemir Vial) 20 units SQ BID@0700,2200 [facility] Last Admin: 07/14/20 06:34 Dose: 20 units Documented by: Lorazepam (Ativan -) 0.5 mg PO BID PRN PRN Reason: ANXIETY Magnesium Oxide (Mag-Ox -) 400 mg PO DAILY [facility] Last Admin: 07/14/20 09:18 Dose: 400 mg Documented by: Miscellaneous (Lidoderm Patch Removal) 1 each MC DAILY@2200 [facility] Last Admin: 07/13/20 21:43 Dose: Not Given Documented by: Avmlw-0-Cigx Ethyl Esters (Lovaza -) 2 gm PO BID [facility] Last Admin: 07/14/20 09:18 Dose: 2 gm Documented by: Pantoprazole Sodium (Protonix -) 40 mg PO DAILY [facility] Last Admin: 07/14/20 09:18 Dose: 40 mg Documented by: Quetiapine Fumarate (Seroquel -) 200 mg PO HS [facility] Last Admin: 07/13/20 21:42 Dose: 200 mg Documented by: Tramadol HCl (Ultram -) 50 mg PO BID PRN PRN Reason: PAIN LEVEL 6-10 Last Admin: 07/14/20 06:35 Dose: 50 mg Documented by: Zolpidem Tartrate (Ambien -) 10 mg PO HS PRN PRN Reason: INSOMNIA Last Admin: 07/13/20 21:42 Dose: 10 mg Documented by: - Objective Vital Signs: Vital Signs Temperature 98.5 F 07/14/20 09:00 Pulse Rate 95 H 07/14/20 09:00 Respiratory Rate 18 07/14/20 09:00 Blood Pressure 103/62 07/14/20 09:00 O2 Sat by Pulse Oximetry (%) 95 07/14/20 09:00 Constitutional: Yes: Well Nourished, No Distress, Anxious Cardiovascular: Yes: Bradycardia Respiratory: Yes: Regular, CTA Bilaterally Gastrointestinal: Yes: Normal Bowel Sounds, Soft, Abdomen, Obese Musculoskeletal: Yes: WNL Extremities: Yes: WNL Edema: No Peripheral Pulses WNL: Yes Neurological: Yes: Alert, Oriented Psychiatric: Yes: Alert, Oriented Labs: CBC, BMP 07/14/20 07:35 07/14/20 07:35 Problem List - Problems (1) Acute kidney injury superimposed on chronic kidney disease Assessment/Plan: -Nephrology consult -Gentle IVF -Baseline close to 1.7 -CTAP:No definite CT findings of acute abnormality are identified. Splenomegaly is noted (14.7 cm length). Nonspecific bilateral pelvic lymphadenopathy is seen. Several slightly prominent retroperitoneal and bilateral inguinal lymph nodes are noted. Bilateral nonobstructing 2 mm renal calculi are seen. Problems reviewed: Yes Code(s): N17.9 - ACUTE KIDNEY FAILURE, UNSPECIFIED; N18.9 - CHRONIC KIDNEY DISEASE, UNSPECIFIED (2) Chest pain Assessment/Plan: -Atypical -likely 2/2 to pneumonia -Cardiology consult appreciated -Trops x 3 negative -No EKG changes -Echo on Cardiology discretion -D/C Tele monitor Problems reviewed: Yes Code(s): R07.9 - CHEST PAIN, UNSPECIFIED (3) Cocaine abuse Assessment/Plan: -Detox consult -Psych consult Problems reviewed: Yes Code(s): F14.10 - COCAINE ABUSE, UNCOMPLICATED (4) Pneumonia Assessment/Plan: -CT chest w/o contrast:Small left posterior basilar infiltrate. Very small left pleural effusion. Mild lingular discoid atelectasis. Minimal elevation of the left diaphragm. Possible mild cardiomegaly. The main pulmonary artery appears to be mildly dilated with a 3.3 cm diameter suggestive of increased pulmonary arterial pressure. Follow-up evaluation is suggested. Bilateral gynecomastia. -Continue IV Rocephin + Azithromycin -ID consult -Urine Leg negative -Pulmonary consult -COVID 19 PCR negative Problems reviewed: Yes Code(s): J18.9 - PNEUMONIA, UNSPECIFIED ORGANISM Qualifiers: Pneumonia type: due to unspecified organism Laterality: left Lung location: lower lobe of lung Qualified Code(s): J18.9 - Pneumonia, unspecified organism (5) Obesity Problems reviewed: Yes Code(s): E66.9 - OBESITY, UNSPECIFIED (6) Uncontrolled diabetes mellitus Assessment/Plan: -A1c at 10.0 -ISS -Increase Levemir to 20 U BID, titrate up to keep BG<= 200 -BGM AC HS-Diabetic low sodium diet -RD consult Problems reviewed: Yes Code(s): E11.65 - TYPE 2 DIABETES MELLITUS WITH HYPERGLYCEMIA Assessment/Plan See problem list
[2020-07-14] MEDS: AZITHROMYCIN IVPB 500 MG/250 ML BAG IVPB SCH (10:23)
[2020-07-14] MEDS ORDERED: SODIUM CHLORIDE 1,000 ML IV SCH (10:30)
--- NOTE | 2020-07-14 11:48 | PN ---
Progress Note, Physician History of Present Illness: Pt seen and examined at bedside. He is awake and alert. He complains of lower ext edema. - Current Medication List Current Medications: Active Medications Acetaminophen (Tylenol -) 650 mg PO Q6H PRN PRN Reason: PAIN LEVEL 1-5 Last Admin: 07/13/20 16:51 Dose: 650 mg Documented by: Albuterol Sulfate (Ventolin Hfa Inhaler -) 2 puff IH Q4H PRN PRN Reason: SHORT OF BREATH/WHEEZING Last Admin: 07/14/20 06:35 Dose: 2 puff Documented by: Amlodipine Besylate (Norvasc -) 10 mg PO DAILY [facility] Last Admin: 07/14/20 10:23 Dose: Not Given Documented by: Aspirin (Asa -) 81 mg PO DAILY [facility] Last Admin: 07/14/20 09:18 Dose: 81 mg Documented by: Atorvastatin Calcium (Lipitor -) 20 mg PO HS [facility] Last Admin: 07/13/20 21:42 Dose: 20 mg Documented by: Heparin Sodium (Porcine) (Heparin -) 5,000 unit SQ BID [facility] Last Admin: 07/14/20 09:18 Dose: Not Given Documented by: Ceftriaxone Sodium 1 gm/ (Dextrose) 50 mls @ 100 mls/hr IVPB DAILY [facility]; Protocol Last Admin: 07/14/20 09:17 Dose: 100 mls/hr Documented by: Azithromycin (Zithromax 500mg Ivpb (Pre-Docked)) 500 mg in 250 mls @ 250 mls/hr IVPB DAILY [facility] Last Admin: 07/14/20 10:23 Dose: 250 mls/hr Documented by: Sodium Chloride (Normal Saline -) 1,000 mls @ 75 mls/hr IV ASDIR [facility] Last Admin: 07/14/20 10:23 Dose: Not Given Documented by: Insulin Aspart (Novolog Vial Sliding Scale -) 1 vial SQ ACHS [facility]; Protocol Last Admin: 07/14/20 06:33 Dose: 2 units Documented by: Insulin Detemir (Levemir Vial) 20 units SQ BID@0700,2200 [facility] Last Admin: 07/14/20 06:34 Dose: 20 units Documented by: Lorazepam (Ativan -) 0.5 mg PO BID PRN PRN Reason: ANXIETY Magnesium Oxide (Mag-Ox -) 400 mg PO DAILY [facility] Last Admin: 07/14/20 09:18 Dose: 400 mg Documented by: Miscellaneous (Lidoderm Patch Removal) 1 each MC DAILY@2200 [facility] Last Admin: 07/13/20 21:43 Dose: Not Given Documented by: Spyve-4-Vqyd Ethyl Esters (Lovaza -) 2 gm PO BID [facility] Last Admin: 07/14/20 09:18 Dose: 2 gm Documented by: Pantoprazole Sodium (Protonix -) 40 mg PO DAILY [facility] Last Admin: 07/14/20 09:18 Dose: 40 mg Documented by: Quetiapine Fumarate (Seroquel -) 200 mg PO HS [facility] Last Admin: 07/13/20 21:42 Dose: 200 mg Documented by: Tramadol HCl (Ultram -) 50 mg PO BID PRN PRN Reason: PAIN LEVEL 6-10 Last Admin: 07/14/20 06:35 Dose: 50 mg Documented by: Zolpidem Tartrate (Ambien -) 10 mg PO HS PRN PRN Reason: INSOMNIA Last Admin: 07/13/20 21:42 Dose: 10 mg Documented by: - Objective Vital Signs: Vital Signs Temperature 98.5 F 07/14/20 09:00 Pulse Rate 95 H 07/14/20 09:00 Respiratory Rate 18 07/14/20 09:00 Blood Pressure 103/62 07/14/20 09:00 O2 Sat by Pulse Oximetry (%) 95 07/14/20 10:00 Constitutional: Yes: Calm Eyes: Yes: Conjunctiva Clear HENT: Yes: Atraumatic Neck: Yes: Supple Cardiovascular: Yes: S1, S2 Respiratory: Yes: CTA Bilaterally Gastrointestinal: Yes: Soft, Abdomen, Obese Genitourinary: Yes: WNL Edema: Yes Edema: LLE: 2+, RLE: 2+ Integumentary: Yes: Venous Stasis Changes Neurological: Yes: Oriented Psychiatric: Yes: Oriented Labs: CBC, BMP 07/14/20 07:35 07/14/20 07:35 Problem List - Problems (1) Acute kidney injury superimposed on chronic kidney disease Code(s): N17.9 - ACUTE KIDNEY FAILURE, UNSPECIFIED; N18.9 - CHRONIC KIDNEY DISEASE, UNSPECIFIED Assessment/Plan Current Medications Generic Name Dose Route Start Last Admin Trade Name Freq PRN Reason Stop Dose Admin Acetaminophen 650 mg 07/13/20 12:19 07/13/20 16:51 Tylenol - PO 650 mg Q6H PRN Administration PAIN LEVEL 1-5 Albuterol Sulfate 2 puff 07/13/20 21:41 07/14/20 06:35 Ventolin Hfa Inhaler - IH 2 puff Q4H PRN Administration SHORT OF BREATH/WHEEZING Amlodipine Besylate 10 mg 07/13/20 10:00 07/14/20 10:23 Norvasc - PO Not Given DAILY [facility] Aspirin 81 mg 07/13/20 10:00 07/14/20 09:18 Asa - PO 81 mg DAILY [facility] Administration Atorvastatin Calcium 20 mg 07/13/20 22:00 07/13/20 21:42 Lipitor - PO 20 mg HS [facility] Administration Heparin Sodium (Porcine) 5,000 unit 07/13/20 10:00 07/14/20 09:18 Heparin - SQ Not Given BID [facility] Ceftriaxone Sodium 1 gm/ 50 mls @ 100 mls/hr 07/13/20 10:00 07/14/20 09:17 Dextrose IVPB 100 mls/hr DAILY [facility] Administration Protocol Azithromycin 500 mg in 250 mls @ 250 mls/hr 07/13/20 10:00 07/14/20 10:23 Zithromax 500mg Ivpb (Pre-Docked) IVPB 250 mls/hr DAILY [facility] Administration Sodium Chloride 1,000 mls @ 75 mls/hr 07/14/20 10:30 07/14/20 10:23 Normal Saline - IV Not Given ASDIR [facility] Insulin Aspart 1 vial 07/13/20 11:39 07/14/20 06:33 Novolog Vial Sliding Scale - SQ 2 units ACHS [facility] Administration Protocol Insulin Detemir 20 units 07/13/20 11:39 07/14/20 06:34 Levemir Vial SQ 20 units BID@0700,2200 [facility] Administration Lorazepam 0.5 mg 07/13/20 13:21 Ativan - PO BID PRN ANXIETY Magnesium Oxide 400 mg 07/13/20 13:30 07/14/20 09:18 Mag-Ox - PO 400 mg DAILY [facility] Administration Miscellaneous 1 each 07/12/20 22:00 07/13/20 21:43 Lidoderm Patch Removal MC Not Given DAILY@2200 [facility] [id number] Ethyl Esters 2 gm 07/13/20 12:00 09/13/20 09:18 Lovaza - PO 2 gm BID [facility] Administration Pantoprazole Sodium 40 mg 07/13/20 13:45 07/14/20 09:18 Protonix - PO 40 mg DAILY [facility] Administration Quetiapine Fumarate 200 mg 07/13/20 22:00 07/13/20 21:42 Seroquel - PO 200 mg HS [facility] Administration Tramadol HCl 50 mg 07/13/20 12:19 07/14/20 06:35 Ultram - PO 50 mg BID PRN Administration PAIN LEVEL 6-10 Zolpidem Tartrate 10 mg 07/13/20 22:00 07/13/20 21:42 Ambien - PO 10 mg HS PRN Administration INSOMNIA Impression 1. CKD 2. HTN 3. DM 4. obesity 5. chest pain 6. anemia 7. cocaine use Plan - stop fluids as edema is worse - renal function worsening - repat labs in am - check mag level - DM poorly controlled - will need close outpt follow up - avoid cocaine, discussed with pt
[2020-07-14] MEDS: ACETAMINOPHEN 325 MG TABLET (FP) PO PRN ×2 (16:34→22:38)
[2020-07-14] MEDS: ATORVASTATIN CA 20 MG TABLET (FP) PO SCH (22:35)
[2020-07-14] MEDS: ZOLPIDEM TARTRATE 5 MG TABLET PO PRN (22:35)
[2020-07-14] MEDS: LIDOCAINE PATCH REMOVAL MC SCH (22:35)
[2020-07-14] MEDS: QUEtiapine FUMARATE 100 MG TABLET (FP) PO SCH (22:35)
[2020-07-15] MEDS: INSULIN (LEVEMIR) 100 UNITS/ML UNITS SQ SCH ×2 (06:18→21:31)
[2020-07-15] MEDS: INSULIN SLIDING SCALE (NOVOLOG) 1 VIAL SQ SCH ×4 (06:18→21:32)
[2020-07-15 07:28] LABS: BASO % 0.2 % (0-2.0); EOS % 0.8 % (0-4.5); HEMATOCRIT 28.7 % (35.4-49); HEMOGLOBIN 9.5 GM/dL (11.7-16.9); LYMPH % 7.3 % (8-40); MEAN PLT VOLUME 8.1 fl (7.5-11.1); NEUT % 84.7 % (42.8-82.8); PLATELET COUNT 284 K/MM3 (134-434); RBC 3.38 M/mm3 (4.00-5.60); RDW 14.6 % (11.9-15.9); WHITE BLOOD COUNT 13.8 K/mm3 (4.0-10.0)
--- NOTE | 2020-07-15 07:39 | PN ---
Progress Note, Physician - Current Medication List Current Medications: Active Medications Acetaminophen (Tylenol -) 650 mg PO Q6H PRN PRN Reason: PAIN LEVEL 1-5 Last Admin: 07/14/20 22:38 Dose: 650 mg Documented by: Albuterol Sulfate (Ventolin Hfa Inhaler -) 2 puff IH Q4H PRN PRN Reason: SHORT OF BREATH/WHEEZING Last Admin: 07/14/20 16:38 Dose: 2 puff Documented by: Amlodipine Besylate (Norvasc -) 5 mg PO DAILY [facility] Aspirin (Asa -) 81 mg PO DAILY [facility] Last Admin: 07/14/20 09:18 Dose: 81 mg Documented by: Atorvastatin Calcium (Lipitor -) 20 mg PO HS [facility] Last Admin: 07/14/20 22:35 Dose: 20 mg Documented by: Heparin Sodium (Porcine) (Heparin -) 5,000 unit SQ BID [facility] Last Admin: 07/14/20 22:37 Dose: Not Given Documented by: Ceftriaxone Sodium 1 gm/ (Dextrose) 50 mls @ 100 mls/hr IVPB DAILY [facility]; Protocol Last Admin: 07/14/20 09:17 Dose: 100 mls/hr Documented by: Azithromycin (Zithromax 500mg Ivpb (Pre-Docked)) 500 mg in 250 mls @ 250 mls/hr IVPB DAILY [facility] Last Admin: 07/14/20 10:23 Dose: 250 mls/hr Documented by: Insulin Aspart (Novolog Vial Sliding Scale -) 1 vial SQ ACHS [facility]; Protocol Last Admin: 07/15/20 06:18 Dose: 4 units Documented by: Insulin Detemir (Levemir Vial) 20 units SQ BID@0700,2200 [facility] Last Admin: 07/15/20 06:18 Dose: 20 units Documented by: Lorazepam (Ativan -) 0.5 mg PO BID PRN PRN Reason: ANXIETY Magnesium Oxide (Mag-Ox -) 400 mg PO DAILY [facility] Last Admin: 07/14/20 09:18 Dose: 400 mg Documented by: Miscellaneous (Lidoderm Patch Removal) 1 each MC DAILY@2200 [facility] Last Admin: 07/14/20 22:35 Dose: Not Given Documented by: [id number]-8-Xwas Ethyl Esters (Lovaza -) 2 gm PO BID [facility] Last Admin: 07/14/20 22:36 Dose: 2 gm Documented by: Pantoprazole Sodium (Protonix -) 40 mg PO DAILY [facility] Last Admin: 07/14/20 09:18 Dose: 40 mg Documented by: Quetiapine Fumarate (Seroquel -) 200 mg PO HS [facility] Last Admin: 07/14/20 22:35 Dose: 200 mg Documented by: Tramadol HCl (Ultram -) 50 mg PO BID PRN PRN Reason: PAIN LEVEL 6-10 Last Admin: 07/14/20 18:30 Dose: 50 mg Documented by: Zolpidem Tartrate (Ambien -) 10 mg PO HS PRN PRN Reason: INSOMNIA Last Admin: 07/14/20 22:35 Dose: 10 mg Documented by: - Objective Vital Signs: Vital Signs Temperature 98.6 F 07/15/20 05:00 Pulse Rate 97 H 07/15/20 05:00 Respiratory Rate 07/15/20 05:00 Blood Pressure 148/79 07/15/20 05:00 O2 Sat by Pulse Oximetry (%) 95 07/15/20 05:00 Cardiovascular: Yes: Regular Rate and Rhythm Respiratory: Yes: Regular, CTA Bilaterally Gastrointestinal: Yes: Normal Bowel Sounds, Soft. No: Tenderness Assessment/Plan - Problems (1) Acute kidney injury superimposed on chronic kidney disease Assessment/Plan: -Nephrology consult -Gentle IVF -Baseline close to 1.7 -CTAP:No definite CT findings of acute abnormality are identified. Splenomegaly is noted (14.7 cm length). Nonspecific bilateral pelvic lymphadenopathy is seen. Several slightly prominent retroperitoneal and bilateral inguinal lymph nodes are noted. Bilateral nonobstructing 2 mm renal calculi are seen. Problems reviewed: Yes Code(s): N17.9 - ACUTE KIDNEY FAILURE, UNSPECIFIED; N18.9 - CHRONIC KIDNEY DISEASE, UNSPECIFIED (2) Chest pain Assessment/Plan: -Atypical -likely 2/2 to pneumonia -Cardiology consult appreciated -Trops x 3 negative -No EKG changes -Echo on Cardiology discretion -D/C Tele monitor Problems reviewed: Yes Code(s): R07.9 - CHEST PAIN, UNSPECIFIED (3) Cocaine abuse Assessment/Plan: -Detox consult -Psych consult Problems reviewed: Yes Code(s): F14.10 - COCAINE ABUSE, UNCOMPLICATED (4) Pneumonia Assessment/Plan: -CT chest w/o contrast:Small left posterior basilar infiltrate. Very small left pleural effusion. Mild lingular discoid atelectasis. Minimal elevation of the left diaphragm. Possible mild cardiomegaly. The main pulmonary artery appears to be mildly dilated with a 3.3 cm diameter suggestive of increased pulmonary arterial pressure. Follow-up evaluation is suggested. Bilateral gynecomastia. -Continue IV Rocephin + Azithromycin -ID consult -Urine Leg negative -Pulmonary consult -COVID 19 PCR negative Problems reviewed: Yes Code(s): J18.9 - PNEUMONIA, UNSPECIFIED ORGANISM Qualifiers: Pneumonia type: due to unspecified organism Laterality: left Lung location: lower lobe of lung Qualified Code(s): J18.9 - Pneumonia, unspecified organism (5) Obesity Problems reviewed: Yes Code(s): E66.9 - OBESITY, UNSPECIFIED (6) Uncontrolled diabetes mellitus Assessment/Plan: -A1c at 10.0 -ISS -Increase Levemir to 20 U BID, titrate up to keep BG<= 200 -BGM AC HS-Diabetic low sodium diet -RD consult Problems reviewed: Yes Code(s): E11.65 - TYPE 2 DIABETES MELLITUS WITH HYPERGLYCEMIA (7) Anemia Problems reviewed: Yes Follow labs PPI GI consult
[2020-07-15 08:00] LABS: POTASSIUM 4.2 mmol/L (3.5-5.1)
[2020-07-15 08:19] LABS: ALBUMIN 1.7 g/dl (3.4-5.0); BILIRUBIN,TOTAL 0.2 mg/dL (0.2-1); BLOOD UREA NITROGEN 36.9 mg/dL (7-18); CALCIUM 8.1 mg/dL (8.5-10.1); CREATININE 2.8 mg/dL (0.55-1.3); MAGNESIUM 2.1 mg/dL (1.8-2.4); TOT PROT 6.7 g/dl (6.4-8.2)
[2020-07-15] MEDS ORDERED: cefTRIAXone SODIUM 1 GM VIAL ONE (09:25)
[2020-07-15] MEDS ORDERED: DEXTROSE 5%-WATER - 50 ML IVPB ONE (09:25)
--- NOTE | 2020-07-15 09:34 | CON.GI ---
Consult Consult Specialty:: GI: For Dr. Arriaga Referred by:: Dr. brenda Campos Reason for Consultation:: Anemia - History of Present Illness Chief Complaint: Left sided reproducible chest pain History of Present Illness: 34M admitted for evaluation of left sided chest pain. Pain is worse with motion, deep inspirations, movement of left arm. occurred after he vomited. Asked to evaluate anemia. [facility] has a history of anemia spaning from 12/20. No overt bleeding, melena reported. No abdominal pain, recurrent n ausea/vomiting, dysphagia/odynophagia. + chronic constipation. Had EGD within the last year with Dr. Arriaga that was "OK". Had a colonoscopy close to 10 years ago performed [address] Dr[address] Arriaga that was normal per the patient. No family history of colorectal cancer or other GI malignancy. - History Source History Provided By: Patient, Medical Record - Past Medical History Cardio/Vascular: Yes: HTN, Hyperlipdemia Gastrointestinal: Yes: Gastritis, GERD Renal/: Yes: Renal Inusuff, BPH Heme/Onc: Yes: Anemia Psych: Yes: Anxiety, Depression Musculoskeletal: Yes: Chronic low back pain, Osteoarthritis Endocrine: Yes: Diabetes Mellitus - Past Surgical History Past Surgical History: Yes: Amputation (5th toe right foot, right 4th me tatarsal, 5th left metatarsal) Additional Surgical History: Corneal reconstruction right eye - Alcohol/Substance Use Hx Alcohol Use: Yes History of Substance Use: reports: Cocaine, Marijuana - Smoking History Smoking history: Current every day smoker Have you smoked in the past 12 months: Yes Aproximately how many cigarettes per day: 4 - Social History ADL: Support Services Occupation: unemployed Place of : [facility] History of Recent Travel: No Home Medications - Allergies Allergies/Adverse Reactions: Allergies Allergy/AdvReac Type Severity Reaction Status Date / Time No Known Allergies Allergy Verified 07/12/20 16:15 - Home Medications Home Medications: Ambulatory Orders Quetiapine Fumarate [Seroquel -] 200 mg PO HS 08/13/18 Ranitidine HCl [Zantac] 300 mg PO PRN #20 tablet 08/13/18 Albuterol Sulfate Inhaler - [Ventolin HFA Inhaler -] 1 - 2 inh PO QID 03/14/19 Amlodipine Besylate [Norvasc -] 10 mg PO DAILY [facility] 1 03/14/19 Benazepril HCl 1 tab PO DAILY 03/14/19 Omeprazole Magnesium [Prilosec Otc] 40 mg PO DAILY 03/14/19 Zolpidem Tartrate [Ambien] 10 mg PO HS 03/14/19 traMADol HCL [Ultram -] 50 mg PO BID PRN #10 tablet MDD 2 03/04/20 Atorvastatin Calcium [Lipitor] 20 mg PO 07/13/20 Insulin Glargine,Hum.rec.anlog [Basaglar Kwikpen U-100] 44 unit SQ HS 07/13/20 Insulin Lispro [Admelog] 100 unit SQ 07/13/20 Cameron-3 Acid Ethyl Esters [Lovaza -] 2,000 mg PO BID 07/13/20 Family Medical History Family Hx Cancer: Grandmother (maternal) (BCA) Family Hx Diabetes: Grandmother (maternal), Grandfather (paternal) Other Family History: Mother: alive: healthy. Father: alive: healthy. 1 sister, 2 1/2 siblings: healthy. No children. No family history of colorectal cancer or other GI malignancy Review of Systems - Review of Systems Constitutional: reports: Chills Cardiovascular: reports: Chest Pain (as described in HPI) Respiratory: reports: Cough, SOB Gastrointestinal: reports: Nausea (resolved), Vomiting (resolved). denies: Abdominal Pain, Diarrhea, Melena, Rectal Bleeding Physical Exam-GI Vital Signs: Vital Signs Temperature 98.6 F 07/15/20 05:00 Pulse Rate 97 H 07/15/20 05:00 Respiratory Rate 20 07/15/20 05:00 Blood Pressure 148/79 07/15/20 05:00 O2 Sat by Pulse Oximetry (%) 95 07/15/20 05:00 Constitutional: Yes: Calm Eyes: No: Sclera Icterus Cardiovascular: Yes: Regular Rate and Rhythm Respiratory: Yes: Diminished (left lung base) Gastrointestinal Inspection: No: Distention, Scars ...Auscultate: Yes: Normoactive Bowel Sounds ...Palpate: Yes: Soft ...Percussion: No: Tympanitic ...Rectal Exam: Yes: Deferred (Refused by patient) Edema: No (No LE edema) Neurological: Yes: Alert Labs: CBC, BMP 07/15/20 06:18 07/15/20 06:18 Hepatic Panel Total Bilirubin 0.2 mg/dL (0.2-1) 07/15/20 06:18 AST 23 U/L (15-37) 07/15/20 06:18 ALT 37 U/L (13-61) 07/15/20 06:18 Alkaline Phosphatase 101 U/L (45-117) 07/15/20 06:18 Albumin 1.7 g/dl (3.4-5.0) L 07/15/20 06:18 Problem List - Problems (1) Anemia Assessment/Plan: Chronic normocytic anemia: Likely multifactorial No overt bleeding described. No change in bowel habits - Refused rectal exam: send stool for FOBT - Iron studies pending. iron supplementation if iron deficient - Consider heme evaluation - Will need outpatitient follow-up with his cardiothoracic anesthesia technician Dr. Arriaga. I let be aware of this as well. Will sign off. Recall GI as needed Code(s): D64.9 - ANEMIA, UNSPECIFIED
[2020-07-15] MEDS: MAGNESIUM OXIDE 400 MG TABLET (FP) PO SCH (09:41)
[2020-07-15] MEDS: CEFTRIAXONE 1 GM in DEXTROSE 5%-WATER - 50 ML IVPB SCH (09:41)
[2020-07-15] MEDS: PANTOPRAZOLE 40 MG TABLET PO SCH (09:41)
[2020-07-15] MEDS: HEPARIN NA (PORCINE) 5,000 UNITS/ML 1ML VIAL SQ SCH ×2 (09:41→22:00)
[2020-07-15] MEDS: ASPIRIN 81 MG CHEWABLE TABLETS PO SCH (09:41)
[2020-07-15] MEDS: amLODIPine BESYLATE 5 MG TABLET (FP) PO SCH (09:41)
[2020-07-15] MEDS: OMEGA-3 ACID ETHYL ESTERS (FATTY-ACIDS) 1 GM CAPSULE (FP) PO SCH ×2 (09:41→21:34)
[2020-07-15] MEDS: traMADol HCL 50 MG TABLET PO PRN (09:43)
[2020-07-15] MEDS: ALBUTEROL SO4 HFA INHALER IH PRN (09:45)
--- NOTE | 2020-07-15 10:29 | PN ---
Progress Note (short form) - Note Progress Note: The patient felt somewhat better today. His pain levels were still high. He was administered Mindfulness Based Stress Reduction Body Scan with Deep Breathing. He stated his breathing was better. He was receptive to the intervention as it did induce relaxation although his pain levels did not alter. We intend to continue with this treatment along with Curtis Rivas self administered hand massage to reduce pain and anxiety. Tarik Darby Psy.D. 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
[2020-07-15] MEDS: AZITHROMYCIN IVPB 500 MG/250 ML BAG IVPB SCH (11:18)
--- NOTE | 2020-07-15 11:37 | EKG ---
Test Reason : Blood Pressure : / mmHG Vent. Rate : 106 BPM Atrial Rate : 106 BPM P-R Int : 144 ms QRS Dur : 086 ms QT Int : 336 ms P-R-T Axes : 039 086 037 degrees QTc Int : 446 ms SINUS TACHYCARDIA OTHERWISE NORMAL ECG WHEN COMPARED WITH ECG OF 14-MAR-2019 17:27, T WAVE VARIATION Confirmed by TRISTIAN RODARTE MD ([id number]) on 07/15/2020 11:36:48 AM Referred By: Confirmed By:TRISTIAN RODARTE MD
--- NOTE | 2020-07-15 13:02 | PN ---
Progress Note, Physician History of Present Illness: Pt seen and examined at bedside. He is awake and alert. He feels that his breathing is improved. - Current Medication List Current Medications: Active Medications Acetaminophen (Tylenol -) 650 mg PO Q6H PRN PRN Reason: PAIN LEVEL 1-5 Last Admin: 07/14/20 22:38 Dose: 650 mg Documented by: Albuterol Sulfate (Ventolin Hfa Inhaler -) 2 puff IH Q4H PRN PRN Reason: SHORT OF BREATH/WHEEZING Last Admin: 07/15/20 09:45 Dose: 2 puff Documented by: Amlodipine Besylate (Norvasc -) 5 mg PO DAILY [facility] Last Admin: 07/15/20 09:41 Dose: 5 mg Documented by: Aspirin (Asa -) 81 mg PO DAILY [facility] Last Admin: 07/15/20 09:41 Dose: 81 mg Documented by: Atorvastatin Calcium (Lipitor -) 20 mg PO HS [facility] Last Admin: 07/14/20 22:35 Dose: 20 mg Documented by: Heparin Sodium (Porcine) (Heparin -) 5,000 unit SQ BID [facility] Last Admin: 07/15/20 09:41 Dose: Not Given Documented by: Ceftriaxone Sodium 1 gm/ (Dextrose) 50 mls @ 100 mls/hr IVPB DAILY [facility]; Protocol Last Admin: 07/15/20 09:41 Dose: 100 mls/hr Documented by: Azithromycin (Zithromax 500mg Ivpb (Pre-Docked)) 500 mg in 250 mls @ 250 mls/hr IVPB DAILY [facility] Last Admin: 07/15/20 11:18 Dose: 250 mls/hr Documented by: Insulin Aspart (Novolog Vial Sliding Scale -) 1 vial SQ ACHS [facility]; Protocol Last Admin: 07/15/20 12:12 Dose: 6 units Documented by: Insulin Detemir (Levemir Vial) 20 units SQ BID@0700,2200 [facility] Last Admin: 07/15/20 06:18 Dose: 20 units Documented by: Lorazepam (Ativan -) 0.5 mg PO BID PRN PRN Reason: ANXIETY Magnesium Oxide (Mag-Ox -) 400 mg PO DAILY [facility] Last Admin: 07/15/20 09:41 Dose: 400 mg Documented by: Miscellaneous (Lidoderm Patch Removal) 1 each MC DAILY@2200 [facility] Last Admin: 07/14/20 22:35 Dose: Not Given Documented by: [id number] Ethyl Esters (Lovaza -) 2 gm PO BID [facility] Last Admin: 07/15/20 09:41 Dose: 2 gm Documented by: Pantoprazole Sodium (Protonix -) 40 mg PO DAILY [facility] Last Admin: 07/15/20 09:41 Dose: 40 mg Documented by: Quetiapine Fumarate (Seroquel -) 200 mg PO HS [facility] Last Admin: 07/14/20 22:35 Dose: 200 mg Documented by: Tramadol HCl (Ultram -) 50 mg PO BID PRN PRN Reason: PAIN LEVEL 6-10 Last Admin: 07/15/20 09:43 Dose: 50 mg Documented by: Zolpidem Tartrate (Ambien -) 10 mg PO HS PRN PRN Reason: INSOMNIA Last Admin: 07/14/20 22:35 Dose: 10 mg Documented by: - Objective Vital Signs: Vital Signs Temperature 98.7 F 07/15/20 09:00 Pulse Rate 92 H 07/15/20 09:00 Respiratory Rate 18 07/15/20 09:00 Blood Pressure 136/72 07/15/20 09:00 O2 Sat by Pulse Oximetry (%) 95 07/15/20 10:00 Constitutional: Yes: Calm Eyes: Yes: Conjunctiva Clear HENT: Yes: Atraumatic Cardiovascular: Yes: S1 Respiratory: Yes: CTA Bilaterally Gastrointestinal: Yes: Soft, Abdomen, Obese Genitourinary: Yes: WNL Extremities: Yes: WNL Edema: Yes Edema: LLE: 1+, RLE: 1+ Neurological: Yes: Oriented Psychiatric: Yes: Oriented Labs: CBC, BMP 07/15/20 06:18 07/15/20 06:18 Problem List - Problems (1) Acute kidney injury superimposed on chronic kidney disease Code(s): N17.9 - ACUTE KIDNEY FAILURE, UNSPECIFIED; N18.9 - CHRONIC KIDNEY DISEASE, UNSPECIFIED Assessment/Plan Current Medications Generic Name Dose Route Start Last Admin Trade Name Freq PRN Reason Stop Dose Admin Acetaminophen 650 mg 07/13/20 12:19 07/14/20 22:38 Tylenol - PO 650 mg Q6H PRN Administration PAIN LEVEL 1-5 Albuterol Sulfate 2 puff 07/13/20 21:41 07/15/20 09:45 Ventolin Hfa Inhaler - IH 2 puff Q4H PRN Administration SHORT OF BREATH/WHEEZING Amlodipine Besylate 5 mg 07/15/20 10:00 07/15/20 09:41 Norvasc - PO 5 mg DAILY [facility] Administration Aspirin 81 mg 07/13/20 10:00 07/15/20 09:41 Asa - PO 81 mg DAILY [facility] Administration Atorvastatin Calcium 20 mg 07/13/20 22:00 07/14/20 22:35 Lipitor - PO 20 mg HS [facility] Administration Heparin Sodium (Porcine) 5,000 unit 07/13/20 10:00 07/15/20 09:41 Heparin - SQ Not Given BID [facility] Ceftriaxone Sodium 1 gm/ 50 mls @ 100 mls/hr 07/13/20 10:00 07/15/20 09:41 Dextrose IVPB 100 mls/hr DAILY [facility] Administration Protocol Azithromycin 500 mg in 250 mls @ 250 mls/hr 07/13/20 10:00 07/15/20 11:18 Zithromax 500mg Ivpb (Pre-Docked) IVPB 250 mls/hr DAILY [facility] Administration Insulin Aspart 1 vial 07/13/20 11:39 07/15/20 12:12 Novolog Vial Sliding Scale - SQ 6 units ACHS [facility] Administration Protocol Insulin Detemir 20 units 07/13/20 11:39 07/15/20 06:18 Levemir Vial SQ 20 units BID@0700,2200 [facility] Administration Lorazepam 0.5 mg 07/13/20 13:21 Ativan - PO BID PRN ANXIETY Magnesium Oxide 400 mg 07/13/20 13:30 07/15/20 09:41 Mag-Ox - PO 400 mg DAILY [facility] Administration Miscellaneous 1 each 07/12/20 22:00 07/14/20 22:35 Lidoderm Patch Removal MC Not Given DAILY@2200 [facility] [id number] Ethyl Esters 2 gm 07/13/20 12:00 07/15/20 09:41 Lovaza - PO 2 gm BID [facility] Administration Pantoprazole Sodium 40 mg 07/13/20 13:45 07/15/20 09:41 Protonix - PO 40 mg DAILY [facility] Administration Quetiapine Fumarate 200 mg 07/13/20 22:00 07/14/20 22:35 Seroquel - PO 200 mg HS [facility] Administration Tramadol HCl 50 mg 07/13/20 12:19 07/15/20 09:43 Ultram - PO 50 mg BID PRN Administration PAIN LEVEL 6-10 Zolpidem Tartrate 10 mg 07/13/20 22:00 07/14/20 22:35 Ambien - PO 10 mg HS PRN Administration INSOMNIA Impression 1. CKD 2. HTN 3. DM 4. obesity 5. chest pain 6. anemia 7. cocaine use Plan - fluids on hold - lasix on hold - cont to monitor renal function - renal dose meds - repeat labs in am - repeat ua - check prt to talent manager ratio - avoid cocaine, discussed with pt
--- NOTE | 2020-07-15 15:24 | PN ---
Progress Note, Physician History of Present Illness: AWAKAKE, ALERT OOB IN CHAIR NO C/O CHEST PAIN/ DYSPNEA/ COUGH AFEBRILE WBC IMPROVED - Current Medication List Current Medications: Active Medications Acetaminophen (Tylenol -) 650 mg PO Q6H PRN PRN Reason: PAIN LEVEL 1-5 Last Admin: 07/14/20 22:38 Dose: 650 mg Documented by: Albuterol Sulfate (Ventolin Hfa Inhaler -) 2 puff IH Q4H PRN PRN Reason: SHORT OF BREATH/WHEEZING Last Admin: 07/15/20 09:45 Dose: 2 puff Documented by: Amlodipine Besylate (Norvasc -) 5 mg PO DAILY [facility] Last Admin: 07/15/20 09:41 Dose: 5 mg Documented by: Aspirin (Asa -) 81 mg PO DAILY [facility] Last Admin: 07/15/20 09:41 Dose: 81 mg Documented by: Atorvastatin Calcium (Lipitor -) 20 mg PO HS [facility] Last Admin: 07/14/20 22:35 Dose: 20 mg Documented by: Heparin Sodium (Porcine) (Heparin -) 5,000 unit SQ BID [facility] Last Admin: 07/15/20 09:41 Dose: Not Given Documented by: Ceftriaxone Sodium 1 gm/ (Dextrose) 50 mls @ 100 mls/hr IVPB DAILY [facility]; Benjamin col Last Admin: 07/15/20 09:41 Dose: 100 mls/hr Documented by: Azithromycin (Zithromax 500mg Ivpb (Pre-Docked)) 500 mg in 250 mls @ 250 mls/hr IVPB DAILY [facility] Last Admin: 07/15/20 11:18 Dose: 250 mls/hr Documented by: Insulin Aspart (Novolog Vial Sliding Scale -) 1 vial SQ ACHS [facility]; Protocol Last Admin: 07/15/20 12:12 Dose: 6 units Documented by: Insulin Detemir (Levemir Vial) 20 units SQ BID@0700,2200 [facility] Last Admin: 07/15/20 06:18 Dose: 20 units Documented by: Lorazepam (Ativan -) 0.5 mg PO BID PRN PRN Reason: ANXIETY Magnesium Oxide (Mag-Ox -) 400 mg PO DAILY [facility] Last Admin: 07/15/20 09:41 Dose: 400 mg Documented by: Miscellaneous (Lidoderm Patch Removal) 1 each MC DAILY@2200 [facility] Last Admin: 07/14/20 22:35 Dose: Not Given Documented by: [id number] Ethyl Esters (Lovaza -) 2 gm PO BID [facility] Last Admin: 07/15/20 09:41 Dose: 2 gm Documented by: Pantoprazole Sodium (Protonix -) 40 mg PO DAILY [facility] Last Admin: 07/15/20 09:41 Dose: 40 mg Documented by: Quetiapine Fumarate (Seroquel -) 200 mg PO HS [facility] Last Admin: 07/14/20 22:35 Dose: 200 mg Documented by: Tramadol HCl (Ultram -) 50 mg PO BID PRN PRN Reason: PAIN LEVEL 6-10 Last Admin: 07/15/20 09:43 Dose: 50 mg Documented by: Zolpidem Tartrate (Ambien -) 10 mg PO HS PRN PRN Reason: INSOMNIA Last Admin: 07/14/20 22:35 Dose: 10 mg Documented by: - Objective Vital Signs: Vital Signs Temperature 98.5 F 07/15/20 15:15 Pulse Rate 110 H 07/15/20 15:15 Respiratory Rate 18 07/15/20 15:15 Blood Pressure 141/85 07/15/20 15:15 O2 Sat by Pulse Oximetry (%) 95 07/15/20 15:15 Constitutional: Yes: No Distress, Obese Eyes: Yes: Conjunctiva Clear Cardiovascular: Yes: Regular Rate and Rhythm, S1, S2 Respiratory: Yes: CTA Bilaterally Gastrointestinal: Yes: Normal Bowel Sounds, Soft. No: Tenderness Labs: CBC, BMP 07/15/20 06:18 07/15/20 06:18 Assessment/Plan [facility]. ATYPICAL PNEUMONIA MORBID OBESITY DIABETES MELLITUS AZOTEMIA CONTINUE ZITHROMAX/CEFTRIAXONE
[2020-07-15] MEDS: INSULIN (NOVOLOG) ASPART 100 UNITS/ML 10ML VIAL SQ SCH (17:44)
[2020-07-15] MEDS ORDERED: PT OWN MED DRAWER 7, Y5N ONE (21:16)
[2020-07-15] MEDS: ZOLPIDEM TARTRATE 5 MG TABLET PO PRN (21:34)
[2020-07-15] MEDS: QUEtiapine FUMARATE 100 MG TABLET (FP) PO SCH (21:34)
[2020-07-15] MEDS: ATORVASTATIN CA 20 MG TABLET (FP) PO SCH (21:34)
[2020-07-15] MEDS: LIDOCAINE PATCH REMOVAL MC SCH (21:36)
[2020-07-15] MEDS: ACETAMINOPHEN 325 MG TABLET (FP) PO PRN (21:43)
[2020-07-16] MEDS: INSULIN SLIDING SCALE (NOVOLOG) 1 VIAL SQ SCH ×4 (06:10→21:14)
[2020-07-16] MEDS: INSULIN (NOVOLOG) ASPART 100 UNITS/ML 10ML VIAL SQ SCH ×3 (06:10→16:49)
[2020-07-16] MEDS: INSULIN (LEVEMIR) 100 UNITS/ML UNITS SQ SCH ×2 (06:11→21:14)
[2020-07-16 06:50] LABS: BASO % 0.3 % (0-2.0); EOS % 1.3 % (0-4.5); HEMATOCRIT 28.8 % (35.4-49); HEMOGLOBIN 9.4 GM/dL (11.7-16.9); LYMPH % 8.3 % (8-40); MCH 27.8 pg (25.7-33.7); MCHC 32.6 g/dl (32.0-35.9); MEAN CELL VOLUME 85.2 fl (80-96); MEAN PLT VOLUME 8.2 fl (7.5-11.1); MONO % 7.6 % (3.8-10.2); NEUT % 82.5 % (42.8-82.8); PLATELET COUNT 302 K/MM3 (134-434); RBC 3.38 M/mm3 (4.00-5.60); RDW 14.4 % (11.9-15.9); WHITE BLOOD COUNT 12.9 K/mm3 (4.0-10.0)
[2020-07-16 07:15] LABS: ALBUMIN 1.6 g/dl (3.4-5.0); BILIRUBIN,TOTAL 0.2 mg/dL (0.2-1); BLOOD UREA NITROGEN 40.2 mg/dL (7-18); CREATININE 2.5 mg/dL (0.55-1.3); POTASSIUM 4.4 mmol/L (3.5-5.1); TOT PROT 5.7 g/dl (6.4-8.2)
--- NOTE | 2020-07-16 07:44 | PN ---
Progress Note, Physician Chief Complaint: AWAKE ALERT C/O LUQ ABDOMINAL APIN NO FEVERS + CONSTIPATION REFUSED GI WORKUP YESTERDAY - Current Medication List Current Medications: Active Medications Acetaminophen (Tylenol -) 650 mg PO Q6H PRN PRN Reason: PAIN LEVEL 1-5 Last Admin: 07/15/20 21:43 Dose: 650 mg Documented by: Albuterol Sulfate (Ventolin Hfa Inhaler -) 2 puff IH Q4H PRN PRN Reason: SHORT OF BREATH/WHEEZING Last Admin: 07/15/20 09:45 Dose: 2 puff Documented by: Amlodipine Besylate (Norvasc -) 5 mg PO DAILY [facility] Last Admin: 07/15/20 09:41 Dose: 5 mg Documented by: Aspirin (Asa -) 81 mg PO DAILY [facility] Last Admin: 07/15/20 09:41 Dose: 81 mg Documented by: Atorvastatin Calcium (Lipitor -) 20 mg PO HS [facility] Last Admin: 07/15/20 21:34 Dose: 20 mg Documented by: Heparin Sodium (Porcine) (Heparin -) 5,000 unit SQ BID [facility] Last Admin: 07/15/20 22:00 Dose: Not Given Documented by: Ceftriaxone Sodium 1 gm/ (Dextrose) 50 mls @ 100 mls/hr IVPB DAILY [facility]; Protocol Last Admin: 07/15/20 09:41 Dose: 100 mls/hr Documented by: Azithromycin (Zithromax 500mg Ivpb (Pre-Docked)) 500 mg in 250 mls @ 250 mls/hr IVPB DAILY [facility] Last Admin: 07/15/20 11:18 Dose: 250 mls/hr Documented by: Insulin Aspart (Novolog Vial Sliding Scale -) 1 vial SQ ACHS [facility]; Protocol Last Admin: 07/16/20 06:10 Dose: 6 units Documented by: Insulin Aspart (Novolog Vial) 8 units SQ TIDAC [facility]; Protocol Last Admin: 07/16/20 06:10 Dose: 8 units Documented by: Insulin Detemir (Levemir Vial) 20 units SQ BID@0700,2200 [facility] Last Admin: 07/16/20 06:11 Dose: 20 units Documented by: Lorazepam (Ativan -) 0.5 mg PO BID PRN PRN Reason: ANXIETY Magnesium Oxide (Mag-Ox -) 400 mg PO DAILY [facility] Last Admin: 07/15/20 09:41 Dose: 400 mg Documented by: [id number] Ethyl Esters (Lovaza -) 2 gm PO BID [facility] Last Admin: 07/15/20 21:34 Dose: 2 gm Documented by: Pantoprazole Sodium (Protonix -) 40 mg PO DAILY [facility] Last Admin: 07/15/20 09:41 Dose: 40 mg Documented by: Quetiapine Fumarate (Seroquel -) 200 mg PO HS [facility] Last Admin: 07/15/20 21:34 Dose: 200 mg Documented by: Tramadol HCl (Ultram -) 50 mg PO BID PRN PRN Reason: PAIN LEVEL 6-10 Last Admin: 07/15/20 09:43 Dose: 50 mg Documented by: Zolpidem Tartrate (Ambien -) 10 mg PO HS PRN PRN Reason: INSOMNIA Last Admin: 07/15/20 21:34 Dose: 10 mg Documented by: - Objective Vital Signs: Vital Signs Temperature 98.1 F 07/16/20 06:14 Pulse Rate 95 H 07/16/20 06:14 Respiratory Rate 18 07/16/20 06:14 Blood Pressure 131/78 07/16/20 06:14 O2 Sat by Pulse Oximetry (%) 95 07/16/20 06:14 Constitutional: Yes: Mild Distress Cardiovascular: Yes: WNL Respiratory: Yes: Rhonchi Gastrointestinal: Yes: Soft, Abdomen, Obese, Tenderness Musculoskeletal: Yes: Back Pain Edema: No Psychiatric: Yes: Other Labs: CBC, BMP 07/16/20 05:30 07/16/20 05:30 Problem List - Problems (1) Acute kidney injury superimposed on chronic kidney disease Code(s): N17.9 - ACUTE KIDNEY FAILURE, UNSPECIFIED; N18.9 - CHRONIC KIDNEY DISEA SE, UNSPECIFIED (2) Anemia Code(s): D64.9 - ANEMIA, UNSPECIFIED (3) Chest pain Code(s): R07.9 - CHEST PAIN, UNSPECIFIED (4) Cocaine abuse Code(s): F14.10 - COCAINE ABUSE, UNCOMPLICATED (5) 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 Code(s): F06.32 - MOOD DISORD D/T PHYSIOL COND W MAJOR DEPRESSIVE-LIKE EPSD (6) Elevated serum creatinine Code(s): R79.89 - OTHER SPECIFIED ABNORMAL FINDINGS OF BLOOD CHEMISTRY (7) Hyperglycemia Code(s): R73.9 - HYPERGLYCEMIA, UNSPECIFIED (8) Pneumonia Code(s): J18.9 - PNEUMONIA, UNSPECIFIED ORGANISM Qualifiers: Pneumonia type: due to unspecified organism Laterality: left Lung location: lower lobe of lung Qualified Code(s): J18.9 - Pneumonia, unspecified organism (9) Uncontrolled diabetes mellitus Code(s): E11.65 - TYPE 2 DIABETES MELLITUS WITH HYPERGLYCEMIA (10) CKD (chronic kidney disease) Code(s): N18.9 - CHRONIC KIDNEY DISEASE, UNSPECIFIED Assessment/Plan IV ABX AND NEBS FOR PNEUMONIA ID AND PULM F/U CKD NEPHROLOGY F/U MONITOR ON TELEMETRY NO ALARMS CARDIO EVAL OOB TO CHAIR DVT PROPHYLAXIS MONITOR LABS PSYCH F/U APPRECIATED ENDOCRINE CONSULT UNCONTROLLED DIABTES F/U WITH PLAN AND SUPPORT OUTPATIENT NUTRITION CONSULT DETOX OUTPATIENT OFFERED HE WILL THINK ABOUT IT
[2020-07-16] MEDS ORDERED: DEXTROSE 5%-WATER - 50 ML IVPB ONE (08:35)
[2020-07-16] MEDS ORDERED: PT OWN MED DRAWER 7, Y5N ONE ×4 (08:35→21:08)
[2020-07-16] MEDS ORDERED: cefTRIAXone SODIUM 1 GM VIAL ONE (08:35)
[2020-07-16] MEDS ORDERED: IRON SUCROSE INJECTION 300 MG in SODIUM CHLORIDE 235 ML IVPB ONE (09:00)
[2020-07-16] MEDS: PANTOPRAZOLE 40 MG TABLET PO SCH (09:04)
[2020-07-16] MEDS: amLODIPine BESYLATE 5 MG TABLET (FP) PO SCH (09:04)
[2020-07-16] MEDS: ASPIRIN 81 MG CHEWABLE TABLETS PO SCH (09:04)
[2020-07-16] MEDS: MAGNESIUM OXIDE 400 MG TABLET (FP) PO SCH (09:04)
[2020-07-16] MEDS: CEFTRIAXONE 1 GM in DEXTROSE 5%-WATER - 50 ML IVPB SCH (09:05)
[2020-07-16] MEDS: HEPARIN NA (PORCINE) 5,000 UNITS/ML 1ML VIAL SQ SCH ×2 (09:06→21:06)
[2020-07-16 09:43] LABS: EPI CELLS 11 /uL (0-25.1); HYALINE CASTS 4 /uL (0-3.1); URINE APPEARANCE CLEAR; URINE BACTERIA 1 /uL (0-1359); URINE BILIRUBIN NEGATIVE (NEGATIVE); URINE COLOR YELLOW; URINE GLUCOSE (UA) 3+ (NEGATIVE); URINE KETONE NEGATIVE (NEGATIVE); URINE LEUK ESTERASE NEGATIVE (NEGATIVE); URINE NITRITE NEGATIVE (NEGATIVE); URINE PROTEIN 3+ (NEGATIVE); URINE RBC 22 /uL (0-23.9); URINE WBC 8 /uL (0-25.8)
[2020-07-16] MEDS: AZITHROMYCIN IVPB 500 MG/250 ML BAG IVPB SCH (09:56)
[2020-07-16] MEDS: OMEGA-3 ACID ETHYL ESTERS (FATTY-ACIDS) 1 GM CAPSULE (FP) PO SCH ×2 (10:13→21:11)
[2020-07-16] MEDS: traMADol HCL 50 MG TABLET PO PRN ×2 (11:08→23:16)
--- NOTE | 2020-07-16 12:45 | PN ---
Progress Note, Physician History of Present Illness: Pt seen and examined at bedside. He is awake and alert. - Current Medication List Current Medications: Active Medications Acetaminophen (Tylenol -) 650 mg PO Q6H PRN PRN Reason: PAIN LEVEL 1-5 Last Admin: 07/15/20 21:43 Dose: 650 mg Documented by: Albuterol Sulfate (Ventolin Hfa Inhaler -) 2 puff IH Q4H PRN PRN Reason: SHORT OF BREATH/WHEEZING Last Admin: 07/15/20 09:45 Dose: 2 puff Documented by: Amlodipine Besylate (Norvasc -) 5 mg PO DAILY [facility] Last Admin: 07/16/20 09:04 Dose: 5 mg Documented by: Aspirin (Asa -) 81 mg PO DAILY [facility] Last Admin: 07/16/20 09:04 Dose: 81 mg Documented by: Atorvastatin Calcium (Lipitor -) 20 mg PO HS [facility] Last Admin: 07/15/20 21:34 Dose: 20 mg Documented by: Heparin Sodium (Porcine) (Heparin -) 5,000 unit SQ BID [facility] Last Admin: 07/16/20 09:06 Dose: Not Given Documented by: Ceftriaxone Sodium 1 gm/ (Dextrose) 50 mls @ 100 mls/hr IVPB DAILY [facility]; Protocol Last Admin: 07/16/20 09:05 Dose: 100 mls/hr Documented by: Azithromycin (Zithromax 500mg Ivpb (Pre-Docked)) 500 mg in 250 mls @ 250 mls/hr IVPB DAILY [facility] Last Admin: 07/16/20 09:56 Dose: 250 mls/hr Documented by: Insulin Aspart (Novolog Vial Sliding Scale -) 1 vial SQ ACHS [facility]; Protocol Last Admin: 07/16/20 11:13 Dose: 8 units Documented by: Insulin Aspart (Novolog Vial) 8 units SQ TIDAC [facility]; Protocol Last Admin: 07/16/20 11:17 Dose: 8 units Documented by: Insulin Detemir (Levemir Vial) 20 units SQ BID@0700,2200 [facility] Last Admin: 07/16/20 06:11 Dose: 20 units Documented by: Lorazepam (Ativan -) 0.5 mg PO BID PRN PRN Reason: ANXIETY Magnesium Oxide (Mag-Ox -) 400 mg PO DAILY [facility] Last Admin: 07/16/20 09:04 Dose: 400 mg Documented by: [id number] Ethyl Esters (Lovaza -) 2 gm PO BID [facility] Last Admin: 07/16/20 10:13 Dose: 2 gm Documented by: Pantoprazole Sodium (Protonix -) 40 mg PO DAILY [facility] Last Admin: 07/16/20 09:04 Dose: 40 mg Documented by: Quetiapine Fumarate (Seroquel -) 200 mg PO HS [facility] Last Admin: 07/15/20 21:34 Dose: 200 mg Documented by: Tramadol HCl (Ultram -) 50 mg PO BID PRN PRN Reason: PAIN LEVEL 6-10 Last Admin: 07/16/20 11:08 Dose: 50 mg Documented by: Zolpidem Tartrate (Ambien -) 10 mg PO HS PRN PRN Reason: INSOMNIA Last Admin: 07/15/20 21:34 Dose: 10 mg Documented by: - Objective Vital Signs: Vital Signs Temperature 98.1 F 07/16/20 10:32 Pulse Rate 94 H 07/16/20 10:32 Respiratory Rate 18 07/16/20 10:32 Blood Pressure 118/70 07/16/20 10:32 O2 Sat by Pulse Oximetry (%) 94 L 07/16/20 10:32 Constitutional: Yes: Calm Eyes: Yes: Conjunctiva Clear HENT: Yes: Atraumatic Neck: Yes: Supple Cardiovascular: Yes: S1, S2 Respiratory: Yes: CTA Bilaterally Gastrointestinal: Yes: Soft Genitourinary: Yes: WNL Musculoskeletal: Yes: WNL Edema: Yes Edema: LLE: Trace, RLE: Trace Integumentary: Yes: Tattoos Neurological: Yes: Oriented Psychiatric: Yes: Oriented Labs: CBC, BMP 07/16/20 05:30 07/16/20 05:30 Problem List - Problems (1) Acute kidney injury superimposed on chronic kidney disease Code(s): N17.9 - ACUTE KIDNEY FAILURE, UNSPECIFIED; N18.9 - CHRONIC KIDNEY DISEASE, UNSPECIFIED Assessment/Plan Current Medications Generic Name Dose Route Start Last Admin Trade Name Freq PRN Reason Stop Dose Admin Acetaminophen 650 mg 07/13/20 12:19 07/15/20 21:43 Tylenol - PO 650 mg Q6H PRN Administration PAIN LEVEL 1-5 Albuterol Sulfate 2 puff 07/13/20 21:41 07/15/20 09:45 Ventolin Hfa Inhaler - IH 2 puff Q4H PRN Administration SHORT OF BREATH/WHEEZING Amlodipine Besylate 5 mg 07/15/20 10:00 07/16/20 09:04 Norvasc - PO 5 mg DAILY [facility] Administration Aspirin 81 mg 07/13/20 10:00 07/16/20 09:04 Asa - PO 81 mg DAILY [facility] Administration Atorvastatin Calcium 20 mg 07/13/20 22:00 07/15/20 21:34 Lipitor - PO 20 mg HS [facility] Administration Heparin Sodium (Porcine) 5,000 unit 07/13/20 10:00 07/16/20 09:06 Heparin - SQ Not Given BID [facility] Ceftriaxone Sodium 1 gm/ 50 mls @ 100 mls/hr 07/13/20 10:00 07/16/20 09:05 Dextrose IVPB 100 mls/hr DAILY [facility] Administration Protocol Azithromycin 500 mg in 250 mls @ 250 mls/hr 07/13/20 10:00 07/16/20 09:56 Zithromax 500mg Ivpb (Pre-Docked) IVPB 250 mls/hr DAILY [facility] Administration Insulin Aspart 1 vial 07/13/20 11:39 07/16/20 11:13 Novolog Vial Sliding Scale - SQ 8 units ACHS [facility] Administration Protocol Insulin Aspart 8 units 07/15/20 17:15 07/16/20 11:17 Novolog Vial SQ 8 units TIDAC [facility] Administration Protocol Insulin Detemir 20 units 07/13/20 11:39 07/16/20 06:11 Levemir Vial SQ 20 units BID@0700,2200 [facility] Administration Lorazepam 0.5 mg 07/13/20 13:21 Ativan - PO BID PRN ANXIET[facility] Magnesium Oxide 400 mg 07/13/20 13:30 07/16/20 09:04 Mag-Ox - PO 400 mg DAILY [facility] Administration [id number] Ethyl Esters 2 gm 07/13/20 12:00 07/16/20 10:13 Lovaza - PO 2 gm BID [facility] Administration Pantoprazole Sodium 40 mg 07/13/20 13:45 07/16/20 09:04 Protonix - PO 40 mg DAILY [facility] Administration Quetiapine Fumarate 200 mg 07/13/20 22:00 07/15/20 21:34 Seroquel - PO 200 mg HS [facility] Administration Tramadol HCl 50 mg 07/13/20 12:19 07/16/20 11:08 Ultram - PO 50 mg BID PRN Administration PAIN LEVEL 6-10 Zolpidem Tartrate 10 mg 07/13/20 22:00 07/15/20 21:34 Ambien - PO 10 mg HS PRN Administration INSOMNIA Laboratory Tests 07/13/20 07/15/20 06:53 08:25 Hemoglobin A1c % 10.0 H Protein/Creatinin Ratio 3.8 Impression 1. CKD 2. HTN 3. DM 4. obesity 5. chest pain 6. anemia 7. cocaine use 8. proteinuria Plan - renal function is improving - cont to monitor renal function - cont to hold fluids, pt tolerating diet - repeat ua - a1c is elevated - avoid cocaine, discussed with pt - start low dose lisinopril and titrate as tolerated with monitoring of renal function
[2020-07-16] MEDS: LISINOPRIL 5 MG TABLET (FP) PO SCH (14:25)
--- NOTE | 2020-07-16 19:21 | CONSULT ---
Consult Consult Specialty:: ENDOCRINE Referred by:: DR.AMMIR TSAI Reason for Consultation:: DIABETES MELLITUS TYPE 1UNCONTROLLED - History of Present Illness Chief Complaint: HIGH SUGARS History of Present Illness: 34 y/o male with a PMHx of DMT1, HTN, HLD, GERD, BPH, Depression, Severe Obesity, recurrent abscesses. Who presents to the ED with severe left-sided chest pain . Patient describes the CP as constant sharp pressure increased on movement, deep inspiration, cough, and sneezing. Has pain on movement,describes pain worse after meals,denies hypoglycemia,denies blurred vision.has been seeking help with weight loss surgery awaiting clearance from specialists. - Past Medical History Cardio/Vascular: Yes: HTN, Hyperlipdemia Gastrointestinal: Yes: Gastritis, GERD Renal/: Yes: Renal Inusuff, BPH Psych: Yes: Anxiety, Depression Musculoskeletal: Yes: Chronic low back pain, Osteoarthritis Endocrine: Yes: Diabetes Mellitus - Past Surgical History Past Surgical History: Yes: Amputation (5th toe right foot, right 4th metatarsal, 5th left metatarsal) Additional Surgical History: Corneal reconstruction right eye - Alcohol/Substance Use Hx Alcohol Use: Yes History of Substance Use: reports: Cocaine, Marijuana - Smoking History Smoking history: Current every day smoker Have you smoked in the past 12 months: Yes Aproximately how many cigarettes per day: 4 - Social History ADL: Support Services Occupation: unemployed History of Recent Travel: No Home Medications - Allergies Allergies/Adverse Reactions: Allergies Allergy/AdvReac Type Severity Reaction Status Date / Time No Known Allergies Allergy Verified 07/12/20 16:15 - Home Medications Home Medications: Ambulatory Orders Quetiapine Fumarate [Seroquel -] 200 mg PO HS 08/13/18 Ranitidine HCl [Zantac] 300 mg PO PRN #20 tablet 08/13/18 Albuterol Sulfate Inhaler - [Ventolin HFA Inhaler -] 1 - 2 inh PO QID 03/14/19 Amlodipine Besylate [Norvasc -] 10 mg PO DAILY [facility] 1 03/14/19 Benazepril HCl 1 tab PO DAILY 03/14/19 Omeprazole Magnesium [Prilosec Otc] 40 mg PO DAILY 03/14/19 Zolpidem Tartrate [Ambien] 10 mg PO HS 03/14/19 traMADol HCL [Ultram -] 50 mg PO BID PRN #10 tablet MDD 2 03/04/20 Atorvastatin Calcium [Lipitor] 20 mg PO 07/13/20 Insulin Glargine,Hum.rec.anlog [Basaglar Kwikpen U-100] 44 unit SQ HS 07/13/20 Insulin Lispro [Admelog] 100 unit SQ 07/13/20 [place]-3 Acid Ethyl Esters [Lovaza -] 2,000 mg PO BID 07/13/20 Family Medical History Family Hx Cancer: Grandmother (maternal) (BCA) Family Hx Diabetes: Grandmother (maternal), Grandfather (paternal) Other Family History: Mother: alive: healthy. Father: alive: healthy. 1 sister, 2 1/2 siblings: healthy. No children. No family history of colorectal cancer or other GI malignancy Review of Systems - Review of Systems Constitutional: reports: Lethargy, Malaise Eyes: reports: No Symptoms HENT: reports: No Symptoms Neck: reports: No Symptoms Cardiovascular: reports: Chest Pain, Shortness of Breath Respiratory: reports: Exercise Intolerance, SOB, SOB on Exertion Gastrointestinal: reports: No Symptoms Genitourinary: reports: Frequency Integumentary: reports: Incision, Lesions, Pruritis Neurological: reports: Numbness, Weakness Endocrine: reports: Unexplained Weight Gain Physical Exam Vital Signs: Vital Signs Temperature 98.0 F 07/16/20 18:00 Pulse Rate 98 H 07/16/20 18:00 Respiratory Rate 18 07/16/20 18:00 Blood Pressure 129/75 07/16/20 18:00 O2 Sat by Pulse Oximetry (%) 96 07/16/20 18:00 Labs: CBC, BMP 07/16/20 05:30 07/16/20 05:30 Problem List - Problems (1) Acute kidney injury superimposed on chronic kidney disease Problems reviewed: Yes Code(s): N17.9 - ACUTE KIDNEY FAILURE, UNSPECIFIED; N18.9 - CHRONIC KIDNEY DISEASE, UNSPECIFIED (2) Anemia Problems reviewed: Yes Code(s): D64.9 - ANEMIA, UNSPECIFIED (3) Anxiety about health Problems reviewed: Yes Code(s): F41.8 - OTHER SPECIFIED ANXIETY DISORDERS (4) Chest pain Problems reviewed: Yes Code(s): R07.9 - CHEST PAIN, UNSPECIFIED (5) 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 Code(s): F06.32 - MOOD DISORD D/T PHYSIOL COND W MAJOR DEPRESSIVE-LIKE EPSD (6) Encounter for screening laboratory testing for COVID-19 virus Code(s): Z11.59 - ENCOUNTER FOR SCREENING FOR OTHER VIRAL DISEASES Assessment/Plan Current Active Problems Acute kidney injury superimposed on chronic kidney disease (Acute) Anemia (Acute) Anxiety about health (Acute) Chest pain (Acute) Cocaine abuse (Acute) 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 (Acute) Elevated serum creatinine (Acute) Encounter for screening laboratory testing for COVID-19 virus (Acute) Hyperglycemia (Acute) Pneumonia (Acute) Uncontrolled diabetes mellitus (Acute) Abnormal Lab Results 07/15/20 07/16/20 07/16/20 08:25 05:30 05:30 WBC 12.9 H RBC 3.38 L Hgb 9.4 L Hct 28.8 L Absolute Neuts (auto) 10.6 H Sodium 134 L Anion Gap 7 L BUN 40.2 H Creatinine 2.5 H Random Glucose 348 H Calcium 8.0 L Total Protein 5.7 L Albumin 1.6 L Urine Protein Urine Glucose (UA) U Random Total Protein 438.1 H 07/16/20 08:25 WBC RBC Hgb Hct Absolute Neuts (auto) Sodium Anion Gap BUN Creatinine Random Glucose Calcium Total Protein Albumin Urine Protein 3+ H Urine Glucose (UA) 3+ H U Random Total Protein plan: bgm qid novolog scale diet levemir 45 units am ck hba1c
--- NOTE | 2020-07-16 19:27 | PN ---
Progress Note (short form) - Note Progress Note: I attempted to contact the patient via his cell phone as arranged this morning. Since he did not answer the call, i left a voice message for him to return my call for the planned treatment session. He did not and I imagine he decided not to continue treatment. He has my phone number and can call to reschedule if he chooses to do so. 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
[2020-07-16] MEDS: ATORVASTATIN CA 20 MG TABLET (FP) PO SCH (21:14)
--- NOTE | 2020-07-16 21:40 | PN ---
Progress Note, Physician History of Present Illness: AWAKE, ALERT OOB IN CHAIR NO C/O CHEST PAIN/ DYSPNEA/ COUGH AFEBRILE WBC IMPROVED - Current Medication List Current Medications: Active Medications Acetaminophen (Tylenol -) 650 mg PO Q6H PRN PRN Reason: PAIN LEVEL 1-5 Last Admin: 07/15/20 21:43 Dose: 650 mg Documented by: Albuterol Sulfate (Ventolin Hfa Inhaler -) 2 puff IH Q4H PRN PRN Reason: SHORT OF BREATH/WHEEZING Last Admin: 07/15/20 09:45 Dose: 2 puff Documented by: Amlodipine Besylate (Norvasc -) 5 mg PO DAILY [facility] Last Admin: 07/16/20 09:04 Dose: 5 mg Documented by: Aspirin (Asa -) 81 mg PO DAILY [facility] Last Admin: 07/16/20 09:04 Dose: 81 mg Documented by: Atorvastatin Calcium (Lipitor -) 20 mg PO HS [facility] Last Admin: 07/16/20 21:14 Dose: 20 mg Documented by: Heparin Sodium (Porcine) (Heparin -) 5,000 unit SQ BID [facility] Last Admin: 07/16/20 21:06 Dose: Not Given Documented by: Ceftriaxone Sodium 1 gm/ (Dextrose) 50 mls @ 100 mls/hr IVPB DAILY [facility]; Protoco l Last Admin: 07/16/20 09:05 Dose: 100 mls/hr Documented by: Azithromycin (Zithromax 500mg Ivpb (Pre-Docked)) 500 mg in 250 mls @ 250 mls/hr IVPB DAILY [facility] Last Admin: 07/16/20 09:56 Dose: 250 mls/hr Documented by: Insulin Aspart (Novolog Vial Sliding Scale -) 1 vial SQ ACHS [facility]; Protocol Last Admin: 07/16/20 21:14 Dose: 6 units Documented by: Insulin Aspart (Novolog Vial) 8 units SQ TIDAC [facility]; Protocol Last Admin: 07/16/20 16:49 Dose: 8 units Documented by: Insulin Detemir (Levemir Vial) 20 units SQ BID@0700,2200 [facility] Last Admin: 07/16/20 21:14 Dose: 20 units Documented by: Lisinopril (Prinivil) 5 mg PO DAILY [facility] Last Admin: 07/16/20 14:25 Dose: 5 mg Documented by: Lorazepam (Ativan -) 0.5 mg PO BID PRN PRN Reason: ANXIETY Magnesium Oxide (Mag-Ox -) 400 mg PO DAILY [facility] Last Admin: 07/16/20 09:04 Dose: 400 mg Documented by: [id number] Ethyl Esters (Lovaza -) 2 gm PO BID [facility] Last Admin: 07/16/20 21:11 Dose: 2 gm Documented by: Pantoprazole Sodium (Protonix -) 40 mg PO DAILY [facility] Last Admin: 07/16/20 09:04 Dose: 40 mg Documented by: Quetiapine Fumarate (Seroquel -) 200 mg PO HS [facility] Last Admin: 07/15/20 21:34 Dose: 200 mg Documented by: Tramadol HCl (Ultram -) 50 mg PO BID PRN PRN Reason: PAIN LEVEL 6-10 Last Admin: 07/16/20 11:08 Dose: 50 mg Documented by: Zolpidem Tartrate (Ambien -) 10 mg PO HS PRN PRN Reason: INSOMNIA Last Admin: 07/15/20 21:34 Dose: 10 mg Documented by: - Objective Vital Signs: Vital Signs Temperature 98.0 F 07/16/20 18:00 Pulse Rate 98 H 07/16/20 18:00 Respiratory Rate 18 07/16/20 18:00 Blood Pressure 129/75 07/16/20 18:00 O2 Sat by Pulse Oximetry (%) 96 07/16/20 18:00 Constitutional: Yes: No Distress Eyes: Yes: Conjunctiva Clear Cardiovascular: Yes: Regular Rate and Rhythm, S1, S2 Respiratory: Yes: CTA Bilaterally Gastrointestinal: Yes: Normal Bowel Sounds, Soft Edema: No Labs: CBC, BMP 07/16/20 05:30 07/16/20 05:30 Assessment/Plan [facility] ACQ V. ATYPICAL PNEUMONIA MORBID OBESITY DIABETES MELLITUS AZOTEMIA CONTINUE ZITHROMAX/CEFTRIAXONE
[2020-07-16] MEDS: ZOLPIDEM TARTRATE 5 MG TABLET PO PRN (23:16)
[2020-07-16] MEDS: QUEtiapine FUMARATE 100 MG TABLET (FP) PO SCH (23:16)
[2020-07-17] MEDS: INSULIN SLIDING SCALE (NOVOLOG) 1 VIAL SQ SCH ×4 (06:35→21:47)
[2020-07-17] MEDS: INSULIN (LEVEMIR) 100 UNITS/ML UNITS SQ SCH ×2 (06:36→21:46)
[2020-07-17] MEDS: INSULIN (NOVOLOG) ASPART 100 UNITS/ML 10ML VIAL SQ SCH ×3 (06:37→17:22)
--- NOTE | 2020-07-17 07:44 | PN ---
Progress Note, Physician Chief Complaint: AWAKE FEELING BETTER DENIES SOB - Current Medication List Current Medications: Active Medications Acetaminophen (Tylenol -) 650 mg PO Q6H PRN PRN Reason: PAIN LEVEL 1-5 Last Admin: 07/15/20 21:43 Dose: 650 mg Documented by: Albuterol Sulfate (Ventolin Hfa Inhaler -) 2 puff IH Q4H PRN PRN Reason: SHORT OF BREATH/WHEEZING Last Admin: 07/15/20 09:45 Dose: 2 puff Documented by: Amlodipine Besylate (Norvasc -) 5 mg PO DAILY [facility] Last Admin: 07/16/20 09:04 Dose: 5 mg Documented by: Aspirin (Asa -) 81 mg PO DAILY [facility] Last Admin: 07/16/20 09:04 Dose: 81 mg Documented by: Atorvastatin Calcium (Lipitor -) 20 mg PO HS [facility] Last Admin: 07/16/20 21:14 Dose: 20 mg Documented by: Heparin Sodium (Porcine) (Heparin -) 5,000 unit SQ BID [facility] Last Admin: 07/16/20 21:06 Dose: Not Given Documented by: Ceftriaxone Sodium 1 gm/ (Dextrose) 50 mls @ 100 mls/hr IVPB DAILY [facility]; Protocol Last Admin: 07/16/20 09:05 Dose: 100 mls/hr Documented by: Insulin Aspart (Novolog Vial Sliding Scale -) 1 vial SQ ACHS [facility]; Protocol Last Admin: 07/17/20 06:35 Dose: 4 units Documented by: Insulin Aspart (Novolog Vial) 8 units SQ TIDAC [facility]; Protocol Last Admin: 07/17/20 06:37 Dose: 8 units Documented by: Insulin Detemir (Levemir Vial) 20 units SQ BID@0700,2200 [facility] Last Admin: 07/17/20 06:36 Dose: 20 units Documented by: Lisinopril (Prinivil) 5 mg PO DAILY [facility] Last Admin: 07/16/20 14:25 Dose: 5 mg Documented by: Lorazepam (Ativan -) 0.5 mg PO BID PRN PRN Reason: ANXIETY Magnesium Oxide (Mag-Ox -) 400 mg PO DAILY [facility] Last Admin: 07/16/20 09:04 Dose: 400 mg Documented by: [id number] Ethyl Esters (Lovaza -) 2 gm PO BID [facility] Last Admin: 07/16/20 21:11 Dose: 2 gm Documented by: Pantoprazole Sodium (Protonix -) 40 mg PO DAILY [facility] Last Admin: 07/16/20 09:04 Dose: 40 mg Documented by: Quetiapine Fumarate (Seroquel -) 200 mg PO HS [facility] Last Admin: 07/16/20 23:16 Dose: 200 mg Documented by: Tramadol HCl (Ultram -) 50 mg PO BID PRN PRN Reason: PAIN LEVEL 6-10 Last Admin: 07/16/20 23:16 Dose: 50 mg Documented by: Zolpidem Tartrate (Ambien -) 10 mg PO HS PRN PRN Reason: INSOMNIA Last Admin: 07/16/20 23:16 Dose: 10 mg Documented by: - Objective Vital Signs: Vital Signs Temperature 98.3 F 07/17/20 06:00 Pulse Rate 103 H 07/17/20 06:00 Respiratory Rate 20 07/17/20 06:00 Blood Pressure 149/88 07/17/20 06:00 O2 Sat by Pulse Oximetry (%) 95 07/17/20 06:00 Constitutional: Yes: No Distress Cardiovascular: Yes: Regular Rate and Rhythm Respiratory: Yes: Diminished Gastrointestinal: Yes: Soft, Abdomen, Obese Genitourinary: Yes: WNL Musculoskeletal: Yes: Back Pain Edema: No Neurological: Yes: WNL Psychiatric: Yes: Other Labs: CBC, BMP 07/16/20 05:30 Problem List - Problems (1) Acute kidney injury superimposed on chronic kidney disease Code(s): N17.9 - ACUTE KIDNEY FAILURE, UNSPECIFIED; N18.9 - CHRONIC KIDNEY DISEASE, UNSPECIFIED (2) Anemia Code(s): D64.9 - ANEMIA, UNSPECIFIED (3) Chest pain Code(s): R07.9 - CHEST PAIN, UNSPECIFIED (4) Cocaine abuse Code(s): F14.10 - COCAINE ABUSE, UNCOMPLICATED (5) 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 Code(s): F06.32 - MOOD DISORD D/T PHYSIOL COND W MAJOR DEPRESSIVE-LIKE EPSD (6) Elevated serum creatinine Code(s): R79.89 - OTHER SPECIFIED ABNORMAL FINDINGS OF BLOOD CHEMISTRY (7) Hyperglycemia Code(s): R73.9 - HYPERGLYCEMIA, UNSPECIFIED (8) Pneumonia Code(s): J18.9 - PNEUMONIA, UNSPECIFIED ORGANISM Qualifiers: Pneumonia type: due to unspecified organism Laterality: left Lung location: lower lobe of lung Qualified Code(s): J18.9 - Pneumonia, unspecified organism (9) Uncontrolled diabetes mellitus Code(s): E11.65 - TYPE 2 DIABETES MELLITUS WITH HYPERGLYCEMIA (10) CKD (chronic kidney disease) Code(s): N18.9 - CHRONIC KIDNEY DISEASE, UNSPECIFIED Assessment/Plan IV ABX AND NEBS FOR PNEUMONIA ID AND PULM F/U CXR IN MORNING CKD NEPHROLOGY F/U MONITOR ON TELEMETRY NO ALARMS CARDIO EVAL OOB TO CHAIR DVT PROPHYLAXIS MONITOR LABS PSYCH F/U APPRECIATED ENDOCRINE CONSULT UNCONTROLLED DIABTES F/U WITH PLAN AND SUPPORT OUTPATIENT NUTRITION CONSULT DETOX OUTPATIENT OFFERED HE WILL THINK ABOUT IT
[2020-07-17 08:11] LABS: ALBUMIN 1.9 g/dl (3.4-5.0); BILIRUBIN,TOTAL 0.2 mg/dL (0.2-1); BLOOD UREA NITROGEN 34.8 mg/dL (7-18); CALCIUM 8.8 mg/dL (8.5-10.1); CREATININE 2.2 mg/dL (0.55-1.3); POTASSIUM 4.7 mmol/L (3.5-5.1)
[2020-07-17 08:16] LABS: TOT PROT 6.4 g/dl (6.4-8.2)
[2020-07-17] MEDS ORDERED: DEXTROSE 5%-WATER - 50 ML IVPB ONE (09:36)
[2020-07-17] MEDS ORDERED: cefTRIAXone SODIUM 1 GM VIAL ONE (09:36)
[2020-07-17] MEDS: HEPARIN NA (PORCINE) 5,000 UNITS/ML 1ML VIAL SQ SCH ×2 (09:51→21:45)
[2020-07-17] MEDS: ASPIRIN 81 MG CHEWABLE TABLETS PO SCH (09:51)
[2020-07-17] MEDS: CEFTRIAXONE 1 GM in DEXTROSE 5%-WATER - 50 ML IVPB SCH (09:52)
[2020-07-17] MEDS: PANTOPRAZOLE 40 MG TABLET PO SCH (09:52)
[2020-07-17] MEDS: amLODIPine BESYLATE 5 MG TABLET (FP) PO SCH (09:52)
[2020-07-17] MEDS: LISINOPRIL 5 MG TABLET (FP) PO SCH (09:52)
[2020-07-17] MEDS: MAGNESIUM OXIDE 400 MG TABLET (FP) PO SCH (09:53)
[2020-07-17] MEDS: OMEGA-3 ACID ETHYL ESTERS (FATTY-ACIDS) 1 GM CAPSULE (FP) PO SCH ×2 (10:00→21:44)
[2020-07-17] MEDS: traMADol HCL 50 MG TABLET PO PRN (10:00)
[2020-07-17] MEDS ORDERED: PT OWN MED DRAWER 7, Y5N ONE ×3 (10:12→21:28)
--- NOTE | 2020-07-17 12:01 | PN ---
Progress Note, Physician History of Present Illness: Pt seen and examined at bedside. He is awake and alert. He denies shortness of breath. - Current Medication List Current Medications: Active Medications Acetaminophen (Tylenol -) 650 mg PO Q6H PRN PRN Reason: PAIN LEVEL 1-5 Last Admin: 07/15/20 21:43 Dose: 650 mg Documented by: Albuterol Sulfate (Ventolin Hfa Inhaler -) 2 puff IH Q4H PRN PRN Reason: SHORT OF BREATH/WHEEZING Last Admin: 07/15/20 09:45 Dose: 2 puff Documented by: Amlodipine Besylate (Norvasc -) 5 mg PO DAILY [facility] Last Admin: 07/17/20 09:52 Dose: 5 mg Documented by: Aspirin (Asa -) 81 mg PO DAILY [facility] Last Admin: 07/17/20 09:51 Dose: 81 mg Documented by: Atorvastatin Calcium (Lipitor -) 20 mg PO HS [facility] Last Admin: 07/16/20 21:14 Dose: 20 mg Documented by: Heparin Sodium (Porcine) (Heparin -) 5,000 unit SQ BID [facility] Last Admin: 07/17/20 09:51 Dose: Not Given Documented by: Ceftriaxone Sodium 1 gm/ (Dextrose) 50 mls @ 100 mls/hr IVPB DAILY [facility]; P rotocol Last Admin: 07/17/20 09:52 Dose: 100 mls/hr Documented by: Insulin Aspart (Novolog Vial Sliding Scale -) 1 vial SQ ACHS [facility]; Protocol Last Admin: 07/17/20 06:35 Dose: 4 units Documented by: Insulin Aspart (Novolog Vial) 8 units SQ TIDAC [facility]; Protocol Last Admin: 07/17/20 06:37 Dose: 8 units Documented by: Insulin Detemir (Levemir Vial) 20 units SQ BID@0700,2200 [facility] Last Admin: 07/17/20 06:36 Dose: 20 units Documented by: Lisinopril (Prinivil) 5 mg PO DAILY [facility] Last Admin: 07/17/20 09:52 Dose: 5 mg Documented by: Lorazepam (Ativan -) 0.5 mg PO BID PRN PRN Reason: ANXIETY Magnesium Oxide (Mag-Ox -) 400 mg PO DAILY [facility] Last Admin: 07/17/20 09:53 Dose: 400 mg Documented by: [id number] Ethyl Esters (Lovaza -) 2 gm PO BID [facility] Last Admin: 07/16/20 21:11 Dose: 2 gm Documented by: Pantoprazole Sodium (Protonix -) 40 mg PO DAILY [facility] Last Admin: 07/17/20 09:52 Dose: 40 mg Documented by: Quetiapine Fumarate (Seroquel -) 200 mg PO HS [facility] Last Admin: 07/16/20 23:16 Dose: 200 mg Documented by: Tramadol HCl (Ultram -) 50 mg PO BID PRN PRN Reason: PAIN LEVEL 6-10 Last Admin: 07/16/20 23:16 Dose: 50 mg Documented by: Zolpidem Tartrate (Ambien -) 10 mg PO HS PRN PRN Reason: INSOMNIA Last Admin: 07/16/20 23:16 Dose: 10 mg Documented by: - Objective Vital Signs: Vital Signs Temperature 98.3 F 07/17/20 06:00 Pulse Rate 103 H 07/17/20 06:00 Respiratory Rate 20 07/17/20 06:00 Blood Pressure 149/88 07/17/20 06:00 O2 Sat by Pulse Oximetry (%) 95 07/17/20 06:00 Constitutional: Yes: Calm Eyes: Yes: Conjunctiva Clear HENT: Yes: Atraumatic Neck: Yes: Supple Cardiovascular: Yes: S1, S2 Respiratory: Yes: CTA Bilaterally Gastrointestinal: Yes: Soft Genitourinary: Yes: WNL Musculoskeletal: Yes: WNL Edema: LLE: Trace, RLE: Trace Integumentary: Yes: Venous Stasis Changes Neurological: Yes: Oriented Psychiatric: Yes: Oriented Labs: CBC, BMP 07/16/20 05:30 07/17/20 06:23 Problem List - Problems (1) Acute kidney injury superimposed on chronic kidney disease Code(s): N17.9 - ACUTE KIDNEY FAILURE, UNSPECIFIED; N18.9 - CHRONIC KIDNEY DISEASE, UNSPECIFIED Assessment/Plan Current Medications Generic Name Dose Route Start Last Admin Trade Name Freq PRN Reason Stop Dose Admin Acetaminophen 650 mg 07/13/20 12:19 07/15/20 21:43 Tylenol - PO 650 mg Q6H PRN Administration PAIN LEVEL 1-5 Albuterol Sulfate 2 puff 07/13/20 21:41 07/15/20 09:45 Ventolin Hfa Inhaler - IH 2 puff Q4H PRN Administration SHORT OF BREATH/WHEEZING Amlodipine Besylate 5 mg 07/15/20 10:00 07/17/20 09:52 Norvasc - PO 5 mg DAILY [facility] Administration Aspirin 81 mg 07/13/20 10:00 07/17/20 09:51 Asa - PO 81 mg DAILY [facility] Administration Atorvastatin Calcium 20 mg 07/13/20 22:00 07/16/20 21:14 Lipitor - PO 20 mg HS [facility] Administration Heparin Sodium (Porcine) 5,000 unit 07/13/20 10:00 07/17/20 09:51 Heparin - SQ Not Given BID [facility] Ceftriaxone Sodium 1 gm/ 50 mls @ 100 mls/hr 07/13/20 10:00 07/17/20 09:52 Dextrose IVPB 100 mls/hr DAILY [facility] Administration Protocol Insulin Aspart 1 vial 07/13/20 11:39 07/17/20 06:35 Novolog Vial Sliding Scale - SQ 4 units ACHS [facility] Administration Protocol Insulin Aspart 8 units 07/15/20 17:15 07/17/20 06:37 Novolog Vial SQ 8 units TIDAC [facility] Administration Protocol Insulin Detemir 20 units 07/13/20 11:39 07/17/20 06:36 Levemir Vial SQ 20 units BID@0700,2200 [facility] Administration Lisinopril 5 mg 07/16/20 13:00 07/17/20 09:52 Prinivil PO 5 mg DAILY [facility] Administration Lorazepam 0.5 mg 07/13/20 13:21 Ativan - PO BID PRN ANXIETY Magnesium Oxide 400 mg 07/13/20 13:30 07/17/20 09:53 Mag-Ox - PO 400 mg DAILY [facility] Administration [id number] Ethyl Esters 2 gm 07/13/20 12:00 07/16/20 21:11 Lovaza - PO 2 gm BID [facility] Administration Pantoprazole Sodium 40 mg 07/13/20 13:45 07/17/20 09:52 Protonix - PO 40 mg DAILY [facility] Administration Quetiapine Fumarate 200 mg 07/13/20 22:00 07/16/20 23:16 Seroquel - PO 200 mg HS [facility] Administration Tramadol HCl 50 mg 07/13/20 12:19 07/16/20 23:16 Ultram - PO 50 mg BID PRN Administration PAIN LEVEL 6-10 Zolpidem Tartrate 10 mg 07/13/20 22:00 07/16/20 23:16 Ambien - PO 10 mg HS PRN Administration INSOMNIA Impression 1. CKD 2. HTN 3. DM 4. obesity 5. chest pain 6. anemia 7. cocaine use 8. proteinuria Plan - renal function improved - will need outpt follow up - avoid nsaids - avodi cocaine
[2020-07-17] MEDS: QUEtiapine FUMARATE 100 MG TABLET (FP) PO SCH (21:45)
[2020-07-17] MEDS: ZOLPIDEM TARTRATE 5 MG TABLET PO PRN (21:51)
[2020-07-17] MEDS: ATORVASTATIN CA 20 MG TABLET (FP) PO SCH (22:00)
[2020-07-18] MEDS: INSULIN (LEVEMIR) 100 UNITS/ML UNITS SQ SCH (06:24)
[2020-07-18] MEDS: INSULIN SLIDING SCALE (NOVOLOG) 1 VIAL SQ SCH ×2 (06:25→12:06)
[2020-07-18] MEDS: INSULIN (NOVOLOG) ASPART 100 UNITS/ML 10ML VIAL SQ SCH ×2 (06:27→12:06)
[2020-07-18] MEDS ORDERED: INSULIN SLIDING SCALE (NOVOLOG) 1 VIAL SQ ONE (06:34)
[2020-07-18 07:54] LABS: HEMATOCRIT 30.2 % (35.4-49); HEMOGLOBIN 9.8 GM/dL (11.7-16.9); MCH 27.7 pg (25.7-33.7); MCHC 32.4 g/dl (32.0-35.9); MEAN CELL VOLUME 85.3 fl (80-96); MEAN PLT VOLUME 7.9 fl (7.5-11.1); PLATELET COUNT 332 K/MM3 (134-434); RBC 3.54 M/mm3 (4.00-5.60); RDW 14.5 % (11.9-15.9)
[2020-07-18 08:25] LABS: ALBUMIN 1.7 g/dl (3.4-5.0); BILIRUBIN,TOTAL 0.3 mg/dL (0.2-1); POTASSIUM 4.7 mmol/L (3.5-5.1)
[2020-07-18 08:28] LABS: BLOOD UREA NITROGEN 32.7 mg/dL (7-18); CALCIUM 8.5 mg/dL (8.5-10.1); CREATININE 1.8 mg/dL (0.55-1.3); MAGNESIUM 1.8 mg/dL (1.8-2.4); TOT PROT 5.9 g/dl (6.4-8.2)
--- NOTE | 2020-07-18 08:41 | DS ---
Physical Examination Vital Signs: Vital Signs Temperature 99.1 F 07/18/20 06:00 Pulse Rate 99 H 07/18/20 06:00 Respiratory Rate 18 07/18/20 06:00 Blood Pressure 152/97 07/18/20 06:00 O2 Sat by Pulse Oximetry (%) 96 07/17/20 22:00 Constitutional: Yes: No Distress Eyes: Yes: WNL HENT: Yes: WNL Neck: Yes: WNL Cardiovascular: Yes: WNL Respiratory: Yes: WNL Gastrointestinal: Yes: WNL Renal/: Yes: WNL Musculoskeletal: Yes: WNL Extremities: Yes: WNL Edema: No Integumentary: Yes: WNL Wound/Incision: Yes: Clean/Dry Neurological: Yes: WNL ...Motor Strength: WNL Psychiatric: Yes: WNL Labs: CBC, BMP 07/18/20 06:20 07/18/20 06:20 Discharge Summary Problems reviewed: Yes Reason For Visit: HYPERGLYCEMIA,HIGH SERUM CREATININE, PNEUMONIA Current Active Problems Acute kidney injury superimposed on chronic kidney disease (Acute) Anemia (Acute) Anxiety about health (Acute) Chest pain (Acute) Cocaine abuse (Acute) 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 Health Concerns: detox referral for substance abuse Goals: see your primary doctor Talisha in 2-3 days Condition: Improved - Instructions Diet, Activity, Other Instructions: see your doctor in 2-3 days detox referrral Referrals: Pacheco Woodall [Primary Care Provider] - Isidro Arriaga MD [Staff Physician] - Disposition: HOME - Home Medications Comprehensive Discharge Medication List: Ambulatory Orders Quetiapine Fumarate [Seroquel -] 200 mg PO HS 08/13/18 Ranitidine HCl [Zantac] 300 mg PO PRN #20 tablet 08/13/18 Albuterol Sulfate Inhaler - [Ventolin HFA Inhaler -] 1 - 2 inh PO QID 03/14/19 Amlodipine Besylate [Norvasc -] 10 mg PO DAILY MDD 1 03/14/19 Benazepril HCl 1 tab PO DAILY 03/14/19 Omeprazole Magnesium [Prilosec Otc] 40 mg PO DAILY 03/14/19 Zolpidem Tartrate [Ambien] 10 mg PO HS 03/14/19 traMADol HCL [Ultram -] 50 mg PO BID PRN #10 tablet MDD 2 03/04/20 Atorvastatin Calcium [Lipitor] 20 mg PO 07/13/20 Insulin Glargine,Hum.rec.anlog [Basaglar Kwikpen U-100] 44 unit SQ HS 07/13/20 Insulin Lispro [Admelog] 100 unit SQ 07/13/20 [place]-3 Acid Ethyl Esters [Lovaza -] 2,000 mg PO BID 07/13/20 Albuterol Sulfate Inhaler - [Ventolin HFA Inhaler -] 2 puff IH Q4H PRN 30 Days #1 inhaler 07/18/20 Aspirin [ASA -] 81 mg PO DAILY #30 tab.chew 07/18/20
[2020-07-18] MEDS ORDERED: cefTRIAXone SODIUM 1 GM VIAL ONE (08:42)
[2020-07-18] MEDS ORDERED: DEXTROSE 5%-WATER - 50 ML IVPB ONE (08:42)
[2020-07-18] MEDS: amLODIPine BESYLATE 5 MG TABLET (FP) PO SCH (09:01)
[2020-07-18] MEDS: PANTOPRAZOLE 40 MG TABLET PO SCH (09:01)
[2020-07-18] MEDS: CEFTRIAXONE 1 GM in DEXTROSE 5%-WATER - 50 ML IVPB SCH (09:01)
[2020-07-18] MEDS: ASPIRIN 81 MG CHEWABLE TABLETS PO SCH (09:01)
[2020-07-18] MEDS ORDERED: PT OWN MED DRAWER 7, Y5N ONE (09:02)
[2020-07-18] MEDS: MAGNESIUM OXIDE 400 MG TABLET (FP) PO SCH (09:03)
[2020-07-18] MEDS: OMEGA-3 ACID ETHYL ESTERS (FATTY-ACIDS) 1 GM CAPSULE (FP) PO SCH (09:03)
[2020-07-18] MEDS: LISINOPRIL 5 MG TABLET (FP) PO SCH (09:04)
[2020-07-18] MEDS: HEPARIN NA (PORCINE) 5,000 UNITS/ML 1ML VIAL SQ SCH (09:48)
[2020-07-18 13:06] VITALS: BP 154/85; PULSE 95; TEMP 98.4
--- NOTE | 2020-07-18 14:14 | PN ---
Progress Note, Physician History of Present Illness: Pt seen and examined at bedside. He is awake and alert. he has no complaints. - Current Medication List Current Medications: Active Medications Acetaminophen (Tylenol -) 650 mg PO Q6H PRN PRN Reason: PAIN LEVEL 1-5 Last Admin: 07/15/20 21:43 Dose: 650 mg Documented by: Albuterol Sulfate (Ventolin Hfa Inhaler -) 2 puff IH Q4H PRN PRN Reason: SHORT OF BREATH/WHEEZING Last Admin: 07/15/20 09:45 Dose: 2 puff Documented by: Amlodipine Besylate (Norvasc -) 5 mg PO DAILY [facility] Last Admin: 07/18/20 09:01 Dose: 5 mg Documented by: Aspirin (Asa -) 81 mg PO DAILY [facility] Last Admin: 07/18/20 09:01 Dose: 81 mg Documented by: Atorvastatin Calcium (Lipitor -) 20 mg PO HS [facility] Last Admin: 07/17/20 22:00 Dose: 20 mg Documented by: Heparin Sodium (Porcine) (Heparin -) 5,000 unit SQ BID [facility] Last Admin: 07/18/20 09:48 Dose: Not Given Documented by: Ceftriaxone Sodium 1 gm/ (Dextrose) 50 mls @ 100 mls/hr IVPB DAILY [facility]; Protocol Last Admin: 07/18/20 09:01 Dose: 100 mls/hr Documented by: Insulin Aspart (Novolog Vial Sliding Scale -) 1 vial SQ ACHS [facility]; Protocol Last Admin: 07/18/20 12:06 Dose: 4 units Documented by: Insulin Aspart (Novolog Vial) 8 units SQ TIDAC [facility]; Protocol Last Admin: 07/18/20 12:06 Dose: 8 units Documented by: Insulin Detemir (Levemir Vial) 20 units SQ BID@0700,2200 [facility] Last Admin: 07/18/20 06:24 Dose: 20 units Documented by: Lisinopril (Prinivil) 5 mg PO DAILY [facility] Last Admin: 07/18/20 09:04 Dose: 5 mg Documented by: Lorazepam (Ativan -) 0.5 mg PO BID PRN PRN Reason: ANXIETY Magnesium Oxide (Mag-Ox -) 400 mg PO DAILY [facility] Last Admin: 07/18/20 09:03 Dose: 400 mg Documented by: [id number] Ethyl Esters (Lovaza -) 2 gm PO BID [facility] Last Admin: 07/18/20 09:03 Dose: 2 gm Documented by: Pantoprazole Sodium (Protonix -) 40 mg PO DAILY [facility] Last Admin: 07/18/20 09:01 Dose: 40 mg Documented by: Quetiapine Fumarate (Seroquel -) 200 mg PO HS [facility] Last Admin: 07/17/20 21:45 Dose: 200 mg Documented by: Tramadol HCl (Ultram -) 50 mg PO BID PRN PRN Reason: PAIN LEVEL 6-10 Last Admin: 07/17/20 10:00 Dose: 50 mg Documented by: Zolpidem Tartrate (Ambien -) 10 mg PO HS PRN PRN Reason: INSOMNIA Last Admin: 07/17/20 21:51 Dose: 10 mg Documented by: - Objective Vital Signs: Vital Signs Temperature 98.4 F 07/18/20 13:00 Pulse Rate 95 H 07/18/20 13:00 Respiratory Rate 18 07/18/20 13:00 Blood Pressure 154/85 07/18/20 13:00 O2 Sat by Pulse Oximetry (%) 96 07/18/20 13:00 Constitutional: Yes: Calm Eyes: Yes: Conjunctiva Clear HENT: Yes: Atraumatic Neck: Yes: Supple Cardiovascular: Yes: S1, S2 Respiratory: Yes: CTA Bilaterally Gastrointestinal: Yes: Soft, Abdomen, Obese Genitourinary: Yes: WNL Musculoskeletal: Yes: WNL Edema: Yes Edema: LLE: Trace, RLE: Trace Integumentary: Yes: Tattoos Neurological: Yes: Oriented Psychiatric: Yes: Oriented Labs: CBC, BMP 07/18/20 06:20 07/18/20 06:20 Problem List - Problems (1) Acute kidney injury superimposed on chronic kidney disease Code(s): N17.9 - ACUTE KIDNEY FAILURE, UNSPECIFIED; N18.9 - CHRONIC KIDNEY DISEASE, UNSPECIFIED Assessment/Plan Current Medications Generic Name Dose Route Start Last Admin Trade Name Freq PRN Reason Stop Dose Admin Acetaminophen 650 mg 07/13/20 12:19 07/15/20 21:43 Tylenol - PO 650 mg Q6H PRN Administration PAIN LEVEL 1-5 Albuterol Sulfate 2 puff 07/13/20 21:41 07/15/20 09:45 Ventolin Hfa Inhaler - IH 2 puff Q4H PRN Administration SHORT OF BREATH/WHEEZING Amlodipine Besylate 5 mg 07/15/20 10:00 07/18/20 09:01 Norvasc - PO 5 mg DAILY [facility] Administration Aspirin 81 mg 07/13/20 10:00 07/18/20 09:01 Asa - PO 81 mg DAILY [facility] Administration Atorvastatin Calcium 20 mg 07/13/20 22:00 07/17/20 22:00 Lipitor - PO 20 mg HS [facility] Administration Heparin Sodium (Porcine) 5,000 unit 07/13/20 10:00 07/18/20 09:48 Heparin - SQ Not Given BID [facility] Ceftriaxone Sodium 1 gm/ 50 mls @ 100 mls/hr 07/13/20 10:00 07/18/20 09:01 Dextrose IVPB 100 mls/hr DAILY [facility] Administration Protocol Insulin Aspart 1 vial 07/13/20 11:39 07/18/20 12:06 Novolog Vial Sliding Scale - SQ 4 units ACHS [facility] Administration Protocol Insulin Aspart 8 units 07/15/20 17:15 07/18/20 12:06 Novolog Vial SQ 8 units TIDAC [facility] Administration Protocol Insulin Detemir 20 units 07/13/20 11:39 07/18/20 06:24 Levemir Vial SQ 20 units BID@0700,2200 [facility] Administration Lisinopril 5 mg 07/16/20 13:00 07/18/20 09:04 Prinivil PO 5 mg DAILY [facility] Administration Lorazepam 0.5 mg 07/13/20 13:21 Ativan - PO BID PRN ANXIETY Magnesium Oxide 400 mg 07/13/20 13:30 07/18/20 09:03 Mag-Ox - PO 400 mg DAILY [facility] Administration [id number] Ethyl Esters 2 gm 07/13/20 12:00 07/18/20 09:03 Lovaza - PO 2 gm BID [facility] Administration Pantoprazole Sodium 40 mg 07/13/20 13:45 07/18/20 09:01 Protonix - PO 40 mg DAILY [facility] Administration Quetiapine Fumarate 200 mg 07/13/20 22:00 07/17/20 21:45 Seroquel - PO 200 mg HS [facility] Administration Tramadol HCl 50 mg 07/13/20 12:19 07/17/20 10:00 Ultram - PO 50 mg BID PRN Administration PAIN LEVEL 6-10 Zolpidem Tartrate 10 mg 07/13/20 22:00 09/16/20 21:51 Ambien - PO 10 mg HS PRN Administration INSOMNIA Impression 1. CKD 2. HTN 3. DM 4. obesity 5. chest pain 6. anemia 7. cocaine use 8. proteinuria Plan - renal function is improved - outpt follow up - discussed labs with pt - avoid nsaids - avodi cocaine
== END 2020-07-18 14:54 | disposition home or self-care (01) | DRG 469 ==
LOC: JER 16:06 → JERBED 07-13 00:13 → J4S 07-13 06:09
PROVIDERS: ADMIT Internal Medicine; ATTEND Family Medicine
DX: N17.9 Acute kidney failure, unspecified (principal); N18.9 Chronic kidney disease, unspecified; E78.5 Hyperlipidemia, unspecified; K21.9 Gastro-esophageal reflux disease without esophagitis; Z68.34 Body mass index [BMI] 34.0-34.9, adult; M54.89 Other dorsalgia; F14.120 Cocaine abuse with intoxication, uncomplicated; G89.29 Other chronic pain; M19.90 Unspecified osteoarthritis, unspecified site; R07.9 Chest pain, unspecified; E11.65 Type 2 diabetes mellitus with hyperglycemia; F06.32 Mood disorder due to known physiological condition with major depressive-like episode; F41.8 Other specified anxiety disorders; E11.22 Type 2 diabetes mellitus with diabetic chronic kidney disease; J18.9 Pneumonia, unspecified organism; I13.10 Hypertensive heart and chronic kidney disease without heart failure, with stage 1 through stage 4 chronic kidney disease, or unspecified chronic kidney disease; J90 Pleural effusion, not elsewhere classified; E66.01 Morbid (severe) obesity due to excess calories; F17.210 Nicotine dependence, cigarettes, uncomplicated; D72.829 Elevated white blood cell count, unspecified; N40.0 Benign prostatic hyperplasia without lower urinary tract symptoms
CPT/HCPCS: 36415; 71046-TC-FY; 71250-TC; 74176-TC; 80053; 80061; 80307; 81003; 82010; 82550; 82565; 82728; 82962; 83036; 83540; 83550; 83605; 83690; 83721; 83735; 84156; 84484; 85025; 85027; 87040; 87899; 93005; 93010; 99285-25; J1756; U0003

== ENCOUNTER 2022-03-31 16:13 | Inpatient (IN) | payer OTHER ==
[2022-03-31] MEDS ORDERED: PIPERACILLIN/TAZOB 3.375 GM 3.375 GM in DEXTROSE 5%-WATER - 50 ML IVPB ONE (18:12)
[2022-03-31] MEDS ORDERED: VANCOMYCIN 1,000 MG in DEXTROSE 5%-WATER - 250 ML IVPB ONE (18:12)
[2022-03-31] MEDS ORDERED: VANCOMYCIN 1 GRAM (PRE-DOCKED) 1,000 MG/250 ML BAG IVPB ONE (18:22)
[2022-03-31] MEDS ORDERED: PIPERACILLIN/TAZOB 3.375 GM 3.375 GM/50 ML BAG IVPB ONE (18:22)
[2022-03-31 21:58] LABS: INR 0.97 (0.83-1.09); PROTHROMBIN TIME (PATIENT) 11.1 SEC (9.7-13.0)
[2022-03-31 22:01] LABS: ACTIVATED PTT 19.2 SECONDS (25.2-36.5)
[2022-03-31 22:20] LABS: CHLORIDE 102 mmol/L (98-107); SODIUM 132 mmol/L (136-145)
[2022-03-31 22:22] LABS: ANION GAP 6 MMOL/L (8-16); BLOOD UREA NITROGEN 38.2 mg/dL (7-18); CALCIUM 8.6 mg/dL (8.5-10.1); CO2 25 mmol/L (21-32)
[2022-03-31 22:23] LABS: ALBUMIN 2.3 g/dl (3.4-5.0)
[2022-03-31 22:25] LABS: SGPT/ALT 20 U/L (13-61)
[2022-03-31 22:26] LABS: CREATININE 2.7 mg/dL (0.55-1.3); SGOT/AST 16 U/L (15-37)
[2022-03-31 22:27] LABS: BILIRUBIN,TOTAL 0.1 mg/dL (0.2-1); TOT PROT 6.3 g/dl (6.4-8.2)
[2022-03-31 22:28] LABS: ALK PHOS 117 U/L (45-117)
[2022-03-31 22:38] LABS: GLUCOSE,RANDOM 455 mg/dL (74-106)
[2022-03-31] MEDS ORDERED: ACETAMINOPHEN 500 MG TABLET (FP) PO ONE (23:07)
[2022-04-01 00:04] LABS: BASO % 0.6 % (0-2.0); EOS % 1.9 % (0-4.5); HEMATOCRIT 36.8 % (35.4-49); HEMOGLOBIN 12.4 GM/dL (11.7-16.9); LYMPH % 13.2 % (8-40); MCH 27.8 pg (25.7-33.7); MCHC 33.8 g/dl (32.0-35.9); MEAN CELL VOLUME 82.3 fl (80-96); MEAN PLT VOLUME 8.9 fl (7.5-11.1); MONO % 6.3 % (3.8-10.2); PLATELET COUNT 198 10^3/uL (134-434); RBC 4.47 M/mm3 (4.00-5.60); RDW 14.7 % (11.9-15.9); WHITE BLOOD COUNT 8.8 K/mm3 (4.0-10.0)
[2022-04-01 00:22] LABS: CHLORIDE 102 mmol/L (98-107); SODIUM 134 mmol/L (136-145)
[2022-04-01 00:24] LABS: ANION GAP 7 MMOL/L (8-16); CALCIUM 8.9 mg/dL (8.5-10.1); CO2 25 mmol/L (21-32)
[2022-04-01 00:28] LABS: CREATININE 2.9 mg/dL (0.55-1.3)
[2022-04-01 00:38] LABS: GLUCOSE,RANDOM 481 mg/dL (74-106)
[2022-04-01] MEDS ORDERED: ACETAMINOPHEN 325 MG TABLET (FP) ONE (01:44)
[2022-04-01] MEDS: INSULIN SLIDING SCALE (NOVOLOG) 1 VIAL SQ SCH ×4 (01:53→17:50)
[2022-04-01] MEDS: INSULIN (LEVEMIR) 100 UNITS/ML UNITS SQ SCH ×3 (01:54→21:43)
[2022-04-01 02:33] LABS: CHLORIDE 102 mmol/L (98-107); SODIUM 132 mmol/L (136-145)
[2022-04-01 02:34] LABS: CALCIUM 8.6 mg/dL (8.5-10.1)
[2022-04-01 02:35] LABS: ANION GAP 5 MMOL/L (8-16); BLOOD UREA NITROGEN 41.3 mg/dL (7-18); CO2 25 mmol/L (21-32)
[2022-04-01 02:38] LABS: CREATININE 2.8 mg/dL (0.55-1.3)
[2022-04-01] MEDS ORDERED: MELATONIN 5 MG TABLETS PO ONE (02:39)
[2022-04-01 02:54] LABS: GLUCOSE,RANDOM 450 mg/dL (74-106)
[2022-04-01 05:18] VITALS: BMI 43.0
[2022-04-01] MEDS: oxyCODONE HCL 5 MG TABLET PO PRN ×2 (08:12→21:42)
[2022-04-01] MEDS ORDERED: VANCOMYCIN 1 GM/200 ML PREMIX BAG IVPB SCH ×2 (10:00)
[2022-04-01] MEDS ORDERED: PIPERACILLIN/TAZOB 3.375 GM 3.375 GM in DEXTROSE 5%-WATER - 50 ML IVPB SCH (10:00)
[2022-04-01 10:05] LABS: HEMATOCRIT 34.2 % (35.4-49); MCH 28.3 pg (25.7-33.7); MEAN CELL VOLUME 80.9 fl (80-96); PLATELET COUNT 175 10^3/uL (134-434); RBC 4.23 M/mm3 (4.00-5.60); RDW 14.6 % (11.9-15.9); WHITE BLOOD COUNT 7.9 K/mm3 (4.0-10.0)
[2022-04-01] MEDS ORDERED: PIPERACILLIN/TAZOBACTAM 3.375 GM VIAL IVPB ONE (10:52)
[2022-04-01] MEDS ORDERED: DEXTROSE 5%-WATER - 50 ML IVPB ONE (10:52)
[2022-04-01] MEDS: amLODIPine BESYLATE 10 MG TABLET (FP) PO SCH (10:58)
[2022-04-01 11:02] LABS: ANISOCYTOSIS 0; HELMET CELLS 0; HOWELL-JOLLY BODIES 0; MACROCYTOSIS 0; OVALOCYTE 0; ROULEAU 0; SICKELED CELLS 0; TARGET CELLS 0; TEAR DROP CELLS 0; TOXIC GRANULATION 0
[2022-04-01 11:07] LABS: ERYTHROCYTE SEDIMENTATION RATE 99 mm/hr (0-10)
[2022-04-01] MEDS: ENOXAPARIN NA (PORCINE) 40 MG/0.4 ML DISP.SYRIN SQ SCH (11:20)
[2022-04-01] MEDS ORDERED: SODIUM CHLORIDE 0.45% 1,000 ML IV SCH (12:00)
[2022-04-01 12:14] LABS: BILIRUBIN,TOTAL 0.2 mg/dL (0.2-1)
[2022-04-01 12:15] LABS: ALBUMIN 2.2 g/dl (3.4-5.0)
[2022-04-01 12:16] LABS: BLOOD UREA NITROGEN 39.4 mg/dL (7-18); MAGNESIUM 1.7 mg/dL (1.8-2.4)
[2022-04-01 12:18] LABS: PHOSPHOROUS 4.1 mg/dL (2.5-4.9)
[2022-04-01 12:19] LABS: CREATININE 2.6 mg/dL (0.55-1.3)
[2022-04-01] MEDS: CLINDAMYCIN PHOSPHATE 1% TOPICAL SOLUTION 30 ML BOTTLE TP SCH (12:33)
[2022-04-01] MEDS: ACETAMINOPHEN 1000 MG/100 ML BAG IVPB PRN (12:33)
[2022-04-01] MEDS ORDERED: INSULIN (LEVEMIR) 100 UNITS/ML UNITS SQ SCH ×2 (12:46→22:00)
[2022-04-01] MEDS: LABETALOL HCL 200 MG TABLET (FP) PO SCH ×2 (13:10→21:48)
[2022-04-01 13:41] LABS: CALCIUM 8.8 mg/dL (8.5-10.1); TOT PROT 6.1 g/dl (6.4-8.2)
[2022-04-01 21:02] LABS: EPI CELLS 3 /uL (0-25.1); HYALINE CASTS 0 /uL (0-3.1); URINE APPEARANCE CLEAR; URINE BACTERIA 3 /uL (0-1359); URINE BILIRUBIN NEGATIVE (NEGATIVE); URINE COLOR YELLOW; URINE GLUCOSE (UA) 3+ (NEGATIVE); URINE KETONE NEGATIVE (NEGATIVE); URINE LEUK ESTERASE NEGATIVE (NEGATIVE); URINE NITRITE NEGATIVE (NEGATIVE); URINE PROTEIN 3+ (NEGATIVE); URINE RBC 12 /uL (0-23.9); URINE UROBILINOGEN 0.2 mg/dL (0.2-1.0); URINE WBC 8 /uL (0-25.8)
[2022-04-01 21:12] LABS: METHADONE, UR NEGATIVE (NEGATIVE); OPIATES, URI NEGATIVE (NEGATIVE); PHENCYCLIDINE,URINE NEGATIVE (NEGATIVE); URINE BARBITURATES NEGATIVE (NEGATIVE); URINE BENZODIAZEPINES NEGATIVE (NEGATIVE)
[2022-04-01 21:27] LABS: COCAINE, UR POSITIVE (NEGATIVE); URINE AMPHETAMINES NEGATIVE (NEGATIVE)
[2022-04-01] MEDS: ZOLPIDEM TARTRATE 5 MG TABLET PO PRN (21:42)
[2022-04-02] MEDS: INSULIN SLIDING SCALE (NOVOLOG) 1 VIAL SQ SCH ×3 (06:17→16:30)
[2022-04-02] MEDS: INSULIN (LEVEMIR) 100 UNITS/ML UNITS SQ SCH ×2 (06:17→22:00)
[2022-04-02] MEDS: ACETAMINOPHEN 1000 MG/100 ML BAG IVPB PRN (06:23)
[2022-04-02] MEDS ORDERED: cefTRIAXone SODIUM 1 GM VIAL ONE (09:38)
[2022-04-02] MEDS ORDERED: DEXTROSE 5%-WATER - 50 ML IVPB ONE (09:39)
[2022-04-02] MEDS: amLODIPine BESYLATE 10 MG TABLET (FP) PO SCH (09:49)
[2022-04-02] MEDS: LABETALOL HCL 200 MG TABLET (FP) PO SCH ×2 (09:49→22:01)
[2022-04-02] MEDS: CLINDAMYCIN PHOSPHATE 1% TOPICAL SOLUTION 30 ML BOTTLE TP SCH (09:50)
[2022-04-02] MEDS: ENOXAPARIN NA (PORCINE) 40 MG/0.4 ML DISP.SYRIN SQ SCH (09:50)
[2022-04-02] MEDS: CEFTRIAXONE 1 GM in DEXTROSE 5%-WATER - 50 ML IVPB SCH (09:50)
[2022-04-02] MEDS: ZOLPIDEM TARTRATE 5 MG TABLET PO PRN (22:01)
[2022-04-02] MEDS: oxyCODONE HCL 5 MG TABLET PO PRN (22:01)
[2022-04-03] MEDS: oxyCODONE HCL 5 MG TABLET PO PRN ×2 (06:53→09:52)
[2022-04-03] MEDS: INSULIN (LEVEMIR) 100 UNITS/ML UNITS SQ SCH (06:54)
[2022-04-03] MEDS: INSULIN SLIDING SCALE (NOVOLOG) 1 VIAL SQ SCH ×2 (06:55→11:28)
[2022-04-03] MEDS ORDERED: cefTRIAXone SODIUM 1 GM VIAL ONE (09:45)
[2022-04-03] MEDS ORDERED: DEXTROSE 5%-WATER - 50 ML IVPB ONE (09:45)
[2022-04-03] MEDS: CEFTRIAXONE 1 GM in DEXTROSE 5%-WATER - 50 ML IVPB SCH (09:52)
[2022-04-03] MEDS: amLODIPine BESYLATE 10 MG TABLET (FP) PO SCH (09:52)
[2022-04-03] MEDS: LABETALOL HCL 200 MG TABLET (FP) PO SCH (09:52)
[2022-04-03] MEDS: ENOXAPARIN NA (PORCINE) 40 MG/0.4 ML DISP.SYRIN SQ SCH (09:53)
[2022-04-03] MEDS: CLINDAMYCIN PHOSPHATE 1% TOPICAL SOLUTION 30 ML BOTTLE TP SCH (09:53)
[2022-04-03 09:57] LABS: BASO % 0.6 % (0-2.0); EOS % 2.4 % (0-4.5); HEMATOCRIT 37.6 % (35.4-49); HEMOGLOBIN 12.6 GM/dL (11.7-16.9); LYMPH % 10.4 % (8-40); MCH 27.6 pg (25.7-33.7); MCHC 33.5 g/dl (32.0-35.9); MEAN CELL VOLUME 82.6 fl (80-96); MEAN PLT VOLUME 8.5 fl (7.5-11.1); MONO % 6.8 % (3.8-10.2); NEUT % 79.8 % (42.8-82.8); PLATELET COUNT 206 10^3/uL (134-434); RBC 4.55 M/mm3 (4.00-5.60); RDW 14.5 % (11.9-15.9); WHITE BLOOD COUNT 7.3 K/mm3 (4.0-10.0)
[2022-04-03 10:03] VITALS: BP 120/69; PULSE 94; TEMP 98
[2022-04-03] MEDS ORDERED: INSULIN SLIDING SCALE (NOVOLOG) 1 VIAL SQ ONE (11:16)
[2022-04-03 12:08] LABS: ALBUMIN 2.6 g/dl (3.4-5.0); BLOOD UREA NITROGEN 38.9 mg/dL (7-18); CALCIUM 8.7 mg/dL (8.5-10.1)
[2022-04-03 12:11] LABS: CREATININE 2.6 mg/dL (0.55-1.3)
[2022-04-03 12:13] LABS: BILIRUBIN,TOTAL 0.2 mg/dL (0.2-1); TOT PROT 6.8 g/dl (6.4-8.2)
== END 2022-04-03 15:22 | disposition home or self-care (01) | DRG 380 ==
LOC: JER 16:13 → JERBED 19:50 → J5S 04-01 05:36
PROVIDERS: ADMIT Hospitalist
DX: E11.621 Type 2 diabetes mellitus with foot ulcer (principal); L97.528 Non-pressure chronic ulcer of other part of left foot with other specified severity; E11.65 Type 2 diabetes mellitus with hyperglycemia; I12.9 Hypertensive chronic kidney disease with stage 1 through stage 4 chronic kidney disease, or unspecified chronic kidney disease; E11.22 Type 2 diabetes mellitus with diabetic chronic kidney disease; N18.9 Chronic kidney disease, unspecified; L73.2 Hidradenitis suppurativa; L08.9 Local infection of the skin and subcutaneous tissue, unspecified; U07.1 COVID-19; E03.9 Hypothyroidism, unspecified; F41.8 Other specified anxiety disorders; K21.9 Gastro-esophageal reflux disease without esophagitis; N40.0 Benign prostatic hyperplasia without lower urinary tract symptoms; M54.50 Low back pain, unspecified; D64.9 Anemia, unspecified; N17.9 Acute kidney failure, unspecified; L03.116 Cellulitis of left lower limb; F17.200 Nicotine dependence, unspecified, uncomplicated; G47.00 Insomnia, unspecified; E11.42 Type 2 diabetes mellitus with diabetic polyneuropathy; Z89.421 Acquired absence of other right toe(s); Z89.422 Acquired absence of other left toe(s)
CPT/HCPCS: 0241U-QW; 11042; 36415; 71046-TC-FY; 73630-TC-LT; 73630-TC-RT-FY; 73718-TC-LT; 76775-TC; 80048; 80053; 80307; 81003; 82570; 82962; 83036; 83735; 84100; 84156; 84300; 85025; 85610; 85651; 85730; 86140; 86900; 87040; 87070; 87186; 87205; 93005; 93010; 99285-25; A6022

== ENCOUNTER 2022-07-06 12:31 | Inpatient (IN) | payer OTHER ==
[2022-07-06 12:37] VITALS: BMI 36.0
[2022-07-06] MEDS ORDERED: CEFTRIAXONE 1,000 MG in DEXTROSE 5%-WATER - 50 ML IVPB ONE (13:19)
[2022-07-06] MEDS ORDERED: CEFTRIAXONE 1 GM/50 ML BAG ONE (15:14)
[2022-07-06 15:36] LABS: BASO % 0.7 % (0-2.0); EOS % 2.1 % (0-4.5); HEMATOCRIT 39.4 % (35.4-49); HEMOGLOBIN 13.3 GM/dL (11.7-16.9); LYMPH % 17.5 % (8-40); MCH 28.6 pg (25.7-33.7); MCHC 33.6 g/dl (32.0-35.9); MEAN CELL VOLUME 85.1 fl (80-96); MEAN PLT VOLUME 8.5 fl (7.5-11.1); MONO % 6.1 % (3.8-10.2); NEUT % 73.6 % (42.8-82.8); PLATELET COUNT 209 10^3/uL (134-434); RBC 4.63 M/mm3 (4.00-5.60); RDW 14.7 % (11.9-15.9); WHITE BLOOD COUNT 8.7 K/mm3 (4.0-10.0)
[2022-07-06 15:42] LABS: INR 1.01 (0.83-1.09); PROTHROMBIN TIME (PATIENT) 11.6 SEC (9.7-13.0)
[2022-07-06 15:45] LABS: ACTIVATED PTT 33.6 SECONDS (25.2-36.5)
[2022-07-06 15:54] LABS: CALCIUM 8.3 mg/dL (8.5-10.1)
[2022-07-06] MEDS ORDERED: SODIUM CHLORIDE 0.9% 500 ML INFUS.BAG IV ONE (15:54)
[2022-07-06 15:55] LABS: ALBUMIN 2.9 g/dl (3.4-5.0); BLOOD UREA NITROGEN 40.8 mg/dL (7-18)
[2022-07-06 15:58] LABS: CREATININE 3.1 mg/dL (0.55-1.3)
[2022-07-06 16:00] LABS: BILIRUBIN,TOTAL 0.2 mg/dL (0.2-1); TOT PROT 6.6 g/dl (6.4-8.2)
[2022-07-06] MEDS ORDERED: ALBUTEROL SO4 HFA INHALER IH PRN (23:52)
[2022-07-07] MEDS ORDERED: ZOLPIDEM TARTRATE 5 MG TABLET ONE (01:46)
[2022-07-07] MEDS: ZOLPIDEM TARTRATE 5 MG TABLET PO PRN (01:51)
[2022-07-07] MEDS ORDERED: LABETALOL HCL 5 MG/1 ML (100MG/20 ML VIAL) IVPUSH ONE (02:08)
[2022-07-07] MEDS: INSULIN SLIDING SCALE (NOVOLOG) 1 VIAL SQ SCH ×4 (06:43→21:05)
[2022-07-07] MEDS ORDERED: INSULIN SLIDING SCALE (NOVOLOG) 1 VIAL SQ SCH (07:00)
[2022-07-07 08:58] LABS: HEMATOCRIT 38.2 % (35.4-49); HEMOGLOBIN 12.8 GM/dL (11.7-16.9); MCH 28.9 pg (25.7-33.7); MCHC 33.4 g/dl (32.0-35.9); MEAN CELL VOLUME 86.5 fl (80-96); MEAN PLT VOLUME 8.7 fl (7.5-11.1); PLATELET COUNT 167 10^3/uL (134-434); RBC 4.42 M/mm3 (4.00-5.60); WHITE BLOOD COUNT 6.6 K/mm3 (4.0-10.0)
[2022-07-07] MEDS: ATORVASTATIN CA 20 MG TABLET (FP) PO SCH (09:15)
[2022-07-07] MEDS: LABETALOL HCL 100 MG TABLET (FP) PO SCH ×2 (09:15→21:05)
[2022-07-07] MEDS: amLODIPine BESYLATE 10 MG TABLET (FP) PO SCH (09:15)
[2022-07-07] MEDS: ENOXAPARIN NA (PORCINE) 40 MG/0.4 ML DISP.SYRIN SQ SCH (09:16)
[2022-07-07 09:21] LABS: ALBUMIN 2.8 g/dl (3.4-5.0)
[2022-07-07 09:22] LABS: BLOOD UREA NITROGEN 35.8 mg/dL (7-18)
[2022-07-07 09:25] LABS: CREATININE 2.7 mg/dL (0.55-1.3)
[2022-07-07 09:26] LABS: BILIRUBIN,TOTAL 0.3 mg/dL (0.2-1)
[2022-07-07 09:27] LABS: TOT PROT 5.9 g/dl (6.4-8.2)
[2022-07-07 09:59] LABS: ANISOCYTOSIS 2+; MACROCYTOSIS 0
[2022-07-07] MEDS ORDERED: CEFTRIAXONE 1 GM in DEXTROSE 5%-WATER - 50 ML IVPB SCH (10:00)
[2022-07-07] MEDS: SODIUM CHLORIDE 1,000 ML IV ONE ×2 (17:03→17:21)
[2022-07-07] MEDS ORDERED: LABETALOL HCL 100 MG TABLET (FP) PO ONE (18:05)
[2022-07-07] MEDS ORDERED: PATIENT'S OWN MEDICATION (NON-FORMULARY) (Zolpidem Tartrate 10 MG Tablet) PO SCH (22:00)
[2022-07-08] MEDS: ACETAMINOPHEN 325 MG TABLET (FP) PO PRN ×3 (01:57→23:13)
[2022-07-08] MEDS: oxyCODONE HCL 5 MG TABLET PO PRN ×3 (01:57→23:12)
[2022-07-08] MEDS: ZOLPIDEM TARTRATE 5 MG TABLET PO PRN ×2 (01:58→23:12)
[2022-07-08] MEDS: INSULIN (NOVOLOG) ASPART 100 UNITS/ML 10ML VIAL SQ SCH ×3 (06:47→17:31)
[2022-07-08] MEDS: INSULIN SLIDING SCALE (NOVOLOG) 1 VIAL SQ SCH ×4 (06:48→21:54)
[2022-07-08 08:02] LABS: CALCIUM 8.4 mg/dL (8.5-10.1)
[2022-07-08 08:03] LABS: ALBUMIN 2.7 g/dl (3.4-5.0); BLOOD UREA NITROGEN 33.4 mg/dL (7-18)
[2022-07-08 08:06] LABS: CREATININE 2.5 mg/dL (0.55-1.3)
[2022-07-08 08:07] LABS: BILIRUBIN,TOTAL 0.2 mg/dL (0.2-1)
[2022-07-08] MEDS ORDERED: INSULIN (LEVEMIR) 100 UNITS/ML UNITS SQ SCH (10:00)
[2022-07-08] MEDS: amLODIPine BESYLATE 10 MG TABLET (FP) PO SCH (10:23)
[2022-07-08] MEDS: CEFTRIAXONE 2 GM in DEXTROSE 5%-WATER 100 ML IVPB SCH (10:23)
[2022-07-08] MEDS: LABETALOL HCL 100 MG TABLET (FP) PO SCH ×2 (10:23→21:54)
[2022-07-08] MEDS: ENOXAPARIN NA (PORCINE) 40 MG/0.4 ML DISP.SYRIN SQ SCH (10:23)
[2022-07-08] MEDS: ATORVASTATIN CA 20 MG TABLET (FP) PO SCH (10:23)
[2022-07-08] MEDS: INSULIN (LEVEMIR) 100 UNITS/ML UNITS SQ SCH (21:53)
[2022-07-09] MEDS: INSULIN SLIDING SCALE (NOVOLOG) 1 VIAL SQ SCH ×4 (06:36→21:24)
[2022-07-09] MEDS: amLODIPine BESYLATE 10 MG TABLET (FP) PO SCH (10:14)
[2022-07-09] MEDS: CEFTRIAXONE 2 GM in DEXTROSE 5%-WATER 100 ML IVPB SCH (10:14)
[2022-07-09] MEDS: LABETALOL HCL 100 MG TABLET (FP) PO SCH ×2 (10:14→21:19)
[2022-07-09] MEDS: ENOXAPARIN NA (PORCINE) 40 MG/0.4 ML DISP.SYRIN SQ SCH (10:14)
[2022-07-09] MEDS: ATORVASTATIN CA 20 MG TABLET (FP) PO SCH (10:14)
[2022-07-09 10:43] LABS: CALCIUM 8.8 mg/dL (8.5-10.1)
[2022-07-09 10:44] LABS: ALBUMIN 3.2 g/dl (3.4-5.0); BLOOD UREA NITROGEN 35.8 mg/dL (7-18)
[2022-07-09 10:47] LABS: CREATININE 2.6 mg/dL (0.55-1.3)
[2022-07-09 10:48] LABS: BILIRUBIN,TOTAL 0.4 mg/dL (0.2-1); TOT PROT 7.4 g/dl (6.4-8.2)
[2022-07-09] MEDS: SODIUM CHLORIDE 1,000 ML IV SCH (11:43)
[2022-07-09] MEDS: oxyCODONE HCL 5 MG TABLET PO PRN ×2 (13:13→23:12)
[2022-07-09] MEDS: INSULIN (LEVEMIR) 100 UNITS/ML UNITS SQ SCH (21:18)
[2022-07-09] MEDS: ZOLPIDEM TARTRATE 5 MG TABLET PO PRN (23:12)
[2022-07-10] MEDS: INSULIN SLIDING SCALE (NOVOLOG) 1 VIAL SQ SCH ×4 (06:27→22:23)
[2022-07-10] MEDS: SODIUM CHLORIDE 1,000 ML IV SCH (07:42)
[2022-07-10] MEDS: ATORVASTATIN CA 20 MG TABLET (FP) PO SCH (09:43)
[2022-07-10] MEDS: LABETALOL HCL 100 MG TABLET (FP) PO SCH ×2 (09:43→22:19)
[2022-07-10] MEDS: amLODIPine BESYLATE 10 MG TABLET (FP) PO SCH (09:43)
[2022-07-10] MEDS: ENOXAPARIN NA (PORCINE) 40 MG/0.4 ML DISP.SYRIN SQ SCH ×2 (09:44→09:50)
[2022-07-10] MEDS: CEFTRIAXONE 2 GM in DEXTROSE 5%-WATER 100 ML IVPB SCH (09:44)
[2022-07-10 09:49] LABS: CALCIUM 8.7 mg/dL (8.5-10.1)
[2022-07-10 09:50] LABS: BLOOD UREA NITROGEN 42.4 mg/dL (7-18)
[2022-07-10 09:53] LABS: CREATININE 2.8 mg/dL (0.55-1.3)
[2022-07-10] MEDS ORDERED: busPIRone HCL 10 MG TABLET (FP) PO SCH (10:00)
[2022-07-10] MEDS ORDERED: MIDAZOLAM HCL 2 MG/2 ML SINGLE DOSE VIAL ONE (12:28)
[2022-07-10] MEDS ORDERED: SUCCINYLCHOLINE CHLORIDE 200 MG/10 ML SYRINGE ONE (12:29)
[2022-07-10] MEDS ORDERED: PROPOFOL 20 ML ONE ×2 (12:29→13:28)
[2022-07-10] MEDS ORDERED: HEPARIN NA (PORCINE) 5,000 UNITS/ML 1ML VIAL ONE (13:09)
[2022-07-10] MEDS ORDERED: ceFAZolin SODIUM 1 GM VIAL ONE (13:48)
[2022-07-10] MEDS ORDERED: LIDOCAINE HCL 1%, 10 MG/ML (20ML VIAL) INF ONE ×2 (13:58)
[2022-07-10] MEDS ORDERED: ceFAZolin SODIUM 1 GM VIAL IVPB ONE (14:00)
[2022-07-10] MEDS ORDERED: KETAMINE HCL 200 MG/20 ML VIAL ONE (14:08)
[2022-07-10] MEDS ORDERED: LACTATED RINGERS SOLUTION 1,000 ML IV SCH (14:45)
[2022-07-10] MEDS ORDERED: ONDANSETRON 4 MG/2 ML VIAL IVPUSH PRN (14:45)
[2022-07-10] MEDS ORDERED: SODIUM CHLORIDE 1,000 ML IV SCH (15:04)
[2022-07-10] MEDS ORDERED: ALBUTEROL SO4 HFA INHALER IH PRN (15:04)
[2022-07-10] MEDS ORDERED: ACETAMINOPHEN 325 MG TABLET (FP) PO PRN (15:04)
[2022-07-10] MEDS ORDERED: CLOPIDOGREL BISULFATE 75 MG TABLET (FP) ONE (15:41)
[2022-07-10] MEDS: CLOPIDOGREL BISULFATE 75 MG TABLET (FP) PO SCH (15:45)
[2022-07-10] MEDS: oxyCODONE HCL 5 MG TABLET PO PRN (22:18)
[2022-07-10] MEDS: INSULIN (LEVEMIR) 100 UNITS/ML UNITS SQ SCH (22:22)
[2022-07-10] MEDS ORDERED: ZOLPIDEM TARTRATE 5 MG TABLET PO ONE (22:33)
[2022-07-11] MEDS: busPIRone HCL 10 MG TABLET (FP) PO SCH ×3 (00:19→23:38)
[2022-07-11] MEDS: INSULIN SLIDING SCALE (NOVOLOG) 1 VIAL SQ SCH ×4 (06:13→23:39)
[2022-07-11] MEDS: oxyCODONE HCL 5 MG TABLET PO PRN (11:05)
[2022-07-11] MEDS: CEFTRIAXONE 2 GM in DEXTROSE 5%-WATER 100 ML IVPB SCH (11:05)
[2022-07-11] MEDS: amLODIPine BESYLATE 10 MG TABLET (FP) PO SCH (11:06)
[2022-07-11] MEDS: CLOPIDOGREL BISULFATE 75 MG TABLET (FP) PO SCH (11:06)
[2022-07-11] MEDS: ATORVASTATIN CA 20 MG TABLET (FP) PO SCH (11:06)
[2022-07-11] MEDS: LABETALOL HCL 100 MG TABLET (FP) PO SCH ×2 (11:13→23:38)
[2022-07-11] MEDS: ENOXAPARIN NA (PORCINE) 40 MG/0.4 ML DISP.SYRIN SQ SCH (12:44)
[2022-07-11] MEDS: INSULIN (LEVEMIR) 100 UNITS/ML UNITS SQ SCH (23:41)
[2022-07-12] MEDS: oxyCODONE HCL 5 MG TABLET PO PRN ×3 (00:19→23:19)
[2022-07-12] MEDS: ZOLPIDEM TARTRATE 5 MG TABLET PO PRN ×2 (00:20→23:19)
[2022-07-12] MEDS: INSULIN (LEVEMIR) 100 UNITS/ML UNITS SQ SCH ×2 (07:08→23:20)
[2022-07-12] MEDS: INSULIN SLIDING SCALE (NOVOLOG) 1 VIAL SQ SCH ×4 (07:09→23:23)
[2022-07-12] MEDS ORDERED: INSULIN (LEVEMIR) 100 UNITS/ML UNITS SQ ONE (07:24)
[2022-07-12] MEDS: LABETALOL HCL 100 MG TABLET (FP) PO SCH ×2 (09:31→23:18)
[2022-07-12] MEDS: CLOPIDOGREL BISULFATE 75 MG TABLET (FP) PO SCH (09:31)
[2022-07-12] MEDS: ATORVASTATIN CA 20 MG TABLET (FP) PO SCH (09:31)
[2022-07-12] MEDS: ENOXAPARIN NA (PORCINE) 40 MG/0.4 ML DISP.SYRIN SQ SCH (09:32)
[2022-07-12] MEDS: amLODIPine BESYLATE 10 MG TABLET (FP) PO SCH (09:32)
[2022-07-12] MEDS: busPIRone HCL 10 MG TABLET (FP) PO SCH ×2 (09:47→23:18)
[2022-07-12 09:53] LABS: BASO % 0.7 % (0-2.0); EOS % 2.6 % (0-4.5); HEMATOCRIT 39.1 % (35.4-49); HEMOGLOBIN 13.6 GM/dL (11.7-16.9); LYMPH % 18.8 % (8-40); MCH 29.3 pg (25.7-33.7); MCHC 34.8 g/dl (32.0-35.9); MEAN CELL VOLUME 84.3 fl (80-96); MEAN PLT VOLUME 8.7 fl (7.5-11.1); NEUT % 67.9 % (42.8-82.8); PLATELET COUNT 196 10^3/uL (134-434); RBC 4.63 M/mm3 (4.00-5.60); RDW 14.5 % (11.9-15.9); WHITE BLOOD COUNT 7.1 K/mm3 (4.0-10.0)
[2022-07-12 09:56] LABS: CALCIUM 8.8 mg/dL (8.5-10.1)
[2022-07-12 09:57] LABS: ALBUMIN 3.2 g/dl (3.4-5.0)
[2022-07-12 10:00] LABS: CREATININE 2.9 mg/dL (0.55-1.3)
[2022-07-12 10:01] LABS: BILIRUBIN,TOTAL 0.3 mg/dL (0.2-1); TOT PROT 6.7 g/dl (6.4-8.2)
[2022-07-12] MEDS: CEFTRIAXONE 2 GM in DEXTROSE 5%-WATER 100 ML IVPB SCH (15:28)
[2022-07-12] MEDS: SIMETHICONE 80 MG TAB.CHEW (FP) PO PRN (17:40)
[2022-07-13] MEDS: SIMETHICONE 80 MG TAB.CHEW (FP) PO PRN (02:06)
[2022-07-13] MEDS ORDERED: LOPERAMIDE HCL 2 MG CAPSULE PO ONE (02:42)
[2022-07-13] MEDS: INSULIN SLIDING SCALE (NOVOLOG) 1 VIAL SQ SCH ×4 (07:24→23:13)
[2022-07-13] MEDS: INSULIN (LEVEMIR) 100 UNITS/ML UNITS SQ SCH ×2 (07:24→23:13)
[2022-07-13] MEDS ORDERED: INSULIN (LEVEMIR) 100 UNITS/ML UNITS SQ ONE (07:35)
[2022-07-13] MEDS ORDERED: INSULIN (NOVOLOG) ASPART 100 UNITS/ML 10ML VIAL ONE ×2 (07:36→21:01)
[2022-07-13 09:38] LABS: CALCIUM 8.6 mg/dL (8.5-10.1)
[2022-07-13 09:39] LABS: BLOOD UREA NITROGEN 41.3 mg/dL (7-18)
[2022-07-13 09:42] LABS: CREATININE 2.8 mg/dL (0.55-1.3)
[2022-07-13] MEDS: busPIRone HCL 10 MG TABLET (FP) PO SCH ×2 (10:50→23:12)
[2022-07-13] MEDS: ATORVASTATIN CA 20 MG TABLET (FP) PO SCH (10:50)
[2022-07-13] MEDS: ENOXAPARIN NA (PORCINE) 40 MG/0.4 ML DISP.SYRIN SQ SCH (10:50)
[2022-07-13] MEDS: LABETALOL HCL 100 MG TABLET (FP) PO SCH ×2 (10:50→23:13)
[2022-07-13] MEDS: CLOPIDOGREL BISULFATE 75 MG TABLET (FP) PO SCH (10:50)
[2022-07-13] MEDS: amLODIPine BESYLATE 10 MG TABLET (FP) PO SCH (10:50)
[2022-07-13] MEDS: CEFTRIAXONE 2 GM in DEXTROSE 5%-WATER 100 ML IVPB SCH ×2 (10:51→10:55)
[2022-07-13] MEDS: LOPERAMIDE HCL 2 MG CAPSULE PO PRN ×2 (11:05→23:13)
[2022-07-13] MEDS: LISINOPRIL 10 MG TABLET PO SCH (18:10)
[2022-07-13] MEDS: oxyCODONE HCL 5 MG TABLET PO PRN (23:13)
[2022-07-13] MEDS: ZOLPIDEM TARTRATE 5 MG TABLET PO PRN (23:13)
[2022-07-14] MEDS: INSULIN (LEVEMIR) 100 UNITS/ML UNITS SQ SCH ×2 (06:11→22:27)
[2022-07-14] MEDS: INSULIN SLIDING SCALE (NOVOLOG) 1 VIAL SQ SCH ×4 (06:12→22:27)
[2022-07-14] MEDS ORDERED: ATORVASTATIN CA 20 MG TABLET (FP) PO SCH (08:31)
[2022-07-14] MEDS: amLODIPine BESYLATE 10 MG TABLET (FP) PO SCH (10:12)
[2022-07-14] MEDS: LABETALOL HCL 100 MG TABLET (FP) PO SCH ×2 (10:12→22:20)
[2022-07-14] MEDS: LISINOPRIL 10 MG TABLET PO SCH (10:12)
[2022-07-14] MEDS: busPIRone HCL 10 MG TABLET (FP) PO SCH ×2 (10:13→22:20)
[2022-07-14] MEDS: ENOXAPARIN NA (PORCINE) 40 MG/0.4 ML DISP.SYRIN SQ SCH (10:13)
[2022-07-14] MEDS: CLOPIDOGREL BISULFATE 75 MG TABLET (FP) PO SCH (10:13)
[2022-07-14] MEDS: CEFTRIAXONE 2 GM in DEXTROSE 5%-WATER 100 ML IVPB SCH (10:13)
[2022-07-14] MEDS ORDERED: LIDOCAINE HCL 2% (20ML MULTI-DOSE VIAL) ONE (11:07)
[2022-07-14] MEDS ORDERED: MIDAZOLAM HCL 2 MG/2 ML SINGLE DOSE VIAL ONE (11:38)
[2022-07-14 11:54] LABS: CALCIUM 8.6 mg/dL (8.5-10.1)
[2022-07-14 11:55] LABS: BLOOD UREA NITROGEN 42.7 mg/dL (7-18)
[2022-07-14 11:58] LABS: CREATININE 2.6 mg/dL (0.55-1.3)
[2022-07-14] MEDS ORDERED: LIDOCAINE HCL 2% (50ML VIAL) NR ONE (11:58)
[2022-07-14 11:59] LABS: BILIRUBIN,TOTAL 0.3 mg/dL (0.2-1); TOT PROT 6.3 g/dl (6.4-8.2)
[2022-07-14] MEDS ORDERED: SIMETHICONE 80 MG TAB.CHEW (FP) PO PRN (13:17)
[2022-07-14] MEDS ORDERED: ALBUTEROL SO4 HFA INHALER IH PRN (13:17)
[2022-07-14] MEDS ORDERED: LOPERAMIDE HCL 2 MG CAPSULE PO PRN (13:17)
[2022-07-14] MEDS ORDERED: ONDANSETRON 4 MG/2 ML VIAL IVPUSH PRN (13:49)
[2022-07-14] MEDS ORDERED: INSULIN (NOVOLOG) ASPART 100 UNITS/ML 10ML VIAL ONE (21:35)
[2022-07-14] MEDS: ATORVASTATIN CA 20 MG TABLET (FP) PO SCH (22:20)
[2022-07-14] MEDS: ZOLPIDEM TARTRATE 5 MG TABLET PO PRN (22:20)
[2022-07-14] MEDS: oxyCODONE HCL 5 MG TABLET PO PRN (22:21)
[2022-07-15] MEDS: INSULIN (LEVEMIR) 100 UNITS/ML UNITS SQ SCH ×2 (06:28→22:43)
[2022-07-15] MEDS: INSULIN SLIDING SCALE (NOVOLOG) 1 VIAL SQ SCH ×4 (06:29→22:44)
[2022-07-15] MEDS: oxyCODONE HCL 5 MG TABLET PO PRN ×2 (08:46→22:45)
[2022-07-15 09:53] LABS: HEMATOCRIT 36.9 % (35.4-49); HEMOGLOBIN 12.5 GM/dL (11.7-16.9); MCH 28.5 pg (25.7-33.7); MCHC 33.8 g/dl (32.0-35.9); MEAN CELL VOLUME 84.3 fl (80-96); MEAN PLT VOLUME 9.2 fl (7.5-11.1); PLATELET COUNT 183 10^3/uL (134-434); RBC 4.38 M/mm3 (4.00-5.60); RDW 14.8 % (11.9-15.9); WHITE BLOOD COUNT 8.1 K/mm3 (4.0-10.0)
[2022-07-15 10:24] LABS: CALCIUM 8.4 mg/dL (8.5-10.1)
[2022-07-15 10:25] LABS: BLOOD UREA NITROGEN 42.1 mg/dL (7-18); MAGNESIUM 1.6 mg/dL (1.8-2.4)
[2022-07-15 10:28] LABS: CREATININE 2.7 mg/dL (0.55-1.3)
[2022-07-15] MEDS: CEFTRIAXONE 2 GM in DEXTROSE 5%-WATER 100 ML IVPB SCH (10:39)
[2022-07-15] MEDS: LABETALOL HCL 100 MG TABLET (FP) PO SCH ×2 (10:40→22:47)
[2022-07-15] MEDS: CLOPIDOGREL BISULFATE 75 MG TABLET (FP) PO SCH (10:40)
[2022-07-15] MEDS: ENOXAPARIN NA (PORCINE) 40 MG/0.4 ML DISP.SYRIN SQ SCH (10:40)
[2022-07-15] MEDS: LISINOPRIL 10 MG TABLET PO SCH (10:40)
[2022-07-15] MEDS: amLODIPine BESYLATE 10 MG TABLET (FP) PO SCH (10:40)
[2022-07-15] MEDS: busPIRone HCL 10 MG TABLET (FP) PO SCH ×2 (10:40→22:47)
[2022-07-15] MEDS: ACETAMINOPHEN 325 MG TABLET (FP) PO PRN ×2 (10:49→22:47)
[2022-07-15] MEDS ORDERED: MAGNESIUM OXIDE 400 MG TABLET (FP) PO ONE (18:29)
[2022-07-15] MEDS: ATORVASTATIN CA 20 MG TABLET (FP) PO SCH (22:45)
[2022-07-15] MEDS: ZOLPIDEM TARTRATE 5 MG TABLET PO PRN (22:48)
[2022-07-15 23:48] VITALS: RESP 20
[2022-07-16] MEDS: INSULIN SLIDING SCALE (NOVOLOG) 1 VIAL SQ SCH ×4 (06:51→23:28)
[2022-07-16] MEDS: INSULIN (LEVEMIR) 100 UNITS/ML UNITS SQ SCH ×2 (06:51→23:27)
[2022-07-16] MEDS ORDERED: traMADol HCL 50 MG TABLET PO PRN (09:50)
[2022-07-16] MEDS ORDERED: KETOROLAC TROMETHAMINE 15 MG/ML VIAL IVPUSH PRN (09:50)
[2022-07-16] MEDS: LISINOPRIL 10 MG TABLET PO SCH (11:00)
[2022-07-16] MEDS: amLODIPine BESYLATE 10 MG TABLET (FP) PO SCH (11:00)
[2022-07-16] MEDS: CLOPIDOGREL BISULFATE 75 MG TABLET (FP) PO SCH (11:00)
[2022-07-16] MEDS: LABETALOL HCL 100 MG TABLET (FP) PO SCH ×2 (11:00→23:25)
[2022-07-16] MEDS: CEFTRIAXONE 2 GM in DEXTROSE 5%-WATER 100 ML IVPB SCH (11:00)
[2022-07-16] MEDS: ENOXAPARIN NA (PORCINE) 40 MG/0.4 ML DISP.SYRIN SQ SCH (11:01)
[2022-07-16] MEDS: busPIRone HCL 10 MG TABLET (FP) PO SCH ×2 (11:02→23:26)
[2022-07-16] MEDS ORDERED: INSULIN (NOVOLOG) ASPART 100 UNITS/ML 10ML VIAL ONE (12:05)
[2022-07-16] MEDS: VANCOMYCIN PREMIX 1.5 GM 1,500 MG/300 ML BAG IVPB SCH ×2 (15:11→23:36)
[2022-07-16] MEDS: ATORVASTATIN CA 20 MG TABLET (FP) PO SCH (23:25)
[2022-07-16] MEDS: ZOLPIDEM TARTRATE 5 MG TABLET PO PRN (23:31)
[2022-07-17] MEDS: INSULIN (LEVEMIR) 100 UNITS/ML UNITS SQ SCH (07:08)
[2022-07-17] MEDS: INSULIN SLIDING SCALE (NOVOLOG) 1 VIAL SQ SCH ×2 (07:09→12:16)
[2022-07-17] MEDS ORDERED: INSULIN (LEVEMIR) 100 UNITS/ML UNITS SQ ONE (07:20)
[2022-07-17] MEDS ORDERED: INSULIN (NOVOLOG) ASPART 100 UNITS/ML 10ML VIAL ONE (07:20)
[2022-07-17 08:13] VITALS: BP 133/93; PULSE 79; TEMP 98.6
[2022-07-17] MEDS: VANCOMYCIN PREMIX 1.5 GM 1,500 MG/300 ML BAG IVPB SCH (11:46)
[2022-07-17] MEDS: ENOXAPARIN NA (PORCINE) 40 MG/0.4 ML DISP.SYRIN SQ SCH (11:46)
[2022-07-17] MEDS: CLOPIDOGREL BISULFATE 75 MG TABLET (FP) PO SCH (11:47)
[2022-07-17] MEDS: LABETALOL HCL 100 MG TABLET (FP) PO SCH (11:47)
[2022-07-17] MEDS: LISINOPRIL 10 MG TABLET PO SCH (11:47)
[2022-07-17] MEDS: amLODIPine BESYLATE 10 MG TABLET (FP) PO SCH (11:47)
[2022-07-17] MEDS: busPIRone HCL 10 MG TABLET (FP) PO SCH (11:50)
== END 2022-07-17 16:08 | disposition home health service (06) | DRG 181 ==
LOC: JER 12:31 → JERBED 13:30 → J4S 07-07 03:20 → J8W 07-10 14:25
PROVIDERS: ADMIT Family Medicine; ATTEND Family Medicine
PROC: B41DZZZ Fluoroscopy of Aorta and Bilateral Lower Extremity Arteries (ICD-10-PCS; 2022-07-10)
PROC: B42FZZZ Computerized Tomography (CT Scan) of Right Lower Extremity Arteries (ICD-10-PCS; 2022-07-10)
PROC: 047K3Z1 Dilation of Right Femoral Artery using Drug-Coated Balloon, Percutaneous Approach (ICD-10-PCS; 2022-07-10)
PROC: 0QBL0ZX Excision of Right Tarsal, Open Approach, Diagnostic (ICD-10-PCS; 2022-07-14)
PROC: 0JBQ0ZZ Excision of Right Foot Subcutaneous Tissue and Fascia, Open Approach (ICD-10-PCS; principal; 2022-07-14 11:00)
PROC: 02HV33Z Insertion of Infusion Device into Superior Vena Cava, Percutaneous Approach (ICD-10-PCS; 2022-07-17)
PROC: B518ZZA Fluoroscopy of Superior Vena Cava, Guidance (ICD-10-PCS; 2022-07-17)
DX: E11.51 Type 2 diabetes mellitus with diabetic peripheral angiopathy without gangrene (principal); E11.69 Type 2 diabetes mellitus with other specified complication; E13.621 Other specified diabetes mellitus with foot ulcer; B95.1 Streptococcus, group B, as the cause of diseases classified elsewhere; B95.7 Other staphylococcus as the cause of diseases classified elsewhere; E78.00 Pure hypercholesterolemia, unspecified; I77.1 Stricture of artery; N17.9 Acute kidney failure, unspecified; L97.518 Non-pressure chronic ulcer of other part of right foot with other specified severity; D64.9 Anemia, unspecified; F41.8 Other specified anxiety disorders; E87.5 Hyperkalemia; E11.40 Type 2 diabetes mellitus with diabetic neuropathy, unspecified; K21.9 Gastro-esophageal reflux disease without esophagitis; E66.9 Obesity, unspecified; Z68.36 Body mass index [BMI] 36.0-36.9, adult; M54.50 Low back pain, unspecified; N40.0 Benign prostatic hyperplasia without lower urinary tract symptoms; I12.9 Hypertensive chronic kidney disease with stage 1 through stage 4 chronic kidney disease, or unspecified chronic kidney disease; E11.22 Type 2 diabetes mellitus with diabetic chronic kidney disease; N18.9 Chronic kidney disease, unspecified; Z89.421 Acquired absence of other right toe(s)
CPT/HCPCS: 36415; 36569; 71046-TC-FY; 73630-TC-RT-FY; 76000-TC-FY; 80048; 80053; 82962; 83036; 83735; 85025; 85027; 85610; 85730; 86850; 86900; 86901; 87040; 87070; 87075; 87077; 87081; 87186; 87205; 88307-TC; 88311-TC; 93005; 93010; 94760; 99285-25; C9803-CS; J1644; U0003; U0005

== ENCOUNTER 2022-07-23 17:57 | Inpatient (IN) | payer OTHER ==
[2022-07-23] MEDS ORDERED: ACETAMINOPHEN 1000 MG/100 ML BAG IVPB ONE (20:23)
[2022-07-23] MEDS ORDERED: ACETAMINOPHEN INJECTION 100 ML IVPB ONE (21:29)
[2022-07-23 21:42] LABS: BASO % 0.8 % (0-2.0); EOS % 3.6 % (0-4.5); HEMATOCRIT 37.3 % (35.4-49); HEMOGLOBIN 12.8 GM/dL (11.7-16.9); LYMPH % 16.4 % (8-40); MCH 29.1 pg (25.7-33.7); MCHC 34.4 g/dl (32.0-35.9); MEAN CELL VOLUME 84.4 fl (80-96); MEAN PLT VOLUME 8.5 fl (7.5-11.1); MONO % 7.4 % (3.8-10.2); NEUT % 71.8 % (42.8-82.8); PLATELET COUNT 231 10^3/uL (134-434); RBC 4.42 M/mm3 (4.00-5.60); RDW 14.7 % (11.9-15.9); WHITE BLOOD COUNT 9.2 K/mm3 (4.0-10.0)
[2022-07-23 21:52] LABS: INR 1.15 (0.83-1.09); PROTHROMBIN TIME (PATIENT) 13.3 SEC (9.7-13.0)
[2022-07-23 21:55] LABS: ACTIVATED PTT 35.7 SECONDS (25.2-36.5)
[2022-07-23 22:06] LABS: CALCIUM 8.7 mg/dL (8.5-10.1)
[2022-07-23 22:07] LABS: ALBUMIN 3.2 g/dl (3.4-5.0); BLOOD UREA NITROGEN 47.8 mg/dL (7-18)
[2022-07-23 22:10] LABS: CREATININE 2.9 mg/dL (0.55-1.3)
[2022-07-23 22:12] LABS: TOT PROT 7.1 g/dl (6.4-8.2)
[2022-07-23 22:14] LABS: BILIRUBIN,TOTAL 0.2 mg/dL (0.2-1)
[2022-07-23] MEDS ORDERED: HEPARIN NA (PORCINE) 5,000 UNITS/ML 1ML VIAL IVPUSH PRN ×2 (23:07)
[2022-07-23] MEDS ORDERED: HEPARIN INFUSION - 25,000 UNITS/500 ML INFUS.BAG IVPB SCH (23:15)
[2022-07-24] MEDS ORDERED: morphine SULFATE 4 MG/ML VIAL IVPUSH ONE (00:43)
[2022-07-24 01:13] LABS: CALCIUM 8.7 mg/dL (8.5-10.1)
[2022-07-24 01:14] LABS: BLOOD UREA NITROGEN 48.2 mg/dL (7-18)
[2022-07-24 01:17] LABS: CREATININE 3.3 mg/dL (0.55-1.3)
[2022-07-24] MEDS ORDERED: HEPARIN INFUSION - 25,000 UNITS/500 ML INFUS.BAG IVPB ONE (01:18)
[2022-07-24] MEDS ORDERED: LACTATED RINGERS SOLUTION 1000 ML INFUS.BAG IV ONE (02:53)
[2022-07-24] MEDS ORDERED: ACETAMINOPHEN 325 MG TABLET (FP) PO PRN (05:44)
[2022-07-24] MEDS ORDERED: LACTATED RINGERS SOLUTION 1,000 ML/1,000 ML INFUS.BAG IV SCH (06:00)
[2022-07-24] MEDS ORDERED: HEPARIN NA (PORCINE) 5,000 UNITS/ML 1ML VIAL SQ SCH (06:00)
[2022-07-24 07:46] LABS: BASO % 0.9 % (0-2.0); EOS % 4.4 % (0-4.5); HEMATOCRIT 31.9 % (35.4-49); HEMOGLOBIN 11.1 GM/dL (11.7-16.9); LYMPH % 19.5 % (8-40); MCH 29.6 pg (25.7-33.7); MCHC 34.9 g/dl (32.0-35.9); MEAN CELL VOLUME 84.7 fl (80-96); MEAN PLT VOLUME 8.3 fl (7.5-11.1); MONO % 9.4 % (3.8-10.2); NEUT % 65.8 % (42.8-82.8); PLATELET COUNT 156 10^3/uL (134-434); RBC 3.76 M/mm3 (4.00-5.60); RDW 14.1 % (11.9-15.9)
[2022-07-24 08:14] LABS: CALCIUM 7.9 mg/dL (8.5-10.1)
[2022-07-24 08:15] LABS: ALBUMIN 2.6 g/dl (3.4-5.0); BLOOD UREA NITROGEN 44.3 mg/dL (7-18); MAGNESIUM 1.3 mg/dL (1.8-2.4)
[2022-07-24 08:18] LABS: CREATININE 2.8 mg/dL (0.55-1.3); PHOSPHOROUS 3.5 mg/dL (2.5-4.9)
[2022-07-24 08:19] LABS: BILIRUBIN,TOTAL 0.2 mg/dL (0.2-1); TOT PROT 5.8 g/dl (6.4-8.2)
[2022-07-24] MEDS ORDERED: HEPARIN NA (PORCINE) 5,000 UNITS/ML 1ML VIAL ONE (09:02)
[2022-07-24] MEDS ORDERED: ATORVASTATIN CA 20 MG TABLET (FP) ONE (10:16)
[2022-07-24] MEDS ORDERED: LISINOPRIL 20 MG TABLET ONE (10:16)
[2022-07-24] MEDS ORDERED: amLODIPine BESYLATE 10 MG TABLET (FP) ONE (10:16)
[2022-07-24] MEDS: amLODIPine BESYLATE 10 MG TABLET (FP) PO SCH (10:20)
[2022-07-24] MEDS: LISINOPRIL 20 MG TABLET PO SCH (10:20)
[2022-07-24] MEDS: ATORVASTATIN CA 20 MG TABLET (FP) PO SCH (10:20)
[2022-07-24] MEDS ORDERED: ACETAMINOPHEN 1000 MG/100 ML BAG IVPB PRN (10:36)
[2022-07-24] MEDS ORDERED: morphine CARPU-JECT 2 MG/1 ML DISP.SYRIN IVPUSH ONE (10:38)
[2022-07-24] MEDS ORDERED: SIMETHICONE 80 MG TAB.CHEW (FP) PO PRN (11:56)
[2022-07-24] MEDS ORDERED: ALBUTEROL SO4 HFA INHALER IH PRN (11:56)
[2022-07-24] MEDS ORDERED: ENOXAPARIN NA (PORCINE) 100 MG/1 ML DISP.SYRIN SQ ONE ×2 (12:24→23:05)
[2022-07-24] MEDS: ENOXAPARIN NA (PORCINE) 100 MG/1 ML DISP.SYRIN SQ SCH ×2 (12:32→23:05)
[2022-07-24] MEDS ORDERED: busPIRone HCL 5 MG TABLET ONE ×2 (12:38→21:21)
[2022-07-24] MEDS: busPIRone HCL 10 MG TABLET (FP) PO SCH ×2 (12:41→22:30)
[2022-07-24] MEDS: INSULIN SLIDING SCALE (NOVOLOG) 1 VIAL SQ SCH ×2 (17:49→23:05)
[2022-07-24] MEDS ORDERED: LABETALOL HCL 100 MG TABLET (FP) ONE (20:56)
[2022-07-24] MEDS ORDERED: ZOLPIDEM TARTRATE 5 MG TABLET ONE (21:28)
[2022-07-24] MEDS ORDERED: ACETAMINOPHEN INJECTION 100 ML IVPB ONE (21:28)
[2022-07-24] MEDS: OMEGA-3 ACID ETHYL ESTERS (FATTY-ACIDS) 1 GM CAPSULE (FP) PO SCH (22:30)
[2022-07-24] MEDS: LABETALOL HCL 100 MG TABLET (FP) PO SCH (23:14)
[2022-07-25 01:22] VITALS: BMI 41.2
[2022-07-25] MEDS ORDERED: INSULIN (NOVOLOG) ASPART 100 UNITS/ML 10ML VIAL ONE (05:23)
[2022-07-25] MEDS: INSULIN SLIDING SCALE (NOVOLOG) 1 VIAL SQ SCH ×6 (06:21→21:30)
[2022-07-25] MEDS ORDERED: morphine SULFATE 4 MG/ML VIAL IVPUSH ONE (06:42)
[2022-07-25] MEDS: ATORVASTATIN CA 20 MG TABLET (FP) PO SCH (09:21)
[2022-07-25] MEDS: LABETALOL HCL 100 MG TABLET (FP) PO SCH ×2 (09:21→21:27)
[2022-07-25] MEDS: CLOPIDOGREL BISULFATE 75 MG TABLET (FP) PO SCH (09:21)
[2022-07-25] MEDS: ENOXAPARIN NA (PORCINE) 100 MG/1 ML DISP.SYRIN SQ SCH ×2 (09:21→21:29)
[2022-07-25] MEDS: busPIRone HCL 10 MG TABLET (FP) PO SCH ×2 (09:21→21:28)
[2022-07-25] MEDS: PANTOPRAZOLE 40 MG TABLET PO SCH (09:21)
[2022-07-25] MEDS: amLODIPine BESYLATE 10 MG TABLET (FP) PO SCH (09:21)
[2022-07-25 10:13] LABS: BASO % 0.9 % (0-2.0); EOS % 4.8 % (0-4.5); HEMOGLOBIN 11.6 GM/dL (11.7-16.9); LYMPH % 18.4 % (8-40); MCH 28.1 pg (25.7-33.7); MCHC 33.1 g/dl (32.0-35.9); MEAN CELL VOLUME 84.8 fl (80-96); MEAN PLT VOLUME 8.5 fl (7.5-11.1); NEUT % 66.9 % (42.8-82.8); PLATELET COUNT 202 10^3/uL (134-434); RBC 4.12 M/mm3 (4.00-5.60); WHITE BLOOD COUNT 6.6 K/mm3 (4.0-10.0)
[2022-07-25 10:41] LABS: CALCIUM 8.3 mg/dL (8.5-10.1)
[2022-07-25 10:42] LABS: ALBUMIN 2.8 g/dl (3.4-5.0); BLOOD UREA NITROGEN 40.9 mg/dL (7-18); MAGNESIUM 1.6 mg/dL (1.8-2.4)
[2022-07-25 10:44] LABS: CREATININE 2.7 mg/dL (0.55-1.3)
[2022-07-25 10:46] LABS: BILIRUBIN,TOTAL 0.4 mg/dL (0.2-1); TOT PROT 6.2 g/dl (6.4-8.2)
[2022-07-25] MEDS: OMEGA-3 ACID ETHYL ESTERS (FATTY-ACIDS) 1 GM CAPSULE (FP) PO SCH ×2 (11:34→21:27)
[2022-07-25] MEDS ORDERED: VANCOMYCIN 1 GM in D5W (PRE-DOCKED) 1,000 MG/250 ML IVPB SCH (11:45)
[2022-07-25] MEDS ORDERED: VANCOMYCIN 1 GM/200 ML PREMIX BAG IVPB SCH (11:45)
[2022-07-25] MEDS: oxyCODONE HCL 5 MG TABLET PO PRN ×2 (14:29→21:28)
[2022-07-25] MEDS: ZOLPIDEM TARTRATE 5 MG TABLET PO PRN (21:28)
[2022-07-25] MEDS: INSULIN (LEVEMIR) 100 UNITS/ML UNITS SQ SCH (21:30)
[2022-07-25] MEDS: VANCOMYCIN/WATER FOR INJ (PEG) 1,000 MG/200 ML BAG IVPB SCH (23:46)
[2022-07-26] MEDS: oxyCODONE HCL 5 MG TABLET PO PRN ×2 (05:41→23:12)
[2022-07-26] MEDS: INSULIN SLIDING SCALE (NOVOLOG) 1 VIAL SQ SCH ×4 (06:14→22:59)
[2022-07-26 09:40] LABS: BASO % 0.9 % (0-2.0); EOS % 3.6 % (0-4.5); HEMOGLOBIN 12.6 GM/dL (11.7-16.9); LYMPH % 16.4 % (8-40); MCH 29.1 pg (25.7-33.7); MCHC 33.9 g/dl (32.0-35.9); MEAN CELL VOLUME 85.9 fl (80-96); MEAN PLT VOLUME 8.5 fl (7.5-11.1); MONO % 7.2 % (3.8-10.2); NEUT % 71.9 % (42.8-82.8); PLATELET COUNT 213 10^3/uL (134-434); RBC 4.31 M/mm3 (4.00-5.60); RDW 14.4 % (11.9-15.9); WHITE BLOOD COUNT 8.3 K/mm3 (4.0-10.0)
[2022-07-26] MEDS: OMEGA-3 ACID ETHYL ESTERS (FATTY-ACIDS) 1 GM CAPSULE (FP) PO SCH ×2 (09:52→22:47)
[2022-07-26] MEDS: INSULIN (LEVEMIR) 100 UNITS/ML UNITS SQ SCH ×2 (09:52→22:47)
[2022-07-26] MEDS: ENOXAPARIN NA (PORCINE) 100 MG/1 ML DISP.SYRIN SQ SCH (09:52)
[2022-07-26] MEDS: ATORVASTATIN CA 20 MG TABLET (FP) PO SCH (09:53)
[2022-07-26] MEDS: CLOPIDOGREL BISULFATE 75 MG TABLET (FP) PO SCH (09:53)
[2022-07-26] MEDS: PANTOPRAZOLE 40 MG TABLET PO SCH (09:53)
[2022-07-26] MEDS: busPIRone HCL 10 MG TABLET (FP) PO SCH ×2 (09:53→22:47)
[2022-07-26] MEDS: amLODIPine BESYLATE 10 MG TABLET (FP) PO SCH (09:54)
[2022-07-26] MEDS: LABETALOL HCL 100 MG TABLET (FP) PO SCH ×2 (09:54→22:47)
[2022-07-26 10:00] LABS: BLOOD UREA NITROGEN 42.6 mg/dL (7-18)
[2022-07-26] MEDS ORDERED: amLODIPine BESYLATE 10 MG TABLET (FP) PO SCH (10:00)
[2022-07-26 10:02] LABS: CALCIUM 8.9 mg/dL (8.5-10.1); MAGNESIUM 1.4 mg/dL (1.8-2.4)
[2022-07-26 10:03] LABS: ALBUMIN 3.1 g/dl (3.4-5.0)
[2022-07-26 10:06] LABS: CREATININE 2.9 mg/dL (0.55-1.3)
[2022-07-26 10:07] LABS: BILIRUBIN,TOTAL 0.2 mg/dL (0.2-1)
[2022-07-26] MEDS ORDERED: ENOXAPARIN NA (PORCINE) 40 MG/0.4 ML DISP.SYRIN SQ ONE (10:20)
[2022-07-26] MEDS: VANCOMYCIN/WATER FOR INJ (PEG) 1,000 MG/200 ML BAG IVPB SCH (11:34)
[2022-07-26] MEDS: MAGNESIUM OXIDE 400 MG TABLET (FP) PO SCH ×2 (12:55→22:47)
[2022-07-26] MEDS ORDERED: ENOXAPARIN NA (PORCINE) 120 MG/0.8 ML DISP.SYRIN SQ SCH (22:00)
[2022-07-26] MEDS: ZOLPIDEM TARTRATE 5 MG TABLET PO PRN (23:12)
[2022-07-27 05:49] VITALS: TEMP 98.5
[2022-07-27] MEDS: INSULIN SLIDING SCALE (NOVOLOG) 1 VIAL SQ SCH ×3 (07:06→17:05)
[2022-07-27] MEDS: oxyCODONE HCL 5 MG TABLET PO PRN ×2 (07:16→17:07)
[2022-07-27] MEDS: LISINOPRIL 20 MG TABLET PO SCH (09:48)
[2022-07-27] MEDS: amLODIPine BESYLATE 10 MG TABLET (FP) PO SCH (09:49)
[2022-07-27] MEDS: CLOPIDOGREL BISULFATE 75 MG TABLET (FP) PO SCH (09:49)
[2022-07-27] MEDS: LABETALOL HCL 100 MG TABLET (FP) PO SCH (09:50)
[2022-07-27] MEDS: ATORVASTATIN CA 20 MG TABLET (FP) PO SCH (09:50)
[2022-07-27] MEDS: busPIRone HCL 10 MG TABLET (FP) PO SCH (09:50)
[2022-07-27] MEDS: INSULIN (LEVEMIR) 100 UNITS/ML UNITS SQ SCH (09:51)
[2022-07-27] MEDS: PANTOPRAZOLE 40 MG TABLET PO SCH (09:52)
[2022-07-27] MEDS: OMEGA-3 ACID ETHYL ESTERS (FATTY-ACIDS) 1 GM CAPSULE (FP) PO SCH (09:58)
[2022-07-27] MEDS ORDERED: CEFTRIAXONE 2 GM in DEXTROSE 5%-WATER 100 ML IVPB SCH (10:00)
[2022-07-27] MEDS ORDERED: SODIUM ZIRCONIUM CYCLOSILICATE (LOKELMA) 5 GM PACKET PO SCH (10:00)
[2022-07-27 11:11] VITALS: BP 151/91; PULSE 80; RESP 18
[2022-07-27 14:32] LABS: BASO % 0.6 % (0-2.0); EOS % 3.6 % (0-4.5); HEMATOCRIT 32.5 % (35.4-49); HEMOGLOBIN 11.2 GM/dL (11.7-16.9); LYMPH % 17.1 % (8-40); MCHC 34.4 g/dl (32.0-35.9); MEAN CELL VOLUME 84.3 fl (80-96); MEAN PLT VOLUME 8.2 fl (7.5-11.1); MONO % 7.1 % (3.8-10.2); NEUT % 71.6 % (42.8-82.8); PLATELET COUNT 195 10^3/uL (134-434); RBC 3.86 M/mm3 (4.00-5.60); RDW 14.5 % (11.9-15.9); WHITE BLOOD COUNT 7.8 K/mm3 (4.0-10.0)
[2022-07-27 14:52] LABS: CALCIUM 8.5 mg/dL (8.5-10.1)
[2022-07-27 14:53] LABS: ALBUMIN 2.7 g/dl (3.4-5.0); BLOOD UREA NITROGEN 42.3 mg/dL (7-18); MAGNESIUM 1.5 mg/dL (1.8-2.4)
[2022-07-27 14:56] LABS: CREATININE 2.7 mg/dL (0.55-1.3)
[2022-07-27 14:57] LABS: BILIRUBIN,TOTAL 0.2 mg/dL (0.2-1); TOT PROT 6.3 g/dl (6.4-8.2)
[2022-07-30 17:06] LABS: DRVVT - 42.3 sec (0.0-47.0)
== END 2022-07-27 19:05 | disposition home health service (06) | DRG 206 ==
LOC: JER 17:57 → JERBED 07-24 02:51 → J7W 07-25 00:20
PROVIDERS: ADMIT Internal Medicine; ATTEND Nurse Practitioner Acute Care
PROC: 05HM33Z Insertion of Infusion Device into Right Internal Jugular Vein, Percutaneous Approach (ICD-10-PCS; principal; 2022-07-27)
PROC: B543ZZA Ultrasonography of Right Jugular Veins, Guidance (ICD-10-PCS; 2022-07-27)
PROC: 02PYX3Z Removal of Infusion Device from Great Vessel, External Approach (ICD-10-PCS; 2022-07-27)
DX: T82.868A Thrombosis due to vascular prosthetic devices, implants and grafts, initial encounter (principal); I82.A11 Acute embolism and thrombosis of right axillary vein; I82.B11 Acute embolism and thrombosis of right subclavian vein; E78.5 Hyperlipidemia, unspecified; L03.115 Cellulitis of right lower limb; E87.5 Hyperkalemia; E66.9 Obesity, unspecified; Z68.41 Body mass index [BMI] 40.0-44.9, adult; E11.65 Type 2 diabetes mellitus with hyperglycemia; I12.9 Hypertensive chronic kidney disease with stage 1 through stage 4 chronic kidney disease, or unspecified chronic kidney disease; E11.22 Type 2 diabetes mellitus with diabetic chronic kidney disease; N18.9 Chronic kidney disease, unspecified; E11.69 Type 2 diabetes mellitus with other specified complication; M86.8X7 Other osteomyelitis, ankle and foot; F19.10 Other psychoactive substance abuse, uncomplicated; K21.9 Gastro-esophageal reflux disease without esophagitis; F41.9 Anxiety disorder, unspecified; L97.828 Non-pressure chronic ulcer of other part of left lower leg with other specified severity; Z89.421 Acquired absence of other right toe(s); Y83.8 Other surgical procedures as the cause of abnormal reaction of the patient, or of later complication, without mention of misadventure at the time of the procedure
CPT/HCPCS: 36415; 36558; 77001-TC-FY; 80048; 80053; 81241; 82962; 83036; 83735; 84100; 85025; 85027; 85306; 85307; 85610; 85613; 85730; 85732; 86140; 86850; 86900; 86901; 93005; 93010; 93971; 99285-25; C1751; C9803-CS; G0480; J1644; U0003; U0005

== ENCOUNTER → 2022-09-01 | Day surgery (SDC) | payer OTHER | END | disposition home or self-care (01) | LOC: JRADIR 13:29 | PROVIDERS: ATTEND Internal Medicine Infectious Disease | PROC: 02PY03Z Removal of Infusion Device from Great Vessel, Open Approach (ICD-10-PCS; principal; 2022-09-01) | DX: Z45.2 Encounter for adjustment and management of vascular access device (principal) | CPT/HCPCS: 11042; 36589 ==

== ENCOUNTER 2022-11-03 15:38 | Inpatient (IN) | payer OTHER ==
[2022-11-03] MEDS ORDERED: VANCOMYCIN 1 GM in D5W (PRE-DOCKED) 1,000 MG/250 ML IVPB ONE ×2 (17:15→17:47)
[2022-11-03] MEDS ORDERED: PIPERACILLIN/TAZOB 3.375 GM 3.375 GM in DEXTROSE 5%-WATER - 50 ML IVPB ONE (17:29)
[2022-11-03] MEDS ORDERED: PIPERACILLIN/TAZOB 3.375 GM 3.375 GM/50 ML BAG IVPB ONE (18:42)
[2022-11-03] MEDS ORDERED: VANCOMYCIN/WATER FOR INJ (PEG) 1,000 MG/200 ML BAG IVPB ONE (18:42)
[2022-11-03] MEDS ORDERED: ACETAMINOPHEN 1000 MG/100 ML BAG IVPB ONE (18:50)
[2022-11-03] MEDS ORDERED: LACTATED RINGERS SOLUTION 1000 ML INFUS.BAG IV ONE (19:00)
[2022-11-03] MEDS ORDERED: ACETAMINOPHEN INJECTION 100 ML IVPB ONE (21:56)
[2022-11-03 22:08] LABS: MONO % 8.4 % (3.8-10.2)
[2022-11-03 22:14] LABS: BASO % 0.7 % (0-2.0); EOS % 2.4 % (0-4.5); HEMATOCRIT 38.2 % (35.4-49); HEMOGLOBIN 12.7 GM/dL (11.7-16.9); LYMPH % 12.8 % (8-40); MCH 27.6 pg (25.7-33.7); MCHC 33.1 g/dl (32.0-35.9); MEAN CELL VOLUME 83.3 fl (80-96); MEAN PLT VOLUME 9.1 fl (7.5-11.1); NEUT % 75.7 % (42.8-82.8); PLATELET COUNT 249 10^3/uL (134-434); RBC 4.59 M/mm3 (4.00-5.60); RDW 15.4 % (11.9-15.9); WHITE BLOOD COUNT 8.7 K/mm3 (4.0-10.0)
[2022-11-03 22:24] LABS: CHLORIDE 103 mmol/L (98-107); SODIUM 134 mmol/L (136-145)
[2022-11-03 22:26] LABS: CALCIUM 8.5 mg/dL (8.5-10.1)
[2022-11-03 22:27] LABS: BLOOD UREA NITROGEN 51.8 mg/dL (7-18); CO2 21 mmol/L (21-32); GLUCOSE,RANDOM 323 mg/dL (74-106)
[2022-11-03 22:30] LABS: CREATININE 3.4 mg/dL (0.55-1.3); SGOT/AST 55 U/L (15-37); SGPT/ALT 36 U/L (13-61)
[2022-11-03 22:32] LABS: BILIRUBIN,TOTAL 0.4 mg/dL (0.2-1)
[2022-11-03 22:33] LABS: ALK PHOS 121 U/L (45-117)
[2022-11-03 22:47] LABS: ANION GAP 10 MMOL/L (8-16)
[2022-11-04 02:49] LABS: CALCIUM 8.2 mg/dL (8.5-10.1)
[2022-11-04 02:50] LABS: BLOOD UREA NITROGEN 47.7 mg/dL (7-18)
[2022-11-04 02:54] LABS: CREATININE 3.3 mg/dL (0.55-1.3)
[2022-11-04] MEDS ORDERED: oxyCODONE HCL 5 MG TABLET PO ONE (03:00)
[2022-11-04] MEDS ORDERED: PIPERACILLIN/TAZOB 2.25 GM 2.25 GM in DEXTROSE 5%-WATER - 50 ML IVPB SCH (03:00)
[2022-11-04] MEDS ORDERED: INSULIN (LEVEMIR) 100 UNITS/ML UNITS SQ ONE (03:27)
[2022-11-04 03:45] LABS: HIV INTERPRETATION NEGATIVE (NEGATIVE)
[2022-11-04] MEDS ORDERED: oxyCODONE HCL 5 MG TABLET ONE ×2 (03:52→09:12)
[2022-11-04] MEDS ORDERED: PIPERACILLIN/TAZOB 2.25 GM 2.25 GM/50 ML BAG IVPB ONE ×2 (03:52→09:12)
[2022-11-04] MEDS ORDERED: ZOLPIDEM TARTRATE 5 MG TABLET ONE (03:54)
[2022-11-04] MEDS: PIPERACILLIN/TAZOB 2.25 GM 2.25 GM in DEXTROSE 5%-WATER - 50 ML IVPB SCH ×3 (04:41→17:25)
[2022-11-04] MEDS: SODIUM CHLORIDE 1,000 ML IV SCH ×2 (04:41→08:23)
[2022-11-04] MEDS: ZOLPIDEM TARTRATE 5 MG TABLET PO PRN ×2 (04:42→22:41)
[2022-11-04 05:32] LABS: EPI CELLS 6 /uL (0-25.1); HYALINE CASTS 1 /uL (0-3.1); URINE APPEARANCE CLEAR; URINE BACTERIA 8 /uL (0-1359); URINE BARBITURATES NEGATIVE (NEGATIVE); URINE BILIRUBIN NEGATIVE (NEGATIVE); URINE COLOR YELLOW; URINE GLUCOSE (UA) 3+ (NEGATIVE); URINE KETONE NEGATIVE (NEGATIVE); URINE LEUK ESTERASE NEGATIVE (NEGATIVE); URINE NITRITE NEGATIVE (NEGATIVE); URINE PROTEIN 4+ (NEGATIVE); URINE RBC 21 /uL (0-23.9); URINE UROBILINOGEN 0.2 mg/dL (0.2-1.0); URINE WBC 4 /uL (0-25.8)
[2022-11-04 05:33] LABS: COCAINE, UR NEGATIVE (NEGATIVE); METHADONE, UR NEGATIVE (NEGATIVE); OPIATES, URI NEGATIVE (NEGATIVE); PHENCYCLIDINE,URINE NEGATIVE (NEGATIVE); URINE BENZODIAZEPINES NEGATIVE (NEGATIVE)
[2022-11-04 05:35] LABS: URINE AMPHETAMINES NEGATIVE (NEGATIVE)
[2022-11-04] MEDS ORDERED: HEPARIN NA (PORCINE) 5,000 UNITS/ML 1ML VIAL SQ SCH (06:00)
[2022-11-04 08:19] LABS: HEMATOCRIT 35.1 % (35.4-49); HEMOGLOBIN 11.5 GM/dL (11.7-16.9); MCH 27.5 pg (25.7-33.7); MCHC 32.6 g/dl (32.0-35.9); MEAN CELL VOLUME 84.3 fl (80-96); MEAN PLT VOLUME 8.9 fl (7.5-11.1); PLATELET COUNT 215 10^3/uL (134-434); RBC 4.16 M/mm3 (4.00-5.60); RDW 15.5 % (11.9-15.9); WHITE BLOOD COUNT 7.5 K/mm3 (4.0-10.0)
[2022-11-04 08:27] LABS: ALBUMIN 1.8 g/dl (3.4-5.0); BLOOD UREA NITROGEN 45.4 mg/dL (7-18); MAGNESIUM 1.7 mg/dL (1.8-2.4)
[2022-11-04] MEDS: INSULIN SLIDING SCALE (NOVOLOG) 1 VIAL SQ SCH ×4 (08:28→22:32)
[2022-11-04 08:29] LABS: CREATININE 3.1 mg/dL (0.55-1.3)
[2022-11-04 08:30] LABS: BILIRUBIN,TOTAL 0.2 mg/dL (0.2-1); PHOSPHOROUS 3.8 mg/dL (2.5-4.9); TOT PROT 5.4 g/dl (6.4-8.2)
[2022-11-04] MEDS ORDERED: ACETAMINOPHEN 325 MG TABLET (FP) PO PRN (09:01)
[2022-11-04] MEDS ORDERED: busPIRone HCL 5 MG TABLET ONE (09:11)
[2022-11-04] MEDS ORDERED: amLODIPine BESYLATE 10 MG TABLET (FP) ONE (09:12)
[2022-11-04] MEDS ORDERED: ACETAMINOPHEN 325 MG TABLET (FP) ONE (09:12)
[2022-11-04] MEDS: oxyCODONE HCL 5 MG TABLET PO PRN ×2 (09:15→22:41)
[2022-11-04] MEDS: busPIRone HCL 10 MG TABLET (FP) PO SCH ×2 (09:16→22:27)
[2022-11-04] MEDS: amLODIPine BESYLATE 10 MG TABLET (FP) PO SCH (09:17)
[2022-11-04 09:30] VITALS: BMI 42.3
[2022-11-04 09:48] LABS: ANISOCYTOSIS 0; HELMET CELLS 0; HOWELL-JOLLY BODIES 0; MACROCYTOSIS 0; OVALOCYTE 0; ROULEAU 0; SICKELED CELLS 0; TARGET CELLS 0; TEAR DROP CELLS 0; TOXIC GRANULATION 0
[2022-11-04] MEDS: APIXABAN 5 MG TABLET PO SCH ×2 (12:24→22:27)
[2022-11-04] MEDS ORDERED: LIDOCAINE HCL 2% (20ML MULTI-DOSE VIAL) NR ONE (16:00)
[2022-11-04] MEDS: INSULIN (NOVOLOG) ASPART 100 UNITS/ML 10ML VIAL SQ SCH (17:21)
[2022-11-04] MEDS ORDERED: INSULIN (LEVEMIR) 100 UNITS/ML UNITS SQ SCH (22:00)
[2022-11-04] MEDS: ATORVASTATIN CA 20 MG TABLET (FP) PO SCH (22:27)
[2022-11-04] MEDS: INSULIN (LEVEMIR) 100 UNITS/ML UNITS SQ SCH (22:28)
[2022-11-05] MEDS: PIPERACILLIN/TAZOB 3.375 GM 3.375 GM in DEXTROSE 5%-WATER - 50 ML IVPB SCH ×4 (00:09→23:10)
[2022-11-05] MEDS: INSULIN (NOVOLOG) ASPART 100 UNITS/ML 10ML VIAL SQ SCH ×3 (07:20→17:30)
[2022-11-05] MEDS: INSULIN SLIDING SCALE (NOVOLOG) 1 VIAL SQ SCH ×4 (07:21→22:52)
[2022-11-05] MEDS: oxyCODONE HCL 5 MG TABLET PO PRN ×2 (07:24→23:19)
[2022-11-05] MEDS ORDERED: INSULIN (NOVOLOG) ASPART 100 UNITS/ML 10ML VIAL ONE (08:01)
[2022-11-05] MEDS ORDERED: INSULIN (LEVEMIR) 100 UNITS/ML UNITS SQ ONE ×2 (08:01→22:11)
[2022-11-05] MEDS: APIXABAN 5 MG TABLET PO SCH (10:30)
[2022-11-05] MEDS: amLODIPine BESYLATE 10 MG TABLET (FP) PO SCH (11:19)
[2022-11-05] MEDS: busPIRone HCL 10 MG TABLET (FP) PO SCH ×2 (11:20→21:55)
[2022-11-05] MEDS: SODIUM CHLORIDE 1,000 ML IV SCH (11:25)
[2022-11-05] MEDS ORDERED: NICOTINE POLACRILEX 4 MG GUM BUC PRN (16:46)
[2022-11-05] MEDS: NICOTINE 21 MG/24 HOURS TOPICAL PATCH TD SCH (18:59)
[2022-11-05] MEDS: ATORVASTATIN CA 20 MG TABLET (FP) PO SCH (21:55)
[2022-11-05] MEDS: INSULIN (LEVEMIR) 100 UNITS/ML UNITS SQ SCH (22:45)
[2022-11-05 23:11] VITALS: RESP 20
[2022-11-05] MEDS: ZOLPIDEM TARTRATE 5 MG TABLET PO PRN (23:21)
[2022-11-05] MEDS: LACTATED RINGERS SOLUTION 1,000 ML/1,000 ML INFUS.BAG IV SCH (23:23)
[2022-11-06] MEDS: PIPERACILLIN/TAZOB 3.375 GM 3.375 GM in DEXTROSE 5%-WATER - 50 ML IVPB SCH ×3 (06:32→23:49)
[2022-11-06] MEDS: INSULIN SLIDING SCALE (NOVOLOG) 1 VIAL SQ SCH ×4 (06:48→22:02)
[2022-11-06] MEDS: INSULIN (NOVOLOG) ASPART 100 UNITS/ML 10ML VIAL SQ SCH ×3 (06:50→16:42)
[2022-11-06 10:04] LABS: HEMOGLOBIN 11.6 GM/dL (11.7-16.9); MCH 27.6 pg (25.7-33.7); MCHC 33.2 g/dl (32.0-35.9); MEAN CELL VOLUME 83.1 fl (80-96); MEAN PLT VOLUME 8.3 fl (7.5-11.1); PLATELET COUNT 236 10^3/uL (134-434); RBC 4.21 M/mm3 (4.00-5.60); RDW 14.8 % (11.9-15.9); WHITE BLOOD COUNT 9.9 K/mm3 (4.0-10.0)
[2022-11-06 10:13] LABS: INR 1.12 (0.83-1.09); PROTHROMBIN TIME (PATIENT) 12.9 SEC (9.7-13.0)
[2022-11-06 10:44] LABS: ANISOCYTOSIS 2+; MACROCYTOSIS 0
[2022-11-06] MEDS: amLODIPine BESYLATE 10 MG TABLET (FP) PO SCH (10:56)
[2022-11-06] MEDS: NICOTINE 21 MG/24 HOURS TOPICAL PATCH TD SCH (10:56)
[2022-11-06] MEDS: busPIRone HCL 10 MG TABLET (FP) PO SCH ×2 (10:56→22:02)
[2022-11-06 10:57] LABS: ALBUMIN 1.9 g/dl (3.4-5.0); MAGNESIUM 1.5 mg/dL (1.8-2.4)
[2022-11-06 10:58] LABS: BLOOD UREA NITROGEN 37.4 mg/dL (7-18)
[2022-11-06 11:01] LABS: CREATININE 3.1 mg/dL (0.55-1.3)
[2022-11-06 11:02] LABS: BILIRUBIN,TOTAL 0.2 mg/dL (0.2-1); TOT PROT 5.7 g/dl (6.4-8.2)
[2022-11-06] MEDS ORDERED: MAGNESIUM SULF 50% (8.12 MEQ/2 ML-1 GM VIAL) IVPB ONE (11:13)
[2022-11-06] MEDS ORDERED: INSULIN (NOVOLOG) ASPART 100 UNITS/ML 10ML VIAL ONE (11:17)
[2022-11-06 15:07] LABS: TOTAL PROTEIN, URINE 451.5 mg/dL (Not Estab.)
[2022-11-06] MEDS: oxyCODONE HCL 5 MG TABLET PO PRN ×2 (15:58→22:10)
[2022-11-06] MEDS: ALPRAZolam 0.25 MG TABLET PO PRN (19:07)
[2022-11-06] MEDS: ATORVASTATIN CA 20 MG TABLET (FP) PO SCH (22:01)
[2022-11-06] MEDS: INSULIN (LEVEMIR) 100 UNITS/ML UNITS SQ SCH (22:05)
[2022-11-06] MEDS: ZOLPIDEM TARTRATE 5 MG TABLET PO PRN (22:11)
[2022-11-07] MEDS: LACTATED RINGERS SOLUTION 1,000 ML/1,000 ML INFUS.BAG IV SCH (01:00)
[2022-11-07] MEDS: INSULIN (NOVOLOG) ASPART 100 UNITS/ML 10ML VIAL SQ SCH ×2 (08:18→11:14)
[2022-11-07] MEDS: INSULIN SLIDING SCALE (NOVOLOG) 1 VIAL SQ SCH ×2 (08:19→11:14)
[2022-11-07] MEDS: PIPERACILLIN/TAZOB 3.375 GM 3.375 GM in DEXTROSE 5%-WATER - 50 ML IVPB SCH (08:19)
[2022-11-07] MEDS: oxyCODONE HCL 5 MG TABLET PO PRN (08:20)
[2022-11-07] MEDS: ALPRAZolam 0.25 MG TABLET PO PRN (08:20)
[2022-11-07] MEDS: NICOTINE 21 MG/24 HOURS TOPICAL PATCH TD SCH (09:18)
[2022-11-07] MEDS: amLODIPine BESYLATE 10 MG TABLET (FP) PO SCH (09:20)
[2022-11-07] MEDS: busPIRone HCL 10 MG TABLET (FP) PO SCH (09:20)
[2022-11-07 10:15] LABS: HEMATOCRIT 37.7 % (35.4-49); HEMOGLOBIN 12.3 GM/dL (11.7-16.9); MCH 27.4 pg (25.7-33.7); MCHC 32.6 g/dl (32.0-35.9); MEAN CELL VOLUME 84.2 fl (80-96); MEAN PLT VOLUME 8.2 fl (7.5-11.1); PLATELET COUNT 248 10^3/uL (134-434); RBC 4.48 M/mm3 (4.00-5.60); RDW 15.1 % (11.9-15.9); WHITE BLOOD COUNT 10.9 K/mm3 (4.0-10.0)
[2022-11-07 10:44] LABS: CALCIUM 8.2 mg/dL (8.5-10.1)
[2022-11-07 10:45] LABS: ALBUMIN 2.1 g/dl (3.4-5.0); BLOOD UREA NITROGEN 38.5 mg/dL (7-18); MAGNESIUM 1.9 mg/dL (1.8-2.4)
[2022-11-07 10:48] LABS: CREATININE 3.3 mg/dL (0.55-1.3)
[2022-11-07 10:49] LABS: TOT PROT 6.1 g/dl (6.4-8.2)
[2022-11-07 10:51] LABS: BILIRUBIN,TOTAL 0.4 mg/dL (0.2-1)
[2022-11-07 10:57] LABS: ANISOCYTOSIS 0; HELMET CELLS 0; HOWELL-JOLLY BODIES 0; MACROCYTOSIS 0; OVALOCYTE 0; ROULEAU 0; SICKELED CELLS 0; TARGET CELLS 0; TEAR DROP CELLS 0; TOXIC GRANULATION 0
[2022-11-07] MEDS ORDERED: SODIUM ZIRCONIUM CYCLOSILICATE (LOKELMA) 5 GM PACKET PO SCH (11:00)
[2022-11-07 15:48] VITALS: BP 157/91; PULSE 83; TEMP 98.9
[2022-11-07] MEDS ORDERED: AMOX TR/POT CLAV 500MG/125MG TABLETS (FP) PO SCH (17:30)
== END 2022-11-07 14:46 | disposition home or self-care (01) | DRG 501 ==
LOC: JER 15:38 → JERBED 23:39 → J8W 11-04 15:07
PROVIDERS: ADMIT Internal Medicine; ATTEND Nurse Practitioner Family
PROC: 0V950ZX Drainage of Scrotum, Open Approach, Diagnostic (ICD-10-PCS; principal; 2022-11-06)
DX: N49.2 Inflammatory disorders of scrotum (principal); E11.22 Type 2 diabetes mellitus with diabetic chronic kidney disease; N18.4 Chronic kidney disease, stage 4 (severe); I82.409 Acute embolism and thrombosis of unspecified deep veins of unspecified lower extremity; E11.51 Type 2 diabetes mellitus with diabetic peripheral angiopathy without gangrene; E11.621 Type 2 diabetes mellitus with foot ulcer; E11.65 Type 2 diabetes mellitus with hyperglycemia; L97.909 Non-pressure chronic ulcer of unspecified part of unspecified lower leg with unspecified severity; Z68.41 Body mass index [BMI] 40.0-44.9, adult; E66.9 Obesity, unspecified; F12.90 Cannabis use, unspecified, uncomplicated; F17.210 Nicotine dependence, cigarettes, uncomplicated
CPT/HCPCS: 0241U-QW; 11042; 11721; 36415; 74176-TC; 76870-TC; 80048; 80053; 80307; 81003; 82570; 82947; 82962; 83036; 83605; 83735; 83930; 83935; 84100; 84132; 84156; 84157; 85025; 85610; 86850; 86900; 86901; 87040; 87070; 87076; 87077; 87081; 87186; 87205; 87389; 87491; 87591; 93005; 93010; 93971; 99285-25; G0480

== ENCOUNTER 2023-02-15 08:17 | Inpatient (IN) | payer OTHER ==
[2023-02-15 08:33] VITALS: BMI 40.7
[2023-02-15] MEDS ORDERED: SODIUM CHLORIDE 0.9% 500 ML INFUS.BAG IV ONE (08:52)
[2023-02-15] MEDS ORDERED: VANCOMYCIN 1 GM in D5W (PRE-DOCKED) 1,000 MG/250 ML (RESTRICTED TO ID ONLY IVPB ONE (08:55)
[2023-02-15] MEDS ORDERED: PIPERACILLIN/TAZOB 4.5 GM 4.5 GM in DEXTROSE 5%-WATER 100 ML IVPB ONE (08:56)
[2023-02-15] MEDS ORDERED: INSULIN REGULAR HUMAN 100 UNITS/ML *VIAL IVPUSH ONE (09:06)
[2023-02-15] MEDS ORDERED: VANCOMYCIN/WATER FOR INJ (PEG) 1,000 MG/200 ML BAG IVPB ONE (09:54)
[2023-02-15] MEDS ORDERED: PIPERACILLIN/TAZOB 4.5 GM 4.5 GM/100 ML BAG IVPB ONE (09:54)
[2023-02-15] MEDS ORDERED: ACETAMINOPHEN 1000 MG/100 ML BAG IVPB ONE (10:11)
[2023-02-15] MEDS ORDERED: ACETAMINOPHEN INJECTION 100 ML IVPB ONE (10:24)
[2023-02-15 10:35] LABS: INR 1.07 (0.83-1.09); PROTHROMBIN TIME (PATIENT) 12.4 SEC (9.7-13.0)
[2023-02-15 10:37] LABS: ACTIVATED PTT 31.6 SECONDS (25.2-36.5)
[2023-02-15 10:39] LABS: BASO % 0.4 % (0-2.0); EOS % 1.8 % (0-4.5); HEMATOCRIT 38.2 % (35.4-49); HEMOGLOBIN 13.1 GM/dL (11.7-16.9); LYMPH % 11.7 % (8-40); MCH 29.2 pg (25.7-33.7); MCHC 34.5 g/dl (32.0-35.9); MEAN CELL VOLUME 84.7 fl (80-96); MEAN PLT VOLUME 9.2 fl (7.5-11.1); MONO % 6.1 % (3.8-10.2); PLATELET COUNT 195 10^3/uL (134-434); RDW 15.2 % (11.9-15.9); WHITE BLOOD COUNT 8.7 K/mm3 (4.0-10.0)
[2023-02-15 10:45] LABS: ALBUMIN 2.6 g/dl (3.4-5.0)
[2023-02-15 10:46] LABS: BLOOD UREA NITROGEN 46.5 mg/dL (7-18); CALCIUM 8.3 mg/dL (8.5-10.1); MAGNESIUM 1.5 mg/dL (1.8-2.4)
[2023-02-15 10:47] LABS: VENOUS BASE EXCESS -5.4 mmol/L (-2-2); VENOUS O2 SATURATION 81.1 % (70-80); VENOUS PCO2 42.8 mmHg (38-52); VENOUS PH 7.303 (7.310-7.410)
[2023-02-15 10:49] LABS: CREATININE 3.5 mg/dL (0.55-1.3)
[2023-02-15 10:50] LABS: BILIRUBIN,TOTAL 0.5 mg/dL (0.2-1); TOT PROT 6.6 g/dl (6.4-8.2)
[2023-02-15 10:50] LABS: EPI CELLS 2 /uL (0-25.1); HYALINE CASTS 0 /uL (0-3.1); URINE APPEARANCE CLEAR; URINE BACTERIA 1 /uL (0-1359); URINE BILIRUBIN NEGATIVE (NEGATIVE); URINE COLOR YELLOW; URINE GLUCOSE (UA) 3+ (NEGATIVE); URINE KETONE NEGATIVE (NEGATIVE); URINE LEUK ESTERASE NEGATIVE (NEGATIVE); URINE NITRITE NEGATIVE (NEGATIVE); URINE PROTEIN 4+ (NEGATIVE); URINE RBC 20 /uL (0-23.9); URINE UROBILINOGEN 0.2 mg/dL (0.2-1.0); URINE WBC 3 /uL (0-25.8)
[2023-02-15] MEDS ORDERED: MAGNESIUM SULF 50% (8.12 MEQ/2 ML-1 GM VIAL) IVPB ONE (11:32)
[2023-02-15] MEDS ORDERED: MAGNESIUM 1GM/D5W - 2 GM/200 ML IVPB IVPB ONE (11:49)
[2023-02-15] MEDS ORDERED: PATIENT'S OWN MEDICATION (NON-FORMULARY) (Insulin Lispro [Admelog] 100 UNIT/ML Vial) SQ SCH (12:45)
[2023-02-15] MEDS: INSULIN SLIDING SCALE (NOVOLOG) 1 VIAL SQ SCH ×3 (13:11→23:13)
[2023-02-15 14:30] LABS: ERYTHROCYTE SEDIMENTATION RATE 48 mm/hr (0-10)
[2023-02-15] MEDS ORDERED: DAPTOMYCIN 500 MG in SODIUM CHLORIDE 50 ML IVPB SCH (14:45)
[2023-02-15] MEDS: INSULIN (NOVOLOG) ASPART 100 UNITS/ML 10ML VIAL SQ SCH (16:41)
[2023-02-15] MEDS: SODIUM CHLORIDE 1,000 ML IV SCH (17:05)
[2023-02-15] MEDS: SODIUM ZIRCONIUM CYCLOSILICATE (LOKELMA) 5 GM PACKET PO SCH (17:07)
[2023-02-15] MEDS: PIPERACILLIN/TAZOB 2.25 GM 2.25 GM in DEXTROSE 5%-WATER - 50 ML IVPB SCH (17:07)
[2023-02-15] MEDS ORDERED: PIPERACILLIN/TAZOB 3.375 GM 3.375 GM in DEXTROSE 5%-WATER - 50 ML IVPB SCH (18:00)
[2023-02-15] MEDS ORDERED: ZOLPIDEM TARTRATE 5 MG TABLET PO SCH ×2 (20:56→22:00)
[2023-02-15] MEDS ORDERED: APIXABAN 5 MG TABLET PO SCH (22:00)
[2023-02-15 22:37] LABS: CALCIUM 8.2 mg/dL (8.5-10.1)
[2023-02-15 22:38] LABS: BLOOD UREA NITROGEN 44.3 mg/dL (7-18)
[2023-02-15 22:41] LABS: CREATININE 3.4 mg/dL (0.55-1.3)
[2023-02-15] MEDS: ATORVASTATIN CA 20 MG TABLET (FP) PO SCH (23:12)
[2023-02-15] MEDS: ZOLPIDEM TARTRATE 5 MG TABLET PO PRN (23:12)
[2023-02-15] MEDS: busPIRone HCL 10 MG TABLET (FP) PO SCH (23:12)
[2023-02-15] MEDS: INSULIN (LEVEMIR) 100 UNITS/ML UNITS SQ SCH (23:13)
[2023-02-15] MEDS: HEPARIN NA (PORCINE) 5,000 UNITS/ML 1ML VIAL SQ SCH (23:13)
[2023-02-16] MEDS ORDERED: ACETAMINOPHEN 500 MG TABLET (FP) PO ONE (00:15)
[2023-02-16] MEDS: PIPERACILLIN/TAZOB 2.25 GM 2.25 GM in DEXTROSE 5%-WATER - 50 ML IVPB SCH ×3 (01:55→17:52)
[2023-02-16] MEDS: SODIUM CHLORIDE 1,000 ML IV SCH ×2 (05:14→16:35)
[2023-02-16] MEDS: HEPARIN NA (PORCINE) 5,000 UNITS/ML 1ML VIAL SQ SCH ×3 (06:02→21:43)
[2023-02-16] MEDS: INSULIN SLIDING SCALE (NOVOLOG) 1 VIAL SQ SCH ×4 (06:03→21:42)
[2023-02-16] MEDS: INSULIN (NOVOLOG) ASPART 100 UNITS/ML 10ML VIAL SQ SCH ×3 (06:04→16:36)
[2023-02-16 09:09] LABS: BASO % 0.7 % (0-2.0); EOS % 2.3 % (0-4.5); HEMATOCRIT 38.4 % (35.4-49); HEMOGLOBIN 13.5 GM/dL (11.7-16.9); LYMPH % 12.7 % (8-40); MEAN CELL VOLUME 82.7 fl (80-96); MEAN PLT VOLUME 8.7 fl (7.5-11.1); NEUT % 77.3 % (42.8-82.8); PLATELET COUNT 190 10^3/uL (134-434); RBC 4.65 M/mm3 (4.00-5.60); RDW 14.9 % (11.9-15.9); WHITE BLOOD COUNT 8.2 K/mm3 (4.0-10.0)
[2023-02-16 09:15] LABS: INR 1.07 (0.83-1.09); PROTHROMBIN TIME (PATIENT) 12.4 SEC (9.7-13.0)
[2023-02-16 09:29] LABS: ALBUMIN 2.5 g/dl (3.4-5.0); BLOOD UREA NITROGEN 40.2 mg/dL (7-18); CALCIUM 8.3 mg/dL (8.5-10.1); MAGNESIUM 1.7 mg/dL (1.8-2.4)
[2023-02-16 09:32] LABS: CREATININE 3.1 mg/dL (0.55-1.3); PHOSPHOROUS 3.1 mg/dL (2.5-4.9)
[2023-02-16] MEDS: busPIRone HCL 10 MG TABLET (FP) PO SCH (09:33)
[2023-02-16 09:34] LABS: BILIRUBIN,TOTAL 0.2 mg/dL (0.2-1); TOT PROT 6.6 g/dl (6.4-8.2)
[2023-02-16] MEDS: SODIUM ZIRCONIUM CYCLOSILICATE (LOKELMA) 5 GM PACKET PO SCH (09:34)
[2023-02-16] MEDS: amLODIPine BESYLATE 10 MG TABLET (FP) PO SCH (09:34)
[2023-02-16] MEDS ORDERED: LISINOPRIL 20 MG TABLET PO SCH (10:00)
[2023-02-16] MEDS ORDERED: ALPRAZolam 1 MG TABLET PO ONE (11:13)
[2023-02-16] MEDS ORDERED: KETOROLAC TROMETHAMINE 30 MG/1 ML VIAL IVPUSH SCH (11:45)
[2023-02-16] MEDS: INSULIN (LEVEMIR) 100 UNITS/ML UNITS SQ SCH (21:40)
[2023-02-16] MEDS: ATORVASTATIN CA 20 MG TABLET (FP) PO SCH (21:43)
[2023-02-17] MEDS: traMADol HCL 50 MG TABLET PO PRN ×3 (00:34→21:31)
[2023-02-17] MEDS: ZOLPIDEM TARTRATE 5 MG TABLET PO PRN ×2 (00:34→21:30)
[2023-02-17] MEDS: PIPERACILLIN/TAZOB 2.25 GM 2.25 GM in DEXTROSE 5%-WATER - 50 ML IVPB SCH ×3 (02:27→17:18)
[2023-02-17] MEDS: INSULIN SLIDING SCALE (NOVOLOG) 1 VIAL SQ SCH ×4 (06:14→21:25)
[2023-02-17] MEDS: INSULIN (NOVOLOG) ASPART 100 UNITS/ML 10ML VIAL SQ SCH ×3 (06:14→17:26)
[2023-02-17] MEDS: HEPARIN NA (PORCINE) 5,000 UNITS/ML 1ML VIAL SQ SCH ×3 (06:15→21:26)
[2023-02-17] MEDS: LISINOPRIL 20 MG TABLET PO SCH (09:47)
[2023-02-17] MEDS: amLODIPine BESYLATE 10 MG TABLET (FP) PO SCH (09:47)
[2023-02-17] MEDS: busPIRone HCL 10 MG TABLET (FP) PO SCH (09:47)
[2023-02-17] MEDS: ALPRAZolam 1 MG TABLET PO PRN (09:49)
[2023-02-17] MEDS: SODIUM CHLORIDE 1,000 ML IV SCH (15:25)
[2023-02-17] MEDS: INSULIN (LEVEMIR) 100 UNITS/ML UNITS SQ SCH (21:25)
[2023-02-17] MEDS: ATORVASTATIN CA 20 MG TABLET (FP) PO SCH (21:26)
[2023-02-18] MEDS: PIPERACILLIN/TAZOB 2.25 GM 2.25 GM in DEXTROSE 5%-WATER - 50 ML IVPB SCH ×2 (01:57→09:06)
[2023-02-18] MEDS ORDERED: guaiFENesin/D-M SUGAR-FREE/ACLHOL-FREE (200 MG/10 MG) 5 ML PO PRN (04:26)
[2023-02-18] MEDS: HEPARIN NA (PORCINE) 5,000 UNITS/ML 1ML VIAL SQ SCH ×3 (06:19→21:48)
[2023-02-18] MEDS: INSULIN SLIDING SCALE (NOVOLOG) 1 VIAL SQ SCH ×4 (06:38→21:43)
[2023-02-18] MEDS: INSULIN (NOVOLOG) ASPART 100 UNITS/ML 10ML VIAL SQ SCH ×3 (08:24→17:11)
[2023-02-18 08:32] LABS: HEMATOCRIT 36.1 % (35.4-49); HEMOGLOBIN 12.5 GM/dL (11.7-16.9); MCH 28.7 pg (25.7-33.7); MCHC 34.6 g/dl (32.0-35.9); MEAN CELL VOLUME 82.9 fl (80-96); MEAN PLT VOLUME 8.4 fl (7.5-11.1); PLATELET COUNT 188 10^3/uL (134-434); RBC 4.36 M/mm3 (4.00-5.60); RDW 14.7 % (11.9-15.9); WHITE BLOOD COUNT 8.9 K/mm3 (4.0-10.0)
[2023-02-18 08:52] LABS: CALCIUM 8.4 mg/dL (8.5-10.1)
[2023-02-18 08:53] LABS: BLOOD UREA NITROGEN 38.8 mg/dL (7-18)
[2023-02-18] MEDS: traMADol HCL 50 MG TABLET PO PRN ×2 (09:06→21:45)
[2023-02-18] MEDS: LISINOPRIL 20 MG TABLET PO SCH (09:06)
[2023-02-18] MEDS: busPIRone HCL 10 MG TABLET (FP) PO SCH (09:06)
[2023-02-18] MEDS: amLODIPine BESYLATE 10 MG TABLET (FP) PO SCH (09:06)
[2023-02-18] MEDS: ALPRAZolam 1 MG TABLET PO PRN (09:08)
[2023-02-18] MEDS ORDERED: LISINOPRIL 10 MG TABLET PO SCH (14:55)
[2023-02-18] MEDS: SODIUM CHLORIDE 0.45% 1,000 ML IV SCH (15:33)
[2023-02-18] MEDS: SODIUM ZIRCONIUM CYCLOSILICATE (LOKELMA) 5 GM PACKET PO SCH ×2 (15:33→21:43)
[2023-02-18] MEDS: AMOX TR/POT CLAV 500MG/125MG TABLETS (FP) PO SCH (17:11)
[2023-02-18 18:09] VITALS: RESP 18
[2023-02-18] MEDS: INSULIN (LEVEMIR) 100 UNITS/ML UNITS SQ SCH (21:43)
[2023-02-18] MEDS: ATORVASTATIN CA 20 MG TABLET (FP) PO SCH (21:43)
[2023-02-18] MEDS: ZOLPIDEM TARTRATE 5 MG TABLET PO PRN (21:45)
[2023-02-19] MEDS: SODIUM CHLORIDE 0.45% 1,000 ML IV SCH (06:20)
[2023-02-19] MEDS: INSULIN SLIDING SCALE (NOVOLOG) 1 VIAL SQ SCH ×2 (06:20→11:54)
[2023-02-19] MEDS: HEPARIN NA (PORCINE) 5,000 UNITS/ML 1ML VIAL SQ SCH ×2 (06:28→13:18)
[2023-02-19 08:07] LABS: ALBUMIN 2.2 g/dl (3.4-5.0); BLOOD UREA NITROGEN 38.1 mg/dL (7-18)
[2023-02-19 08:08] LABS: TOT PROT 5.8 g/dl (6.4-8.2)
[2023-02-19 08:09] LABS: BILIRUBIN,TOTAL 0.2 mg/dL (0.2-1); CALCIUM 8.4 mg/dL (8.5-10.1)
[2023-02-19] MEDS: INSULIN (NOVOLOG) ASPART 100 UNITS/ML 10ML VIAL SQ SCH ×2 (08:29→12:43)
[2023-02-19] MEDS: AMOX TR/POT CLAV 500MG/125MG TABLETS (FP) PO SCH (08:30)
[2023-02-19] MEDS: traMADol HCL 50 MG TABLET PO PRN (09:09)
[2023-02-19] MEDS: busPIRone HCL 10 MG TABLET (FP) PO SCH (09:10)
[2023-02-19] MEDS: SODIUM ZIRCONIUM CYCLOSILICATE (LOKELMA) 5 GM PACKET PO SCH (09:10)
[2023-02-19] MEDS: amLODIPine BESYLATE 10 MG TABLET (FP) PO SCH (09:10)
[2023-02-19] MEDS: ALPRAZolam 1 MG TABLET PO PRN (09:37)
[2023-02-19] MEDS ORDERED: SODIUM POLYSTYRENE SULFONATE 15 GM/60 ML BOTTLE PO ONE (12:30)
[2023-02-19 15:16] VITALS: BP 141/93; PULSE 92; TEMP 98.8
[2023-02-20] MEDS ORDERED: buPROPion HCL 75 MG TABLET PO SCH (10:00)
[2023-02-22] MEDS ORDERED: ERGOCALCIFEROL (VIT D2) 50,000 UNIT (1.25 MG) CAPSULE PO SCH (10:00)
== END 2023-02-19 15:53 | disposition home or self-care (01) | DRG 364 ==
LOC: JER 08:17 → JERBED 12:03 → J5S 14:41
PROVIDERS: ADMIT Internal Medicine; ATTEND Family Medicine
PROC: 0J9R0ZZ Drainage of Left Foot Subcutaneous Tissue and Fascia, Open Approach (ICD-10-PCS; principal; 2023-02-17)
DX: E11.621 Type 2 diabetes mellitus with foot ulcer (principal); E83.52 Hypercalcemia; E11.51 Type 2 diabetes mellitus with diabetic peripheral angiopathy without gangrene; E11.65 Type 2 diabetes mellitus with hyperglycemia; I12.9 Hypertensive chronic kidney disease with stage 1 through stage 4 chronic kidney disease, or unspecified chronic kidney disease; E11.22 Type 2 diabetes mellitus with diabetic chronic kidney disease; L97.818 Non-pressure chronic ulcer of other part of right lower leg with other specified severity; L97.528 Non-pressure chronic ulcer of other part of left foot with other specified severity; M54.50 Low back pain, unspecified; K21.9 Gastro-esophageal reflux disease without esophagitis; F41.8 Other specified anxiety disorders; E87.5 Hyperkalemia; R80.9 Proteinuria, unspecified; D64.9 Anemia, unspecified; E66.01 Morbid (severe) obesity due to excess calories; Z68.41 Body mass index [BMI] 40.0-44.9, adult; E78.5 Hyperlipidemia, unspecified; N18.30 Chronic kidney disease, stage 3 unspecified; Z89.421 Acquired absence of other right toe(s); Z86.718 Personal history of other venous thrombosis and embolism; Z89.422 Acquired absence of other left toe(s)
CPT/HCPCS: 36415; 71045-TC-FY; 73630-TC-LT; 80048; 80053; 81003; 82010; 82803; 82962; 83735; 84100; 85025; 85027; 85610; 85651; 85730; 86140; 87040; 87070; 87086; 87186; 87205; 93005; 93010; 99285-25; C9803-CS; J1644; U0003; U0005

== ENCOUNTER 2024-01-28 21:02 | Inpatient (IN) | payer OTHER ==
[2024-01-28 21:10] VITALS: BMI 38.0
[2024-01-28 22:29] LABS: BASO % 0.7 % (0-2.0); EOS % 1.7 % (0-4.5); HEMOGLOBIN 14.4 GM/dL (11.7-16.9); LYMPH % 14.9 % (8-40); MCH 29.4 pg (25.7-33.7); MCHC 34.2 g/dl (32.0-35.9); MEAN CELL VOLUME 85.8 fl (80-96); MEAN PLT VOLUME 8.2 fl (7.5-11.1); MONO % 7.3 % (3.8-10.2); NEUT % 75.4 % (42.8-82.8); PLATELET COUNT 232 10^3/uL (134-434); RDW 14.4 % (11.9-15.9); WHITE BLOOD COUNT 8.8 K/mm3 (4.0-10.0)
[2024-01-28 22:38] LABS: INR 1.14 (0.83-1.09); PROTHROMBIN TIME (PATIENT) 13.2 SEC (9.7-13.0)
[2024-01-28] MEDS: SODIUM CHLORIDE 0.9% 500 ML INFUS.BAG IV ONE (22:43)
[2024-01-28 22:44] LABS: POTASSIUM 5.2 mmol/L (3.5-5.1)
[2024-01-28 22:47] LABS: ALBUMIN 2.6 g/dl (3.4-5.0); BLOOD UREA NITROGEN 49.5 mg/dL (7-18)
[2024-01-28 22:50] LABS: CREATININE 4.7 mg/dL (0.55-1.3)
[2024-01-28 22:51] LABS: TOT PROT 6.4 g/dl (6.4-8.2)
[2024-01-28 22:52] LABS: BILIRUBIN,TOTAL 0.2 mg/dL (0.2-1)
[2024-01-28 23:37] LABS: ERYTHROCYTE SEDIMENTATION RATE 48 mm/hr (0-10)
[2024-01-29] MEDS ORDERED: DOCUSATE SODIUM 100 MG CAPSULE (FP) PO PRN (01:50)
[2024-01-29] MEDS: SODIUM CHLORIDE 0.45% 1,000 ML IV SCH (02:53)
[2024-01-29 03:17] LABS: EPI CELLS 3 /uL (0-25.1); HYALINE CASTS 0 /uL (0-3.1); URINE APPEARANCE CLEAR; URINE BACTERIA 7 /uL (0-1359); URINE BILIRUBIN NEGATIVE (NEGATIVE); URINE COLOR YELLOW; URINE GLUCOSE (UA) 3+ (NEGATIVE); URINE KETONE NEGATIVE (NEGATIVE); URINE LEUK ESTERASE NEGATIVE (NEGATIVE); URINE NITRITE NEGATIVE (NEGATIVE); URINE PROTEIN 3+ (NEGATIVE); URINE RBC 11 /uL (0-23.9); URINE UROBILINOGEN 0.2 mg/dL (0.2-1.0); URINE WBC 3 /uL (0-25.8)
[2024-01-29] MEDS: INSULIN ASPART SLIDING SCALE (NOVOLOG) 1 VIAL SQ SCH (06:15)
[2024-01-29 09:16] LABS: HEMATOCRIT 39.6 % (35.4-49); HEMOGLOBIN 13.4 GM/dL (11.7-16.9); MCH 29.4 pg (25.7-33.7); MCHC 33.9 g/dl (32.0-35.9); MEAN CELL VOLUME 86.8 fl (80-96); MEAN PLT VOLUME 8.5 fl (7.5-11.1); PLATELET COUNT 218 10^3/uL (134-434); RBC 4.56 M/mm3 (4.00-5.60); RDW 14.5 % (11.9-15.9); WHITE BLOOD COUNT 9.7 K/mm3 (4.0-10.0)
[2024-01-29 09:22] LABS: POTASSIUM 4.7 mmol/L (3.5-5.1)
[2024-01-29 09:30] LABS: CALCIUM 8.2 mg/dL (8.5-10.1)
[2024-01-29 09:31] LABS: BLOOD UREA NITROGEN 50.2 mg/dL (7-18); MAGNESIUM 1.4 mg/dL (1.8-2.4)
[2024-01-29 09:34] LABS: CREATININE 4.4 mg/dL (0.55-1.3); PHOSPHOROUS 3.8 mg/dL (2.5-4.9)
[2024-01-29 10:27] LABS: ANISOCYTOSIS 0; HELMET CELLS 0; HOWELL-JOLLY BODIES 0; MACROCYTOSIS 0; OVALOCYTE 0; ROULEAU 0; SICKELED CELLS 0; TARGET CELLS 0; TEAR DROP CELLS 0; TOXIC GRANULATION 0
[2024-01-29] MEDS: amLODIPine BESYLATE 10 MG TABLET (FP) PO SCH (11:02)
[2024-01-29] MEDS: DOXYCYCLINE HYCLATE 100 MG CAPSULE PO SCH (11:02)
[2024-01-29] MEDS: ALPRAZolam 0.25 MG TABLET PO PRN (11:23)
[2024-01-29] MEDS: MAGNESIUM SULF 50% (8.12 MEQ/2 ML-1 GM VIAL) IVPB ONE (12:29)
[2024-01-29] MEDS: NICOTINE 21 MG/24 HOURS TOPICAL PATCH TD SCH (12:29)
[2024-01-29] MEDS: INSULIN (LEVEMIR) 100 UNITS/ML UNITS SQ SCH (12:29)
[2024-01-29] MEDS: hydrALAZINE HCL 25 MG TABLET (FP) PO SCH (14:00)
[2024-01-29 14:46] VITALS: RESP 18
[2024-01-29] MEDS: ACETAMINOPHEN 500 MG TABLET (FP) PO PRN (20:15)
[2024-01-29] MEDS: ZOLPIDEM TARTRATE 5 MG TABLET PO PRN (21:02)
[2024-01-29] MEDS: ATORVASTATIN CA 20 MG TABLET (FP) PO SCH (21:02)
[2024-01-30] MEDS: hydrALAZINE HCL 20 MG/ML VIAL IVPB ONE (00:07)
[2024-01-30] MEDS ORDERED: SODIUM CHLORIDE NASAL SPRAY 44 ML BOTTLE NS PRN (01:30)
[2024-01-30 09:39] LABS: HEMATOCRIT 36.8 % (35.4-49); HEMOGLOBIN 12.7 GM/dL (11.7-16.9); MCH 29.6 pg (25.7-33.7); MCHC 34.6 g/dl (32.0-35.9); MEAN CELL VOLUME 85.6 fl (80-96); MEAN PLT VOLUME 8.3 fl (7.5-11.1); PLATELET COUNT 202 10^3/uL (134-434); RDW 14.2 % (11.9-15.9)
[2024-01-30 09:54] LABS: POTASSIUM 4.5 mmol/L (3.5-5.1)
[2024-01-30 09:57] LABS: ALBUMIN 2.4 g/dl (3.4-5.0); BLOOD UREA NITROGEN 43.6 mg/dL (7-18); CALCIUM 7.6 mg/dL (8.5-10.1)
[2024-01-30 10:02] LABS: TOT PROT 5.7 g/dl (6.4-8.2)
[2024-01-30 10:03] LABS: BILIRUBIN,TOTAL 0.2 mg/dL (0.2-1)
[2024-01-30 10:20] LABS: ANISOCYTOSIS 0; HELMET CELLS 0; HOWELL-JOLLY BODIES 0; MACROCYTOSIS 0; OVALOCYTE 0; ROULEAU 0; SICKELED CELLS 0; TARGET CELLS 0; TEAR DROP CELLS 0; TOXIC GRANULATION 0
[2024-01-30] MEDS ORDERED: cefTRIAXone SODIUM 1 GM VIAL ONE (15:47)
[2024-01-30] MEDS: SODIUM CHLORIDE 0.45% 1,000 ML IV SCH (15:50)
[2024-01-30] MEDS: CEFTRIAXONE 1 GM in DEXTROSE 5%-WATER - 50 ML IVPB SCH (15:51)
[2024-01-31 10:20] LABS: POTASSIUM 4.6 mmol/L (3.5-5.1)
[2024-01-31 10:22] LABS: ALBUMIN 2.3 g/dl (3.4-5.0); CALCIUM 8.2 mg/dL (8.5-10.1)
[2024-01-31 10:25] LABS: BLOOD UREA NITROGEN 52.7 mg/dL (7-18)
[2024-01-31 10:27] LABS: BILIRUBIN,TOTAL 0.2 mg/dL (0.2-1); TOT PROT 5.7 g/dl (6.4-8.2)
[2024-02-01 09:29] LABS: HEMATOCRIT 41.3 % (35.4-49); HEMOGLOBIN 13.6 GM/dL (11.7-16.9); MCH 28.9 pg (25.7-33.7); MEAN CELL VOLUME 87.5 fl (80-96); MEAN PLT VOLUME 8.5 fl (7.5-11.1); PLATELET COUNT 247 10^3/uL (134-434); RBC 4.71 M/mm3 (4.00-5.60); RDW 14.4 % (11.9-15.9); WHITE BLOOD COUNT 8.6 K/mm3 (4.0-10.0)
[2024-02-01 09:56] LABS: POTASSIUM 5.1 mmol/L (3.5-5.1)
[2024-02-01 10:02] LABS: CALCIUM 8.5 mg/dL (8.5-10.1)
[2024-02-01 10:06] LABS: ALBUMIN 2.6 g/dl (3.4-5.0); BILIRUBIN,TOTAL 0.3 mg/dL (0.2-1); BLOOD UREA NITROGEN 57.4 mg/dL (7-18); CREATININE 4.1 mg/dL (0.55-1.3); TOT PROT 6.5 g/dl (6.4-8.2)
[2024-02-01 10:37] LABS: ANISOCYTOSIS 1+; MACROCYTOSIS 0
[2024-02-01] MEDS: SODIUM BICARBONATE 650 MG TABLET PO SCH (14:26)
[2024-02-01 15:21] VITALS: BP 145/89; PULSE 91; TEMP 98.3
== END 2024-02-01 16:10 | disposition home or self-care (01) | DRG 380 ==
LOC: JER 21:02 → JERBED 01-29 01:50 → J5S 01-29 04:51 → OBSVTOIN 01-31 15:29
PROVIDERS: ADMIT Student in an Organized Health Care Education/Training Program; ATTEND Internal Medicine
DX: E11.621 Type 2 diabetes mellitus with foot ulcer (principal); L97.529 Non-pressure chronic ulcer of other part of left foot with unspecified severity; E11.51 Type 2 diabetes mellitus with diabetic peripheral angiopathy without gangrene; E11.65 Type 2 diabetes mellitus with hyperglycemia; E78.5 Hyperlipidemia, unspecified; F32.9 Major depressive disorder, single episode, unspecified; D63.1 Anemia in chronic kidney disease; I12.9 Hypertensive chronic kidney disease with stage 1 through stage 4 chronic kidney disease, or unspecified chronic kidney disease; N18.9 Chronic kidney disease, unspecified; E66.9 Obesity, unspecified; Z68.38 Body mass index [BMI] 38.0-38.9, adult; F17.200 Nicotine dependence, unspecified, uncomplicated
CPT/HCPCS: 36415; 73630-TC-LT; 74176-TC; 76775-TC; 80048; 80053; 80061; 81003; 82962; 83036; 83735; 84100; 84443; 85025; 85610; 85651; 86140; 87040; 87086; 99285-25; G0378